=== PATIENT | female | born 1960 | race Caucasian/White ===

== ENCOUNTER → 2016-06-20 | Outpatient (CLI) | payer BC ==
[~2016-06-20] MED LIST: ADVIN25/60 INH; ALL100 PO; APR50 PO; CIPR-255 PO; DILT-119 PO; ERGO1CAP41 PO; ETHA1TAB3 PO; LEVO25TA PO
[2016-06-20 09:46] LABS: HEMATOCRIT 38.4 % (37-47); MEAN CELL VOLUME 91.9 fL (80-100); MEAN CORPUSCULAR HEMOGLOBIN 30.9 pg (25-34); MEAN CORPUSCULAR HGB CONC 33.6 g/dl (32-36); MEAN PLATELET VOLUME 10.8 fL (7.4-10.4); PLATELET COUNT 215 K/uL (130-400); RED BLOOD COUNT 4.18 M/uL (4.2-5.4); URINE APPEARANCE CLEAR (CLEAR); URINE BILIRUBIN NEG (NEG); URINE COLOR YELLOW; URINE NITRITE NEG (NEG); URINE SPECIFIC GRAVITY 1.003 (1.000-1.030); UROBILINOGEN NEG (NEG); WHITE BLOOD COUNT 6.25 K/uL (4.8-10.8)
[2016-06-20 09:51] LABS: MANUAL MICROSCOPIC REQUIRED? NO; REVIEW REQ? NO
[2016-06-20 09:59] LABS: BLOOD UREA NITROGEN 45 mg/dl (7-18); BUN/CREATININE RATIO 18.6 (10-20); CARBON DIOXIDE 25 mmol/L (21-32); CHLORIDE 106 mmol/L (98-107); GLUCOSE 109 mg/dl (70-99); PHOSPHORUS 3.2 mg/dl (2.5-4.9); POTASSIUM 3.8 mmol/L (3.5-5.1); SODIUM 141 mmol/L (136-145)
[2016-06-20 10:23] LABS: URINE PROTIEN/CREAT RATIO 2.9 (0-0.2); URINE TOTAL PROTEIN 78.9 mg/dl (0-11.9)
== END | disposition home or self-care (01) ==
LOC: C.LAB1850 07:11
PROVIDERS: ATTEND Internal Medicine Nephrology
DX: I10 Essential (primary) hypertension (principal); R80.9 Proteinuria, unspecified; E55.9 Vitamin D deficiency, unspecified; E21.3 Hyperparathyroidism, unspecified; N18.4 Chronic kidney disease, stage 4 (severe)

== ENCOUNTER → 2016-12-29 | Outpatient (CLI) | payer BC ==
[2016-12-29 09:47] LABS: HEMATOCRIT 40.2 % (37-47); MEAN CELL VOLUME 91.6 fL (80-100); MEAN CORPUSCULAR HEMOGLOBIN 32.1 pg (25-34); MEAN CORPUSCULAR HGB CONC 35.1 g/dl (32-36); MEAN PLATELET VOLUME 10.7 fL (7.4-10.4); PLATELET COUNT 254 K/uL (130-400); RED BLOOD COUNT 4.39 M/uL (4.2-5.4); WHITE BLOOD COUNT 8.15 K/uL (4.8-10.8)
[2016-12-29 09:59] LABS: URINE APPEARANCE CLEAR (CLEAR); URINE BILIRUBIN NEG (NEG); URINE COLOR YELLOW; URINE NITRITE NEG (NEG); URINE PH 5.5 (4.5-7.5); URINE SPECIFIC GRAVITY 1.014 (1.000-1.030); UROBILINOGEN NEG (NEG)
[2016-12-29 10:05] LABS: MANUAL MICROSCOPIC REQUIRED? NO; REVIEW REQ? NO
[2016-12-29 10:10] LABS: BLOOD UREA NITROGEN 40 mg/dl (7-18); BUN/CREATININE RATIO 15.5 (10-20); CALCIUM 9.7 mg/dl (8.5-10.1); CARBON DIOXIDE 26 mmol/L (21-32); CHLORIDE 105 mmol/L (98-107); GLUCOSE 109 mg/dl (70-99); POTASSIUM 3.8 mmol/L (3.5-5.1); SODIUM 139 mmol/L (136-145)
[2016-12-29 10:11] LABS: PHOSPHORUS 3.2 mg/dl (2.5-4.9)
[2016-12-29 10:15] LABS: URINE PROTIEN/CREAT RATIO 2.5 (0-0.2); URINE TOTAL PROTEIN 148.8 mg/dl (0-11.9)
== END | disposition home or self-care (01) ==
LOC: C.LAB1850 07:14
PROVIDERS: ATTEND Internal Medicine Nephrology
DX: I12.9 Hypertensive chronic kidney disease with stage 1 through stage 4 chronic kidney disease, or unspecified chronic kidney disease (principal); R80.9 Proteinuria, unspecified; E55.9 Vitamin D deficiency, unspecified; E21.3 Hyperparathyroidism, unspecified; N18.4 Chronic kidney disease, stage 4 (severe)

== ENCOUNTER → 2017-03-30 | Outpatient (CLI) | payer BC ==
[~2017-03-30] MED LIST changes: -ERGO1CAP41 PO; +ERGO500011 PO
[2017-03-30 09:33] LABS: MEAN CELL VOLUME 91.9 fL (80-100); MEAN CORPUSCULAR HEMOGLOBIN 31.2 pg (25-34); MEAN CORPUSCULAR HGB CONC 33.9 g/dl (32-36); MEAN PLATELET VOLUME 10.6 fL (7.4-10.4); PLATELET COUNT 235 K/uL (130-400); RED BLOOD COUNT 4.46 M/uL (4.2-5.4); WHITE BLOOD COUNT 7.99 K/uL (4.8-10.8)
[2017-03-30 10:00] LABS: BLOOD UREA NITROGEN 49 mg/dl (7-18); CARBON DIOXIDE 22 mmol/L (21-32); CHLORIDE 107 mmol/L (98-107); CREATININE 2.46 mg/dl (0.60-1.20); GLUCOSE 107 mg/dl (70-99); POTASSIUM 3.8 mmol/L (3.5-5.1); SODIUM 139 mmol/L (136-145)
[2017-03-30 10:01] LABS: PHOSPHORUS 3.8 mg/dl (2.5-4.9)
[2017-03-30 10:07] LABS: URINE APPEARANCE CLOUDY (CLEAR); URINE BILIRUBIN NEG (NEG); URINE COLOR YELLOW; URINE EPITHELIAL CELL AUTO >30 /lpf (0-5); URINE NITRITE NEG (NEG); URINE SPECIFIC GRAVITY 1.015 (1.000-1.030); UROBILINOGEN NEG (NEG)
[2017-03-30 10:09] LABS: MANUAL MICROSCOPIC REQUIRED? NO; REVIEW REQ? NO
[2017-03-30 10:15] LABS: CREATININE, URINE 69.5 mg/dl; URINE PROTIEN/CREAT RATIO 2.4 (0-0.2); URINE TOTAL PROTEIN 163.5 mg/dl (0-11.9)
== END | disposition home or self-care (01) ==
LOC: C.LAB1850 07:14
PROVIDERS: ATTEND Internal Medicine Nephrology
DX: I12.9 Hypertensive chronic kidney disease with stage 1 through stage 4 chronic kidney disease, or unspecified chronic kidney disease (principal); R80.9 Proteinuria, unspecified; N18.4 Chronic kidney disease, stage 4 (severe); E55.9 Vitamin D deficiency, unspecified

== ENCOUNTER → 2017-07-28 | Outpatient (CLI) | payer BC ==
[2017-07-28 09:44] LABS: HEMOGLOBIN 13.3 g/dL (12.0-16.0); MEAN CELL VOLUME 91.5 fL (80-100); MEAN CORPUSCULAR HEMOGLOBIN 31.2 pg (25-34); MEAN CORPUSCULAR HGB CONC 34.1 g/dl (32-36); MEAN PLATELET VOLUME 10.8 fL (7.4-10.4); PLATELET COUNT 235 K/uL (130-400); RED CELL DISTRIBUTION WIDTH CV 13.4 % (11.5-14.5); RED CELL DISTRIBUTION WIDTH SD 44.3 fL (36.4-46.3); WHITE BLOOD COUNT 7.12 K/uL (4.8-10.8)
[2017-07-28 10:05] LABS: ALBUMIN 3.6 gm/dl (3.4-5.0); BLOOD UREA NITROGEN 47 mg/dl (7-18); CALCIUM 9.1 mg/dl (8.5-10.1); CARBON DIOXIDE 21 mmol/L (21-32); CREATININE 2.65 mg/dl (0.60-1.20); GLUCOSE 95 mg/dl (70-99); PHOSPHORUS 3.9 mg/dl (2.5-4.9); POTASSIUM 3.9 mmol/L (3.5-5.1); SODIUM 137 mmol/L (136-145)
== END | disposition home or self-care (01) ==
LOC: C.LAB1850 07:16
PROVIDERS: ATTEND Internal Medicine Nephrology
DX: I12.9 Hypertensive chronic kidney disease with stage 1 through stage 4 chronic kidney disease, or unspecified chronic kidney disease (principal); R80.9 Proteinuria, unspecified; E55.9 Vitamin D deficiency, unspecified; N18.4 Chronic kidney disease, stage 4 (severe)

== ENCOUNTER → 2017-12-02 | Outpatient (CLI) | payer BC ==
[2017-12-02 09:58] LABS: HEMATOCRIT 35.7 % (37-47); HEMOGLOBIN 11.9 g/dL (12.0-16.0); MEAN CORPUSCULAR HEMOGLOBIN 30.7 pg (25-34); MEAN CORPUSCULAR HGB CONC 33.3 g/dl (32-36); MEAN PLATELET VOLUME 10.6 fL (7.4-10.4); PLATELET COUNT 237 K/uL (130-400); RED CELL DISTRIBUTION WIDTH CV 13.3 % (11.5-14.5); RED CELL DISTRIBUTION WIDTH SD 44.3 fL (36.4-46.3); WHITE BLOOD COUNT 6.53 K/uL (4.8-10.8)
[2017-12-02 10:33] LABS: ALBUMIN 3.6 gm/dl (3.4-5.0); BLOOD UREA NITROGEN 47 mg/dl (7-18); CALCIUM 9.1 mg/dl (8.5-10.1); CARBON DIOXIDE 22 mmol/L (21-32); CREATININE 2.49 mg/dl (0.60-1.20); GLUCOSE 92 mg/dl (70-99); PHOSPHORUS 3.5 mg/dl (2.5-4.9); POTASSIUM 3.7 mmol/L (3.5-5.1); SODIUM 138 mmol/L (136-145)
== END | disposition home or self-care (01) ==
LOC: C.LAB1850 07:06
PROVIDERS: ATTEND Internal Medicine Nephrology
DX: I12.9 Hypertensive chronic kidney disease with stage 1 through stage 4 chronic kidney disease, or unspecified chronic kidney disease (principal); N18.4 Chronic kidney disease, stage 4 (severe); R80.9 Proteinuria, unspecified; E21.3 Hyperparathyroidism, unspecified; E55.9 Vitamin D deficiency, unspecified

== ENCOUNTER 2019-03-24 16:59 | Inpatient (IN) ==
--- NOTE | 2019-03-24 17:52 | XRay Report ---
SINGLE VIEW CHEST CLINICAL HISTORY: Dyspnea. FINDINGS: An AP, portable, upright chest radiograph is compared to study dated 07/20/2018. The heart is enlarged. There is pulmonary vascular congestion. Trace pleural effusions are noted with bibasilar a telectasis. No pneumothorax is seen. The skeletal structures are osteopenic. The bony thorax is gross ly intact. IMPRESSION: 1. Cardiomegaly with evidence of mild congestive failure. 2. Trace pleural effusions. Electronically signed by: Oscar Way M.D. 03/24/2019 5:50 PM
[2019-03-24 19:01] LABS: Partial Thromboplastin Ratio 0.7; Partial Thromboplastin Time < 20.0 Seconds (21.0-31.0); Prothrombin Time 10.5 Seconds (9.0-12.0)
[2019-03-24 19:02] LABS: Alanine Aminotransferase 53 U/L (12-78); Albumin Level 3.3 gm/dl (3.4-5.0); Aspartate Aminotransferase 14 U/L (15-37); BUN Creatinine Ratio 31.2 (10-20); Blood Urea Nitrogen 107 mg/dl (7-18); Calcium 8.9 mg/dl (8.5-10.1); Carbon Dioxide 20 mmol/L (21-32); Chloride 108 mmol/L (98-107); Creatinine Clr Calc Pharmacy 20.1 ml/min; Est GFR (African American) 16.4; Est GFR (Non-African American) 14.2; Glucose 159 mg/dl (70-99); Potassium 4.4 mmol/L (3.5-5.1); Sodium 138 mmol/L (136-145)
[2019-03-24 19:06] LABS: Albumin Globulin Ratio 1.1 (0.9-2); Alkaline Phosphatase 70 U/L (45-117); Bilirubin,Total 0.4 mg/dl (0.2-1); NT Pro B Type Natriuretic Pept 4232 pg/ml (0-900); Total Protein 6.3 gm/dl (6.4-8.2); Troponin I < 0.015 ng/ml (0-0.045)
[2019-03-24] MEDS ORDERED: HydrALAZINE TAB 50 MG TAB PO STA (19:19)
[2019-03-24] MEDS ORDERED: FUROSEMIDE 40 MG/4 ML VIAL IV STA (19:20)
[2019-03-24 19:21] LABS: Influenza A virus by PCR Neg for Influ A (Neg); Influenza B virus by PCR Neg for Influ B (Neg)
[2019-03-24 19:29] LABS: Hematocrit (blood only) 32.1 % (37-47); Hemoglobin 10.8 g/dL (12.0-16.0); Immature Granulocytes # (auto) 0.03 K/uL (0.00-0.02); Immature Granulocytes % (auto) 0.3 %; Lymphocytes # (auto) 0.15 K/uL (1.2-3.4); Lymphocytes % (auto) 1.3 %; Mean Corpuscular Hemoglobin 30.9 pg (25-34); Mean Corpuscular Hgb Conc 33.6 g/dL (32-36); Mean Corpuscular Volume 91.7 fL (80-100); Mean Platelet Volume 10.2 fL (7.4-10.4); Monocytes # (auto) 0.16 K/uL (0.11-0.59); Monocytes % (auto) 1.4 %; Neutrophils # (auto) 10.85 K/uL (1.4-6.5); Platelet Count 96 K/uL (130-400); Platelet Estimate Decreased (Normal); RDW Coefficient of Variation 15.9 % (11.5-14.5); RDW Standard Deviation 52.5 fL (36.4-46.3); White Blood Count 11.19 K/uL (4.8-10.8)
--- NOTE | 2019-03-24 19:39 | History & Physical Report ---
Date of Service March 24, 2019 Assessment & Plan (1) CHF (congestive heart failure): This is a 58-year-old female with a significant past medical history of subacute hypersensitivity pneumonitis, CKD stage V with AV fistula in place secondary to atrophic left kidney, HTN, HLD, hypothyroidism, anemia of chronic disease, JAVED on CPAP, gout, history of angioedema with BRITTANI inhibitor, pseudotumor cerebri, secondary hyperparathyroidism who presents to [facility] ED secondary to shortness of breath and lower extremity swelling x1.5 days. She was seen by PCP in outpatient setting today and was referred to ED for further evaluation secondary to chest x-ray revealing pulmonary vascular congestion and abnormal lab work. In ED chest x-ray revealed cardiomegaly with evidence of mild CHF, trace pleural effusion. proBNP elevated 4232 (last on 01/07/2019 1382), H&H 10.8 and 32.1, WBC 11.19, platelet 96, BUN 107, creatinine 3.43, glucose 159. Troponin WNL, influenza negative. EKG revealed 85 bpm with normal sinus rhythm. Acute congestive heart failure likely secondary to high dose steroid Admit to PCU given Lasix 40mg x 1 in ED - monitor response Hydralazine 50mg x 1 now consult nephrology - defer to them for further diuretic dosing based on response and follow up labs in a.m. obtain echocardiogram due to CHF and new onset murmur ( last had stress echo 10/2018 WNL EF 60-64%, no diastolic dysfunction) heart healthy, low sodium diet, FR 1500ml daily weights, strict I and O continue prednisone for now - will need to consult with [facility] in a.m. (2) Thrombocytopenia: Patient with complaints of increased bruising since being started on prednisone Platelet count 96 today, most previously 12/2018 234 Defer to nephro given CKD (3) Hyperglycemia: Blood glucose on admission 159, nonfasting Obtain fasting blood glucose in a.m. along with A1c Likely in setting of prednisone use (4) Chronic kidney disease, stage V: BUN/creatinine 107 and 3.43 Baseline creatinine 3.3-3.6 Has left AV fistula in place, but not currently on dialysis [facility] -follows Dr. Corona repeat bmp in a.m. monitor given diuresis (5) Interstitial lung disease: recent dx subacute HP Currently on 60mg prednisone by [facility] Boss - Dr. Mcrae on 03/02/19 Pred taper ( 60mg daily x 1 month, 50mg daily x 1 month, 40mg daily x 1 month then 30mg daily) will need to discuss with [facility] [place] [place] Mcrae regarding current prednisone use/acute CHF (6) Hypertension: BP 167/80 in ED On Hydralazine, Diltiazem as outpt pt due for hydralazine, give 50mg x 1 now monitor (7) DVT prophylaxis: SCD/TEDS no chemical prophylaxis for now due to new onset thrombocytopenia Disposition: admit to PCU Follow up: PCP Dr. Salamanca upon discharge Patient was seen and examined in collaboration with Dr. Aguero, please see addendum History of Present Illness Chief Complaint: Shortness of breath and increased lower extremity swelling x1.5 days. Primary Care Provider: Kenton Salamanca MD This is a 58-year-old female with a significant past medical history of subacute hypersensitivity pneumonitis, CKD stage V with AV fistula in place secondary to atrophic left kidney, HTN, HLD, hypothyroidism, anemia of chronic disease, JAVED on CPAP, gout, history of angioedema with BRITTANI inhibitor, pseudotumor cerebri, secondary hyperparathyroidism who presents to [facility] ED secondary to shortness of breath and lower extremity swelling x1.5 days. Of significance [facility] 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 She followed up with pulmonology on 03/02/2019 secondary to continued shortness of breath and cough. Because of this she was placed on high-dose steroid taper at 60 mg daily x1 month to taper down by 10 mg each month until follow-up. Approximately 2 weeks ago she noted a 5 pound weight gain. Over the past 5 days she has also had an additional 5 pound weight gain for a total of 10 pounds. Over the past 1.5 to 2 days she has noted a significant increase in shortness of breath with even minimal exertion including standing up, dry cough and lower extremity swelling. She denies any recent illness except for Thrush in which she has been taking clotrimazole troches for 8 days. She denies fever, chills, sweats, lightheadedness, dizziness, syncope, headache, URI symptoms, chest pain, shortness breath at rest, hemoptysis, nausea, vomiting, abdominal pain, dysuria, increased urgency frequency with urination, hematuria, melena, hematochezia. Her bowel habits have been more loose lately secondary to taking magnesium supplementation due to left hand cramping. She was seen by PCP in outpatient setting today and was referred to ED for further evaluation secondary to chest x-ray revealing pulmonary vascular congestion and abnormal lab work. In ED chest x-ray revealed cardiomegaly with evidence of mild CHF, trace pleural effusion. proBNP elevated 4232 (last on 01/07/2019 1382), H&H 10.8 and 32.1, WBC 11.19, platelet 96, BUN 107, creatinine 3.43, glucose 159. Troponin WNL, influenza negative. EKG revealed 85 bpm with normal sinus rhythm. Case Discussed with ED provider. Supplemental records reviewed in EPIC. Allergies Allergy/AdvReac Type Severity Reaction Status Date / Time spironolactone Allergy Intermediate LIP Verified 03/24/19 18:21 SWELLING, COUGH nitrofurantoin Allergy Unknown Hives Verified 03/24/19 18:21 Sulfa (Sulfonamide Allergy Unknown hives- Verified 03/24/19 18:21 Antibiotics) anaphylaxis adhesive tape Allergy Redness of Verified 03/24/19 20:38 Skin sertraline Allergy Unknown Verified 03/24/19 20:38 BRITTANI Inhibitors AdvReac Unknown SWELLING, Verified 03/24/19 18:21 COUGHING benazepril AdvReac Cough Verified 03/24/19 21:01 Home Medications Home Medications Medication Instructions Recorded Confirmed Type allopurinol 100 mg PO QAM 07/09/18 03/24/19 History atorvastatin 20 mg PO QAM 07/09/18 03/24/19 History diltiazem HCl 360 mg PO QAM 07/09/18 03/24/19 History ethacrynic acid [Edecrin] 50 mg PO BID 07/09/18 03/24/19 History hydralazine 50 mg PO TIDM 07/09/18 03/24/19 History levothyroxine 75 mcg tablet 37.5 mcg PO QAM #30 tab 12/09/18 03/24/19 Rx fluticasone propionate-salmeterol 2 puff INHALATION BID gm 12/10/18 03/24/19 History 230 mcg-21 mcg/actuation HFA inhaler albuterol sulfate 90 mcg/actuation 2 puffs INH Q4H PRN 02/23/19 03/24/19 History aerosol inhaler clotrimazole 10 mg PO 5XD 03/24/19 03/24/19 History magnesium carbonate 0 mg PO DAILY PRN 03/24/19 03/24/19 History prednisone 60 mg PO DAILY 03/24/19 03/24/19 History Past Med/Surg History Medical History (Updated 03/24/19 @ 19:55 by Tete Tinoco PA-C) Asthma Chronic kidney disease, stage V (Chronic) Congenital renal atrophy History of colon polyps Hyperlipidemia Hypertension (Chronic) Hypothyroidism Interstitial lung disease 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 [facility] [place] Proteinuria (Chronic) Sleep apnea Vitamin D deficiency (Chronic) Surgical History (Updated 03/24/19 @ 19:42 by Tete Tinoco PA-C) Arteriovenous fistula LEFT ARM AVF: 07/27/18: MAC SEDATION AT [facility] History of cardiac cath 16 YEARS AGO= NO STENTS History of cholecystectomy History of lung biopsy 02/14/2019 THORACOCSOCPY W/ INFILTRATE BIOPSY performed by Trevon Torres MD at [facility] Hx of dilation and curettage Family History (Updated 03/24/19 @ 19:42 by Tete Tinoco PA-C) Grandmother (Paternal) Family history of diabetes mellitus Uncle Family history of diabetes mellitus Father Cancer LUNG Mother Cancer renal cell ca Social History (Updated 03/24/19 @ 19:43 by Tete Tinoco PA-C) Preferred Language: Chadian Communication Ability: Effective Subsurface Augmentee Elint Operator Required: Yes and No Beliefs That Will Affect Care: None marital status: Current Living Situation: Spouse and Family current occupational status: employed Other Information That Helps Us Care for You: No Feels Safe at Home: Yes Safety Concerns: Feels Safe At This Time Smoking Status: Never smoker Second Hand Exposure: Yes ; Hx Alcohol Use: No Hx Substance Use: No Review of Systems Review of Systems: All systems reviewed & are unremarkable except as noted in HPI & below Physical Exam Physical Exam: Constitutional: WD/WN, vitals as above, NAD, sitting up in bed, pleasant, conversing easily Head: Normocephalic, Atraumatic Eyes: PERRL, conjunctivae normal, anicteric sclerae ENMT: external ear and nose normal, oropharynx normal - no thrush present Neck: trachea midline, no thyromegaly normal visual inspection Respiratory: normal respiratory effort, lungs clear to auscultation, no wheeze, rales, rhonchi. Normal insp/exp effort, no accessory muscle use Cardiovascular: RRR, 2/6 holosystolic murmur noted throughout precordium best RUSB, b/l pitting edema +1 Vessels: no JVD or carotid bruit Chest: normal inspection of chest Abdomen: normal bowel sounds, soft, nontender, no hepatosplenomegaly Musculoskeletal: no cyanosis or clubbing, extremities motor strength 5/5 Skin: no rashes, warm and dry normal turgor Neurologic: PERRL, EOMI, accommodation nl, no face palsy, no dysarthria CN's II-XI intact bilaterally and moves all extremities Psychiatric: A+Ox3, euthymic affect Lymphatic: no cervical or axillary lymphadenopathy : deferred Results & Data Vital Signs (Past 12 Hours) Vital Signs Temp Pulse Resp BP Pulse Ox 03/24/19 18:56 96 03/24/19 17:24 36.6 C 93 H 24 167/80 H 96 Laboratory Results Short CBC 03/24/19 Range/Units 18:23 WBC 11.19 H (4.8-10.8) K/uL Hgb 10.8 L (12.0-16.0) g/dL Hct 32.1 L (37-47) % Plt Count 96 L (130-400) K/uL BMP 03/24/19 18:23 Sodium 138 Potassium 4.4 Chloride 108 H Carbon Dioxide 20 L BUN 107 H Creatinine 3.43 H Glucose 159 H Calcium 8.9 Cardiac Enzymes 03/24/19 Range/Units 18:23 Troponin I < 0.015 (0-0.045) ng/ml Liver Function 03/24/19 Range/Units 18:23 Total Bilirubin 0.4 (0.2-1) mg/dl AST 14 L (15-37) U/L ALT 53 (12-78) U/L Alkaline Phosphatase 70 (45-117) U/L Albumin 3.3 L (3.4-5.0) gm/dl Diagnostic Findings CXR: IMPRESSION: 1. Cardiomegaly with evidence of mild congestive failure. 2. Trace pleural effusions. Medications Administered Discontinued Medications Furosemide (Lasix) 40 mg IV NOW STA Stop: 03/24/19 19:21 Last Admin: 03/24/19 19:31 Dose: 40 mg Documented by: [id number] ECG Rate (beats per minute): 85 Rhythm: normal sinus Code Status & VTE Plan Code Status Full Code VTE Prophylaxis Plan VTE Prophylaxis will be ordered: Yes Reason for no VTE drug order: Contraindicated (new onset thrombocytopenia) Supervising Physician Co-Signing Physician Notes I have seen and examined the patient and have discussed the case with the provider above. I agree with the assessment and plan as stated with the following exceptions. 58 yo F with CKD IV who is planned for a transplant from a live donor, deferred to treat her recent diagnosis of hypersensitivity pneumonitis with a course of high dose steroids. She started 60mg mid-Nov and states she was feeling well up until 2 days ago when she developed acute shortness of breath, a dry cough and swelling. She denies infectious symptoms but does have evidence of a possible UTI. She has clear lungs to auscultation and is not dyspneic at rest. She has no JVD or pitting edema. Abdomen is soft and nontender without distension. She does have a new concerning murmur in the setting of symptoms that is a harsh 3/6 ARAMIS, S1 and S2 are heard. A pericardial friction rub is also appreciated. she is not hypoxic and doesn't exhibit conversational dyspnea or orthopnea. Reports weight gain as above. Possible etiologies for symptoms include but are not limited to acute heart failure 2/2 steroid use vs acute valvulopathy, ecchymosis 2/2 uremic platelet dysfunction vs thrombocytopenia. Echo first thing in am. Nephro consulted. She responded wel l to the diuretics with a 3lb weight loss. Cont daily weights, low Na diet and fluid restriction. Rocephin pending urine culture. DO Laci (1) CHF (congestive heart failure) Heart failure chronicity: unspecified Heart failure type: unspecified Qualified Code(s): I50.9 - Heart failure, unspecified
[2019-03-24 19:56] LABS: Magnesium 2.3 mg/dl (1.8-2.4)
--- NOTE | 2019-03-24 19:56 | Emergency Department Note ---
Entered by Griselda Caba acting as a scribe for History of Present Illness General Chief complaint: Referred by Doctor Stated complaint: FILLING WITH FLUID - SENT BY DR DONNA FARMER Source: patient History of Present Illness Onset (ago): day(s) (today) Location: abdomen and lower extremity Pain Consistency: + other (episode) Quality: + other (referral by a doctor) Exacerbated By: + movement (exertion) Associated symptoms: + cough, + shortness of breath and + other (leg swelling, weight gain, rhinorrhea, sore throat, bruising) The patient is a 58 year old female who presents to the Emergency Room with complaints of an episode of a referral by a doctor occurring today. The patient states that she has ESRD, but is not on dialysis yet. She states that she does have a fistula already placed. She reports that 3 weeks ago she was diagnosed with an issue with her lungs. She states that they started her on a Prednisone taper, but is currently been on only 60 mg since starting. She reports that over the last 2 weeks she has had increased leg swelling and put on 10 lbs. She reports that 4 days ago she started having a cough and rhinorrhea. She states that she started having shortness of breath over the last 2 days with exertion as well. She reports that she went to her PCP today who did x-rays and blood work, but called her after she left to come to the ED to be admitted. The patient notes that she was also diagnosed with thrush 8 days ago by her dentist. The patient complains of increased bruising and a sore throat. Home Medications Home Medications Medication Instructions Recorded Confirmed Type allopurinol 100 mg PO QAM 07/09/18 03/24/19 History atorvastatin 20 mg PO QAM 07/09/18 03/24/19 History diltiazem HCl 360 mg PO QAM 07/09/18 03/24/19 History ethacrynic acid [Edecrin] 50 mg PO BID 07/09/18 03/24/19 History hydralazine 50 mg PO TIDM 07/09/18 03/24/19 History levothyroxine 75 mcg tablet 37.5 mcg PO QAM #30 tab 12/09/18 03/24/19 Rx fluticasone propionate-salmeterol 2 puff INHALATION BID gm 12/10/18 03/24/19 History 230 mcg-21 mcg/actuation HFA inhaler albuterol sulfate 90 mcg/actuation 2 puffs INH Q4H PRN gm 02/23/19 03/24/19 History aerosol inhaler clotrimazole 10 mg PO 5XD 03/24/19 03/24/19 History magnesium carbonate 0 mg PO DAILY PRN 03/24/19 03/24/19 History prednisone 60 mg PO DAILY 03/24/19 03/24/19 History Allergies Allergy/AdvReac Type Severity Reaction Status Date / Time spironolactone Allergy Intermediate LIP Verified 03/24/19 18:21 SWELLING, COUGH nitrofurantoin Allergy Unknown Hives Verified 03/24/19 18:21 Sulfa (Sulfonamide Allergy Unknown hives- Verified 03/24/19 18:21 Antibiotics) anaphylaxis benazepril Allergy Verified 03/24/19 18:21 sertraline Allergy Verified 03/24/19 18:21 BRITTANI Inhibitors AdvReac Unknown SWELLING, Verified 03/24/19 18:21 COUGHING Past Med/Surg History Medical History (Updated 03/24/19 @ 19:55 by Tete Tinoco PA-C) Asthma Chronic kidney disease, stage V (Chronic) Congenital renal atrophy History of colon polyps Hyperlipidemia Hypertension (Chronic) Hypothyroidism Interstitial lung disease 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 [facility] Proteinuria (Chronic) Sleep apnea Vitamin D deficiency (Chronic) Surgical History (Updated 03/24/19 @ 19:42 by Tete Tinoco PA-C) Arteriovenous fistula LEFT ARM AVF: 07/27/18: MAC SEDATION AT [facility] History of cardiac cath 16 YEARS AGO= NO STENTS History of cholecystectomy History of lung biopsy 02/14/2019 THORACOCSOCPY W/ INFILTRATE BIOPSY performed by Trevon Torres MD at [place] [facility] [place] Hx of dilation and curettage Family History (Updated 03/24/19 @ 19:42 by Tete Tinoco PA-C) Grandmother (Paternal) Family history of diabetes mellitus Uncle Family history of diabetes mellitus Father Cancer LUNG Mother Cancer renal cell ca Social History (Updated 03/24/19 @ 19:43 by Tete Tinoco PA-C) Preferred Language: Swedish Communication Ability: Effective 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 and A total of 10 systems reviewed and were otherwise negative Physical Exam Vital Signs Vital Signs - 24 hr 03/24/19 17:24 03/24/19 18:56 03/24/19 19:32 Temperature 36.6 C Temperature Source Oral Pulse Rate 93 H Pulse Rate [Apical] 91 H Respiratory Rate 24 18 Respiratory Effort / Characteristics Non-Labored Respiratory Depth Normal Blood Pressure 167/80 H Blood Pressure [Right Arm] 150/79 H Blood Pressure Mean 109 Blood Pressure Mean [Right Arm] 102 Pulse Oximetry 96 96 93 Oxygen Delivery Method Room Air Room Air Room Air Sepsis Recent Fever Within 48 Hours No Sepsis New/Unexplained Change in Mental Status No Sepsis Action Taken by Nursing No Action Required GENERAL: sitting up in bed, disheveled, nontoxic EYE EXAM: normal conjunctiva OROPHARYNX: no exudate, no erythema, lips, buccal mucosa, and tongue normal and mucous membranes are moist NECK: supple, no nuchal rigidity, no adenopathy, non-tender LUNGS: Clear to auscultation. Normal chest wall mechanics HEART: no murmurs, S1 normal and S2 normal ABDOMEN: abdomen soft, non-tender, normo-active bowel sounds, no masses, no rebound or guarding. BACK: Back is symmetrical on inspection and there is no deformity, no midline tenderness, no CVA tenderness. SKIN: no rashes and no bruising UPPER EXTREMITIES: upper extremities are grossly normal. Fistula in left AC. LOWER EXTREMITIES: Bilateral pitting edema. NEURO EXAM: Normal sensorium, cranial nerves II-XII grossly intact, normal speech, no gross weakness of arms, no gross weakness of legs. Course Course ED COURSE: Vital signs were reviewed and showed hypertension. The patients medical record was reviewed The above diagnostic studies were performed and reviewed. ED treatments and interventions as stated above. 1731: The patient was evaluated in room C9. A complete history and physical examination was performed. 1810: Upon reevaluation, the patient is yelling and screaming in the room. She states that she doesn't want blood work or an IV. I expressed to her that if she wants to be direct admitted her doctor could put those orders in, but they did not and sent her to the ED. I told her that to be admitted she needed to complete the blood work and have the IV. I discussed my findings with the patient and she understands and agrees with the treatment plan. Based on the patients age, coexisting illnesses, exam and lab findings the decision to treat as an inpatient was made. The patient remained stable while under my care. The patient will be evaluated for further management. 1815: I discussed the patient's case with Tete Tinoco PA-C -[facility] Hospitalist. She will evaluate the patient under Dr. Aguero's service for further management. Administered Medications Discontinued Medications Furosemide (Lasix) 40 mg IV NOW STA Stop: 03/24/19 19:21 Last Admin: 03/24/19 19:31 Dose: 40 mg Documented by: [id number] Hydralazine HCl (Apresoline) 50 mg PO NOW STA Stop: 03/24/19 19:20 Last Admin: 03/24/19 19:47 Dose: 50 mg Documented by: [id number] Medical Decision Making Differential Diagnosis Differential diagnoses includes but is not limited to pneumonia, bronchitis, COPD/Asthma exacerbation, pneumothorax, pulmonary embolism, congestive heart failure, acute coronary syndrome. Medical Records Attestation: I reviewed the patient's medical records. Home Medications Current Medication List: was personally reviewed by me Laboratory Data Attestation: I reviewed the patient's lab results. Result diagrams: 03/24/19 18:23 03/24/19 18:23 Lab Results 03/24/19 03/24/19 03/24/19 Range/Units 18:23 18:23 18:23 WBC 11.19 H (4.8-10.8) K/uL RBC 3.50 L (4.2-5.4) M/uL Hgb 10.8 L (12.0-16.0) g/dL Hct 32.1 L (37-47) % MCV 91.7 (80-100) fL MCH 30.9 (25-34) pg MCHC 33.6 (32-36) g/dL RDW Std Deviation 52.5 H (36.4-46.3) fL RDW Coeff of Grover 15.9 H (11.5-14.5) % Plt Count 96 L (130-400) K/uL MPV 10.2 (7.4-10.4) fL Immature Gran % (Auto) 0.3 % Neut % (Auto) 97.0 % Lymph % (Auto) 1.3 % [place] % (Auto) 1.4 % Eos % (Auto) 0.0 % Baso % (Auto) 0.0 % Immature Gran # (Auto) 0.03 H (0.00-0.02) K/uL Neut # (Auto) 10.85 H (1.4-6.5) K/uL Lymph # (Auto) 0.15 L (1.2-3.4) K/uL [place] # (Auto) 0.16 (0.11-0.59) K/uL Eos # (Auto) 0.00 (0-0.5) K/uL Baso # (Auto) 0.00 (0-0.2) K/uL Platelet Estimate Decreased L (Normal) PT 10.5 (9.0-12.0) Seconds INR 1.0 (0.9-1.1) APTT < 20.0 L (21.0-31.0) Seconds PTT Ratio 0.7 Sodium 138 (136-145) mmol/L Potassium 4.4 (3.5-5.1) mmol/L Chloride 108 H (98-107) mmol/L Carbon Dioxide 20 L (21-32) mmol/L Anion Gap 10.0 (3-11) BUN 107 H (7-18) mg/dl Creatinine 3.43 H (0.6-1.2) mg/dl Est Cr Clr Drug Dosing 20.1 ml/min Est GFR ( Amer) 16.4 Est GFR (Non-Af Amer) 14.2 BUN/Creatinine Ratio 31.2 H (10-20) Glucose 159 H (70-99) mg/dl Calcium 8.9 (8.5-10.1) mg/dl Total Bilirubin 0.4 (0.2-1) mg/dl AST 14 L (15-37) U/L ALT 53 (12-78) U/L Alkaline Phosphatase 70 (45-117) U/L Troponin I < 0.015 (0-0.045) ng/ml NT-Pro-B Natriuret Pep 4232 H (0-900) pg/ml Total Protein 6.3 L (6.4-8.2) gm/dl Albumin 3.3 L (3.4-5.0) gm/dl Globulin 3.0 (2.5-4.0) gm/dl Albumin/Globulin Ratio 1.1 (0.9-2) Influenza Type A (PCR) (Neg) Influenza Type B (PCR) (Neg) 03/24/19 Range/Units 18:24 WBC (4.8-10.8) K/uL RBC (4.2-5.4) M/uL Hgb (12.0-16.0) g/dL Hct (37-47) % MCV (80-100) fL MCH (25-34) pg MCHC (32-36) g/dL RDW Std Deviation (36.4-46.3) fL RDW Coeff of Grover (11.5-14.5) % Plt Count (130-400) K/uL MPV (7.4-10.4) fL Immature Gran % (Auto) % Neut % (Auto) % Lymph % (Auto) % [place] % (Auto) % Eos % (Auto) % Baso % (Auto) % Immature Gran # (Auto) (0.00-0.02) K/uL Neut # (Auto) (1.4-6.5) K/uL Lymph # (Auto) (1.2-3.4) K/uL [place] # (Auto) (0.11-0.59) K/uL Eos # (Auto) (0-0.5) K/uL Baso # (Auto) (0-0.2) K/uL Platelet Estimate (Normal) PT (9.0-12.0) Seconds INR (0.9-1.1) APTT (21.0-31.0) Seconds PTT Ratio Sodium (136-145) mmol/L Potassium (3.5-5.1) mmol/L Chloride (98-107) mmol/L Carbon Dioxide (21-32) mmol/L Anion Gap (3-11) BUN (7-18) mg/dl Creatinine (0.6-1.2) mg/dl Est Cr Clr Drug Dosing ml/min Est GFR ( Amer) Est GFR (Non-Af Amer) BUN/Creatinine Ratio (10-20) Glucose (70-99) mg/dl Calcium (8.5-10.1) mg/dl Total Bilirubin (0.2-1) mg/dl AST (15-37) U/L ALT (12-78) U/L Alkaline Phosphatase (45-117) U/L Troponin I (0-0.045) ng/ml NT-Pro-B Natriuret Pep (0-900) pg/ml Total Protein (6.4-8.2) gm/dl Albumin (3.4-5.0) gm/dl Globulin (2.5-4.0) gm/dl Albumin/Globulin Ratio (0.9-2) Influenza Type A (PCR) Neg for Influ A (Neg) Influenza Type B (PCR) Neg for Influ B (Neg) Imaging Data Radiologist's Impression: Radiology results as stated below per my review and the radiologist's interpretation: SINGLE VIEW CHEST CLINICAL HISTORY: Dyspnea. FINDINGS: An AP, portable, upright chest radiograph is compared to study dated 07/20/2018. The heart is enlarged. There is pulmonary vascular congestion. Trace pleural effusions are noted with bibasilar atelectasis. No pneumothorax is seen. The skeletal structures are osteopenic. The bony thorax is grossly intact. IMPRESSION: 1. Cardiomegaly with evidence of mild congestive failure. 2. Trace pleural effusions. Electronically signed by: Oscar Way M.D. 03/24/2019 5:50 PM ECG Data Attestation: I personally reviewed and interpreted this ECG as follows: Indication: + SOB/dyspnea Rate (beats per minute): 85 Rhythm: + sinus rhythm ECG Intervals/blocks: + Normal QT-c ECG Dows: + Normal ECG Findings: no PVCs Blood Pressure Blood Pressure Findings: Elevated blood pressure Blood Pressure Disposition: Referred to patients primary care provider [facility] Narrative Patient is a 58-year-old female who presents the ER referred in by her PCP for admission for shortness of breath question pneumonia versus CHF. Patient was initially seen and examined and I recommended blood work and IV for further e valuation as some labs such as the BNP was not back in bttner system and I did not see a troponin. On my reevaluation she had told nursing that she did not want an IV or any blood work. I informed her that we need an IV if we are going to admit her to the hospital and we need her own blood work here. She proceeded to yell and scream and note that she was sent here to be direct admitted. I let her finish her yelling and then politely explained to her that if her physician wanted her to be directly admitted they would have placed those orders in with a sent her to the floor where she would have had a bed. She continued to yell and I showed her the note from the outpatient physician which said that she sent the patient to the ER for further evaluation. She was eventually agreeable to blood work and IV. My interpretation of the chest x-ray is CHF. Labs showed mild leukocytosis of 11,000. Mild anemia 10. There was a thrombocytopenia. INR unremarkable. BMP with a creatinine 3.43 consistent with previous. Troponin was unremarkable. Influenza was unremarkable. EKG was unremarkable. She did have a new murmur. Held on diuresis due to chronic kidney disease although I favor this will be beneficial. Patient was admitted to the hospitalist Impression & Plan DORANTES (dyspnea on exertion), CHF (congestive heart failure), Pleural effusion, Newly recognized murmur Discharge Plan Visit Data Chief Complaint: Referred by Doctor Stated Complaint: FILLING WITH FLUID - SENT BY DR DONNA FARMER ED Provider: Ari Carr Discharge Problem: DORANTES (dyspnea on exertion), CHF (congestive heart failure), Pleural effusion, Newly recognized murmur Patient Disposition: Being Evaluated by Hospitalist Forms Stand Alone Forms: My [facility] Prescriptions Prescriptions: No Action levothyroxine 75 mcg tablet 37.5 mcg PO QAM Qty: 30 RF: 1 albuterol sulfate 90 mcg/actuation HFA aerosol inhaler 2 puffs INH Q4H PRN (Reason: Shortness Of Breath) RF: 0 atorvastatin 20 mg Tablet 20 mg PO QAM RF: 0 ethacrynic acid [Edecrin] 25 mg Tablet 50 mg PO BID RF: 0 diltiazem HCl 360 mg Capsule,Extended Release 24hr 360 mg PO QAM RF: 0 allopurinol 100 mg Tablet 100 mg PO QAM RF: 0 hydralazine 50 mg Tablet 50 mg PO TIDM RF: 0 Advair HFA 230-21 mcg/actuation HFA aerosol inhaler 2 puff INHALATION BID RF: 0 clotrimazole 10 mg jason 10 mg PO 5XD RF: 0 prednisone 20 mg tablet 60 mg PO DAILY RF: 0 magnesium carbonate 54 mg/5 mL Liquid 0 mg PO DAILY PRN (Reason: Insomnia) RF: 0 Referrals Referrals: Kenton Salamanca MD [Primary Care Provider] - Discharge Problem: CHF (congestive heart failure) Qualifiers: Heart failure type: unspecified Heart failure chronicity: unspecified Qualified Code(s): I50.9 - Heart failure, unspecified The scribe's documentation has been prepared under my direction and personally reviewed by me in its entirety. I confirm that the note above accurately reflects all work, treatment, procedures, and medical decision making performed by me.
[2019-03-24 20:27] LABS: Appearance Urine Clear (Clear); Bacteria Urine Automated 4+ (Negative); Bilirubin Urine Negative (Negative); Blood Urine Negative (Negative); Cast Urine Automated 0 /lpf (0-5); Color Urine Yellow; Glucose Urine UA Negative (Negative); Ketones Urine Negative (Negative); Leukocyte Esterase Urine Trace (Negative); Nitrite Urine Negative (Negative); Protein Urine 4+ (Negative); RBC Urine Automated 0-4 /hpf (0-4); Specific Gravity Urine 1.016 (1.000-1.030); Urobilinogen Urine Negative (Negative)
[2019-03-24] MEDS ORDERED: ONDANSETRON INJ 2 MG/ML 2 ML VIAL IV PRN (20:54)
[2019-03-24] MEDS ORDERED: POLYETHYLENE (MIRALAX) 17 GM PACK PO PRN (20:54)
[2019-03-24] MEDS ORDERED: ACETAMINOPHEN 325 MG TAB PO PRN (20:54)
[2019-03-24] MEDS ORDERED: ALBUTEROL HFA 8 GM INHALER INH PRN (20:54)
[2019-03-24] MEDS: ETHACRYNIC ACID 25 MG TAB PO SCH (22:16)
[2019-03-24] MEDS: CLOTRIMAZOLE 10 MG TROCHE BUCCAL SCH (22:16)
[2019-03-24] MEDS: cefTRIAXone SODIUM 2,000 MG in DEXTROSE 5% 50 ML IV SCH (23:13)
[2019-03-25] MEDS: LEVOTHYROXINE SODIUM 25 MCG TABLET PO SCH (05:09)
[2019-03-25] MEDS: ATORVASTATIN 20 MG TAB PO SCH (08:09)
[2019-03-25] MEDS: CLOTRIMAZOLE 10 MG TROCHE BUCCAL SCH (08:09)
[2019-03-25] MEDS: predniSONE 20 MG TAB PO SCH (08:09)
[2019-03-25] MEDS: ETHACRYNIC ACID 25 MG TAB PO SCH ×2 (08:09→20:51)
[2019-03-25] MEDS: allopurinoL 100 MG TAB PO SCH (08:09)
[2019-03-25] MEDS: HydrALAZINE TAB 50 MG TAB PO SCH ×3 (08:10→16:13)
[2019-03-25] MEDS: dilTIAZem HCL 180 MG CAPCR PO SCH (08:10)
[2019-03-25 08:25] LABS: Eosinophils # (auto) 0.03 K/uL (0-0.5); Eosinophils % (auto) 0.3 %; Hematocrit (blood only) 32.1 % (37-47); Hemoglobin 10.4 g/dL (12.0-16.0); Immature Granulocytes # (auto) 0.03 K/uL (0.00-0.02); Immature Granulocytes % (auto) 0.3 %; Lymphocytes # (auto) 0.69 K/uL (1.2-3.4); Mean Corpuscular Hemoglobin 30.3 pg (25-34); Mean Corpuscular Hgb Conc 32.4 g/dL (32-36); Mean Corpuscular Volume 93.6 fL (80-100); Mean Platelet Volume 12.2 fL (7.4-10.4); Monocytes % (auto) 6.1 %; Neutrophils # (auto) 9.98 K/uL (1.4-6.5); Neutrophils % (auto) 87.3 %; Platelet Count 56 K/uL (130-400); RDW Coefficient of Variation 15.7 % (11.5-14.5); RDW Standard Deviation 53.3 fL (36.4-46.3); Red Blood Count 3.43 M/uL (4.2-5.4); White Blood Count 11.43 K/uL (4.8-10.8)
[2019-03-25 08:45] LABS: Calcium 9.1 mg/dl (8.5-10.1); Creatinine Clr Calc Pharmacy 21.1 ml/min; Est GFR (African American) 17.9; Est GFR (Non-African American) 15.5; Potassium 4.2 mmol/L (3.5-5.1)
--- NOTE | 2019-03-25 09:28 | Hospitalist Progress Note ---
Date of Service March 25, 2019 Assessment & Plan (1) CHF (congestive heart failure): Admitting service notes: This is a 58-year-old female with a significant past medical history of subacute hypersensitivity pneumonitis, CKD stage V with AV fistula in place secondary to atrophic left kidney, HTN, HLD, hypothyroidism, anemia of chronic disease, JAVDE on CPAP, gout, history of angioedema with BRITTANI inhibitor, pseudotumor cerebri, secondary hyperparathyroidism who presents to [facility] ED secondary to shortness of breath and lower extremity swelling x1.5 days. She was seen by PCP in outpatient setting today and was referred to ED for further evaluation secondary to chest x-ray revealing pulmonary vascular congestion and abnormal lab work. In ED chest x-ray revealed cardiomegaly with evidence of mild CHF, trace pleural effusion. proBNP elevated 4232 (last on 01/07/2019 1382), H&H 10.8 and 32.1, WBC 11.19, platelet 96, BUN 107, creatinine 3.43, glucose 159. Troponin WNL, influenza negative. EKG revealed 85 bpm with normal sinus rhythm. Volume overload likely secondary to high-dose steroids Rule out CHF --Patient responded to Lasix to 40 mg IV Negative fluid balance, weight down, still has some dyspnea, and leg edema -- will order another dose of Lasix 40 mg IV Monitor creatinine --Check echocardiogram (2) Thrombocytopenia: Platelet count on presentation was 96, today in the 50s No bleeding Peripheral smear ordered Medication list reviewed, no medication to cause thrombocytopenia No recent infection Monitor (3) Hyperglycemia: Likely from steroids A1c 5.6 (4) Chronic kidney disease, stage V: BUN/creatinine 107 and 3.43 Baseline creatinine 3.3-3.6 Has left AV fistula in place, but not currently on dialysis --Creatinine at baseline Monitor while on Lasix Appreciate nephrology recommendations (5) Interstitial lung disease: recent dx subacute HP Currently on 60mg prednisone by Lois Mcrae on 03/02/19 Pred taper ( 60mg daily x 1 month, 50mg daily x 1 month, 40mg daily x 1 month then 30mg daily) --May need to be on low-dose diuretic to prevent volume overload while on high-dose prednisone (6) Hypertension: Blood pressure improving Monitor (7) DVT prophylaxis: SCD/TEDS no chemical prophylaxis for now due to new onset thrombocytopenia Disposition: admit to PCU Follow up: PCP Dr. Salamanca upon discharge Subjective ff up for volume overload Sitting up in bed, comfortable, not in distress States she feels about the same as yesterday-remains about the same, but leg swelling is improved Denies chest pain, dizziness, palpitations No other symptoms Review of Systems Review of Systems: All systems reviewed & are unremarkable except as noted in HPI & below Physical Exam Physical Exam: General- oriented x 3, not in distress, speaks in sentences with no effort or accessory muscle use Head- atraumatic Eyes- PERRL, EOMI, anicteric ENT- oropharynx clear Neck- supple, no JVD, no adenopathy, no thyromegaly; carotids +2/2, no bruits appreciated Lungs- clear to auscultation bilaterally, no rales/wheezes Heart- normal rate, regular rhythm; no murmur, no gallop, no rub appreciated Abdomen- normal bowel sounds, nondistended, soft, nontender, no masses or hepatosplenomegaly Extremities-mild lower leg edema, no calf tenderness; peripheral pulses intact Neuro- alert, oriented x 3; CN 2-12 grossly intact; motor 5/5 bilaterally;sensation 100% on all extremities; no other gross focal neurologic deficits Skin- warm & dry Results & Data Vital Signs (Past 12 Hours) Vital Signs Temp Pulse Resp BP Pulse Ox 03/25/19 08:29 37.5 C 102 H 20 142/76 H 94 03/25/19 04:05 37.3 C 93 H 20 158/84 H 94 03/24/19 23:19 37.1 C 94 H 20 157/81 H 94 Laboratory Results Laboratory Results - last 24 hr 03/24/19 03/24/19 03/24/19 18:23 18:23 18:23 WBC 11.19 H RBC 3.50 L Hgb 10.8 L Hct 32.1 L MCV 91.7 MCH 30.9 MCHC 33.6 RDW Std Deviation 52.5 H RDW Coeff of Grover 15.9 H Plt Count 96 L MPV 10.2 Immature Gran % (Auto) 0.3 Neut % (Auto) 97.0 Lymph % (Auto) 1.3 [place] % (Auto) 1.4 Eos % (Auto) 0.0 Baso % (Auto) 0.0 Immature Gran # (Auto) 0.03 H Neut # (Auto) 10.85 H Lymph # (Auto) 0.15 L [place] # (Auto) 0.16 Eos # (Auto) 0.00 Baso # (Auto) 0.00 Hypersegmented Neuts Platelet Estimate Decreased L Peripher Smr Path Cons PT 10.5 INR 1.0 APTT < 20.0 L PTT Ratio 0.7 Sodium 138 Potassium 4.4 Chloride 108 H Carbon Dioxide 20 L Anion Gap 10.0 BUN 107 H Creatinine 3.43 H Est Cr Clr Drug Dosing 20.1 Est GFR ( Amer) 16.4 Est GFR (Non-Af Amer) 14.2 BUN/Creatinine Ratio 31.2 H Glucose 159 H Estimat Average Glucose Hemoglobin A1c Calcium 8.9 Magnesium 2.3 Total Bilirubin 0.4 AST 14 L ALT 53 Alkaline Phosphatase 70 Troponin I < 0.015 NT-Pro-B Natriuret Pep 4232 H Total Protein 6.3 L Albumin 3.3 L Globulin 3.0 Albumin/Globulin Ratio 1.1 Urine Color Urine Appearance Urine pH Ur Specific [place] Urine Protein Urine Glucose (UA) Urine Ketones Urine Blood Urine Nitrite Urine Bilirubin Urine Urobilinogen Ur Leukocyte Esterase Urine WBC (Auto) Urine RBC (Auto) U Hyaline Cast (Auto) U Epithel Cells (Auto) Urine Bacteria (Auto) Influenza Type A (PCR) Influenza Type B (PCR) 03/24/19 03/24/19 03/25/19 18:24 18:24 08:03 WBC 11.43 H RBC 3.43 L Hgb 10.4 L Hct 32.1 L MCV 93.6 MCH 30.3 MCHC 32.4 RDW Std Deviation 53.3 H RDW Coeff of [place]ver 15.7 H Plt Count 56 L MPV 12.2 H Immature Gran % (Auto) 0.3 Neut % (Auto) 87.3 Lymph % (Auto) 6.0 [place] % (Auto) 6.1 Eos % (Auto) 0.3 Baso % (Auto) 0.0 Immature Gran # (Auto) 0.03 H Neut # (Auto) 9.98 H Lymph # (Auto) 0.69 L [place] # (Auto) 0.70 H Eos # (Auto) 0.03 Baso # (Auto) 0.00 Hypersegmented Neuts 1+ Platelet Estimate Peripher Smr Path Cons PT INR APTT PTT Ratio Sodium Potassium Chloride Carbon Dioxide Anion Gap BUN Creatinine Est Cr Clr Drug Dosing Est GFR ( Amer) Est GFR (Non-Af Amer) BUN/Creatinine Ratio Glucose Estimat Average Glucose Hemoglobin A1c Calcium Magnesium Total Bilirubin AST ALT Alkaline Phosphatase Troponin I NT-Pro-B Natriuret Pep Total Protein Albumin Globulin Albumin/Globulin Ratio Urine Color Yellow Urine Appearance Clear Urine pH 5.0 Ur Specific [place] 1.016 Urine Protein 4+ H Urine Glucose (UA) Negative Urine Ketones Negative Urine Blood Negative Urine Nitrite Negative Urine Bilirubin Negative Urine Urobilinogen Negative Ur Leukocyte Esterase Trace H Urine WBC (Auto) 1-5 Urine RBC (Auto) 0-4 U Hyaline Cast (Auto) 0 U Epithel Cells (Auto) 10-20 H Urine Bacteria (Auto) 4+ H Influenza Type A (PCR) Neg for Influ A Influenza Type B (PCR) Neg for Influ B 03/25/19 03/25/19 08:03 08:03 WBC RBC Hgb Hct MCV MCH MCHC RDW Std Deviation RDW Coeff of [place] Plt Count MPV Immature Gran % (Auto) Neut % (Auto) Lymph % (Auto) [place] % (Auto) Eos % (Auto) Baso % (Auto) Immature Gran # (Auto) Neut # (Auto) Lymph # (Auto) [place] # (Auto) Eos # (Auto) Baso # (Auto) Hypersegmented Neuts Platelet Estimate Peripher Smr Path Cons PT INR APTT PTT Ratio Sodium 141 Potassium 4.2 Chloride 112 H Carbon Dioxide 19 L Anion Gap 9.0 BUN 105 H Creatinine 3.19 H Est Cr Clr Drug Dosing 21.1 Est GFR ( Amer) 17.9 Est GFR (Non-Af Amer) 15.5 BUN/Creatinine Ratio 33.0 H Glucose 78 Estimat Average Glucose 114 Hemoglobin A1c 5.6 Calcium 9.1 Magnesium Total Bilirubin AST ALT Alkaline Phosphatase Troponin I NT-Pro-B Natriuret Pep Total Protein Albumin Globulin Albumin/Globulin Ratio Urine Color Urine Appearance Urine pH Ur Specific [place] Urine Protein Urine Glucose (UA) Urine Ketones Urine Blood Urine Nitrite Urine Bilirubin Urine Urobilinogen Ur Leukocyte Esterase Urine WBC (Auto) Urine RBC (Auto) U Hyaline Cast (Auto) U Epithel Cells (Auto) Urine Bacteria (Auto) Influenza Type A (PCR) Influenza Type B (PCR) (1) CHF (congestive heart failure) Heart failure chronicity: unspecified Heart failure type: unspecified Qualified Code(s): I50.9 - Heart failure, unspecified
[2019-03-25 09:34] LABS: Estimated Average Glucose 114 mg/dl; Hemoglobin A1C 5.6 % (4.5-5.6)
--- NOTE | 2019-03-25 10:07 | XRay Report ---
XR chest 1V portable HISTORY: 58 years-old Female chf, ff up follow-up study in a patient with congestive heart failure COMPARISON: Chest radiograph 03/24/2019 TECHNIQUE: Portable AP view the chest FINDINGS: Cardiac silhouette is enlarged, unchanged. Pulmonary vascular congestion with unchanged interstitial opacities. Trace pleural effusions. No pneumothorax. Minimal bibasilar opacities suggest atelectasis. Degenerative changes of the shoulders and spine. IMPRESSION: 1. Cardiomegaly with unchanged pulmonary edema. 2. Trace pleural effusions persist. The above report was generated using voice recognition software. It may contain grammatical, syntax o r spelling errors. Electronically signed by: Dharmesh Longo M.D. 03/25/2019 10:06 AM
[2019-03-25] MEDS: NYSTATIN SUSP 500,000 U/5 ML UDC PO SCH ×3 (12:18→20:52)
--- NOTE | 2019-03-25 13:43 | Nephrology Consultation ---
Date of Consultation March 25, 2019 Assessment & Plan (1) CHF (congestive heart failure): Has had adequate response to diuretics. Received 40 mg of IV furosemide yesterday. Is tolerating diuresis. Symptomatically is improving. I suspect this is largely related to her steroid therapy. It is unlikely she would have a component of high-output heart failure associated with her AV fistula though this may be possible. Overall she is minimally asymptomatic otherwise however. Certainly her kidney dysfunction may be contributing to her fluid overload. But she has responded well to diuretics and there is no emergent indication for dialysis at this time. (2) Thrombocytopenia: This is new and not fully explain but will be monitored closely. (3) Chronic kidney disease, stage V: Notably azotemic in response to high-dose steroid therapy. The patient does not have uremic symptoms. Her electrolytes are otherwise appropriate. Her volume status improved with diuretics. There is no emergent indication to start dialysis at this time. Her AV fistula is mature for use. I would continue with close perspective monitoring. I would suggest that we continue to monitor blood work daily while she is an inpatient. I would suggest follow-up with Dr. Corona within 1 week of discharge which she is stable to leave the hospital. Her medications are appropriately dosed for kidney dysfunction. Complications of her kidney disease include a mild anemia which does not require any additional therapy at this time. (4) Interstitial lung disease: Management per pulmonology. (5) Hypertension: Blood pressure is improving with diuresis. Pressure is acceptable at this time assessment this morning. No additional changes in medications. History of Present Illness Reason for Consultation: CKD Requesting Physician: Jonny Fang MD Attending Physician: Jonny Fang MD History of Present Illness Destiny Pillai is a 58-year-old female with chronic kidney disease class 4-5. Ange follows in the Nephrology Clinic with Dr. Corona. She was recently evaluated in the clinic in December. Baseline creatinine has been approximately 3.3 mg/dL. CKD attributed to changes associated with chronic vesicular urethral reflux. Patient has history of recurrent urinary tract infections. She does have proteinuria consistent with glomerulosclerosis. She has experienced urinary tract infections and was diagnosed with early evidence of chronic kidney disease when she was a teenager. Patient has been prepared for the potential need to start dialysis in the near future. She has discussed this multiple times with Dr. Corona. A left brachiocephalic AV fistula was pl aced by Dr. Arreola. This has undergone transposition and is mature for use. The patient was also referred to [facility] for transplant evaluation. She has listed status 7. During her evaluation she was found to have evidence of interstitial lung disease. Additional evaluation included lung biopsy consistent with interstitial pneumonitis. For this reason she was started on high-dose prednisone therapy. She had been maintained on 60 mg of prednisone when she developed symptoms of progressive shortness of breath and weight gain. The patient noted a 10 lb weight gain. Shortness of breath with minimal but more obvious with exertion. Ange states that overall she otherwise felt well. Unfortunately laboratory studies were notable for increasing a azotemia. Patient was admitted to [facility] yesterday with evidence of volume overload. She was found to be moderately hypertensive. Her blood glucose was slightly elevated. It is felt that many of these findings were related to her steroid therapy. She was started on diuretics had adequate urine output. She is maintained in a significantly negative fluid balance since admission. Overall at the time my assessment is morning she felt well was PIN to be discharged home. Allergies Allergy/AdvReac Type Severity Reaction Status Date / Time spironolactone Allergy Intermediate LIP Verified 03/24/19 18:21 SWELLING, COUGH nitrofurantoin Allergy Unknown Hives Verified 03/24/19 18:21 Sulfa (Sulfonamide Allergy Unknown hives- Verified 03/24/19 18:21 Antibiotics) anaphylaxis adhesive tape Allergy Redness of Verified 03/24/19 20:38 Skin sertraline Allergy Unknown Verified 03/24/19 20:38 BRITTANI Inhibitors AdvReac Unknown SWELLING, Verified 03/24/19 18:21 COUGHING benazepril AdvReac Cough Verified 03/24/19 21:01 Home Medications Home Medications Medication Instructions Recorded Confirmed Type allopurinol 100 mg PO QAM 07/09/18 03/24/19 History atorvastatin 20 mg PO QAM 07/09/18 03/24/19 History diltiazem HCl 360 mg PO QAM 07/09/18 03/24/19 History ethacrynic acid [Edecrin] 50 mg PO BID 07/09/18 03/24/19 History hydralazine 50 mg PO TIDM 07/09/18 03/24/19 History levothyroxine 75 mcg tablet 37.5 mcg PO QAM #30 tab 12/09/18 03/24/19 Rx fluticasone propionate-salmeterol 2 puff INHALATION BID gm 12/10/18 03/24/19 History 230 mcg-21 mcg/actuation HFA inhaler albuterol sulfate 90 mcg/actuation 2 puffs INH Q4H PRN gm 02/23/19 03/24/19 History aerosol inhaler clotrimazole 10 mg PO 5XD 03/24/19 03/24/19 History magnesium carbonate 0 mg PO DAILY PRN 03/24/19 03/24/19 History prednisone 60 mg PO DAILY 03/24/19 03/24/19 History Patient History Medical History Asthma Chronic kidney disease, stage V (Chronic) Congenital renal atrophy History of colon polyps Hyperlipidemia Hypertension (Chronic) Hypothyroidism Interstitial lung disease 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 [facility] [place] Proteinuria (Chronic) Sleep apnea Vitamin D deficiency (Chronic) Surgical History Arteriovenous fistula LEFT ARM AVF: 07/27/18: MAC [facility]ATION AT [facility] History of cardiac cath 16 YEARS AGO= NO STENTS History of cholecystectomy History of lung biopsy 02/14/2019 THORACOCSOCPY W/ INFILTRATE BIOPSY performed by Trevon Torres [place] [facility] Hx of dilation and curettage Family History Grandmother (Paternal) Family history of diabetes mellitus Uncle Family history of diabetes mellitus Father Cancer LUNG Mother Cancer renal cell ca Social History Preferred Language: [place] Communication Ability: Effective Meat Puller Required: Yes and No Beliefs That Will Affect Care: None marital status: Current Living Situation: Spouse and Family current occupational status: employed Other Information That Helps Us Care for You: No Feels Safe at Home: Yes Safety Concerns: Feels Safe At This Time Smoking Status: Never smoker Second Hand Exposure: Yes ; Hx Alcohol Use: No Hx Substance Use: No Review of Systems Review of Systems: All systems reviewed & are unremarkable except as noted in HPI & below Physical Exam Constitutional: well developed; no acute distress Eyes: no scleral abnormality and no corneal abnormality ENMT: Mouth: no oral mucosal abnormality and oral mucous membranes not dry Neck: normal visual inspection and trachea midline Respiratory: normal respiratory effort Auscultation: lungs clear to auscultation bilaterally Cardiovascular: Rate/Rhythm: regular rate Heart Sounds: normal S1, normal S2 and + murmur Extremities: + AV fistula; no edema Musculoskeletal: Extremities: no cyanosis and no clubbing Skin: normal turgor; no lesions Neurologic: Motor/Sensory: no tremor and no asterixis Psychiatric: Orientation: alert and oriented x 3 Results & Data Vital Signs (Past 12 Hours) Vital Signs Temp Pulse Resp BP Pulse Ox 03/25/19 11:07 37.5 C 96 H 18 150/78 H 92 03/25/19 08:29 37.5 C 102 H 20 142/76 H 94 03/25/19 04:05 37.3 C 93 H 20 158/84 H 94 PG Care Time/CCT Total # of Minutes Spent Total Time Spent with Patient: Total time spent is greater than 50% in coordin ation of care (as documented) at patient's floor/unit and/or counseling patient: (1) CHF (congestive heart failure) Heart failure chronicity: unspecified Heart failure type: unspecified Qualified Code(s): I50.9 - Heart failure, unspecified
[2019-03-25] MEDS ORDERED: FUROSEMIDE 40 MG in SYRINGE 0 ML IV ONE (17:00)
[2019-03-25] MEDS: cefTRIAXone SODIUM 2,000 MG in DEXTROSE 5% 50 ML IV SCH (23:05)
[2019-03-26] MEDS: LEVOTHYROXINE SODIUM 25 MCG TABLET PO SCH (05:51)
[2019-03-26] MEDS: predniSONE 20 MG TAB PO SCH (07:56)
[2019-03-26] MEDS: allopurinoL 100 MG TAB PO SCH (07:56)
[2019-03-26] MEDS: HydrALAZINE TAB 50 MG TAB PO SCH ×3 (07:56→17:03)
[2019-03-26] MEDS: NYSTATIN SUSP 500,000 U/5 ML UDC PO SCH ×4 (07:56→21:49)
[2019-03-26] MEDS: ATORVASTATIN 20 MG TAB PO SCH (07:56)
[2019-03-26] MEDS: ETHACRYNIC ACID 25 MG TAB PO SCH ×2 (07:56→21:50)
[2019-03-26] MEDS: dilTIAZem HCL 180 MG CAPCR PO SCH (07:57)
[2019-03-26 08:23] LABS: Hematocrit (blood only) 33.4 % (37-47); Hemoglobin 11.2 g/dL (12.0-16.0); Mean Corpuscular Hemoglobin 30.9 pg (25-34); Mean Corpuscular Hgb Conc 33.5 g/dL (32-36); Mean Corpuscular Volume 92.3 fL (80-100); Platelet Count 99 K/uL (130-400); RDW Coefficient of Variation 15.8 % (11.5-14.5); RDW Standard Deviation 52.7 fL (36.4-46.3); Red Blood Count 3.62 M/uL (4.2-5.4); White Blood Count 13.53 K/uL (4.8-10.8)
[2019-03-26 08:42] LABS: Eosinophils # (auto) 0.01 K/uL (0-0.5); Eosinophils % (auto) 0.1 %; Immature Granulocytes # (auto) 0.04 K/uL (0.00-0.02); Immature Granulocytes % (auto) 0.3 %; Lymphocytes # (auto) 0.79 K/uL (1.2-3.4); Lymphocytes % (auto) 5.8 %; Monocytes # (auto) 0.55 K/uL (0.11-0.59); Monocytes % (auto) 4.1 %; Neutrophils # (auto) 12.14 K/uL (1.4-6.5); Neutrophils % (auto) 89.7 %
[2019-03-26 08:56] LABS: BUN Creatinine Ratio 29.6 (10-20); Creatinine Clr Calc Pharmacy 19.2 ml/min; Est GFR (African American) 16.3; Potassium 3.6 mmol/L (3.5-5.1)
[2019-03-26] MEDS: ADVAIR INH SCH ×5 (10:07→21:52)
[2019-03-26] MEDS ORDERED: FLUTICASONE/SALMETEROL 250/50 (ADVAIR) 14 PUFF/1 INHALER INH SCH (11:30)
[2019-03-26] MEDS ORDERED: ALBUTEROL HFA 8 GM INHALER INH PRN (11:50)
--- NOTE | 2019-03-26 11:56 | Hospitalist Progress Note ---
Date of Service March 26, 2019 Assessment & Plan (1) Volume overload: (1) CHF (congestive heart failure): Admitting service notes: This is a 58-year-old female with a significant past medical history of subacute hypersensitivity pneumonitis, CKD stage V with AV fistula in place secondary to atrophic left kidney, HTN, HLD, hypothyroidism, anemia of chronic disease, JAVED on CPAP, gout, history of angioedema with BRITTANI inhibitor, pseudotumor cerebri, secondary hyperparathyroidism who presents to [facility] ED secondary to shortness of breath and lower extremity swelling x1.5 days. She was seen by PCP in outpatient setting today and was referred to ED for further evaluation secondary to chest x-ray revealing pulmonary vascular congestion and abnormal lab work. In ED chest x-ray revealed cardiomegaly with evidence of mild CHF, trace pleural effusion. proBNP elevated 4232 (last on 01/07/2019 1382), H&H 10.8 and 32.1, WBC 11.19, platelet 96, BUN 107, creatinine 3.43, glucose 159. Troponin WNL, influenza negative. EKG revealed 85 bpm with normal sinus rhythm. Volume overload likely secondary to high-dose steroids Rule out CHF --Patient responded to Lasix to 40 mg IV Negative fluid balance, weight down, dyspnea and leg edema transition to Lasix 40mg po daily --creatinine stable --Check echocardiogram: EF normal, no valvular abnormalities (2) Thrombocytopenia: Platelet count on presentation was 96, then 50s, now 90s No bleeding Peripheral smear ordered: no myelodysplasa Medication list reviewed, no medication to cause thrombocytopenia No recent infection -- close outpatient ff up (3) Hyperglycemia: Likely from steroids A1c 5.6 (4) Chronic kidney disease, stage V: BUN/creatinine 107 and 3.43 Baseline creatinine 3.3-3.6 Has left AV fistula in place, but not currently on dialysis --Creatinine at baseline Monitor while on Lasix Appreciate nephrology recommendations (5) Interstitial lung disease: recent dx subacute HP Currently on 60mg prednisone by Lois Mcrae on 03/02/19 Pred taper ( 60mg daily x 1 month, 50mg daily x 1 month, 40mg daily x 1 month then 30mg daily) --May need to be on low-dose diuretic to prevent volume overload while on high- dose prednisone (6) Hypertension: Blood pressure improving Monitor (7) DVT prophylaxis: SCD/TEDS no chemical prophylaxis for now due to new onset thrombocytopenia ambulating in the hallways Disposition: admit to PCU Follow up: PCP Dr. Salamanca upon discharge Subjective ff up for volume overload Seen sitting up in bed, comfortable, not in distress States she continues to feel improved today Breathing is improving, swelling also improving No chest pain, palpitations, dizziness Voiding with no problems Review of Systems Review of Systems: All systems reviewed & are unremarkable except as noted in HPI & below Physical Exam Physical Exam: General- oriented x 3, not in distress, speaks in sentences with no effort or accessory muscle use Eyes- anicteric Neck- no JVD Lungs- clear breath sounds bilaterally, no crackles, no wheezing Heart- normal rate, regular rhythm; no murmurs Abdomen- normal bowel sounds, nondistended, soft, nontender [id number] pretibial edema, no calf tenderness Neuro- alert, oriented x 3; no gross focal neurologic deficits Skin- warm & dry Results & Data Vital Signs (Past 12 Hours) Vital Signs Temp Pulse Resp BP Pulse Ox 03/26/19 11:53 37.1 C 90 20 157/80 H 93 03/26/19 07:32 37 C 84 19 157/78 H 91 03/26/19 03:30 36.9 C 85 18 152/79 H 94 Laboratory Results Laboratory Results - last 24 hr 03/26/19 03/26/19 08:05 08:05 WBC 13.53 H RBC 3.62 L Hgb 11.2 L Hct 33.4 L MCV 92.3 MCH 30.9 MCHC 33.5 RDW Std Deviation 52.7 H RDW Coeff of Grover 15.8 H Plt Count 99 L D MPV 11.0 H Immature Gran % (Auto) 0.3 Neut % (Auto) 89.7 Lymph % (Auto) 5.8 [place] % (Auto) 4.1 Eos % (Auto) 0.1 Baso % (Auto) 0.0 Immature Gran # (Auto) 0.04 H Neut # (Auto) 12.14 H Lymph # (Auto) 0.79 L [place] # (Auto) 0.55 Eos # (Auto) 0.01 Baso # (Auto) 0.00 Sodium 143 Potassium 3.6 Chloride 110 H Carbon Dioxide 22 Anion Gap 11.0 BUN 103 H Creatinine 3.46 H Est Cr Clr Drug Dosing 19.2 Est GFR ( Amer) 16.3 Est GFR (Non-Af Amer) 14.0 BUN/Creatinine Ratio 29.6 H Glucose 128 H Calcium 9.0
[2019-03-26] MEDS: FUROSEMIDE 40 MG TAB PO SCH (12:31)
--- NOTE | 2019-03-26 12:34 | Nephrology Progress Note ---
Date of Service March 26, 2019 Assessment & Plan (1) CHF (congestive heart failure): Has had adequate response to diuretics. Received 40 mg of IV furosemide yesterday. Is tolerating diuresis. Symptomatically is improving. I suspect this is largely related to her steroid therapy. It is unlikely she would have a component of high-output heart failure associated with her AV fistula though this may be possible. Overall she is minimally asymptomatic otherwise however. Certainly her kidney dysfunction may be contributing to her fluid overload. But she has responded well to diuretics and there is no emergent indication for dialysis at this time. (2) Thrombocytopenia: This is new and not fully explain but will be monitored closely. (3) Chronic kidney disease, stage V: 58-year-old female with stage 5 chronic kidney disease, admitted with CHF exacerbation. Volume status improved with diuretics and responding to just Lasix 40. Bottom slight worsening of renal function however no uremic symptoms, volume status improved. Notably azotemic in response to high-dose steroid therapy. The patient does not have uremic symptoms. Her electrolytes are otherwise appropriate. Her volume status improved with diuretics. There is no emergent indication to start dialysis at this time. Her AV fistula is mature for use. I would continue with close perspective monitoring. Complications of her kidney disease include a mild anemia which does not require any additional therapy at this time. --start on Lasix 40 milligrams p.o. daily --okay to be discharged with close outpatient lab monitoring, she has follow-up with Dr. Corona within 1-2 weeks. Her medications are appropriately dosed for kidney dysfunction. Will follow (4) Interstitial lung disease: Management per pulmonology. (5) Hypertension: Blood pressure is improving with diuresis. Pressure is acceptable at this time assessment this morning. No additional changes in medications. Subjective Destiny Was seen exam this morning. She denies any significant shortness of breath or chest pain and fact she feels like her breathing much improved. Has been having decent urine output had 3 liters of urine output after just 40 of Lasix IV. Renal function staying relatively stable although there is slight worsening of BUN and creatinine but the electrolyte otherwise acceptable. Blood pressure mildly elevated. Review of Systems Review of Systems: All systems reviewed & are unremarkable except as noted in HPI & below Physical Exam Constitutional: well developed and well nourished; no acute distress Respiratory: normal respiratory effort, lungs clear to auscultation Cardiovascular: RRR, no murmur, no edema Neurologic: moves all extremities and awake; not confused Psychiatric: A+Ox3, euthymic affect Results & Data Vital Signs (Past 12 Hours) Vital Signs Temp Pulse Resp BP Pulse Ox 03/26/19 11:53 37.1 C 90 20 157/80 H 93 03/26/19 07:32 37 C 84 19 157/78 H 91 03/26/19 03:30 36.9 C 85 18 152/79 H 94 PG Care Time/CCT Total # of Minutes Spent Total Time Spent with Patient: Total time spent is greater than 50% in coordination of care (as documented) at patient's floor/unit and/or counseling patient: (1) CHF (congestive heart failure) Heart failure chronicity: unspecified Heart failure type: unspecified Qualified Code(s): I50.9 - Heart failure, unspecified
[2019-03-26] MEDS: cefTRIAXone SODIUM 2,000 MG in DEXTROSE 5% 50 ML IV SCH (21:58)
[2019-03-27] MEDS: LEVOTHYROXINE SODIUM 25 MCG TABLET PO SCH (06:13)
[2019-03-27 06:52] LABS: Hematocrit (blood only) 31.9 % (37-47); Hemoglobin 10.5 g/dL (12.0-16.0); Mean Corpuscular Hemoglobin 30.9 pg (25-34); Mean Corpuscular Hgb Conc 32.9 g/dL (32-36); Mean Corpuscular Volume 93.8 fL (80-100); Mean Platelet Volume 9.7 fL (7.4-10.4); Platelet Count 86 K/uL (130-400); RDW Coefficient of Variation 15.8 % (11.5-14.5); RDW Standard Deviation 54.1 fL (36.4-46.3); White Blood Count 10.99 K/uL (4.8-10.8)
[2019-03-27 07:25] LABS: BUN Creatinine Ratio 28.9 (10-20); Calcium 8.7 mg/dl (8.5-10.1); Creatinine Clr Calc Pharmacy 18.3 ml/min; Eosinophils # (auto) 0.02 K/uL (0-0.5); Eosinophils % (auto) 0.2 %; Est GFR (African American) 15.5; Est GFR (Non-African American) 13.4; Immature Granulocytes # (auto) 0.03 K/uL (0.00-0.02); Immature Granulocytes % (auto) 0.3 %; Lymphocytes # (auto) 0.94 K/uL (1.2-3.4); Lymphocytes % (auto) 8.6 %; Monocytes # (auto) 0.64 K/uL (0.11-0.59); Monocytes % (auto) 5.8 %; Neutrophils # (auto) 9.36 K/uL (1.4-6.5); Neutrophils % (auto) 85.1 %; Potassium 4.3 mmol/L (3.5-5.1)
[2019-03-27] MEDS: predniSONE 20 MG TAB PO SCH (08:05)
[2019-03-27] MEDS: dilTIAZem HCL 180 MG CAPCR PO SCH ×2 (08:06→09:01)
[2019-03-27] MEDS: ETHACRYNIC ACID 25 MG TAB PO SCH ×2 (08:06→09:01)
[2019-03-27] MEDS: FUROSEMIDE 40 MG TAB PO SCH (08:06)
[2019-03-27] MEDS: ATORVASTATIN 20 MG TAB PO SCH (08:06)
[2019-03-27] MEDS: HydrALAZINE TAB 50 MG TAB PO SCH ×2 (08:06→13:04)
[2019-03-27] MEDS: NYSTATIN SUSP 500,000 U/5 ML UDC PO SCH ×2 (08:06→13:04)
[2019-03-27] MEDS: allopurinoL 100 MG TAB PO SCH (08:06)
[2019-03-27] MEDS: ADVAIR INH SCH ×2 (08:07)
[2019-03-27 08:38] LABS: Folate (Folic Acid) 10.67 ng/ml (>5.38)
[2019-03-27] MEDS ORDERED: FLUCONAZOLE 100 MG TAB PO ONE (10:10)
--- NOTE | 2019-03-27 11:03 | Nephrology Progress Note ---
Date of Service March 27, 2019 Assessment & Plan (1) CHF (congestive heart failure): Has had adequate response to diuretics. Received 40 mg of IV furosemide yesterday. Is tolerating diuresis. Symptomatically is improving. I suspect this is largely related to her steroid therapy. It is unlikely she would have a component of high-output heart failure associated with her AV fistula though this may be possible. Overall she is minimally asymptomatic otherwise however. Certainly her kidney dysfunction may be contributing to her fluid overload. But she has responded well to diuretics and there is no emergent indication for dialysis at this time. (2) Thrombocytopenia: This is new and not fully explain but will be monitored closely. (3) Chronic kidney disease, stage V: 58-year-old female with stage 5 chronic kidney disease, admitted with CHF exacerbation. Volume status improved with diuretics and responding to just Lasix 40. Bottom slight worsening of renal function however no uremic symptoms, volume status improved. Notably azotemic in response to high-dose steroid therapy. The patient does not have uremic symptoms. Her electrolytes are otherwise appropriate. Her volume status improved with diuretics. There is no emergent indication to start dialysis at this time. Her AV fistula is mature for use. I would continue with close perspective monitoring. Complications of her kidney disease include a mild anemia which does not require any additional therapy at this time. --hold diuretics for now as she has been having decent urine output, no sign of volume overload and there is slight upward trend in BUN and creatinine --okay to be discharged with close outpatient lab monitoring, she has follow-up with Dr. Corona within 1-2 weeks. Her medications are appropriately dosed for kidney dysfunction. Since she has a mature fistula, if renal function worsen or electrolyte abnormality she can be started on dialysis as an outpatient. Will follow (4) Interstitial lung disease: Management per pulmonology. (5) Hypertension: Blood pressure is improving with diuresis. Pressure is acceptable at this time assessment this morning. No additional changes in medications. Subjective Destiny Was seen examined this morning. She she had an episode of blood-tinged sputum this morning with coughing but otherwise denies any significant shortness of breath or chest pain and fact she feels like her breathing much improved. Has been having decent urine output. Renal function staying relatively stable although there is slight worsening of BUN and creatinine but the electrolyte otherwise acceptable. Blood pressure Fair. Review of Systems Review of Systems: All systems reviewed & are unremarkable except as noted in HPI & below Physical Exam Constitutional: well developed and well nourished; no acute distress Respiratory: normal respiratory effort, lungs clear to auscultation Cardiovascular: RRR, no murmur, no edema Neurologic: moves all extremities and awake; not confused Psychiatric: A+Ox3, euthymic affect Results & Data Vital Signs (Past 12 Hours) Vital Signs Temp Pulse Pulse Resp BP Pulse Ox 03/27/19 08:00 88 03/27/19 06:33 36.9 C 87 18 147/76 H 95 03/27/19 03:33 37.1 C 91 H 18 136/72 95 03/26/19 23:21 36.9 C 87 18 146/73 H 94 PG Care Time/CCT Total # of Minutes Spent Total Time Spent with Patient: Total time spent is greater than 50% in coordination of care (as documented) at patient's floor/unit and/or counseling patient: (1) CHF (congestive heart failure) Heart failure chronicity: unspecified Heart failure type: unspecified Qualified Code(s): I50.9 - Heart failure, unspecified
--- NOTE | 2019-03-27 12:55 | Hospitalist Progress Note ---
Date of Service March 27, 2019 Assessment & Plan (1) Volume overload: (1) CHF (congestive heart failure): Admitting service notes: This is a 58-year-old female with a significant past medical history of subacute hypersensitivity pneumonitis, CKD stage V with AV fistula in place secondary to atrophic left kidney, HTN, HLD, hypothyroidism, anemia of chronic disease, JAVED on CPAP, gout, history of angioedema with BRITTANI inhibitor, pseudotumor cerebri, secondary hyperparathyroidism who presents to [facility] ED secondary to shortness of breath and lower extremity swelling x1.5 days. She was seen by PCP in outpatient setting today and was referred to ED for further evaluation secondary to chest x-ray revealing pulmonary vascular congestion and abnormal lab work. In ED chest x-ray revealed cardiomegaly with evidence of mild CHF, trace pleural effusion. proBNP elevated 4232 (last on 01/07/2019 1382), H&H 10.8 and 32.1, WBC 11.19, platelet 96, BUN 107, creatinine 3.43, glucose 159. Troponin WNL, influenza negative. EKG revealed 85 bpm with normal sinus rhythm. Volume overload likely secondary to high-dose steroids Rule out CHF --Patient responded to Lasix to 40 mg IV x 2 doses Negative fluid balance, weight down from 85 to 77kg, dyspnea and leg edema resoloved --creatinine stable at mid 3s echocardiogram: EF normal, no valvular abnormalities -- discussed with Visual Developer Dr. Morgan recommend to Discontinue Lasix and Ethacrynic acid for now, re-evaluate and re peat BMP on ff up with PCP this week please forward BMP results to Visual Developer Dr. Sandip Corona (2) Thrombocytopenia: Platelet count on presentation was 96, then 50s, now 90s Peripheral smear ordered: no myelodysplasa, no schistocytes Medication list reviewed, no medication to cause thrombocytopenia No recent infection -- Platelets remaining 80-90k no overt bleeding except for 2 episodes of small amount of blood tinged sputum discussed with Dr. Phillip- vocal teacher, recommend repeat CBC this week, then monitor closely, if persistent please refer to Retail Security Professional (3) Hyperglycemia: Likely from steroids A1c 5.6 (4) Chronic kidney disease, stage V: BUN/creatinine 107 and 3.43 Baseline creatinine 3.3-3.6 Has left AV fistula in place, but not currently on dialysis --Creatinine at baseline recommend to Discontinue Lasix and Ethacrynic acid for now, re-evaluate and repeat BMP on ff up with PCP this week please forward BMP results to Visual Developer Dr. Sandip Corona (5) Interstitial lung disease: Hypersensitivity Pneumonitis Currently on 60mg prednisone by Lois Boss - Dr. Mcrae on 03/02/19 Pred taper ( 60mg daily x 1 month, 50mg daily x 1 month, 40mg daily x 1 month then 30mg daily) -- follow up closely with [facility] (6) Hypertension: Blood pressure improving Monitor Disposition d/c home today ff up with PCP this week, clinic to call patient for appointment ff up with Visual Developer Dr. Corona next week as scheduled Subjective FF UP FOR VOLUME OVERLOAD, THROMBOCYTOPENIA seen resting in bed, comfortable, sitting up states she feels much better overall breathing is much better, ambulating in the halls with no problems denies chest pain, dizziness, palpitations had 1 episode of blood tinged sputum today, small amount, also had an episode 2 nights ago denies cough though, no fever/chills denies other bleeding no other symptoms states she is ready and would like to be discharged today Review of Systems Review of Systems: All systems reviewed & are unremarkable except as noted in HPI & below Physical Exam Physical Exam: General- oriented x 3, not in distress, speaks in sentences with no effort or accessory muscle use Eyes- anicteric Neck- no JVD Lungs- clear breath sounds bilaterally, no crackles, no wheezing Heart- normal rate, regular rhythm; no murmurs Abdomen- normal bowel sounds, nondistended, soft, nontender Extremities- no pretibial edema, no calf tenderness Neuro- alert, oriented x 3; no gross focal neurologic deficits Skin- warm & dry Results & Data Vital Signs (Past 12 Hours) Vital Signs Temp Pulse Pulse Resp BP Pulse Ox 03/27/19 11:52 37.0 C 85 18 144/72 H 94 03/27/19 08:00 88 03/27/19 06:33 36.9 C 87 18 147/76 H 95 03/27/19 03:33 37.1 C 91 H 18 136/72 95
--- NOTE | 2019-03-28 10:47 | XCELERA ---
[id number] \\[id number]
--- NOTE | 2019-03-29 10:37 | Discharge Summary ---
Date of Service March 29, 2019 Admission HPI Per Admitting Provider This is a 58-year-old female with a significant past medical history of subacute hypersensitivity pneumonitis, CKD stage V with AV fistula in place secondary to atrophic left kidney, HTN, HLD, hypothyroidism, anemia of chronic disease, JAVED on CPAP, gout, history of angioedema with BRITTANI inhibitor, pseudotumor cerebri, secondary hyperparathyroidism who presents to [facility] ED secondary to shortness of breath and lower extremity swelling x1.5 days. Of significance patient follows with [facility] pulmonology. 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 She followed up with pulmonology on 03/02/2019 secondary to continued shortness of breath and cough. Because of this she was placed on high-dose steroid taper at 60 mg daily x1 month to taper down by 10 mg each month until follow-up. Approximately 2 weeks ago she noted a 5 pound weight gain. Over the past 5 days she has also had an additional 5 pound weight gain for a total of 10 pounds. Over the past 1.5 to 2 days she has noted a significant increase in shortness of breath with even minimal exertion including standing up, dry cough and lower extremity swelling. She denies any recent illness except for Thrush in which she has been taking clotrimazole troches for 8 days. She denies fever, chills, sweats, lightheadedness, dizziness, syncope, headache, URI symptoms, chest pain, shortness breath at rest, hemoptysis, nausea, vomiting, abdominal pain, dysuria, increased urgency frequency with urination, hematuria, melena, hematochezia. Her bowel habits have been more loose lately secondary to taking magnesium supplementation due to left hand cramping. She was seen by PCP in outpatient setting today and was referred to ED for further evaluation secondary to chest x-ray revealing pulmonary vascular congestion and abnormal lab work. In ED chest x-ray revealed cardiomegaly with evidence of mild CHF, trace pleural effusion. proBNP elevated 4232 (last on 01/07/2019 1382), H&H 10.8 and 32.1, WBC 11.19, platelet 96, BUN 107, creatinine 3.43, glucose 159. Troponin WNL, influenza negative. EKG revealed 85 bpm with normal sinus rhythm. Case Discussed with ED provider. Supplemental records reviewed in EPIC. Admission Exam Per Admitting Provider Constitutional: WD/WN, vitals as above, NAD, sitting up in bed, pleasant, conversing easily Head: Normocephalic, Atraumatic Eyes: PERRL, conjunctivae normal, anicteric sclerae ENMT: external ear and nose normal, oropharynx normal - no thrush present Neck: trachea midline, no thyromegaly normal visual inspection Respiratory: normal respiratory effort, lungs clear to auscultation, no wheeze, rales, rhonchi. Normal insp/exp effort, no accessory muscle use Cardiovascular: RRR, 2/6 holosystolic murmur noted throughout precordium best RUSB, b/l pitting edema +1 Vessels: no JVD or carotid bruit Chest: normal inspection of chest Abdomen: normal bowel sounds, soft, nontender, no hepatosplenomegaly Musculoskeletal: no cyanosis or clubbing, extremities motor strength 5/5 Skin: no rashes, warm and dry normal turgor Neurologic: PERRL, EOMI, accommodation nl, no face palsy, no dysarthria CN's II-XI intact bilaterally and moves all extremities Psychiatric: A+Ox3, euthymic affect Lymphatic: no cervical or axillary lymphadenopathy : deferred Principal Diagnosis VOLUME OVERLOAD, LIKELY SECONDARY TO HIGH DOSE PREDNISONE USE WITH CKD; THROMBOCYTOPENIA Discharge Exam General- oriented x 3, not in distress, speaks in sentences with no effort or accessory muscle use Eyes- anicteric Neck- no JVD Lungs- clear breath sounds bilaterally, no crackles, no wheezing Heart- normal rate, regular rhythm; no murmurs Abdomen- normal bowel sounds, nondistended, soft, nontender Extremities- no pretibial edema, no calf tenderness Neuro- alert, oriented x 3; no gross focal neurologic deficits Skin- warm & dry Discharge Data Allergies Allergy/AdvReac Type Severity Reaction Status Date / Time spironolactone Allergy Intermediate LIP Verified 03/24/19 18:21 SWELLING, COUGH nitrofurantoin Allergy Unknown Hives Verified 03/24/19 18:21 Sulfa (Sulfonamide Allergy Unknown hives- Verified 03/24/19 18:21 Antibiotics) anaphylaxis adhesive tape Allergy Redness of Verified 03/24/19 20:38 Skin sertraline Allergy Unknown Verified 03/24/19 20:38 BRITTANI Inhibitors AdvReac Unknown SWELLING, Verified 03/24/19 18:21 COUGHING benazepril AdvReac Cough Verified 03/24/19 21:01 Consultations 03/24/19 18:16 ED Decision to Admit Stat 03/24/19 19:19 Consult Nephrology Routine Procedures Performed SINGLE VIEW CHEST CLINICAL HISTORY: Dyspnea. FINDINGS: An AP, portable, upright chest radiograph is compared to study dated 07/20/2018. The heart is enlarged. There is pulmonary vascular congestion. Trace pleural effusions are noted with bibasilar atelectasis. No pneumothorax is seen. The skeletal structures are osteopenic. The bony thorax is grossly intact. IMPRESSION: 1. Cardiomegaly with evidence of mild congestive failure. 2. Trace pleural effusions. Electronically signed by: Oscar Way M.D. 03/24/2019 5:50 PM XR chest 1V portable HISTORY: 58 years-old Female chf, ff up follow-up study in a patient with congestive heart failure COMPARISON: Chest radiograph 03/24/2019 TECHNIQUE: Portable AP view the chest FINDINGS: Cardiac silhouette is enlarged, unchanged. Pulmonary vascular congestion with unchanged interstitial opacities. Trace pleural effusions. No pneumothorax. Minimal bibasilar opacities suggest atelectasis. Degenerative changes of the shoulders and spine. IMPRESSION: 1. Cardiomegaly with unchanged pulmonary edema. 2. Trace pleural effusions persist. The above report was generated using voice recognition software. It may contain grammatical, syntax or spelling errors Electronically signed by: Dharmesh Longo M.D. 03/25/2019 10:06 AM Ordered Studies PERIPHERAL SMEAR FOR REVIEW This peripheral smear for review reveals mild anisopoikilocytosis, decreased numbers of platelets, scattered enlarged platelets, hypersegmented PMN leukocytes, unremarkable PMN leukocytes, unremarkable lymphocytes, and unremarkable monocytes. The patient has a relative and absolute lymphopenia. Blasts and schistocytes are not seen. Aside from scattered hypersegmented neutrophils, the neutrophils are unremarkable. Toxic granulations, Dohle bodies, and cytoplasmic vacuoles are not seen. Pelger-Huet anomaly and hypogranulation are absent. Thus, I do not favor myelodysplasia in this case. Review of the patient's CBC reveals a leukocytosis with a white blood cell count at 11.43 x109 per liter, anemia with a hemoglobin concentration at 10.4 g/dL, and thrombocytopenia with a platelet count at 56 x109 per liter. The patient's absolute lymphocyte count is 0.69 x109 per liter and thus the patient has an absolute and relative lymphopenia. Review of the electronic medical record indicates Ms. Destiny Pillai is a 58-year-old woman currently on prednisone for subacute hypersensitivity pneumonitis, chronic kidney disease, hypothyroidism, anemia of chronic disease, obstructive sleep apnea, pseudotumor cerebri, and hyperparathyroidism, who was admitted on March 24, 2019 with shor tness of breath and lower extremity edema x 1.5 days. The patient's platelet count in December 2018 was 234 x109 per liter and the platelet count on March 24, 2019, was 96 x109 per liter. Thus, the patient's platelet count has significantly decreased since December 2018. The etiology of this patient's thrombocytopenia is left to clinical correlation. Clearly, it would be interesting to know if this patient has splenomegaly, a history of immune thrombocytopenic purpura, or any evidence of liver disease. Clinical correlation is required in this regard. PERIPHERAL SMEAR FOR REVIEW: 1. MILD ANISOPOIKILOCYTOSIS, SCATTERED HYPERSEGMENTED PMN LEUKOCYTES, DECREASED NUMBERS OF MORPHOLOGICALLY UNREMARKABLE LYMPHOCYTES, UNREMARKABLE MONOCYTES, AND DECREASED NUMBERS OF UNREMARKABLE PLATELETS ARE ALL SEEN. 2. BLASTS AND SCHISTOCYTES ARE NOT SEEN. 3. PLEASE NOTE THE PATIENT'S MCV IS 93.6 fL AND THUS THE PATIENT DOES NOT HAVE A MACROCYTIC ANEMIA DESPITE THE PRESENCE OF HYPERSEGMENTED PMN LEUKOCYTES. 4. SERUM STUDIES FOR VITAMIN B12 AND FOLATE MAY BE HELPFUL IN THIS CASE. 5. PLEASE SEE ABOVE DISCUSSION. HK/pw Hospital Course (1) Volume overload: (1) Volume overload likely secondary to high-dose steroids, in the setting of CKD Admitting service notes: This is a 58-year-old female with a significant past medical history of subacute hypersensitivity pneumonitis, CKD stage V with AV fistula in place secondary to atrophic left kidney, HTN, HLD, hypothyroidism, anemia of chronic disease, JAVED on CPAP, gout, history of angioedema with BRITTANI inhibitor, pseudotumor cerebri, secondary hyperparathyroidism who presents to [facility] ED secondary to shortness of breath and lower extremity swelling x1.5 days. She was seen by PCP in outpatient setting today and was referred to ED for further evaluation secondary to chest x-ray revealing pulmonary vascular congestion and abnormal lab work. In ED chest x-ray revealed cardiomegaly with evidence of mild CHF, trace pleural effusion. proBNP elevated 4232 (last on 01/07/2019 1382), H&H 10.8 and 32.1, WBC 11.19, platelet 96, BUN 107, creatinine 3.43, glucose 159. Troponin WNL, influenza negative. EKG revealed 85 bpm with normal sinus rhythm. --Patient responded to Lasix to 40 mg IV x 2 doses Negative fluid balance, weight down from 85 to 77kg, dyspnea and leg edema resoloved --creatinine stable at mid 3s echocardiogram: EF normal, no valvular abnormalities -- discussed with [employer] Helper Dr. Morgan recommend to Discontinue Lasix and Ethacrynic acid for now, re-evaluate and repeat BMP on ff up with PCP this week please forward BMP results to [employer] Dr. Sandip Oh (2) Thrombocytopenia: Platelet count on presentation was 96, then 50s, now 90s Peripheral smear ordered: (full report in the ordered studies above) 1. MILD ANISOPOIKILOCYTOSIS, SCATTERED HYPERSEGMENTED PMN LEUKOCYTES, DECREASED NUMBERS OF MORPHOLOGICALLY UNREMARKABLE LYMPHOCYTES, UNREMARKABLE MONOCYTES, AND DECREASED NUMBERS OF UNREMARKABLE PLATELETS ARE ALL SEEN. 2. BLASTS AND SCHISTOCYTES ARE NOT SEEN. 3. PLEASE NOTE THE PATIENT'S MCV IS 93.6 fL AND THUS THE PATIENT DOES NOT HAVE A MACROCYTIC ANEMIA DESPITE THE PRESENCE OF HYPERSEGMENTED PMN LEUKOCYTES. 4. SERUM STUDIES FOR VITAMIN B12 AND FOLATE MAY BE HELPFUL IN THIS CASE. --Medication list reviewed, no medication to cause thrombocytopenia, Vit b12 and Folate normal --No recent infection -- Platelets remaining 80-90k no overt bleeding except for 2 episodes of small amount of blood tinged s putum discussed with Dr. Phillip- forest fire management officer, recommend repeat CBC this week, then monitor closely, if persistent please refer to Book Packer (3) Hyperglycemia: Likely from steroids A1c 5.6 (4) Chronic kidney disease, stage V: BUN/creatinine 107 and 3.43 Baseline creatinine 3.3-3.6 Has left AV fistula in place, but not currently on dialysis --Creatinine at baseline recommend to Discontinue Lasix and Ethacrynic acid for now, re-evaluate and repeat BMP on ff up with PCP this week please forward BMP results to [employer] Hel[employer] Dr. Sandip Oh (5) Interstitial lung disease: Hypersensitivity Pneumonitis [facility] Pred taper ( 60mg daily x 1 month, 50mg daily x 1 month, 40mg daily x 1 month then 30mg daily) -- CXR: please see procedure section above -- back to baseline respiratory status after diuresis -- having intermittent blood tinged sputum, please monitor -- follow up closely with [facility] Pulmonary Service (6) Hypertension: Blood pressure improving Monitor Disposition d/c home ff up with PCP this week, clinic to call patient for appointment ff up with [employer] Dr. Oh next week as scheduled Total Time Total Time Spent Total Time Spent (In Minutes): 45 minutes Discharge Plan Discharge Items Patient Disposition: Home - Self-Care Reason For Visit: CHF Discharge Diagnosis: VOLUME OVERLOAD, LOW PLATELET COUNT Activity: As commented below Activity Comment: RESUME ACTIVITY GRADUALLY TOELRATED Lifting: Wait until after follow-up appointment Exercise/Sports: Wait until after follow-up appointment Driving/Machine Use: NO DRIVING UNTIL RE-EVALUATED BY PRIMARY CARE PHYSICIAN Non-emergency contact: Primary Care Provider and [employer] Worker Helper Call non-emergency contact if: you have any medication questions, your symptoms worsen, your pain is not controlled, your pain is worsening, your pain is unusual for you, your pain is concerning for you and you have a fever Follow-up/Referrals: Sandip Oh MD [Physician] - Kenton Kwok MD [Primary Care Provider] - Diet: Heart Healthy Fluids: 2000ml (8 cups) Addtl Attending Provider Instructions: PLEASE REVIEW YOUR NEW MEDICATION LIST AND FOLLOW INSTRUCTIONS CAREFULLY. CALL YOUR PRIMARY CARE PHYSICIAN OR RETURN TO THE ER IMMEDIATELY IF WITH RECURRENCE OR WORSENING OF SYMPTOMS, INCLUDING FEVER/CHILLS, INCREASING COUGH/SHORTNESS OF BREATH, BLEEDING. FOLLOW UP WITH PRIMARY CARE PHYSICIAN DR. KWOK THIS COMING WEEK. THE CLINIC WILL BE CALLING YOU FOR THE APPOINTMENT. FOLLOW UP WITH MOTOR [employer] CLERK DR. OH NEXT WEEK SCHEDULED. FOLLOW UP WITH BOW REHAIRER SCHEDULED. Pending Studies at Discharge: Yes Studies:: REPEAT BLOODWORK (COMPLETE BLOOD COUNT AND BASIC METABOLIC PROFILE) ON FOLLOW UP WITH PRIMARY CARE PHYSICIAN THIS WEEK Stand-Alone Forms: My [facility], Smoking Cessation Medications and DC Order Prescriptions: New nystatin 100,000 unit/mL Suspension 5 ml PO QID 7 Days Qty: 140 RF: 0 fluconazole 200 mg tablet 200 mg PO DAILY Qty: 7 RF: 0 Continued levothyroxine 75 mcg tablet 37.5 mcg PO QAM Qty: 30 RF: 1 albuterol sulfate 90 mcg/actuation HFA aerosol inhaler 2 puffs INH Q4H PRN (Reason: Shortness Of Breath) RF: 0 atorvastatin 20 mg Tablet 20 mg PO QAM RF: 0 diltiazem HCl 360 mg Capsule,Extended Release 24hr 360 mg PO QAM RF: 0 allopurinol 100 mg Tablet 100 mg PO QAM RF: 0 hydralazine 50 mg Tablet 50 mg PO TIDM RF: 0 Advair HFA 230-21 mcg/actuation HFA aerosol inhaler 2 puff INHALATION BID RF: 0 prednisone 20 mg tablet 60 mg PO DAILY RF: 0 magnesium carbonate 54 mg/5 mL Liquid 0 mg PO DAILY PRN (Reason: Insomnia) RF: 0 Discontinued ethacrynic acid [Edecrin] 25 mg Tablet 50 mg PO BID RF: 0 clotrimazole 10 mg jason 10 mg PO 5XD RF: 0 Discharge Orders: Discharge Order (Routine); Ordered 03/27/19 Ordered By: Jonny Fang Admission Data Admit Date/Time: 03/24/19 19:19 Attending Provider: Jonny Fang Admit Provider: Honey Aguero Primary Care Provider: Kenton Kwok Other Providers: Honey Aguero ; Mirela Young Other Interventions: Discharge Summary Assessment (RN) Last Done: 03/27/19 12:44 DC Date/Time DO NOT enter until pt leaves facility: 03/27/19 13:56
--- NOTE | 2019-04-01 09:29 | Coding Query ---
CONGESTIVE HEART FAILURE To Promote full compliance with coding requirements relating to patient care, physician participation is requested in all cases of newspaper editor uncertainty. Please assist us with the following questions. A diagnosis of Congestive Heart Failure is documented in the patient's medical record. To accurately code this diagnosis and to compare patient severity, we ask that you specify the type of heart failure by placing an X within the parenthesis (x). SYSTOLIC HEART FAILURE ( ) Acute ( ) Chronic ( ) Acute on Chronic ( ) Rheumatic ( ) Unknown DIASTOLIC HEART FAILURE ( ) Acute ( ) Chronic ( ) Acute on Chronic ( ) Rheumatic ( ) Unknown COMBINED SYSTOLIC AND DIASTOLIC HEART FAILURE ( ) Acute ( ) Chronic ( ) Acute on Chronic ( ) Rheumatic ( ) Unknown Was the CHF Present On Admission? Please check the appropriate box: ( ) Present on Admission XNot Present On Admission ( ) Clinically undetermined Thank you Didi LOGAN
--- NOTE | 2019-04-01 09:41 | Coding Query ---
CODING QUERY To promote full compliance with coding requirements relating to patient care, provider participation is requested in all cases of didactic program in dietetics director uncertainty. Please assist us with the question(s) below: Coding Question(s): There is documentation of, "Volume overload likely secondary to high-dose steroids Rule out CHF" as on Progress Note 03/26/19 and the Discharge Summary documents, "Volume overload likely secondary to high-dose steroids, in the setting of CKD". Please specify below, in your clinical opinion, regarding the Volume Overload. ( ) Volume Overload is fluid overload ( ) most likely this is CHF caused by the steroids, in setting of CKD ( X ) most likely this is fluid overload, not CHF related, caused by the steroids in the setting of CKD ( ) most likely this is fluid overload from CKD caused by the steroids ( ) most likely this is fluid overload from Other: Please Specify ( ) Volume Overload is Other: Please Specify ( ) most likely this is CHF caused by the steroids, in setting of CKD ( ) most likely this is fluid overload, not CHF related, caused by the steroids in the setting of CKD ( ) most likely this is fluid overload from CKD caused by the steroids ( ) most likely this is fluid overload from Other: Please Specify Physician's Response(s): Thank you Didi Ralph Principal Diagnosis: "that condition established after study, to be chiefly responsible for occasioning the admission of the patient to the hospital for care." Co-Existing Principal Diagnosis: "when two or more diagnoses equally meet the criteria for principal diagnosis as determined by the circumstances of admission, diagnostic work up, and/or therapy provided, and the Alphabetic Index, Tabular List, or another coding guideline does not provide sequencing direction, any one of the diagnoses may be sequenced first." "When the physician has documented what appears to be a current diagnosis in the body of the record, but has not included the diagnosis in the final diagnostic statement, the physician should be asked whether the diagnosis should be added." (Source [facility]oding [facility] 2 QTR90. p3-4) MTDD
--- NOTE | 2019-04-01 09:45 | Coding Query ---
To promote full compliance with coding requirements relating to patient care, provider participation is requested in all cases of professional fee coder uncertainty. Please assist us with the question(s) below: Coding Question(s): The diagnosis(es) below was documented in the H&P, then subsequently fell off all further documentation. Please indicate if it is still a possible diagnosis or ruled out. Physician's Response(s): POSSIBLE UTI (documented only on H&P) ( X ) Diagnosed and POA ( ) Diagnosed and not POA ( ) Ruled out ( ) Other (please specify) MTDD
== END 2019-03-27 13:56 | disposition home or self-care (01) | DRG 641 ==
LOC: ED 16:59 → 2S 19:19 → SUATTDRO 19:19 → 2S 20:09

== ENCOUNTER 2019-04-07 07:41 | Inpatient (IN) ==
[2019-04-07] MEDS ORDERED: ALBUT/IPRATROP 3MG/0.5MG NEB 3 ML VIAL INH STA (08:03)
[2019-04-07] MEDS ORDERED: NITROGLYCERIN 2% OINTMENT 30GM TUBE EXT STA (08:03)
--- NOTE | 2019-04-07 08:29 | XRay Report ---
XR chest 1V portable HISTORY: Shortness of breath. COMPARISON: Chest 03/25/2019. FINDINGS: Suture material within the right lung is again noted. The heart is mildly enlarged. Bilater al perihilar airspace opacities and interstitial thickening has progressed. Suspect trace bilateral p leural effusions. No pneumothorax. IMPRESSION: Interval progression of the bilateral perihilar airspace opacities and interstitial thickening likely representing moderate pulmonary edema. ACT 112: Negative or not required by law. Electronically signed by: Nabeel Cotto M.D. 04/07/2019 8:28 AM
[2019-04-07] MEDS ORDERED: FUROSEMIDE 40 MG/4 ML VIAL IV STA (08:30)
[2019-04-07 08:34] LABS: Eosinophils # (auto) 0.01 K/uL (0-0.5); Eosinophils % (auto) 0.1 %; Hematocrit (blood only) 36.7 % (37-47); Hemoglobin 12.1 g/dL (12.0-16.0); Immature Granulocytes # (auto) 0.07 K/uL (0.00-0.02); Immature Granulocytes % (auto) 0.5 %; Lymphocytes # (auto) 0.64 K/uL (1.2-3.4); Lymphocytes % (auto) 4.3 %; Mean Corpuscular Hemoglobin 31.2 pg (25-34); Mean Corpuscular Volume 94.6 fL (80-100); Mean Platelet Volume 10.3 fL (7.4-10.4); Monocytes # (auto) 0.55 K/uL (0.11-0.59); Monocytes % (auto) 3.7 %; Neutrophils # (auto) 13.66 K/uL (1.4-6.5); Neutrophils % (auto) 91.4 %; Platelet Count 146 K/uL (130-400); RDW Coefficient of Variation 16.4 % (11.5-14.5); RDW Standard Deviation 56.6 fL (36.4-46.3); Red Blood Count 3.88 M/uL (4.2-5.4); White Blood Count 14.93 K/uL (4.8-10.8)
[2019-04-07 09:00] LABS: Alanine Aminotransferase 35 U/L (12-78); Albumin Level 3.3 gm/dl (3.4-5.0); Aspartate Aminotransferase 22 U/L (15-37); BUN Creatinine Ratio 23.5 (10-20); Blood Urea Nitrogen 87 mg/dl (7-18); Calcium 9.3 mg/dl (8.5-10.1); Carbon Dioxide 19 mmol/L (21-32); Chloride 116 mmol/L (98-107); Creatinine Clr Calc Pharmacy 17.3 ml/min; Est GFR (African American) 14.9; Est GFR (Non-African American) 12.8; Glucose 148 mg/dl (70-99); Magnesium 2.4 mg/dl (1.8-2.4); Potassium 4.7 mmol/L (3.5-5.1); Sodium 145 mmol/L (136-145)
[2019-04-07 09:05] LABS: Albumin Globulin Ratio 1.1 (0.9-2); Alkaline Phosphatase 77 U/L (45-117); Bilirubin,Total 0.6 mg/dl (0.2-1); Globulin 3.1 gm/dl (2.5-4.0); NT Pro B Type Natriuretic Pept 6277 pg/ml (0-900); Total Protein 6.4 gm/dl (6.4-8.2); Troponin I < 0.015 ng/ml (0-0.045)
--- NOTE | 2019-04-07 09:44 | Nephrology Consultation ---
Date of Consultation April 07, 2019 Assessment & Plan (1) Interstitial lung disease: Remains on high dose prednisone. Pulmonary consult to help with evaluation and management. (2) Pleural effusion: CXR personally reviewed. Pulmonary edema noted. Effusions likely transudative related to volume overload but not significantly large to warrant thoracentesis at this time. I defer to pulmonology regarding management. (3) Chronic kidney disease, stage V: I reviewed potential indications to starting dialysis with the patient and her today. They would favor a trial of medical management which is r easonable. She was not on diuretics at home. Hep B profile was sent in anticipation of potential need for HD in the near future. AVF is mature for use. (4) Hypertension: Accelerated BP improving with nitropaste. Will closely monitor. Destiny is maintained on hydralazine and diltiazem at home. (5) Volume overload: Furosemide 60 mg IV provided in the ER. Noted allergy to sulfa documented. Destiny tolerated furosemide during her prior admission. She reports good urine output. I/O's and daily weight will be monitored. TTE did not demonstrate evidence of high output heart failure associated with AVF earlier this month. Per Dr. Corona's outpatient order a duplex of the AVF has been requested though I do not expect this will change management analyst. I suspect respiratory symptoms are associated with volume overload associated with renal insufficiency and high dose steroids. Given her complicated underlying lung disease, pulmonary consultation would be beneficial to the family and overall plan of care. History of Present Illness Reason for Consultation: CKD Requesting Physician: Oscar Russo MD Attending Physician: Oscar Russo MD History of Present Illness Destiny Pillai is a 59-year-old female with CKD V. Ange follows in the Nephrology Clinic with Dr. Corona. She was recently evaluated on April 01. The patient was admitted to [facility] from March 24- with dyspnea. Evaluation notable for pulmonary edema and pulmonary vascular congestion. Symptoms improved with diuresis induced with IV furosemide. At the time of hospital discharge, diuretics were held due to rising creatinine. The patient was found to be euvolemic during her follow up evaluation in the nephrology clinic last week. Destiny has actually been losing weight since hospital discharge. 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 There is a notable history of recurrent urinary tract infections. She does have proteinuria consistent with glomerulosclerosis. She was diagnosed with early evidence of chronic kidney disease as a teenager. Destiny is prepared for the potential need to start dialysis in the near future. She has discussed this multiple times with Dr. Corona. A left brachiocephalic AV fistula was placed by Dr. Arreola. This has undergone transposition and is mature for use. The patient was also referred to [facility] for transplant evaluation. She is listed status 7. During her evaluation she was found to have evidence of interstitial lung disease. Additional evaluation included lung biopsy consistent with interstitial pneumonitis. For this reason she was started on high-dose prednisone therapy. She was on 60 mg of prednisone when she developed symptoms of progressive shortness of breath and weight gain which prompted her to present to the hospital for admission earlier this month. Prednisone has now been weaned to 50 mg daily. Destiny was scheduled to follow up with Dr. Mcrae in the pulmonology clinic at [facility] this coming Thursday to discuss the status of her steroid taper. Destiny has also had anorexia and dysphagia, she was treated for thrush with minimal improvement. She states that she is producing a significant amount of phlegm. Her voice is raspy and she is coughing up thick sputum with some blood. Sputum production has been persistent since her recent admission. Unfortunately laboratory studies have been notable for notable azotemia. Similar to her recent admission, on presentation today she was found to be moderately hypertensive. She has received 60 mg IV furosemide, albuterol, and nitropaste was applied. She has had minimal symptomatic improvement. Additional history is notable for a new murmur attributed to be a flow murmur from her AVF. TTE was obtained earlier this month. LVEF 55% with some evidence of diastolic dysfunction. There was no significant evidence of valvular heart disease. Dr. Corona had requested a duplex of the AVF but this has not yet been scheduled. The patient's requested that this be completed today. The patient's also requested a pulmonology consultation. Destiny is hoping to avoid dialysis as long as possible. Review of systems is also notable for insomnia. She denies chest pain or palpitations. She denies fevers or chills. Allergies Allergy/AdvReac Type Severity Reaction Status Date / Time spironolactone Allergy Intermediate LIP Verified 04/04/19 15:28 SWELLING, COUGH nitrofurantoin Allergy Unknown Hives Verified 04/04/19 15:28 Sulfa (Sulfonamide Allergy Unknown hives- Verified 04/04/19 15:28 Antibiotics) anaphylaxis adhesive tape Allergy Redness of Verified 04/04/19 15:28 Skin sertraline Allergy Unknown Verified 04/04/19 15:28 BRITTANI Inhibitors AdvReac Unknown SWELLING, Verified 04/04/19 15:28 COUGHING benazepril AdvReac Cough Verified 04/04/19 15:28 Home Medications Home Medications Medication Instructions Recorded Confirmed Type allopurinol 100 mg PO QAM 07/09/18 04/04/19 History atorvastatin 20 mg PO QAM 07/09/18 04/04/19 History diltiazem HCl 360 mg PO QAM 07/09/18 04/04/19 History hydralazine 50 mg PO TIDM 07/09/18 04/04/19 History levothyroxine 75 mcg tablet 37.5 mcg PO QAM #30 tab 12/09/18 04/04/19 Rx magnesium carbonate 0 mg PO DAILY PRN 03/24/19 04/04/19 History prednisone 20 mg tablet 50 mg PO DAILY tab 04/04/19 04/04/19 History Patient History Medical History Asthma Chronic kidney disease, stage V (Chronic) Congenital renal atrophy History of colon polyps Hyperlipidemia Hypertension (Chronic) Hypothyroidism Interstitial lung disease 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 [facility] [place] Proteinuria (Chronic) Sleep apnea Vitamin D deficiency (Chronic) Surgical History Arteriovenous fistula LEFT ARM AVF: 07/27/18: MAC SEDATION AT [facility] History of cardiac cath 16 YEARS AGO= NO STENTS History of cholecystectomy History of lung biopsy 02/14/2019 THORACOCSOCPY W/ INFILTRATE BIOPSY performed by Trevon Torres MD at OR [facility] Hx of dilation and curettage Family History Grandmother (Paternal) Family history of diabetes mellitus Uncle Family history of diabetes mellitus Father Cancer LUNG Mother Cancer renal cell ca Social History (Reviewed 04/07/19 @ 10:00 by VIJI Root Preferred Language: Japanese Communication Ability: Effective Wild Life Manager Required: Yes and No Beliefs That Will Affect Care: None marital status: Current Living Situation: Spouse and Family current occupational status: employed Feels Safe at Home: Yes Smoking Status: Never smoker Second Hand Exposure: Yes ; Hx Alcohol Use: No Hx Substance Use: No Review of Systems Review of Systems: All systems reviewed & are unremarkable except as noted in HPI & below Physical Exam Constitutional: well developed and + in distress Eyes: + anicteric sclerae; no conjunctival abnormality ENMT: Mouth: no oral mucosal abnormality and oral mucous membranes not dry Neck: normal visual inspection and trachea midline Respiratory: + tachypneic Auscultation: + diminished lung sounds and + rales (basilar); no rhonchi and no wheezes Cardiovascular: Heart Sounds: normal S1, normal S2 and + murmur Vessels: + JVD Extremities: + AV fistula; no edema Gastrointestinal (Abdomen): Percussion/Palpation: abdomen soft; abdomen nontender Musculoskeletal: Extremities: no cyanosis and no clubbing Skin: normal turgor; no lesions Neurologic: Motor/Sensory: no tremor and no asterixis Results & Data Vital Signs (Past 12 Hours) Vital Signs Temp Pulse Pulse Resp BP Pulse Ox 04/07/19 08:30 92 H 24 172/92 H 97 04/07/19 08:19 89 20 97 04/07/19 08:05 95 04/07/19 08:00 92 H 24 170/92 H 97 04/07/19 07:46 36.5 C 98 H 34 H 162/82 H 89 L Laboratory Results Laboratory Results - last 24 hr 04/07/19 04/07/19 04/07/19 08:12 08:22 08:22 WBC 14.93 H RBC 3.88 L Hgb 12.1 Hct 36.7 L MCV 94.6 MCH 31.2 MCHC 33.0 RDW Std Deviation 56.6 H RDW Coeff of Grover 16.4 H Plt Count 146 MPV 10.3 Immature Gran % (Auto) 0.5 Neut % (Auto) 91.4 Lymph % (Auto) 4.3 Carter % (Auto) 3.7 Eos % (Auto) 0.1 Baso % (Auto) 0.0 Immature Gran # (Auto) 0.07 H Neut # (Auto) 13.66 H Lymph # (Auto) 0.64 L Carter # (Auto) 0.55 Eos # (Auto) 0.01 Baso # (Auto) 0.00 PT Cancelled INR Cancelled APTT Cancelled PTT Ratio Cancelled Sodium Potassium Chloride Carbon Dioxide Anion Gap BUN Creatinine Est Cr Clr Drug Dosing Est GFR ( Amer) Est GFR (Non-Af Amer) BUN/Creatinine Ratio Glucose Calcium Magnesium Total Bilirubin AST ALT Alkaline Phosphatase Troponin I NT-Pro-B Natriuret Pep Total Protein Albumin Globulin Albumin/Globulin Ratio Hep Bs Antigen Hep Bs Antibody Hep Bs Antibody, Quant Hep B Core IgM Ab Influenza Type A Ag Neg for Influ A Influenza Type B Ag Neg for Influ B 04/07/19 04/07/19 04/07/19 08:22 09:13 09:13 WBC RBC Hgb Hct MCV MCH MCHC RDW Std Deviation RDW Coeff of Grover Plt Count MPV Immature Gran % (Auto) Neut % (Auto) Lymph % (Auto) Carter % (Auto) Eos % (Auto) Baso % (Auto) Immature Gran # (Auto) Neut # (Auto) Lymph # (Auto) Carter # (Auto) Eos # (Auto) Baso # (Auto) PT 10.0 INR 1.0 APTT 21.4 PTT Ratio 0.8 Sodium 145 Potassium 4.7 Chloride 116 H Carbon Dioxide 19 L Anion Gap 10.0 BUN 87 H Creatinine 3.70 H Est Cr Clr Drug Dosing 17.3 Est GFR ( Amer) 14.9 Est GFR (Non-Af Amer) 12.8 BUN/Creatinine Ratio 23.5 H Glucose 148 H Calcium 9.3 Magnesium 2.4 Total Bilirubin 0.6 AST 22 ALT 35 Alkaline Phosphatase 77 Troponin I < 0.015 NT-Pro-B Natriuret Pep 6277 H Total Protein 6.4 Albumin 3.3 L Globulin 3.1 Albumin/Globulin Ratio 1.1 Hep Bs Antigen Pending Hep Bs Antibody Non-Immune Hep Bs Antibody, Quant < 3.10 L Hep B Core IgM Ab Influenza Type A Ag Influenza Type B Ag 04/07/19 09:13 WBC RBC Hgb Hct MCV MCH MCHC RDW Std Deviation RDW Coeff of Grover Plt Count MPV Immature Gran % (Auto) Neut % (Auto) Lymph % (Auto) Carter % (Auto) Eos % (Auto) Baso % (Auto) Immature Gran # (Auto) Neut # (Auto) Lymph # (Auto) Carter # (Auto) Eos # (Auto) Baso # (Auto) PT INR APTT PTT Ratio Sodium Potassium Chloride Carbon Dioxide Anion Gap BUN Creatinine Est Cr Clr Drug Dosing Est GFR ( Amer) Est GFR (Non-Af Amer) BUN/Creatinine Ratio Glucose Calcium Magnesium Total Bilirubin AST ALT Alkaline Phosphatase Troponin I NT-Pro-B Natriuret Pep Total Protein Albumin Globulin Albumin/Globulin Ratio Hep Bs Antigen Hep Bs Antibody Hep Bs Antibody, Quant Hep B Core IgM Ab Pending Influenza Type A Ag Influenza Type B Ag PG Care Time/CCT Total # of Minutes Spent Total Time Spent with Patient: Total time spent is greater than 50% in coordination of care (as documented) at patient's floor/unit and/or counseling patient:
[2019-04-07 09:49] LABS: Partial Thromboplastin Ratio 0.8; Partial Thromboplastin Time 21.4 Seconds (21.0-31.0)
[2019-04-07 10:01] LABS: Hepatitis B Surface Ab Quant < 3.10 mIU/mL (>or=10mIU/mL Immune); Hepatitis B Surface Antibody Non-Immune
[2019-04-07 10:12] LABS: Hepatitis B Surface Antigen Neg (Neg)
[2019-04-07] MEDS ORDERED: ACETAMINOPHEN 325 MG TAB PO PRN (11:21)
[2019-04-07] MEDS ORDERED: ONDANSETRON INJ 2 MG/ML 2 ML VIAL IV PRN (11:21)
--- NOTE | 2019-04-07 11:27 | History & Physical Report ---
Date of Service April 07, 2019 Assessment & Plan (1) Acute respiratory failure with hypoxia: (2) Interstitial lung disease: (3) Volume overload: This is a 59 yr old F who has significant PMH subacute hypersensitivity pneumonitis on high dose steroid therapy, CKD stage V with AV fistula in place secondary to atrophic left kidney, HTN, HLD, hypothyroidism, anemia of chronic disease, JAVED on CPAP, gout, history of angioedema with BRITTANI inhibitor, pseudotumor cerebri, secondary hyperparathyroidism who presents to [facility] ED secondary to worsened shortness of breath and hemoptysis x 5 days. In ED patient was found to be hypoxic requiring O2 via NC at 2 L. She was also hypertensive and tachycardic with heart rate in 90s. Lab work revealed leukocytosis 14.93, H&H 12.1 and 36.5, platelet 146, chloride 116, CO2 19, BUN 87, creatinine 3.70, glucose 148, proBNP 6277 Influenza negative, troponin WNL. CXR revealed Interval progression of the bilateral perihilar airspace opacities and interstitial thickening likely representing moderate pulmonary edema. She received Nitro paste along with IV lasix 60mg x 1 in ED with mild improvement of sx. Sx concerning for volume overload in setting of high dose steroid use and CKD-5 Sx likely multifactorial Admit to PCU Pulm consulted Dr. Alatorre - appreciate w/u IV Diuresis 60mg BID continue prednisone 50mg daily daily weight, strict I &O, daily labs PJP prophylaxis with Atovaquone Sepsis w/u pending including esr/crp, pro wayne, LDH CT chest w/o contrast repeat CXR in am. Discussed case with [facility] who has been following patient (4) Chronic kidney disease, stage V: nephrology consulted - Dr. Dorsey Appreciate their input mature LUE AV fistula Duplex of LUE pending monitor bmp diuresis per nephro (5) Hemoptysis: pulm consulted appreciate Dr. Alatorre input (6) Dysphagia: pt with c/o difficulty swallowing solids, burning recent Thrush with evidence of mild thrush in posterior pharynx place on nystatin QID consult GI ? if candidal esophagitis PPI 40mg po daily (7) Hyperglycemia: BSG on admission 148 Likely in setting of high-dose steroid use Recent A1c 03/2019 was 5.6 Monitor accuchecks AC/HS with low dose novolog sliding scale (8) Hypertension: blood pressure elevated in ED Likely in setting of volume overload Continue hydralazine, diltiazem Nitropaste placed in ED Monitor (9) DVT prophylaxis: SCD/TEDS for now 2/2 to hemoptysis Monitor daily for need for chemoprophylaxis Disposition: admit to PCU Follow up: PCP Dr. Salamanca upon discharge; Pt also has f/u with [facility] at [facility] 04/11/19 Pt was seen and examined in collaboration with Dr. Fang, please see addendum History of Present Illness Chief Complaint: Worsening SOB x 5 days. Primary Care Provider: Kenton Salamanca MD This is a 59 yr old F who has significant PMH subacute hypersensitivity p neumonitis on high dose steroid therapy, CKD stage V with AV fistula in place secondary to atrophic left kidney, HTN, HLD, hypothyroidism, anemia of chronic disease, JAVED on CPAP, gout, history of angioedema with BRITTANI inhibitor, pseudotumor cerebri, secondary hyperparathyroidism who presents to [facility] ED secondary to worsened shortness of breath and hemoptysis x 5 days. Of significance patient recently confined on 03/24/2019-03/27/19 2/2 volume overload in setting of high dose steroid use. She was treated with IV diuresis with significant improvement of sx. She was seen and evaluated by nephrology during hospitalization. Post D/C she followed up with PCP 03/31 and nephro 04/01 and encouraged to use lasix on as needed basis for weight gain. Since discharge she has actually lose weight from 172.8 on 04/01 to 163.2 felt 2/2 poor appetite. She does have intermittent swelling of lower extremities mostly dependent at HS and resolved in a.m. Since d/c she has had continued cough with hemoptysis, SOB at rest and with exertion. She gets extremely SOB with even minimal activity making activity very difficult. Further has been dealing with laryngitis x 1 week, hoarseness, dysphagia with solids which causes chest tightness, nausea, decreased appetite, chills, easy fatigability, easy bruisability, palpitations, lightheadedness and dizziness. She denies any documented fevers, sweats, syncope, fall, chest pain, emesis, abdominal pain, dysuria, increased urgency or frequency with urination, hematuria, melena, hematochezia. Last bowel movement was 2 days ago and she has been extremely constipated. In ED patient was found to be hypoxic requiring O2 via NC at 2 L. She was also hypertensive and tachycardic with heart rate in 90s. Lab work revealed leukocytosis 14.93, H&H 12.1 and 36.5, platelet 146, chloride 116, CO2 19, BUN 87, creatinine 3.70, glucose 148, proBNP 6277 Influenza negative, troponin WNL. CXR revealed Interval progression of the bilateral perihilar airspace opacities and interstitial thickening likely representing moderate pulmonary edema. She received Nitro paste along with IV lasix 60mg x 1 in ED with mild improvement of sx. Allergies Allergy/AdvReac Type Severity Reaction Status Date / Time spironolactone Allergy Intermediate LIP Verified 04/04/19 15:28 SWELLING, COUGH nitrofurantoin Allergy Unknown Hives Verified 04/04/19 15:28 Sulfa (Sulfonamide Allergy Unknown hives- Verified 04/04/19 15:28 Antibiotics) anaphylaxis adhesive tape Allergy Redness of Verified 04/04/19 15:28 Skin sertraline Allergy Unknown Verified 04/04/19 15:28 BRITTANI Inhibitors AdvReac Unknown SWELLING, Verified 04/04/19 15:28 COUGHING benazepril AdvReac Cough Verified 04/04/19 15:28 Home Medications Home Medications Medication Instructions Recorded Confirmed Type allopurinol 100 mg PO QAM 07/09/18 04/07/19 History atorvastatin 20 mg PO QAM 07/09/18 04/07/19 History diltiazem HCl 360 mg PO QAM 07/09/18 04/07/19 History hydralazine 50 mg PO TIDM 07/09/18 04/07/19 History levothyroxine 75 mcg tablet 37.5 mcg PO QAM #30 tab 12/09/18 04/07/19 Rx prednisone 20 mg tablet 50 mg PO DAILY tab 04/04/19 04/07/19 History Past Med/Surg History Medical History Asthma Chronic kidney disease, stage V (Chronic) Congenital renal atrophy History of colon polyps Hyperlipidemia Hypertension (Chronic) Hypothyroidism Interstitial lung disease 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 [facility] [place] Proteinuria (Chronic) Sleep apnea Vitamin D deficiency (Chronic) Surgical History Arteriovenous fistula LEFT ARM AVF: 07/27/18: MAC SEDATION AT [facility] History of cardiac cath 16 YEARS AGO= NO STENTS History of cholecystectomy History of lung biopsy 02/14/2019 THORACOCSOCPY W/ INFILTRATE BIOPSY performed by Trevon Torres MD at OR [facility] Hx of dilation and curettage Family History Grandmother (Paternal) Family history of diabetes mellitus Uncle Family history of diabetes mellitus Father Cancer LUNG Mother Cancer renal cell ca Social History Preferred Language: British Communication Ability: Effective Pulmonologist Intensivist Required: No Beliefs That Will Affect Care: None marital status: Current Living Situation: Spouse and Family current occupational status: employed Feels Safe at Home: Yes Smoking Status: Never smoker Second Hand Exposure: No ; Hx Alcohol Use: No Hx Substance Use: No Review of Systems Review of Systems: All systems reviewed & are unremarkable except as noted in HPI & below Physical Exam Physical Exam: Constitutional: Ill appearing female, sitting up in bed, vitals as above, increased resp effort, answers questions approp Head: Normocephalic, Atraumatic Eyes: PERRL, conjunctivae normal, anicteric sclerae ENMT: external ear and nose normal, oropharynx dry mucous membranes, 1 white patch above uvula, erythematous posterior pharynx Neck: trachea midline, no thyromegaly normal visual inspection Respiratory: increased respiratory effort, on O2 via NC, lungs clear to auscultation decreased bibasilar, no wheeze, rales, rhonchi. No accessory muscle use Cardiovascular: tachycardic rate regular rhythm, 2/6 ARAMIS noted best cardiac apex, trace pretibial edema, Vessels: + JVD or carotid bruit LUE AV Fistula patent Chest: normal inspection of chest Abdomen: normal bowel sounds, soft, nontender, no hepatosplenomegaly Musculoskeletal: no cyanosis or clubbing, extremities motor strength 5/5 Skin: no rashes, warm and dry normal turgor Neurologic: PERRL, EOMI, accommodation nl, no face palsy, no dysarthria CN's II-XI intact bilaterally and moves all extremities Psychiatric: A+Ox3, euthymic affect Lymphatic: no cervical or axillary lymphadenopathy : deferred Results & Data Vital Signs (Past 12 Hours) Vital Signs Temp Pulse Pulse Resp BP Pulse Ox 04/07/19 11:01 90 25 H 92 04/07/19 11:00 87 25 H 137/72 93 04/07/19 10:30 94 H 22 149/77 H 92 04/07/19 10:01 96 H 26 H 91 04/07/19 10:00 96 H 37 H 159/86 H 91 04/07/19 09:30 94 H 29 H 159/86 H 93 04/07/19 08:30 92 H 24 172/92 H 97 04/07/19 08:19 89 20 97 04/07/19 08:05 95 04/07/19 08:00 92 H 24 170/92 H 97 04/07/19 07:46 36.5 C 98 H 34 H 162/82 H 89 L Laboratory Results Short CBC 04/07/19 Range/Units 08:22 WBC 14.93 H (4.8-10.8) K/uL Hgb 12.1 (12.0-16.0) g/dL Hct 36.7 L (37-47) % Plt Count 146 (130-400) K/uL BMP 04/07/19 08:22 Sodium 145 Potassium 4.7 Chloride 116 H Carbon Dioxide 19 L BUN 87 H Creatinine 3.70 H Glucose 148 H Calcium 9.3 Cardiac Enzymes 04/07/19 Range/Units 08:22 Troponin I < 0.015 (0-0.045) ng/ml Liver Function 04/07/19 Range/Units 08:22 Total Bilirubin 0.6 (0.2-1) mg/dl AST 22 (15-37) U/L ALT 35 (12-78) U/L Alkaline Phosphatase 77 (45-117) U/L Albumin 3.3 L (3.4-5.0) gm/dl Diagnostic Findings CXR:IMPRESSION: Interval progression of the bilateral perihilar airspace opacities and interstitial thickening likely representing moderate pulmonary edema. Medications Administered Discontinued Medications Albuterol (Duoneb) 3 ml INH NOW STA Stop: 04/07/19 08:04 Last Admin: 04/07/19 08:19 Dose: 3 ml Documented by: [id number] Furosemide (Lasix) 60 mg IV NOW STA Stop: 04/07/19 08:31 Last Admin: 04/07/19 08:35 Dose: 60 mg Documented by: [id number] Nitroglycerin (Nitro-Bid 2%) 2 inch EXT NOW STA Stop: 04/07/19 08:04 Last Admin: 04/07/19 08:14 Dose: 2 inch Documented by: [id number] ECG Rate (beats per minute): 92 Rhythm: normal sinus Code Status & VTE Plan Code Status Full Code VTE Prophylaxis Plan VTE Prophylaxis will be ordered: Yes Reason for no VTE drug order: Contraindicated (hemoptysis) Supervising Physician Co-Signing Physician Notes Attending Addendum: care coordinated with ROSALIND Garza please refer to her notes for full details, I agree with her notes patient seen and examined, records reviewed by myself as well on exam, patient seen resting in bed, comfortable, appears somewhat weak on 2 L NC states she feels about the same as in the ER no active dyspnea, does report cough, no hemoptysis while in the hospital denies chest pain no other symptoms VS noted and reviewed oriented x 3 , not in distress, speaks in sentences with no effort nor accessory muscle use normal rate, regular rhythm, no murmurs mild rales at the bases non distended, soft, nontender no bipedal edema, erythema, warmth no neuro deficits WBC 14 Hg 12[address] chest: 1. Extensive bilateral airspace opacities, similar to chest radiograph performed earlier today but significantly increased since exam of March 25, 2019. Pulmonary edema is favored. Bilateral pneumonia could appear similar. 2. Moderate cardiomegaly. ASSESSMENT AND PLAN> ACUTE HYPOXIC RESPIRATORY FAILURE possible Volume Overload in the setting of CKD possible Pneumonia , in the setting of Hypersensitivity Pneumonitis -- Lasix IV -- Atorvaquone -- Nephro, Pulmonary on board HEMOPTYSIS -- Pulm consulted, may need Bronch without improvement Jonny Fang MD other diagnoses and plan of care as per [] Jonny Fang MD
--- NOTE | 2019-04-07 12:09 | Gastrointestinal Consultation ---
Date of Consultation April 07, 2019 Assessment & Plan (1) Heartburn: Possible etiologies include reflux esophagitis possibly caused or aggravated by the high prednisone dosages; also considered is esophageal candidiasis with history of recent oral candidiasis. BID PPI. Would defer EGD at this time due to respiratory issues and pending cardiac work up. Findings of EGD would be unlikely to change the plan of care. Consider EGD if symptoms persist after w/u for pulmonary and cardiac issues are completed and respiratory status is optimized. Present on Admission?: Yes (2) Globus sensation: Consider ENT referral for laryngoscopy. Present on Admission?: Yes Supervising Physician Co-Signing Physician Notes I have personally seen and examined the patient with ELIANA Ramos . Her note reflects my exam and findings. I agree with her impression and plan. Given high risk respiratory status, would treat with BID PPI and follow symptoms. Vic Houston M.D. History of Present Illness Reason for Consultation: Dysphagia Requesting Physician: Dr. Fang Attending Physician: Jonny Fang MD History of Present Illness Ms. Destiny Pillai is a 59 yr old female with a hx congenitally atrophic left kidney, CKD4 being evaluated for kidney transplant. She was admitted earlier today for pneumonia and GI is consulted for dysphagia. Her dysphagia began 5 days ago. She feels like there is mucous in the neck, sounding like a globus sensation. Additionally, she has "bad burning reflux" in the lower chest and pain in this area if she eats solids. This lower chest discomfort began 5 days ago as well. This is all occurring in the setting of a subacute lung infection for which she is on Prednisone 50mg daily. She was also recently dx'ed with oral thrush, completed a typical tx and the mouth symptoms have resolved. Allergies Allergy/AdvReac Type Severity Reaction Status Date / Time spironolactone Allergy Intermediate LIP Verified 04/04/19 15:28 SWELLING, COUGH nitrofurantoin Allergy Unknown Hives Verified 04/04/19 15:28 Sulfa (Sulfonamide Allergy Unknown hives- Verified 04/04/19 15:28 Antibiotics) anaphylaxis adhesive tape Allergy Redness of Verified 04/04/19 15:28 Skin sertraline Allergy Unknown Verified 04/04/19 15:28 BRITTANI Inhibitors AdvReac Unknown SWELLING, Verified 04/04/19 15:28 COUGHING benazepril AdvReac Cough Verified 04/04/19 15:28 Home Medications Home Medications Medication Instructions Recorded Confirmed Type allopurinol 100 mg PO QAM 07/09/18 04/07/19 History atorvastatin 20 mg PO QAM 07/09/18 04/07/19 History diltiazem HCl 360 mg PO QAM 07/09/18 04/07/19 History hydralazine 50 mg PO TIDM 07/09/18 04/07/19 History levothyroxine 75 mcg tablet 37.5 mcg PO QAM #30 tab 12/09/18 04/07/19 Rx prednisone 20 mg tablet 50 mg PO DAILY tab 04/04/19 04/07/19 History Patient History Medical History Asthma Chronic kidney disease, stage V (Chronic) Congenital renal atrophy History of colon polyps Hyperlipidemia Hypertension (Chronic) Hypothyroidism Interstitial lung disease 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 [facility] [place] Proteinuria (Chronic) Sleep apnea Vitamin D deficiency (Chronic) Surgical History Arteriovenous fistula LEFT ARM AVF: 07/27/18: MAC SEDATION AT [facility] History of cardiac cath 16 YEARS AGO= NO STENTS History of cholecystectomy History of lung biopsy 02/14/2019 THORACOCSOCPY W/ INFILTRATE BIOPSY performed by Trevon Torres MD [place] [facility] [place] Hx of dilation and curettage Family History Grandmother (Paternal) Family history of diabetes mellitus Uncle Family history of diabetes mellitus Father Cancer LUNG Mother Cancer renal cell ca Social History Preferred Language: Swedish Communication Ability: Effective Instructor Of Education Required: No Beliefs That Will Affect Care: None marital status: Current Living Situation: Spouse and Family current occupational status: employed Feels Safe at Home: Yes Smoking Status: Never smoker Second Hand Exposure: No ; Hx Alcohol Use: No Hx Substance Use: No Review of Systems Constitutional: + weakness; no fever and no chills Eyes: no problem reported Ear, Nose, Mouth, Throat: + pain with swallowing globus sensation (feels like mucous in the neck) Respiratory: + cough (x 2 weeks) and + dyspnea on exertion (extreme); no wheezing Cardiovascular: + chest pain (heartburn); no syncope and no edema Gastrointestinal: + nausea (with dysphagia/heartburn); no abdominal pain and no bloating Integumentary: no rash, no lesions and no change in skin color Neurologic: no problem reported Psychiatric: no problem reported Physical Exam Constitutional: WD/WN, vitals as above well developed Eyes: PERRL, conjunctivae normal, anicteric sclerae ENMT: external ear and nose normal, oropharynx normal Neck: trachea midline, no thyromegaly Respiratory: on 2L/minute; feels SOB with any exertion Cardiovascular: RRR, no murmur, no edema Gastrointestinal (Abdomen): normal bowel sounds, soft, nontender, no hepatosplenomegaly Skin: no rashes, warm and dry left arm dialysis shunt Neurologic: PERRL, EOMI, accommodation nl, no face palsy, no dysarthria Psychiatric: A+Ox3, euthymic affect Results & Data Vital Signs (Past 12 Hours) Vital Signs Temp Pulse Pulse Resp BP BP Pulse Ox 04/07/19 11:21 36.8 C 98 H 23 159/82 H 92 04/07/19 11:01 90 25 H 92 04/07/19 11:00 87 25 H 137/72 93 04/07/19 10:30 94 H 22 149/77 H 92 04/07/19 10:01 96 H 26 H 91 04/07/19 10:00 96 H 37 H 159/86 H 91 04/07/19 09:30 94 H 29 H 159/86 H 93 04/07/19 08:30 92 H 24 172/92 H 97 04/07/19 08:19 89 20 97 04/07/19 08:05 95 04/07/19 08:00 92 H 24 170/92 H 97 04/07/19 07:46 36.5 C 98 H 34 H 162/82 H 89 L Laboratory Results Hemoglobin 14 white blood cells 14, hemoglobin 12, hematocrit 36, platelets 146, INR 1.0, sodium 145, potassium 4.7, BUN 87, creatinine 3.7 Diagnostic Findings Chest x-ray: Interval progression of the bilateral perihilar airspace opacities and interstitial thickening likely representing moderate pulmonary edema.
--- NOTE | 2019-04-07 12:23 | Pulmonary Consultation ---
Date of Consultation April 07, 2019 Assessment & Plan (1) Acute respiratory failure with hypoxia: -- Acute hypoxic respiratory failure Multifactorial Patient has underlying CKD stage IVV has not been on diuretic. Aggressive diuresis to keep negative balance. 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 daily not on PJP prophylaxis --> could be PJP would treat with clindamycin and primaquine or atovaquone given that the patient is allergic to sulfa and Bactrim cannot be used. Exacerbation of HP can present same way as well. Would continue with Protonix 50 mg p.o. daily for the time being. Give PPI for stress ulcer prophylaxis. Echo done 03/25/2019 showed ejection fraction of 50 - 55%. Influenza negative. Follow-up septic work-up. ESR, CRP, procalcitonin. Give 1 dose of Rocephin. O2 supplementation to keep oxygen saturation greater than 92- 94%. BiPAP nightly and PRN shortness of breath Will consider bronchoscopy if there is clinical deterioration and no improvement on the chest x-ray after diuresis. Follow-up CT chest without contrast, ABG, LDH Chest x-ray: Portable film, good inspiratory effort. Diffuse alveolar infiltrate appreciated bilaterally, enlarged cardiac silhouette. Bilateral costophrenic angles no clear. Follow nephrology recommendations. recommend ID consult. -- Hemoptysis Likely secondary to cough which has been going on since Thursday along with fluid overload Cough suppressants [id number] Monitor for any drop in hemoglobin (2) Interstitial lung disease: (3) Chronic kidney disease, stage V: (4) Hypertension: History of Present Illness Reason for Consultation: Hemoptysis Attending Physician: Jonny Fang MD History of Present Illness 59-year-old female with past medical history of subacute hypersensitivity pneumonitis diagnosed in January 2019 and started on prednisone since early February 2019 currently taking 50 mg daily, CKD stage IVV with left arm AV fistula not currently on diuretics at home, hypothyroidism JAVED on CPAP, gout presents to the hospital with complaints of shortness of breath which has been getting progressively worse since Thursday. Patient states that she is not able to lie flat. She has also been coughing since Thursday and recently started to bring up bloodstained sputum. There is streaks of blood appreciated on the sputum. Blood streaked sputum but not every time she coughs. Patient denies any fever. Does complain of chills which has been going on for a very long time. Denies any runny nose or tearing from the eyes. No recent travel history. No recent sick contacts. Patient complains of constipation. No diarrhea, no dysuria, no hematuria, no hematochezia. Denies any chest pain, no dizziness, no headache, no blurry vision. Patient has also been noticing hoarseness of voice which again has been going on for the last couple of days which she thinks is because of her constant coughing. Denies any night sweats. Social history: Non-smoker, no illicit drug use, social alcohol Has a cat at home which is not allergic to. 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 Family history: Lung cancer in the family. No personal history of cancer Has never been intubated in the past. Allergies Allergy/AdvReac Type Severity Reaction Status Date / Time spironolactone Allergy Intermediate LIP Verified 04/04/19 15:28 SWELLING, COUGH nitrofurantoin Allergy Unknown Hives Verified 04/04/19 15:28 Sulfa (Sulfonamide Allergy Unknown hives- Verified 04/04/19 15:28 Antibiotics) anaphylaxis adhesive tape Allergy Redness of Verified 04/04/19 15:28 Skin sertraline Allergy Unknown Verified 04/04/19 15:28 BRITTANI Inhibitors AdvReac Unknown SWELLING, Verified 04/04/19 15:28 COUGHING benazepril AdvReac Cough Verified 04/04/19 15:28 Home Medications Home Medications Medication Instructions Recorded Confirmed Type allopurinol 100 mg PO QAM 07/09/18 04/07/19 History atorvastatin 20 mg PO QAM 07/09/18 04/07/19 History diltiazem HCl 360 mg PO QAM 07/09/18 04/07/19 History hydralazine 50 mg PO TIDM 07/09/18 04/07/19 History levothyroxine 75 mcg tablet 37.5 mcg PO QAM #30 tab 12/09/18 04/07/19 Rx prednisone 20 mg tablet 50 mg PO DAILY tab 04/04/19 04/07/19 History Patient History Medical History Asthma Chronic kidney disease, stage V (Chronic) Congenital renal atrophy History of colon polyps Hyperlipidemia Hypertension (Chronic) Hypothyroidism Interstitial lung disease 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 [facility] [place] Proteinuria (Chronic) Sleep apnea Vitamin D deficiency (Chronic) Surgical History Arteriovenous fistula LEFT ARM AVF: 07/27/18: MAC SEDATION AT [facility] History of cardiac cath 16 YEARS AGO= NO STENTS History of cholecystectomy History of lung biopsy 02/14/2019 THORACOCSOCPY W/ INFILTRATE BIOPSY performed by Trevon Torres MD at OR [facility] [place] Hx of dilation and curettage Family History Grandmother (Paternal) Family history of diabetes mellitus Uncle Family history of diabetes mellitus Father Cancer LUNG Mother Cancer renal cell ca Social History Preferred Language: Uzbek Communication Ability: Effective Tubing Tester Required: No Beliefs That Will Affect Care: None marital status: Current Living Situation: Spouse and Family current occupational status: employed Feels Safe at Home: Yes Smoking Status: Never smoker Second Hand Exposure: No ; Hx Alcohol Use: No Hx Substance Use: No Review of Systems Review of Systems: All systems reviewed & are unremarkable except as noted in HPI & below Physical Exam Physical Exam: Constitutional: No acute distress HEENT: EOMI, PERRLA, thick neck, no JVD appreciated, hoarseness of voice appreciated Respiratory system: Decreased air entry bilaterally, positive bilateral lower lobe crackles, no wheeze, no rhonchi CVS: S1-S2 positive, positive 2 out of 6 systolic murmur appreciated best at the apex, no gallops Abdomen: Soft, nontender, nondistended, positive bowel sounds x4 Extremities: +2 pulses bilaterally radialis/ dorsalis pedis, no cyanosis, +1 edema bilateral lower extremity, left arm AV fistula positive thrill Neuro: Awake alert oriented x3 Psych: Normal mood and affect G/U: No Quiroz Skin: no rashes, warm and dry Lymphatic: no cervical or axillary lymphadenopathy Results & Data Vital Signs (Past 12 Hours) Vital Signs Temp Pulse Pulse Resp BP BP Pulse Ox 04/07/19 11:21 36.8 C 98 H 23 159/82 H 92 04/07/19 11:01 90 25 H 92 04/07/19 11:00 87 25 H 137/72 93 04/07/19 10:30 94 H 22 149/77 H 92 04/07/19 10:01 96 H 26 H 91 04/07/19 10:00 96 H 37 H 159/86 H 91 04/07/19 09:30 94 H 29 H 159/86 H 93 04/07/19 08:30 92 H 24 172/92 H 97 04/07/19 08:19 89 20 97 04/07/19 08:05 95 04/07/19 08:00 92 H 24 170/92 H 97 04/07/19 07:46 36.5 C 98 H 34 H 162/82 H 89 L 04/07/19 08:22 04/07/19 08:22 PG Care Time/CCT Total # of Minutes Spent Total Time Spent with Patient: Total time spent is greater than 50% in coordination of care (as documented) at patient's floor/unit and/or counseling patient:
[2019-04-07] MEDS ORDERED: CLINDAMYCIN HCL 150 MG CAP PO SCH (12:30)
[2019-04-07 12:35] LABS: Base Excess ABG -1.3 mEq/L (-9-1.8); HCO3 ABG 21 mmol/L (19-24); Oxygen Saturation ABG 96.2 % (90-95); PCO2 ABG 27 mmHg (35-46); PO2 ABG 79 mm/Hg (80-95)
[2019-04-07 12:36] LABS: Allen Test Pos (Pos)
[2019-04-07] MEDS ORDERED: DEXTROSE 50% 50 ML SYRINGE IV PRN (12:59)
[2019-04-07] MEDS ORDERED: GLUCOSE 10 TABS/TUBE PO PRN (12:59)
[2019-04-07] MEDS ORDERED: CARBOHYDRATES FOR HYPOGLYCEMIA PO PRN (12:59)
[2019-04-07] MEDS ORDERED: GLUCAGON FOR INJ 1 MG VIAL SQ PRN (12:59)
[2019-04-07] MEDS ORDERED: GLUCOSE 40% GEL 15 GM TUBE PO PRN (12:59)
[2019-04-07] MEDS ORDERED: cefTRIAXone SODIUM 1,000 MG in DEXTROSE 5% 50 ML IV ONE (13:15)
[2019-04-07] MEDS: PANTOprazole 40 MG TAB PO SCH (13:21)
[2019-04-07] MEDS: HydrALAZINE TAB 50 MG TAB PO SCH ×2 (13:21→17:17)
[2019-04-07] MEDS: GUAIFENESIN/DEXTROM SYRUP 200MG/20MG 10ML UDC PO SCH ×2 (13:21→21:11)
[2019-04-07] MEDS: ATOVAQUONE 750 MG/5 ML UDC PO SCH ×2 (13:21→21:11)
[2019-04-07] MEDS: NYSTATIN SUSP 500,000 U/5 ML UDC PO SCH ×3 (13:21→21:12)
--- NOTE | 2019-04-07 13:54 | Emergency Department Note ---
Entered by Grant Luke acting as a scribe for History of Present Illness General Chief complaint: Shortness of Breath/Dyspnea Stated complaint: SOB Time Seen by Provider: 04/07/19 07:52 Source: patient History of Present Illness Provider complaint: Shortness of breath Onset (ago): day(s) 5 Location: chest Severity: similar to prior episodes Pain Consistency: + constant and + other (Worsening) Maximum Pain Intensity: 0 Relieved By: + none Associated symptoms: + cough, + fever/chills (No fevers) and + loss of appetite The patient is a 59 year old female who presents to the Emergency Room with complaints of worsening shortness of breath over the past 5 days. Per the patient's , the patient was seen and admitted to the hospital for shortness of breath. The patient was found to have a CHF exacerbation with fluid on the lungs and she was hospitalized for a weekend. Since being discharged, the patient has had a constant productive cough with bloody mucous. Over the past 5 days the patient's breathing issues have caused her to lose her appetite. Per the , the patient has also been on a high dose of Prednisone for the past month due to being exposed to mold at her old workplace. He adds that they are currently working on decreasing her dose. The patient does have end stage renal failure with a fistula in place but she has not started dialysis. The patient does not use any oxygen at home. Home Medications Home Medications Medication Instructions Recorded Confirmed Type allopurinol 100 mg PO QAM 07/09/18 04/07/19 History atorvastatin 20 mg PO QAM 07/09/18 04/07/19 History diltiazem HCl 360 mg PO QAM 07/09/18 04/07/19 History hydralazine 50 mg PO TIDM 07/09/18 04/07/19 History levothyroxine 75 mcg tablet 37.5 mcg PO QAM #30 tab 12/09/18 04/07/19 Rx prednisone 20 mg tablet 50 mg PO DAILY tab 04/04/19 04/07/19 History Allergies Allergy/AdvReac Type Severity Reaction Status Date / Time spironolactone Allergy Intermediate LIP Verified 04/04/19 15:28 SWELLING, COUGH nitrofurantoin Allergy Unknown Hives Verified 04/04/19 15:28 Sulfa (Sulfonamide Allergy Unknown hives- Verified 04/04/19 15:28 Antibiotics) anaphylaxis adhesive tape Allergy Redness of Verified 04/04/19 15:28 Skin sertraline Allergy Unknown Verified 04/04/19 15:28 BRITTANI Inhibitors AdvReac Unknown SWELLING, Verified 04/04/19 15:28 COUGHING benazepril AdvReac Cough Verified 04/04/19 15:28 Past Med/Surg History Medical History Asthma Chronic kidney disease, stage V (Chronic) Congenital renal atrophy History of colon polyps Hyperlipidemia Hypertension (Chronic) Hypothyroidism Interstitial lung disease 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 [facility] [place] Proteinuria (Chronic) Sleep apnea Vitamin D deficiency (Chronic) Surgical History Arteriovenous fistula LEFT ARM AVF: 07/27/18: MAC [facility]ATION AT [facility] History of cardiac cath 16 YEARS AGO= NO STENTS History of cholecystectomy History of lung biopsy 02/14/2019 THORACOCSOCPY W/ INFILTRATE BIOPSY performed by Trevon Torres MD [place] [facility] [place] Hx of dilation and curettage Family History Grandmother (Paternal) Family history of diabetes mellitus Uncle Family history of diabetes mellitus Father Cancer LUNG Mother Cancer renal cell ca Social History Preferred Language: Kenyan Communication Ability: Effective Admitting Officer Required: No Beliefs That Will Affect Care: None marital status: Current Living Situation: Spouse and Family current occupational status: employed Feels Safe at Home: Yes Smoking Status: Never smoker Second Hand Exposure: No ; Hx Alcohol Use: No Hx Substance Use: No Review of Systems See HPI for pertinent positives & negatives. and A total of 10 systems reviewed and were otherwise negative Physical Exam Vital Signs Vital Signs - 24 hr 04/07/19 07:46 04/07/19 08:00 04/07/19 08:03 Temperature 36.5 C Temperature Source Oral Pulse Rate 98 H 92 H Pulse Rate [Finger] Pulse Rate from SpO2 Sensor 92 H Respiratory Rate 34 H 24 Respiratory Effort / Characteristics Spontaneous Labored Respiratory Pattern Tachypnea Blood Pressure 162/82 H 170/92 H Blood Pressure Mean 108 123 Pulse Oximetry 89 L 97 Oxygen Delivery Method Room Air Nasal Cannula Room Air Oxygen Flow Rate 89 Fraction of Inspired Oxygen 2 Sepsis Recent Fever Within 48 Hours No Sepsis New/Unexplained Change in Mental Status No Sepsis Action Taken by Nursing No Action Required 04/07/19 08:05 04/07/19 08:19 04/07/19 08:30 Temperature Temperature Source Pulse Rate 92 H Pulse Rate [Finger] 89 Pulse Rate from SpO2 Sensor 92 H Respiratory Rate 20 24 Respiratory Effort / Characteristics Non-Labored Spontaneous Respiratory Pattern Blood Pressure 172/92 H Blood Pressure Mean 102 Pulse Oximetry 95 97 97 Oxygen Delivery Method Nasal Cannula Nasal Cannula Nasal Cannula Oxygen Flow Rate 2 2 2 Fraction of Inspired Oxygen Sepsis Recent Fever Within 48 Hours Sepsis New/Unexplained Change in Mental Status Sepsis Action Taken by Nursing 04/07/19 09:30 04/07/19 10:00 04/07/19 10:01 Temperature Temperature Source Pulse Rate 94 H 96 H 96 H Pulse Rate [Finger] Pulse Rate from SpO2 Sensor 95 H 95 H 95 H Respiratory Rate 29 H 37 H 26 H Respiratory Effort / Characteristics Respiratory Pattern Blood Pressure 159/86 H 159/86 H Blood Pressure Mean 98 108 Pulse Oximetry 93 91 91 Oxygen Delivery Method Oxygen Flow Rate 2 2 Fraction of Inspired Oxygen Sepsis Recent Fever Within 48 Hours Sepsis New/Unexplained Change in Mental Status Sepsis Action Taken by Nursing 04/07/19 10:30 Temperature Temperature Source Pulse Rate 94 H Pulse Rate [Finger] Pulse Rate from SpO2 Sensor 93 H Respiratory Rate 22 Respiratory Effort / Characteristics Respiratory Pattern Blood Pressure 149/77 H Blood Pressure Mean 101 Pulse Oximetry 92 Oxygen Delivery Method Nasal Cannula Oxygen Flow Rate 2 Fraction of Inspired Oxygen Sepsis Recent Fever Within 48 Hours Sepsis New/Unexplained Change in Mental Status Sepsis Action Taken by Nursing GENERAL: Patient is in mild distress. HEENT: No acute trauma, normocephalic atraumatic, mucous membranes moist, no nasal congestion, no scleral icterus. NECK: No stridor, no adenopathy, no meningismus, trachea is midline. LUNGS: Crackles in the right lower lung. No wheezing. Dry cough noted. Increased respiratory rate. No significant respiratory distress. HEART: Without murmurs gallops or rubs, regular rate and rhythm. ABDOMEN: Soft, nontender, bowel sounds positive, no hernias, no peritonitis. EXTREMITIES: Mild bilateral pedal edema. No cyanosis, full range of motion of all the joints without pain or difficulty, no signs for acute trauma. NEUROLOGIC: Oriented x 3, no acute motor or sensory deficits, no focal weakness. SKIN: No rash, no jaundice, no diaphoresis. Course Course 0754: Past medical records reviewed. The patient was evaluated in room B11B, and a complete history and physical examination were performed. 0832: I reevaluated the patient and updated her on test results. 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 0855: I spoke to Dr. Ross Herrera about the patient's case. He agreed with the Nitro and diuretics. He also suggested talking with nephrology and agreed to be on consult. 0858: I spoke to Dr. Sonido Grullon about the patient's case. He agreed with the Nitro and diuretics as well and will look into the patient. He recommended having the patient admitted. 0919: I discussed the patient's case with Tete MASTERS who is working under Dr. Annalisa Sears. They agreed to accept the patient for further evaluation. 0925: I updated the patient on the treatment plan and she is agreeable. Consultations Consultation #1: I spoke to Dr. Ross Herrera about the patient's case. He agreed with the Nitro and diuretics. He also suggested talking with nephrology and agreed to be on consult. Time: 08:55 Consultation #2: I spoke to Dr. Sonido Grullon about the patient's case. He agreed with the Nitro and diuretics as well and will look into the patient. He recommended having the patient admitted. Time: 08:58 Consultation #3: I discussed the patient's case with Tete MASTERS who is working under Dr. Annalisa Sears. They agreed to accept the patient for further evaluation. Time: :19 Administered Medications Atovaquone (Mepron) 750 mg PO BID [facility] Stop: 05/07/19 12:59 Last Admin: 04/07/19 13:21 Dose: 750 mg Documented by: [id number] Guaifenesin/Dextromethorphan (Robitussin Cough-Chest Dm) 10 ml PO Q6H [facility] Stop: 05/07/19 13:59 Last Admin: 04/07/19 13:21 Dose: 10 ml Documented by: [id number] Hydralazine HCl (Apresoline) 50 mg PO TIDM [facility] Stop: 05/07/19 11:59 Last Admin: 04/07/19 13:21 Dose: 50 mg Documented by: [id number] Nystatin (Mycostatin) 5 ml PO QID [facility] Stop: 04/17/19 12:59 Last Admin: 04/07/19 13:21 Dose: 5 ml Documented by: [id number] Pantoprazole Sodium (Protonix) 40 mg PO QAM [facility] Stop: 05/07/19 12:14 Last Admin: 04/07/19 13:21 Dose: 40 mg Documented by: [id number] Discontinued Medications Albuterol (Duoneb) 3 ml INH NOW STA Stop: 04/07/19 08:04 Last Admin: 04/07/19 08:19 Dose: 3 ml Documented by: [id number] Clindamycin HCl (Cleocin) 600 mg PO Q8H [facility]ON Stop: 04/14/19 12:29 Last Admin: 04/07/19 13:06 Dose: Not Given Documented by: [id number] Furosemide (Lasix) 60 mg IV NOW STA Stop: 04/07/19 08:31 Last Admin: 04/07/19 08:35 Dose: 60 mg Documented by: [id number] Ceftriaxone Sodium 1,000 mg/ (Dextrose) 50 mls @ 100 mls/hr IV NOW ONE; Protocol Stop: 04/07/19 13:44 Last Infusion: 04/07/19 14:20 Dose: 0 mls/hr Documented by: [id number] Admin: 04/07/19 13:21 Dose: 100 mls/hr Documented by: [id number] Nitroglycerin (Nitro-Bid 2%) 2 inch EXT NOW STA Stop: 04/07/19 08:04 Last Admin: 04/07/19 08:14 Dose: 2 inch Documented by: [id number] Critical Care Time Critical Care Time: Yes Total Critical Care Time: 35 I have personally spent greater than 35 minutes of critical care time in the direct management of this patient. This includes bedside care, interpretation of diagnostic studies, and testing, discussion with consultants, patient, and family members, and other required patient management activities. This 35 minutes is in excess of all separately billable procedures. Medical Decision Making Differential Diagnosis Differential Diagnosis includes: CHF, bronchitis, pneumonia, anemia, worsening renal failure, flu-like symptoms, influenza, [place], PE, and cardiac ischemia, amongst others. Medical Records Attestation: I reviewed the patient's medical records. Home Medications Current Medication List: was personally reviewed by me Laboratory Data Attestation: I reviewed the patient's lab results. Result diagrams: 04/07/19 08:22 04/07/19 08:22 Lab Results 04/07/19 04/07/19 04/07/19 Range/Units 08:12 08:22 08:22 WBC 14.93 H (4.8-10.8) K/uL RBC 3.88 L (4.2-5.4) M/uL Hgb 12.1 (12.0-16.0) g/dL Hct 36.7 L (37-47) % MCV 94.6 (80-100) fL MCH 31.2 (25-34) pg MCHC 33.0 (32-36) g/dL RDW Std Deviation 56.6 H (36.4-46.3) fL RDW Coeff of Grover 16.4 H (11.5-14.5) % Plt Count 146 (130-400) K/uL MPV 10.3 (7.4-10.4) fL Immature Gran % (Auto) 0.5 % Neut % (Auto) 91.4 % Lymph % (Auto) 4.3 % [place] % (Auto) 3.7 % Eos % (Auto) 0.1 % Baso % (Auto) 0.0 % Immature Gran # (Auto) 0.07 H (0.00-0.02) K/uL Neut # (Auto) 13.66 H (1.4-6.5) K/uL Lymph # (Auto) 0.64 L (1.2-3.4) K/uL [place] # (Auto) 0.55 (0.11-0.59) K/uL Eos # (Auto) 0.01 (0-0.5) K/uL Baso # (Auto) 0.00 (0-0.2) K/uL PT Cancelled INR Cancelled APTT Cancelled PTT Ratio Cancelled Sodium (136-145) mmol/L Potassium (3.5-5.1) mmol/L Chloride (98-107) mmol/L Carbon Dioxide (21-32) mmol/L Anion Gap (3-11) BUN (7-18) mg/dl Creatinine (0.6-1.2) mg/dl Est Cr Clr Drug Dosing ml/min Est GFR ( Amer) Est GFR (Non-Af Amer) BUN/Creatinine Ratio (10-20) Glucose (70-99) mg/dl Calcium (8.5-10.1) mg/dl Magnesium (1.8-2.4) mg/dl Total Bilirubin (0.2-1) mg/dl AST (15-37) U/L ALT (12-78) U/L Alkaline Phosphatase (45-117) U/L Troponin I (0-0.045) ng/ml NT-Pro-B Natriuret Pep (0-900) pg/ml Total Protein (6.4-8.2) gm/dl Albumin (3.4-5.0) gm/dl Globulin (2.5-4.0) gm/dl Albumin/Globulin Ratio (0.9-2) Hep Bs Antigen (Neg) Hep Bs Antibody Hep Bs Antibody, Quant (>or=10mIU/mL Immune) mIU/mL Influenza Type A Ag Neg for Influ A (Neg) Influenza Type B Ag Neg for Influ B (Neg) 04/07/19 04/07/19 04/07/19 Range/Units 08:22 09:13 09:13 WBC (4.8-10.8) K/uL RBC (4.2-5.4) M/uL Hgb (12.0-16.0) g/dL Hct (37-47) % MCV (80-100) fL MCH (25-34) pg MCHC (32-36) g/dL RDW Std Deviation (36.4-46.3) fL RDW Coeff of Grover (11.5-14.5) % Plt Count (130-400) K/uL MPV (7.4-10.4) fL Immature Gran % (Auto) % Neut % (Auto) % Lymph % (Auto) % [place] % (Auto) % Eos % (Auto) % Baso % (Auto) % Immature Gran # (Auto) (0.00-0.02) K/uL Neut # (Auto) (1.4-6.5) K/uL Lymph # (Auto) (1.2-3.4) K/uL [place] # (Auto) (0.11-0.59) K/uL Eos # (Auto) (0-0.5) K/uL Baso # (Auto) (0-0.2) K/uL PT 10.0 INR 1.0 APTT 21.4 PTT Ratio 0.8 Sodium 145 (136-145) mmol/L Potassium 4.7 (3.5-5.1) mmol/L Chloride 116 H (98-107) mmol/L Carbon Dioxide 19 L (21-32) mmol/L Anion Gap 10.0 (3-11) BUN 87 H (7-18) mg/dl Creatinine 3.70 H (0.6-1.2) mg/dl Est Cr Clr Drug Dosing 17.3 ml/min Est GFR ( Amer) 14.9 Est GFR (Non-Af Amer) 12.8 BUN/Creatinine Ratio 23.5 H (10-20) Glucose 148 H (70-99) mg/dl Calcium 9.3 (8.5-10.1) mg/dl Magnesium 2.4 (1.8-2.4) mg/dl Total Bilirubin 0.6 (0.2-1) mg/dl AST 22 (15-37) U/L ALT 35 (12-78) U/L Alkaline Phosphatase 77 (45-117) U/L Troponin I < 0.015 (0-0.045) ng/ml NT-Pro-B Natriuret Pep 6277 H (0-900) pg/ml Total Protein 6.4 (6.4-8.2) gm/dl Albumin 3.3 L (3.4-5.0) gm/dl Globulin 3.1 (2.5-4.0) gm/dl Albumin/Globulin Ratio 1.1 (0.9-2) Hep Bs Antigen Neg (Neg) Hep Bs Antibody Non-Immune Hep Bs Antibody, Quant < 3.10 L (>or=10mIU/mL Immune) mIU/mL Influenza Type A Ag (Neg) Influenza Type B Ag (Neg) Imaging Data Radiologist's Impression: Radiology results as stated below per my review and the radiologist's interpretation: XR chest 1V portable HISTORY: Shortness of breath. COMPARISON: Chest 03/25/2019. FINDINGS: Suture material within the right lung is again noted. The heart is mildly enlarged. Bilateral perihilar airspace opacities and interstitial thickening has progressed. Suspect trace bilateral pleural effusions. No pneumothorax. IMPRESSION: Interval progression of the bilateral perihilar airspace opacities and interstitial thickening likely representing moderate pulmonary edema. ACT 112: Negative or not required by law. Electronically signed by: Nabeel Cotto M.D. 04/07/2019 8:28 AM ECG Data Attestation: I personally reviewed and interpreted this ECG as follows: Indication: + SOB/dyspnea Rate (beats per minute): 92 Rhythm: + normal sinus ECG Intervals/blocks: + Normal QT-c (400) ECG ST segments: no ST elevation ECG Findings: no PVCs Blood Pressure Blood Pressure Findings: Elevated blood pressure Blood Pressure Disposition: further management by hospitalist ANDRES Narrative There is a mild leukocytosis, this could of course be consistent with infection or just the stress of her situation. No coagulopathy. Renal panel testing shows a high creatinine, this is baseline for the patient. The potassium was normal. No worrisome liver enzyme elevation. BNP was quite elevated consistent with fluid overload. Chest film does show CHF. EKG shows a sinus rhythm, no acute ischemia. Cardiac enzyme testing x1 is not consistent with acute cardiac injury. The patient was aggressively managed. She was in heart failure and presented slightly hypoxic. She was given a DuoNeb, nitroglycerin paste and IV Lasix. I did speak with nephrology as well as cardiology. They recommended a hospital stay. They will consult and give advice on management. I spoke to the patient and case management. The on-call hospitalist has been consulted. The patient is more comfortable since being treated here in the ED. Impression & Plan Hypoxia, CHF (congestive heart failure), Shortness of breath, Chronic renal failure Discharge Plan Visit Data *Final* Discharge Date/Time: 04/07/19 11:00 Chief Complaint: Shortness of Breath/Dyspnea Stated Complaint: SOB ED Provider: Oscar Russo Discharge Problem: Hypoxia, CHF (congestive heart failure), Shortness of breath, Chronic renal failure Patient Disposition: Admitted As Inpatient Discharge Instructions Interventions: ED Discharge Assessment Last Done: 04/07/19 11:00 Discharge Problem: CHF (congestive heart failure) Qualifiers: Heart failure type: unspecified Heart failure chronicity: acute on chronic Qualified Code(s): I50.9 - Heart failure, unspecified Chronic renal failure Qualifiers: Chronic kidney disease stage: unspecified stage Qualified Code(s): N18.9 - Chronic kidney disease, unspecified The scribe's documentation has been prepared under my direction and personally reviewed by me in its entirety. I confirm that the note above accurately reflects all work, treatment, procedures, and medical decision making performed by me.
--- NOTE | 2019-04-07 13:58 | CT Scan Report ---
CT OF THE CHEST WITHOUT IV CONTRAST CLINICAL HISTORY: Shortness of breath. COMPARISON STUDY: Chest CT December 02, 2018. Chest radiograph performed earlier today. CT DOSE: 282.06 mGy.cm TECHNIQUE: Axial images of the chest were obtained without IV contrast. Images were reviewed in the axial, sagittal, and coronal planes. IV contrast was not administered for this examination. Automat ed exposure control was utilized for the study. A dose lowering technique was utilized adhering to t he principles of ALARA. FINDINGS: No enlarged axillary, mediastinal or hilar lymph nodes are present. The heart is moderatel y enlarged. There's no pericardial effusion. Central airways are patent. No pneumothorax or pleural e ffusion is noted. Extensive bilateral airspace opacities are noted. These are similar to chest radiog raph performed earlier today and significantly increased when compared to exam of March 25, 2019. R ight lung wedge resection is noted. There is no cavitation. Bony thorax is unremarkable. Visualized p ortions of the upper abdomen demonstrate marked left renal atrophy, as shown on prior imaging studies . IMPRESSION: 1. Extensive bilateral airspace opacities, similar to chest radiograph performed earlier today but si gnificantly increased since exam of March 25, 2019. Pulmonary edema is favored. Bilateral pneumonia could appear similar. 2. Moderate cardiomegaly. ACT 112: Negative or not required by law. Electronically signed by: Andrés Peace M.D. 04/07/2019 1:56 PM
--- NOTE | 2019-04-07 15:31 | Ultrasound Report ---
US hemodialysis access HISTORY: 59 years-old Female AVF; high output AVF AV fistula COMPARISON: None available TECHNIQUE: Multiple real-time sonographic images of the left upper extremity AV fistula were obtained assessing grayscale appearance, color and spectral flow FINDINGS: Patent AV fistula of the left upper extremity extending from the distal brachial artery to cephalic v ein. The arteriovenous anastomosis is patent with opening measured at approximately 6 mm. Peak systol ic velocities at the anastomosis measure up to 256 cm/s measured within the area of turbulent flow. T he fistula measures up to 1.4 cm transversely. IMPRESSION: Patent AV fistula of the left upper extremity as above. ACT 112: Negative or not required by law. The above report was generated using voice recognition software. It may contain grammatical, syntax o r spelling errors. Electronically signed by: Dharmesh Longo M.D. 04/07/2019 3:30 PM
[2019-04-07] MEDS: INSULIN ASPART 100 UNITS/ML 3 ML PEN SC SCH ×2 (17:17→21:12)
[2019-04-07] MEDS: FUROSEMIDE 60 MG in SYRINGE 0 ML IV SCH (17:18)
[2019-04-08] MEDS: GUAIFENESIN/DEXTROM SYRUP 200MG/20MG 10ML UDC PO SCH ×4 (02:05→20:17)
[2019-04-08] MEDS: LEVOTHYROXINE SODIUM 25 MCG TABLET PO SCH (06:20)
[2019-04-08 06:45] LABS: Eosinophils # (auto) 0.03 K/uL (0-0.5); Eosinophils % (auto) 0.2 %; Hematocrit (blood only) 32.6 % (37-47); Hemoglobin 10.8 g/dL (12.0-16.0); Immature Granulocytes # (auto) 0.04 K/uL (0.00-0.02); Immature Granulocytes % (auto) 0.3 %; Lymphocytes # (auto) 0.58 K/uL (1.2-3.4); Lymphocytes % (auto) 4.7 %; Mean Corpuscular Hgb Conc 33.1 g/dL (32-36); Mean Corpuscular Volume 93.7 fL (80-100); Mean Platelet Volume 10.3 fL (7.4-10.4); Monocytes % (auto) 3.2 %; Neutrophils # (auto) 11.39 K/uL (1.4-6.5); Neutrophils % (auto) 91.6 %; Platelet Count 129 K/uL (130-400); RDW Coefficient of Variation 16.3 % (11.5-14.5); RDW Standard Deviation 55.6 fL (36.4-46.3); Red Blood Count 3.48 M/uL (4.2-5.4); White Blood Count 12.44 K/uL (4.8-10.8)
[2019-04-08 07:18] LABS: Albumin Level 2.8 gm/dl (3.4-5.0); BUN Creatinine Ratio 23.1 (10-20); Calcium 9.2 mg/dl (8.5-10.1); Creatinine Clr Calc Pharmacy 15.7 ml/min; Est GFR (African American) 13.3; Est GFR (Non-African American) 11.5; Potassium 4.5 mmol/L (3.5-5.1)
[2019-04-08 07:21] LABS: Albumin Globulin Ratio 0.9 (0.9-2); Bilirubin,Total 0.6 mg/dl (0.2-1); Globulin 3.3 gm/dl (2.5-4.0); Total Protein 6.1 gm/dl (6.4-8.2)
[2019-04-08] MEDS ORDERED: POLYETHYLENE (MIRALAX) 17 GM PACK PO PRN (07:42)
--- NOTE | 2019-04-08 07:45 | XRay Report ---
SINGLE VIEW CHEST CLINICAL HISTORY: Dyspnea. FINDINGS: An AP, portable, upright chest radiograph is compared to chest x-ray and chest CT dated . Impression degraded the heart is enlarged. There is pulmonary vascular congestion. Suture ma terial projects over the right midlung. Diffuse bilateral patchy airspace consolidation is similar ap pearance to yesterday. No large pleural effusion is identified. No pneumothorax is seen. The skeletal structures are osteopenic. The bony thorax is grossly intact. IMPRESSION: 1. Cardiomegaly with pulmonary vascular congestion. 2. Diffuse bilateral airspace opacities are similar in appearance to yesterday. Top differential cons iderations remain pulmonary edema, multifocal pneumonia, and/or ARDS. Clinical correlation will be re quired. Electronically signed by: Oscar Way M.D. 04/08/2019 7:43 AM
[2019-04-08] MEDS: predniSONE 20 MG TAB PO SCH ×2 (08:25→20:15)
[2019-04-08] MEDS: FUROSEMIDE 60 MG in SYRINGE 0 ML IV SCH ×2 (08:25→16:17)
[2019-04-08] MEDS: AZITHROMYCIN 250 MG TAB PO SCH (08:25)
[2019-04-08] MEDS: PANTOprazole 40 MG TAB PO SCH ×2 (08:26→20:15)
[2019-04-08] MEDS: dilTIAZem ER 180 MG CAPCR PO SCH (08:26)
[2019-04-08] MEDS: NYSTATIN SUSP 500,000 U/5 ML UDC PO SCH ×4 (08:26→20:15)
[2019-04-08] MEDS: ATOVAQUONE 750 MG/5 ML UDC PO SCH (08:26)
[2019-04-08] MEDS: ATORVASTATIN 20 MG TAB PO SCH (08:27)
[2019-04-08] MEDS: HydrALAZINE TAB 50 MG TAB PO SCH ×3 (08:27→16:16)
[2019-04-08] MEDS: allopurinoL 100 MG TAB PO SCH (08:27)
[2019-04-08] MEDS: INSULIN ASPART 100 UNITS/ML 3 ML PEN SC SCH ×4 (08:27→20:24)
--- NOTE | 2019-04-08 08:28 | Pulmonology Progress Note ---
Date of Service April 08, 2019 Assessment & Plan (1) Acute respiratory failure with hypoxia: -- Acute hypoxic respiratory failure Multifactorial Patient has underlying CKD stage IVV has not been on diuretic. Aggressive diuresis to keep negative balance. 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 daily, not on PJP prophylaxis --> could be PJP, treating with atovaquone given that the patient is allergic to sulfa --> Bactrim cannot be used. Primaquine not available in the hospital for the time being. Exacerbation of HP still high on the differential. Increase prednisone 40 mg twice daily. Give PPI for stress ulcer prophylaxis. Echo done 03/25/2019 showed ejection fraction of 50 - 55%. Influenza negative. Follow-up septic work-up. ESR: 21, CRP: 3.72, procalcitonin: 0.17. Will add azithromycin for atypical coverage O2 supplementation to keep oxygen saturation greater than 92- 94%. BiPAP nightly and PRN shortness of breath Follow-up beta D glucan assay and induce sputum for PJP. Will consider bronchoscopy if there is clinical deterioration. AB04/07/2019: Showed a gradient of 100. LDH: 526 (could be elevated sec ondary to PJP, and or underlying CKD itself) Chest x-ray from today showed minimal improvement compared to chest x-ray from yesterday. CT chest without contrast 04/07/2019 reviewed personally: Shows diffuse groundglass opacities bilaterally, no pleural effusion. On comparing to CAT scan which was done 12/02/2018 at [place] resembles to some extent to the expiratory supine films. Follow nephrology recommendations. recommend ID consult. -- Hemoptysis Likely secondary to cough which has been going on since Thursday along with fluid overload Cough suppressants [id number] No more hemoptysis since coming to the hospital. (2) Hemoptysis: (3) Chronic kidney disease, stage V: (4) Interstitial lung disease: Subjective Patient seen and examined at bedside. No acute distress, no adverse events overnight. Patient states that she feels the same as yesterday. Coughing still present. No more hemoptysis as per the patient. Hoarseness of voice persistent. Denies any chest pain. Does complain of he artburn especially after eating. No hematuria, no hematochezia. No nausea or vomiting. Urinating well. Patient is -3.3 L since yesterday. At the time of examination patient was saturating 93% on 2 L nasal cannula with heart rate of 103 at rest. Review of Systems Review of Systems: All systems reviewed & are unremarkable except as noted in HPI & below Physical Exam Physical Exam: Constitutional: No acute distress HEENT: EOMI, PERRLA, thick neck, no JVD appreciated, hoarseness of voice present Respiratory system: Decreased air entry bilaterally, positive bilateral lower lobe crackles, no wheeze, no rhonchi CVS: S1-S2 positive, positive 2 out of 6 systolic murmur appreciated best at the apex, no gallops Abdomen: Soft, nontender, nondistended, positive bowel sounds x4 Extremities: +2 pulses bilaterally radialis/ dorsalis pedis, no cyanosis, +1 edema bilateral lower extremity, left arm AV fistula positive thrill Neuro: Awake alert oriented x3 Psych: Normal mood and affect G/U: No Quiroz Skin: no rashes, warm and dry Lymphatic: no cervical or axillary lymphadenopathy Results & Data Vital Signs (Past 12 Hours) Vital Signs Temp Pulse Pulse Resp BP Pulse Ox 04/08/19 07:31 36.7 C 96 H 18 155/82 H 95 04/08/19 04:23 36.7 C 88 18 147/84 H 94 04/07/19 23:14 36.7 C 87 20 150/76 H 93 04/07/19 23:01 101 H 04/08/19 06:30 04/08/19 06:30 04/07/19 12:18 ABG pH 7.50 H ABG pCO2 27 L ABG pO2 79 L ABG HCO3 21 ABG O2 Saturation 96.2 H ABG Base Excess -1.3 PG Care Time/CCT Total # of Minutes Spent Total Time Spent with Patient: Total time spent is greater than 50% in coordination of care (as documented) at patient's floor/unit and/or counseling patient:
[2019-04-08] MEDS ORDERED: predniSONE 50 MG TAB PO SCH (09:00)
[2019-04-08] MEDS: GUAIFENESIN/CODEINE 100MG/10MG 5ML UDC PO SCH ×2 (09:23→12:16)
--- NOTE | 2019-04-08 09:50 | Nephrology Progress Note ---
Date of Service April 08, 2019 Assessment & Plan (1) Interstitial lung disease: Appreciate pulmonology consultation. ILD, pulmonary edema, and multifocal infection in differential. (2) Chronic kidney disease, stage V: I reviewed potential indications to starting dialysis with the patient and her again today. They would favor a continued trial of medical management which is reasonable. Creatinine has increased slightly in the past 24 hours and Destiny understands there may be a trend toward HD in the near future. Electrolytes are acceptable. Volume status improving with adequate urine output. She was not on diuretics at home. AVF is mature for use. This was evaluated by the HD nurse this morning as well. (3) Hypertension: BP improved. (4) Volume overload: Continue furosemide to encourage negative fluid balance with a goal of approximately 1 L/d. Additional 60 mg IV furosemide provided this AM. Subjective No acute events overnight. Minimal improvement in dyspnea. No fevers or chills. Appetite fair. Hoarseness persists. No nausea. Good urine output in response to diuretics. Review of Systems Review of Systems: All systems reviewed & are unremarkable except as noted in HPI & below Physical Exam Constitutional: well developed and + well hydrated; no acute distress and no altered mental status Eyes: + anicteric sclerae; no conjunctival abnormality ENMT: Mouth: no oral mucosal abnormality and oral mucous membranes not dry Neck: normal visual inspection and trachea midline Respiratory: + tachypneic; no respiratory distress Auscultation: + rales (basilar) Cardiovascular: Heart Sounds: normal S1, normal S2 and + murmur Extremities: + AV fistula; no edema Gastrointestinal (Abdomen): Percussion/Palpation: abdomen soft; abdomen nontender Musculoskeletal: Extremities: no cyanosis and no clubbing Skin: normal turgor; no lesions Neurologic: Motor/Sensory: no tremor and no asterixis Psychiatric: Orientation: alert and oriented x 3 Results & Data Vital Signs (Past 12 Hours) Vital Signs Temp Pulse Pulse Resp BP Pulse Ox 04/08/19 08:00 103 H 04/08/19 07:31 36.7 C 96 H 18 155/82 H 95 04/08/19 04:23 36.7 C 88 18 147/84 H 94 04/07/19 23:14 36.7 C 87 20 150/76 H 93 04/07/19 23:01 101 H Laboratory Results Laboratory Results - last 24 hr 04/07/19 04/07/19 04/07/19 09:13 09:13 09:13 WBC RBC Hgb Hct MCV MCH MCHC RDW Std Deviation RDW Coeff of Grover Plt Count MPV Immature Gran % (Auto) Neut % (Auto) Lymph % (Auto) Talbot % (Auto) Eos % (Auto) Baso % (Auto) Immature Gran # (Auto) Neut # (Auto) Lymph # (Auto) Talbot # (Auto) Eos # (Auto) Baso # (Auto) ESR PT 10.0 INR 1.0 APTT 21.4 PTT Ratio 0.8 ABG pH ABG pCO2 ABG pO2 ABG HCO3 ABG O2 Saturation ABG Base Excess Davi Test Barometric Pressure Oxygen Given Sodium Potassium Chloride Carbon Dioxide Anion Gap BUN Creatinine Est Cr Clr Drug Dosing Est GFR ( Amer) Est GFR (Non-Af Amer) BUN/Creatinine Ratio Glucose POC Glucose Calcium Total Bilirubin AST ALT Alkaline Phosphatase Lactate Dehydrogenase C-Reactive Protein Total Protein Albumin Globulin Albumin/Globulin Ratio Procalcitonin Hep Bs Antigen Neg Hep Bs Antibody Non-Immune Hep Bs Antibody, Quant < 3.10 L Hep B Core IgM Ab NON-REACTIVE Beta-(1,3)-D-Glucan B-(1,3)-D-Glucan Intrp 04/07/19 04/07/19 04/07/19 12:18 12:18 12:50 WBC RBC Hgb Hct MCV MCH MCHC RDW Std Deviation RDW Coeff of Grover Plt Count MPV Immature Gran % (Auto) Neut % (Auto) Lymph % (Auto) Talbot % (Auto) Eos % (Auto) Baso % (Auto) Immature Gran # (Auto) Neut # (Auto) Lymph # (Auto) Talbot # (Auto) Eos # (Auto) Baso # (Auto) ESR 21 PT INR APTT PTT Ratio ABG pH 7.50 H ABG pCO2 27 L ABG pO2 79 L ABG HCO3 21 ABG O2 Saturation 96.2 H ABG Base Excess -1.3 Davi Test Pos Barometric Pressure 741.4 Oxygen Given 2L Sodium Potassium Chloride Carbon Dioxide Anion Gap BUN Creatinine Est Cr Clr Drug Dosing Est GFR ( Amer) Est GFR (Non-Af Amer) BUN/Creatinine Ratio Glucose POC Glucose Calcium Total Bilirubin AST ALT Alkaline Phosphatase Lactate Dehydrogenase 549 H C-Reactive Protein Total Protein Albumin Globulin Albumin/Globulin Ratio Procalcitonin Hep Bs Antigen Hep Bs Antibody Hep Bs Antibody, Quant Hep B Core IgM Ab Beta-(1,3)-D-Glucan B-(1,3)-D-Glucan [facility] 04/07/19 04/07/19 04/07/19 12:50 12:50 16:32 WBC RBC Hgb Hct MCV MCH MCHC RDW Std Deviation RDW Coeff of Grover Plt Count MPV Immature Gran % (Auto) Neut % (Auto) Lymph % (Auto) Talbot % (Auto) Eos % (Auto) Baso % (Auto) Immature Gran # (Auto) Neut # (Auto) Lymph # (Auto) Talbot # (Auto) Eos # (Auto) Baso # (Auto) ESR PT INR APTT PTT Ratio ABG pH ABG pCO2 ABG pO2 ABG HCO3 ABG O2 Saturation ABG Base Excess Davi Test Barometric Pressure Oxygen Given Sodium Potassium Chloride Carbon Dioxide Anion Gap BUN Creatinine Est Cr Clr Drug Dosing Est GFR ( Amer) Est GFR (Non-Af Amer) BUN/Creatinine Ratio Glucose POC Glucose 155 H Calcium Total Bilirubin AST ALT Alkaline Phosphatase Lactate Dehydrogenase C-Reactive Protein 3.72 H Total Protein Albumin Globulin Albumin/Globulin Ratio Procalcitonin 0.17 Hep Bs Antigen Hep Bs Antibody Hep Bs Antibody, Quant Hep B Core IgM Ab Beta-(1,3)-D-Glucan B-(1,3)-D-Glucan [facility] 04/07/19 04/08/19 04/08/19 20:45 06:30 06:30 WBC 12.44 H RBC 3.48 L Hgb 10.8 L Hct 32.6 L MCV 93.7 MCH 31.0 MCHC 33.1 RDW Std Deviation 55.6 H RDW Coeff of Grover 16.3 H Plt Count 129 L MPV 10.3 Immature Gran % (Auto) 0.3 Neut % (Auto) 91.6 Lymph % (Auto) 4.7 Talbot % (Auto) 3.2 Eos % (Auto) 0.2 Baso % (Auto) 0.0 Immature Gran # (Auto) 0.04 H Neut # (Auto) 11.39 H Lymph # (Auto) 0.58 L Talbot # (Auto) 0.40 Eos # (Auto) 0.03 Baso # (Auto) 0.00 ESR PT INR APTT PTT Ratio ABG pH ABG pCO2 ABG pO2 ABG HCO3 ABG O2 Saturation ABG Base Excess Davi Test Barometric Pressure Oxygen Given Sodium 142 Potassium 4.5 Chloride 113 H Carbon Dioxide 20 L Anion Gap 9.0 BUN 94 H Creatinine 4.06 H D Est Cr Clr Drug Dosing 15.7 Est GFR ( Amer) 13.3 Est GFR (Non-Af Amer) 11.5 BUN/Creatinine Ratio 23.1 H Glucose 83 POC Glucose 131 H Calcium 9.2 Total Bilirubin 0.6 AST 19 ALT 28 Alkaline Phosphatase 65 Lactate Dehydrogenase C-Reactive Protein Total Protein 6.1 L Albumin 2.8 L Globulin 3.3 Albumin/Globulin Ratio 0.9 Procalcitonin Hep Bs Antigen Hep Bs Antibody Hep Bs Antibody, Quant Hep B Core IgM Ab Beta-(1,3)-D-Glucan B-(1,3)-D-Glucan Intrp 04/08/19 04/08/19 07:27 08:44 WBC RBC Hgb Hct MCV MCH MCHC RDW Std Deviation RDW Coeff of Grover Plt Count MPV Immature Gran % (Auto) Neut % (Auto) Lymph % (Auto) Talbot % (Auto) Eos % (Auto) Baso % (Auto) Immature Gran # (Auto) Neut # (Auto) Lymph # (Auto) Talbot # (Auto) Eos # (Auto) Baso # (Auto) ESR PT INR APTT PTT Ratio ABG pH ABG pCO2 ABG pO2 ABG HCO3 ABG O2 Saturation ABG Base Excess Davi Test Barometric Pressure Oxygen Given Sodium Potassium Chloride Carbon Dioxide Anion Gap BUN Creatinine Est Cr Clr Drug Dosing Est GFR ( Amer) Est GFR (Non-Af Amer) BUN/Creatinine Ratio Glucose POC Glucose 85 Calcium Total Bilirubin AST ALT Alkaline Phosphatase Lactate Dehydrogenase C-Reactive Protein Total Protein Albumin Globulin Albumin/Globulin Ratio Procalcitonin Hep Bs Antigen Hep Bs Antibody Hep Bs Antibody, Quant Hep B Core IgM Ab Beta-(1,3)-D-Glucan Pending B-(1,3)-D-Glucan Intrp Pending PG Care Time/CCT Total # of Minutes Spent Total Time Spent with Patient: Total time spent is greater than 50% in coordination of care (as documented) at patient's floor/unit and/or counseling patient:
[2019-04-08] MEDS: CLINDAMYCIN HCL 150 MG CAP PO SCH ×2 (11:14→20:15)
[2019-04-08] MEDS: PRIMAQUINE PHOSPHATE 26.3 MG PO SCH (11:15)
--- NOTE | 2019-04-08 13:22 | Infectious Disease Consult ---
Date of Consultation April 08, 2019 Assessment & Plan (1) Interstitial lung disease: pt on atovaquone by pulm. If no PCP pna and she would like to have prohphylaxis moving forward would suggest Atovaquone 1500mg daily History of Present Illness Attending Physician: Jonny Fang MD pt admitted with hemoptysis, sob. no improvement since admission. eating lunch at time of my exam. afebrile. pulm following, concerned for PCP due to chronic steroid use for hypersensitivity pneumonitis. on azitho and atovaquone. ct chest with b/l infiltrates. sputum culture sent, pending, pulm cosidering bronch. she denies pain but does admit to sob on nasal O2. wbc 14 in Er, creat 3.7 allery to sulfa. ID consulted for suggestions for pcp prophylaxis alternative to bactrim. Allergies Allergy/AdvReac Type Severity Reaction Status Date / Time spironolactone Allergy Intermediate LIP Verified 04/04/19 15:28 SWELLING, COUGH nitrofurantoin Allergy Unknown Hives Verified 04/04/19 15:28 Sulfa (Sulfonamide Allergy Unknown hives- Verified 04/04/19 15:28 Antibiotics) anaphylaxis adhesive tape Allergy Redness of Verified 04/04/19 15:28 Skin sertraline Allergy Unknown Verified 04/04/19 15:28 BRITTANI Inhibitors AdvReac Unknown SWELLING, Verified 04/04/19 15:28 COUGHING benazepril AdvReac Cough Verified 04/04/19 15:28 Home Medications Home Medications Medication Instructions Recorded Confirmed Type allopurinol 100 mg PO QAM 07/09/18 04/07/19 History atorvastatin 20 mg PO QAM 07/09/18 04/07/19 History diltiazem HCl 360 mg PO QAM 07/09/18 04/07/19 History hydralazine 50 mg PO TIDM 07/09/18 04/07/19 History levothyroxine 75 mcg tablet 37.5 mcg PO QAM #30 tab 12/09/18 04/07/19 Rx prednisone 20 mg tablet 50 mg PO DAILY tab 04/04/19 04/07/19 History Patient History Medical History Asthma Chronic kidney disease, stage V (Chronic) Congenital renal atrophy History of colon polyps Hyperlipidemia Hypertension (Chronic) Hypothyroidism Interstitial lung disease 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 [facility] [place] Proteinuria (Chronic) Sleep apnea Vitamin D deficiency (Chronic) Surgical History Arteriovenous fistula LEFT ARM AVF: 07/27/18: MAC SEDATION AT [facility] History of cardiac cath 16 YEARS AGO= NO STENTS History of cholecystectomy History of lung biopsy 02/14/2019 THORACOCSOCPY W/ INFILTRATE BIOPSY performed by Trevon Torres MD at OR [facility] [place] Hx of dilation and curettage Family History Grandmother (Paternal) Family history of diabetes mellitus Uncle Family history of diabetes mellitus Father Cancer LUNG Mother Cancer renal cell ca Social History Preferred Language: Macedonian Communication Ability: Effective 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 Beliefs That Will Affect Care: None marital status: Current Living Situation: Spouse and Family current occupational status: employed Feels Safe at Home: Yes Smoking Status: Never smoker Second Hand Exposure: No ; Hx Alcohol Use: No Hx Substance Use: No Review of Systems Review of Systems: All systems reviewed & are unremarkable except as noted in HPI & below Physical Exam Constitutional: WD/WN, vitals as above Eyes: PERRL, conjunctivae normal, anicteric sclerae ENMT: external ear and nose normal, oropharynx normal Neck: normal visual inspection Respiratory: normal respiratory effort, lungs clear to auscultation Auscultation: + diminished lung sounds Cardiovascular: RRR, no murmur, no edema Gastrointestinal (Abdomen): normal bowel sounds, soft, nontender, no hepatosplenomegaly Musculoskeletal: no cyanosis or clubbing, extremities motor strength 5/5 Skin: no rashes, warm and dry Psychiatric: A+Ox3, euthymic affect Results & Data Vital Signs (Past 12 Hours) Vital Signs Temp Pulse Pulse Resp BP Pulse Ox 04/08/19 11:41 37.1 C 90 18 134/75 91 04/08/19 08:00 103 H 04/08/19 07:31 36.7 C 96 H 18 155/82 H 95 04/08/19 04:23 36.7 C 88 18 147/84 H 94 PG Care Time/CCT Total # of Minutes Spent Total Time Spent with Patient: Total time spent is greater than 50% in coordination of care (as documented) at patient's floor/unit and/or counseling patient:
--- NOTE | 2019-04-08 17:34 | Hospitalist Progress Note ---
Date of Service April 08, 2019 Assessment & Plan (1) Acute respiratory failure with hypoxia: (2) Hypersensitivity pneumonitis: (3) Volume overload: Possible re-exacerbation of hypersensitivity pneumonitis causing acute hypoxic respiratory failure remains on 2 L via NC continue Lasix 60mg IV, monitor diuresis Prednisone increased to 60mg BID, continue Nebs continue Primaquine, Clindamycin Azithromycin added Nephro, Pulmonary, ID recommendations appreciated (4) Chronic kidney disease, stage V: crea increased to 4 monitor closely (5) Hemoptysis: pulm consulted may need bronchoscopy appreciate Dr. Alatorre input (6) Dysphagia: possible esophageal candidiasis recent Thrush with evidence of mild thrush in posterior pharynx continue nystatin QID PPI 40mg po daily may need EGD once respiratory status is stable (7) Hyperglycemia: BSG on admission 148 Likely in setting of high-dose steroid use Recent A1c 03/2019 was 5.6 Monitor accuchecks AC/HS with low dose novolog sliding scale BSGs within 130s-160s (8) Hypertension: Continue hydralazine, diltiazem Monitor (9) DVT prophylaxis: SCD/TEDS for now 2/2 to hemoptysis Monitor daily for need for chemoprophylaxis Disposition: admit to PCU Follow up: PCP Dr. Salamanca upon discharge; Pt also has f/u with [facility] at [facility] 04/11/19 Results & Data Vital Signs (Past 12 Hours) Vital Signs Temp Pulse Pulse Resp BP Pulse Ox 04/08/19 16:13 36.6 C 85 20 144/72 H 93 04/08/19 11:41 37.1 C 90 18 134/75 91 04/08/19 08:00 103 H 04/08/19 07:31 36.7 C 96 H 18 155/82 H 95
[2019-04-09] MEDS: GUAIFENESIN/DEXTROM SYRUP 200MG/20MG 10ML UDC PO SCH ×4 (02:21→19:37)
[2019-04-09] MEDS: CLINDAMYCIN HCL 150 MG CAP PO SCH ×3 (02:21→19:35)
[2019-04-09] MEDS: LEVOTHYROXINE SODIUM 25 MCG TABLET PO SCH (06:39)
[2019-04-09] MEDS: NYSTATIN SUSP 500,000 U/5 ML UDC PO SCH ×4 (08:04→19:36)
[2019-04-09] MEDS: ATORVASTATIN 20 MG TAB PO SCH (08:05)
[2019-04-09] MEDS: AZITHROMYCIN 250 MG TAB PO SCH (08:05)
[2019-04-09] MEDS: HydrALAZINE TAB 50 MG TAB PO SCH ×3 (08:05→16:12)
[2019-04-09] MEDS: allopurinoL 100 MG TAB PO SCH (08:05)
[2019-04-09] MEDS: dilTIAZem ER 180 MG CAPCR PO SCH (08:05)
[2019-04-09] MEDS: PANTOprazole 40 MG TAB PO SCH ×2 (08:06→19:36)
[2019-04-09] MEDS: predniSONE 20 MG TAB PO SCH ×2 (08:06→19:35)
[2019-04-09] MEDS: INSULIN ASPART 100 UNITS/ML 3 ML PEN SC SCH ×4 (08:06→19:41)
[2019-04-09] MEDS: FUROSEMIDE 60 MG in SYRINGE 0 ML IV SCH ×2 (08:07→16:12)
[2019-04-09 09:09] LABS: Hematocrit (blood only) 30.3 % (37-47); Hemoglobin 10.2 g/dL (12.0-16.0); Immature Granulocytes # (auto) 0.03 K/uL (0.00-0.02); Immature Granulocytes % (auto) 0.3 %; Lymphocytes # (auto) 0.19 K/uL (1.2-3.4); Mean Corpuscular Hemoglobin 31.1 pg (25-34); Mean Corpuscular Hgb Conc 33.7 g/dL (32-36); Mean Corpuscular Volume 92.4 fL (80-100); Mean Platelet Volume 10.5 fL (7.4-10.4); Monocytes # (auto) 0.05 K/uL (0.11-0.59); Monocytes % (auto) 0.5 %; Neutrophils # (auto) 9.11 K/uL (1.4-6.5); Neutrophils % (auto) 97.2 %; Platelet Count 124 K/uL (130-400); RDW Coefficient of Variation 15.5 % (11.5-14.5); RDW Standard Deviation 52.6 fL (36.4-46.3); Red Blood Count 3.28 M/uL (4.2-5.4); White Blood Count 9.38 K/uL (4.8-10.8)
--- NOTE | 2019-04-09 09:21 | Pulmonology Progress Note ---
Date of Service April 09, 2019 Assessment & Plan (1) Acute respiratory failure with hypoxia: -- Acute hypoxic respiratory failure Multifactorial Patient has underlying CKD stage IVV has not been on diuretic. Aggressive diuresis to keep negative balance. Strict In's and Out's. Patient is -ve 4.5L so far. Patient with history of HP diagnosed in January 2019 on chronic prednisone 50 mg p.o. daily, not on PJP prophylaxis --> could be PJP, treating with Primaquine and Clindamycin --> Bactrim cannot be used. Exacerbation of HP still high on the differential. Increase prednisone 40 mg twice daily. Give PPI for stress ulcer prophylaxis. Echo done 03/25/2019 showed ejection fraction of 50 - 55%. Influenza negative. Follow-up septic work-up. ESR: 21, CRP: 3.72, procalc itonin: 0.17. Azithromycin for atypical coverage O2 supplementation to keep oxygen saturation greater than 92- 94%. BiPAP nightly and PRN shortness of breath Follow-up beta D glucan assay and induce sputum for PJP --> sputum not showing Will consider bronchoscopy on Thursday if there is clinical deterioration. AB04/07/2019: Showed a gradient of 100. LDH: 526 (could be elevated secondary to PJP, and or underlying CKD itself) CT chest without contrast 04/07/2019 reviewed personally: Shows diffuse ground- glass opacities bilaterally, no pleural effusion. On comparing to CAT scan which was done 12/02/2018 at [place] resembles to some extent to the expiratory supine films. Follow nephrology recommendations. -- Hemoptysis Likely secondary to cough which has been going on since Thursday along with fluid overload Cough suppressants [id number] No more hemoptysis since coming to the hospital. (2) Hemoptysis: (3) Chronic kidney disease, stage V: (4) Interstitial lung disease: Subjective Patient seen and examined at bedside. No acute distress, no adverse events overnight. Patient states she is feeling much better. Shortness of breath is improved. No more hemoptysis since the day of admission. Cough is decreased in intensity. Hoarseness of voice still persist. Patient states that yesterday after taking guaifenesin with codeine she was somnolent the whole day. Requested to change cough medication other than codeine. It was already changed to guaifenesin with DM. Urinating well. Good appetite. No nausea or vomiting. Denies any headache, no chest pain, no dizziness. No blurry vision. At the time of examination patient was saturating 97% on 2 L nasal cannula with heart rate of 90 at rest. Review of Systems Review of Systems: All systems reviewed & are unremarkable except as noted in HPI & below Physical Exam Physical Exam: Constitutional: No acute distress HEENT: EOMI, PERRLA, thick neck, no JVD appreciated, hoarseness of voice persists Respiratory system: Decreased air entry bilaterally, minimal bilateral lower lobe crackles, no wheeze, no rhonchi CVS: S1-S2 positive, positive 2 out of 6 systolic murmur appreciated best at the apex, no gallops Abdomen: Soft, nontender, nondistended, positive bowel sounds x4 Extremities: +2 pulses bilaterally radialis/ dorsalis pedis, no cyanosis, +1 edema bilateral lower extremity, left arm AV fistula positive thrill Neuro: Awake alert oriented x3 Psych: Normal mood and affect G/U: No Quiroz Skin: no rashes, warm and dry Lymphatic: no cervical or axillary lymphadenopathy Results & Data Vital Signs (Past 12 Hours) Vital Signs Temp Pulse Pulse Resp BP Pulse Ox 04/09/19 07:41 37.0 C 90 20 137/72 94 04/09/19 02:18 36.8 C 81 22 152/75 H 94 04/09/19 00:00 79 04/08/19 23:21 36.9 C 81 17 131/73 94 04/09/19 08:45 PG Care Time/CCT Total # of Minutes Spent Total Time Spent with Patient: Total time spent is greater than 50% in coordination of care (as documented) at patient's floor/unit and/or counseling patient:
[2019-04-09] MEDS: PRIMAQUINE PHOSPHATE 26.3 MG PO SCH (09:30)
[2019-04-09 09:47] LABS: Albumin Level 2.5 gm/dl (3.4-5.0); BUN Creatinine Ratio 22.7 (10-20); Calcium 8.1 mg/dl (8.5-10.1); Creatinine Clr Calc Pharmacy 13.6 ml/min; Est GFR (African American) 11.4; Est GFR (Non-African American) 9.8; Phosphorus 6.7 mg/dl (2.5-4.9); Potassium 4.4 mmol/L (3.5-5.1)
--- NOTE | 2019-04-09 10:26 | XRay Report ---
XR chest 1V portable CLINICAL HISTORY: 59 years-old Female presenting with follow-up vascular congestion and bilateral inf iltrates. TECHNIQUE: Portable upright AP view of the chest was obtained. COMPARISON: 08/07/2018. FINDINGS: Cardiopericardial silhouette moderately enlarged as on prior exam. Slight interval decrease in pulmon jessica vascular prominence and interstitial prominence. Suture margin is projected over the right mid an d lower lung. Interval decrease in patchy bilateral pulmonary opacities. No large effusion or pneumot horax. Osseous structures normal. Upper abdomen normal. IMPRESSION: 1. Cardiomegaly with decreasing volume overload and congestive change. 2. Decreasing bilateral patchy pulmonary infiltrates, which could represent decreasing pulmonary arian ma or resolving multifocal pneumonia. ACT 112: Negative or not required by law. Electronically signed by: Kenton Aparicio M.D. 04/09/2019 10:25 AM
[2019-04-09] MEDS ORDERED: SODIUM CHLORIDE 0.9% 1000ML 1,000 ML IV PRN (10:29)
--- NOTE | 2019-04-09 10:56 | Nephrology Progress Note ---
Date of Service April 09, 2019 Assessment & Plan (1) Interstitial lung disease: Remains on high dose prednisone. (2) Chronic kidney disease, stage V: I had a long conversation with the patient and her this morning. Creatinine continues to rise. Destiny remains notably azotemic. She will require a prolonged course of high dose steroids. She requires aggressive diuresis. Electrolytes are acceptable. She has a mild metabolic acidosis. She acknowledges the recent progression toward ESRD. The risks and benefits of starting hemodialysis were reviewed. Destiny has had progressive symptoms of declining activity tolerance and loss of appetite, in addition to breathing difficulties. I do not anticipate improvement in kidney function and treating renal dysfunction certainly may improve our ability to manage salt and fluid balance, if not provide symptomatic benefit for possible early uremic symptoms. She is agreeable to starting at this time. Orders for HD today were entered into the EMR and discussed with the dialysis nurse. AVF is mature for use. I will ask care coordination to assist in making arrangements for outpatient HD at [facility] for ESRD. (3) Hypertension: BP improved. (4) Volume overload: Continue furosemide to encourage negative fluid balance with a goal of approximately 1 L/d. Additional 60 mg IV furosemide provided this AM. (5) Acute respiratory failure with hypoxia: Improving with treatment. Remains on supplemental O2. Follow up CXR pending today. Tolerating diuresis reasonably well. Adequate urine output. Remains on Clindamycin and Atovaquone. Possible bronch Thursday. Will continue to maintain a negative fluid balance. Subjective No acute events overnight. Destiny reports notable improvement in breathing today. She has not had fevers or chills. She slept well last night following some codeine for cough. Appetite remains fair. Review of Systems Review of Systems: All systems reviewed & are unremarkable except as noted in HPI & below Physical Exam Constitutional: well developed; no acute distress Eyes: + anicteric sclerae; no conjunctival abnormality ENMT: Mouth: no oral mucosal abnormality and oral mucous membranes not dry Neck: normal visual inspection and trachea midline Respiratory: normal respiratory effort; no respiratory distress Auscul tation: no rhonchi and no wheezes Cardiovascular: Heart Sounds: normal S1, normal S2 and + murmur Extremities: + AV fistula; no edema Gastrointestinal (Abdomen): Percussion/Palpation: abdomen soft; abdomen nontender Musculoskeletal: Extremities: no cyanosis and no clubbing Skin: normal turgor; no lesions Neurologic: Motor/Sensory: no tremor and no asterixis Psychiatric: Orientation: alert and oriented x 3 Results & Data Vital Signs (Past 12 Hours) Vital Signs Temp Pulse Pulse Resp BP Pulse Ox 04/09/19 08:00 98 H 04/09/19 07:41 37.0 C 90 20 137/72 94 04/09/19 02:18 36.8 C 81 22 152/75 H 94 04/09/19 00:00 79 04/08/19 23:21 36.9 C 81 17 131/73 94 Laboratory Results Laboratory Results - last 24 hr 04/08/19 04/08/19 04/08/19 11:39 16:01 19:47 WBC RBC Hgb Hct MCV MCH MCHC RDW Std Deviation RDW Coeff of Grover Plt Count MPV Immature Gran % (Auto) Neut % (Auto) Lymph % (Auto) Cochran % (Auto) Eos % (Auto) Baso % (Auto) Immature Gran # (Auto) Neut # (Auto) Lymph # (Auto) Cochran # (Auto) Eos # (Auto) Baso # (Auto) Sodium Potassium Chloride Carbon Dioxide Anion Gap BUN Creatinine Est Cr Clr Drug Dosing Est GFR ( Amer) Est GFR (Non-Af Amer) BUN/Creatinine Ratio Glucose POC Glucose 136 H 164 H 192 H Calcium Phosphorus Albumin 04/09/19 04/09/19 04/09/19 07:20 08:45 08:45 WBC 9.38 RBC 3.28 L Hgb 10.2 L Hct 30.3 L MCV 92.4 MCH 31.1 MCHC 33.7 RDW Std Deviation 52.6 H RDW Coeff of Grover 15.5 H Plt Count 124 L MPV 10.5 H Immature Gran % (Auto) 0.3 Neut % (Auto) 97.2 Lymph % (Auto) 2.0 Cochran % (Auto) 0.5 Eos % (Auto) 0.0 Baso % (Auto) 0.0 Immature Gran # (Auto) 0.03 H Neut # (Auto) 9.11 H Lymph # (Auto) 0.19 L Cochran # (Auto) 0.05 L Eos # (Auto) 0.00 Baso # (Auto) 0.00 Sodium 135 L Potassium 4.4 Chloride 106 Carbon Dioxide 20 L Anion Gap 9.0 BUN 104 H Creatinine 4.62 H* D Est Cr Clr Drug Dosing 13.6 Est GFR ( Amer) 11.4 Est GFR (Non-Af Amer) 9.8 BUN/Creatinine Ratio 22.7 H Glucose 217 H POC Glucose 127 H Calcium 8.1 L Phosphorus 6.7 H Albumin 2.5 L PG Care Time/CCT Total # of Minutes Spent Total Time Spent with Patient: Total time spent is greater than 50% in coordination of care (as documented) at patient's floor/unit and/or counseling patient:
--- NOTE | 2019-04-09 18:23 | Hospitalist Progress Note ---
Date of Service April 09, 2019 Assessment & Plan (1) Acute respiratory failure with hypoxia: (2) Hypersensitivity pneumonitis: (3) Volume overload: Possible re-exacerbation of hypersensitivity pneumonitis causing acute hypoxic respiratory failure remains on 2 L via NC on Lasix IV respiratory status improved continue Prednisone 60mg BID, Nebs continue Primaquine, Clindamycin, Azithromycin HD started today Nephro, Pulmonary, ID recommendations appreciated (4) Chronic kidney disease, stage V: crea increased to 4.6 HD started today (5) Hemoptysis: Pulmonary consulted may need bronchoscopy appreciate Dr. Alatorre input (6) Dysphagia: possible esophageal candidiasis recent Thrush with evidence of mild thrush in posterior pharynx continue nystatin QID PPI 40mg po daily may need EGD once respiratory status is stable (7) Hyperglycemia: BSG on admission 148 Likely in setting of high-dose steroid use Recent A1c 03/2019 was 5.6 Monitor accuchecks AC/HS with low dose novolog sliding scale BSGs within 130s-160s (8) Hypertension: Continue hydralazine, diltiazem Monitor (9) DVT prophylaxis: SCD/TEDS for now 05/22 to hemoptysis Monitor daily for need for chemoprophylaxis Disposition: admit to PCU Follow up: PCP Dr. Salamanca upon discharge; Pt also has f/u with [facility] 04/11/19 Subjective ff up for hypoxia seen resting in bed, sitting up appears more comfortable on 2 L NC states breathing has improved compared to yesterday less cough, no hemoptysis no other symptoms Review of Systems Review of Systems: All systems reviewed & are unremarkable except as noted in HPI & below Physical Exam Physical Exam: General- oriented x 3, not in distress, speaks in sentences with no effort or accessory muscle use Eyes- anicteric Neck- no JVD Lungs- faint rales bilateral bases, no wheezing Heart- normal rate, regular rhythm; no murmurs Abdomen- normal bowel sounds, nondistended, soft, nontender Extremities- no pretibial edema, no calf tenderness Neuro- alert, oriented x 3; no gross focal neurologic deficits Skin- warm & dry Results & Data Vital Signs (Past 12 Hours) Vital Signs Temp Pulse Pulse Pulse Resp BP BP 04/09/19 16:01 36.8 C 84 18 131/74 04/09/19 14:51 80 18 129/72 04/09/19 14:12 36.6 C 73 73 124/64 124/64 04/09/19 14:00 71 116/59 L 04/09/19 13:40 72 118/59 L 04/09/19 13:20 74 118/62 04/09/19 13:00 74 114/58 L 04/09/19 12:40 72 110/54 L 04/09/19 12:20 76 118/64 04/09/19 12:11 36.9 C 78 78 114/65 04/09/19 11:57 36.8 C 84 18 132/75 04/09/19 08:00 98 H 04/09/19 07:41 37.0 C 90 20 137/72 Pulse Ox 04/09/19 16:01 99 04/09/19 14:51 93 04/09/19 14:12 04/09/19 14:00 04/09/19 13:40 04/09/19 13:20 04/09/19 13:00 04/09/19 12:40 04/09/19 12:20 04/09/19 12:11 04/09/19 11:57 93 04/09/19 08:00 04/09/19 07:41 94 Laboratory Results Laboratory Results - last 24 hr 04/08/19 04/09/19 04/09/19 19:47 07:20 08:45 WBC 9.38 RBC 3.28 L Hgb 10.2 L Hct 30.3 L MCV 92.4 MCH 31.1 MCHC 33.7 RDW Std Deviation 52.6 H RDW Coeff of Grover 15.5 H Plt Count 124 L MPV 10.5 H Immature Gran % (Auto) 0.3 Neut % (Auto) 97.2 Lymph % (Auto) 2.0 Bath % (Auto) 0.5 Eos % (Auto) 0.0 Baso % (Auto) 0.0 Immature Gran # (Auto) 0.03 H Neut # (Auto) 9.11 H Lymph # (Auto) 0.19 L Bath # (Auto) 0.05 L Eos # (Auto) 0.00 Baso # (Auto) 0.00 Sodium Potassium Chloride Carbon Dioxide Anion Gap BUN Creatinine Est Cr Clr Drug Dosing Est GFR ( Amer) Est GFR (Non-Af Amer) BUN/Creatinine Ratio Glucose POC Glucose 192 H 127 H Calcium Phosphorus Albumin 04/09/19 04/09/19 04/09/19 08:45 11:24 16:07 WBC RBC Hgb Hct MCV MCH MCHC RDW Std Deviation RDW Coeff of Grover Plt Count MPV Immature Gran % (Auto) Neut % (Auto) Lymph % (Auto) Bath % (Auto) Eos % (Auto) Baso % (Auto) Immature Gran # (Auto) Neut # (Auto) Lymph # (Auto) Bath # (Auto) Eos # (Auto) Baso # (Auto) Sodium 135 L Potassium 4.4 Chloride 106 Carbon Dioxide 20 L Anion Gap 9.0 BUN 104 H Creatinine 4.62 H* D Est Cr Clr Drug Dosing 13.6 Est GFR ( Amer) 11.4 Est GFR (Non-Af Amer) 9.8 BUN/Creatinine Ratio 22.7 H Glucose 217 H POC Glucose 193 H 209 H Calcium 8.1 L Phosphorus 6.7 H Albumin 2.5 L
[2019-04-10] MEDS: CLINDAMYCIN HCL 150 MG CAP PO SCH ×3 (03:25→19:52)
[2019-04-10] MEDS: GUAIFENESIN/DEXTROM SYRUP 200MG/20MG 10ML UDC PO SCH ×2 (03:26→07:56)
[2019-04-10] MEDS: LEVOTHYROXINE SODIUM 25 MCG TABLET PO SCH (05:54)
--- NOTE | 2019-04-10 07:15 | XRay Report ---
XR chest 1V portable CLINICAL HISTORY: f/u COMPARISON STUDY: Chest CT April 07, 2019. Chest radiograph April 09, 2019. FINDINGS: No pneumothorax or pleural effusion is noted. Postoperative findings within the right lung are noted. Interstitial thickening and bilateral opacities have slightly improved since prior exam. C ardiomediastinal silhouette is stable. IMPRESSION: Continued improvement in interstitial thickening and bilateral opacities which favor pul monary edema although pneumonia could appear similar. ACT 112: Negative or not required by law. Electronically signed by: Andrés Peace M.D. 04/10/2019 7:13 AM
[2019-04-10] MEDS: NYSTATIN SUSP 500,000 U/5 ML UDC PO SCH ×4 (07:55→20:55)
[2019-04-10] MEDS: AZITHROMYCIN 250 MG TAB PO SCH (07:55)
[2019-04-10] MEDS: ATORVASTATIN 20 MG TAB PO SCH (07:55)
[2019-04-10] MEDS: allopurinoL 100 MG TAB PO SCH (07:55)
[2019-04-10] MEDS: dilTIAZem ER 180 MG CAPCR PO SCH (07:55)
[2019-04-10] MEDS: PANTOprazole 40 MG TAB PO SCH ×2 (07:55→20:55)
[2019-04-10] MEDS: HydrALAZINE TAB 50 MG TAB PO SCH ×3 (07:56→16:49)
[2019-04-10] MEDS: INSULIN ASPART 100 UNITS/ML 3 ML PEN SC SCH ×4 (07:56→20:56)
[2019-04-10] MEDS: FUROSEMIDE 60 MG in SYRINGE 0 ML IV SCH (07:56)
[2019-04-10] MEDS: predniSONE 20 MG TAB PO SCH ×2 (07:56→20:55)
[2019-04-10 08:27] LABS: Hematocrit (blood only) 30.1 % (37-47); Hemoglobin 10.4 g/dL (12.0-16.0); Immature Granulocytes # (auto) 0.02 K/uL (0.00-0.02); Immature Granulocytes % (auto) 0.2 %; Lymphocytes # (auto) 0.23 K/uL (1.2-3.4); Lymphocytes % (auto) 2.3 %; Mean Corpuscular Hemoglobin 31.4 pg (25-34); Mean Corpuscular Hgb Conc 34.6 g/dL (32-36); Mean Corpuscular Volume 90.9 fL (80-100); Monocytes # (auto) 0.04 K/uL (0.11-0.59); Monocytes % (auto) 0.4 %; Neutrophils % (auto) 97.1 %; Platelet Count 126 K/uL (130-400); RDW Coefficient of Variation 14.9 % (11.5-14.5); RDW Standard Deviation 49.4 fL (36.4-46.3); Red Blood Count 3.31 M/uL (4.2-5.4); White Blood Count 10.19 K/uL (4.8-10.8)
[2019-04-10 08:42] LABS: BUN Creatinine Ratio 20.5 (10-20); Calcium 8.7 mg/dl (8.5-10.1); Creatinine Clr Calc Pharmacy 15.5 ml/min; Est GFR (African American) 13.3; Est GFR (Non-African American) 11.5; Magnesium 2.1 mg/dl (1.8-2.4); Potassium 4.5 mmol/L (3.5-5.1)
[2019-04-10 08:43] LABS: Phosphorus 6.5 mg/dl (2.5-4.9)
[2019-04-10] MEDS: PRIMAQUINE PHOSPHATE 26.3 MG PO SCH (08:54)
--- NOTE | 2019-04-10 09:27 | Pulmonology Progress Note ---
Date of Service April 10, 2019 Assessment & Plan (1) Acute respiratory failure with hypoxia: -- Acute hypoxic respiratory failure Multifactorial Patient has underlying CKD stage IVV has not been on diuretic. Aggressive diuresis to keep negative balance.Patient is -ve 5.7 L so far. Started on hemodialysis on 04/09/2019. Patient with history of HP diagnosed in January 2019 on chronic prednisone 50 mg p.o. daily, not on PJP prophylaxis --> could be PJP, treating with Primaquine and Clindamycin --> Bactrim cannot be used. Exacerbation of HP still high on the differential. Increase prednisone 40 mg twice daily. Give PPI for stress ulcer prophylaxis. Echo done 03/25/2019 showed ejection fraction of 50 - 55%. Influenza negative. Follow-up septic work-up. ESR: 21, CRP: 3.72, procalcitonin: 0.17. Azithromycin for atypical coverage O2 supplementation to keep oxygen saturation greater than 92- 94%. BiPAP nightly and PRN shortness of breath Follow-up beta D glucan assay and induce sputum for PJP --> sputum not showing PJP For bronchoscopy with BAL tomorrow. N.p.o. post midnight. AB04/07/2019: Showed a gradient of 100. LDH: 526 (could be elevated seco ndary to PJP, and or underlying CKD itself) CT chest without contrast 04/07/2019 reviewed personally: Shows diffuse ground- glass opacities bilaterally, no pleural effusion. On comparing to CAT scan which was done 12/02/2018 at [place] resembles to some extent to the expiratory supine films. Follow nephrology recommendations. -- Hemoptysis Likely secondary to cough which has been going on since Thursday along with fluid overload Cough suppressants [id number] minimal hemoptysis yesterday night following cough. (2) Hemoptysis: (3) Chronic kidney disease, stage V: (4) Interstitial lung disease: Subjective Patient seen and examined at bedside. No acute distress, no adverse events overnight. Shortness of breath is improved. Patient is able to talk in full sentences for prolonged time. Patient did complain of coughing yesterday with minimal hemoptysis. Advised patient to ask for cough medication as needed to prevent excessive coughing which is resulting to hemoptysis. Patient denies any nausea or vomiting. Appetite is good. Urinating well. Denies any dizziness, no chest pain, no headache, no blurry vision. no belly pain, no diarrhea. Patient got her first hemodialysis session yesterday. Patient saturating 97% on 2 L nasal cannula with heart rate of 92 at rest. Review of Systems Review of Systems: All systems reviewed & are unremarkable except as noted in HPI & below Physical Exam Physical Exam: Constitutional: No acute distress HEENT: EOMI, PERRLA, thick neck, no JVD appreciated, hoarseness of voice persists Respiratory system: Decreased air entry bilaterally, minimal bilateral lower lobe crackles, no wheeze, no rhonchi CVS: S1-S2 positive, positive 2 out of 6 systolic murmur appreciated best at the apex, no gallops Abdomen: Soft, nontender, nondistended, positive bowel sounds x4 Extremities: +2 pulses bilaterally radialis/ dorsalis pedis, no cyanosis, no edema bilateral lower extremity, left arm AV fistula positive thrill Neuro: Awake alert oriented x3 Psych: Normal mood and affect G/U: No Quiroz Skin: no rashes, warm and dry Lymphatic: no cervical or axillary lymphadenopathy Results & Data Vital Signs (Past 12 Hours) Vital Signs Temp Pulse Pulse Resp BP Pulse Ox 04/10/19 07:53 36.7 C 91 H 18 129/75 95 04/10/19 03:28 36.7 C 92 H 18 131/76 96 04/10/19 00:00 77 04/09/19 23:13 36.7 C 83 18 127/70 96 04/10/19 08:13 04/10/19 08:13 PG Care Time/CCT Total # of Minutes Spent Total Time Spent with Patient: Total time spent is greater than 50% in coordination of care (as documented) at patient's floor/unit and/or counseling patient:
--- NOTE | 2019-04-10 10:25 | Nephrology Progress Note ---
Date of Service April 10, 2019 Assessment & Plan (1) Chronic kidney disease, stage V: ESRD. Destiny's first HD treatment was performed yesterday. Net UF1 L. Adequate clearance. AVF functioning well. Some cramps in right hand yesterday evening; this is not new. Will plan for second treatment tomorrow. A request has been made to schedule outpatient HD at [facility] with Dr. Corona. Destiny plans to transition to HHD in the near future. Today, BP and volume status are acceptable. Electrolytes are controlled. Input and output will continue to be documented. A metabolic profile will be repeated in the AM. (2) Acute respiratory failure with hypoxia: Remains on prednisone for HP. This was transiently increased to 40 mg BID and will now be reduced to once daily dosing. Destiny's respiratory symptoms are improving. She had a component of volume overload coupled with her HP. She also remains on empiric treatment for infection, including possible PCP. CXR is improving. Bronchoscopy is scheduled for tomorrow. (3) Volume overload: Furosemide switched from 60 mg IV BID to 40 mg PO BID today. Goal will be to continue to encourage a net negative fluid balance of approximately 1 L daily. (4) Hypertension: BP improved. Diltiazem and hydralazine per home dosing. Subjective No acute events overnight. Tolerated HD well yesterday without complications. Breathing continues to improve. Remains weak. Voice is a little stronger this morning. Good urine output. No lightheadedness or dizziness. Some cramps in right hand yesterday evening. Review of Systems Review of Systems: All systems reviewed & are unremarkable except as noted in HPI & below Physical Exam Constitutional: well developed; no acute distress Eyes: + anicteric sclerae; no conjunctival abnormality ENMT: Mouth: no oral mucosal abnormality and oral mucous membranes not dry Neck: normal visual inspection and trachea midline Respiratory: normal respiratory effort; no respiratory distress Auscultation: no rhonchi and no wheezes Cardiovascular: Heart Sounds: normal S1, normal S2 and + murmur Extremities: + AV fistula; no edema Gastrointestinal (Abdomen): Percussion/Palpation: abdomen soft; abdomen nontender Musculoskeletal: Extremities: no cyanosis and no clubbing Skin: normal turgor; no lesions Neurologic: Motor/Sensory: no tremor and no asterixis Psychiatric: Orientation: alert and oriented x 3 Results & Data Vital Signs (Past 12 Hours) Vital Signs Temp Pulse Pulse Resp BP Pulse Ox 04/10/19 08:00 83 04/10/19 07:53 36.7 C 91 H 18 129/75 95 04/10/19 03:28 36.7 C 92 H 18 131/76 96 04/10/19 00:00 77 04/09/19 23:13 36.7 C 83 18 127/70 96 Laboratory Results Laboratory Results - last 24 hr 04/09/19 04/09/19 04/09/19 11:24 16:07 19:40 WBC RBC Hgb Hct MCV MCH MCHC RDW Std Deviation RDW Coeff of Grover Plt Count MPV Immature Gran % (Auto) Neut % (Auto) Lymph % (Auto) Stewart % (Auto) Eos % (Auto) Baso % (Auto) Immature Gran # (Auto) Neut # (Auto) Lymph # (Auto) Stewart # (Auto) Eos # (Auto) Baso # (Auto) Sodium Potassium Chloride Carbon Dioxide Anion Gap BUN Creatinine Est Cr Clr Drug Dosing Est GFR ( Amer) Est GFR (Non-Af Amer) BUN/Creatinine Ratio Glucose POC Glucose 193 H 209 H 243 H Calcium Phosphorus Magnesium 04/10/19 04/10/19 04/10/19 07:22 08:13 08:13 WBC 10.19 RBC 3.31 L Hgb 10.4 L Hct 30.1 L MCV 90.9 MCH 31.4 MCHC 34.6 RDW Std Deviation 49.4 H RDW Coeff of Grover 14.9 H Plt Count 126 L MPV 11.0 H Immature Gran % (Auto) 0.2 Neut % (Auto) 97.1 Lymph % (Auto) 2.3 Stewart % (Auto) 0.4 Eos % (Auto) 0.0 Baso % (Auto) 0.0 Immature Gran # (Auto) 0.02 Neut # (Auto) 9.90 H Lymph # (Auto) 0.23 L Stewart # (Auto) 0.04 L Eos # (Auto) 0.00 Baso # (Auto) 0.00 Sodium 137 Potassium 4.5 Chloride 104 Carbon Dioxide 22 Anion Gap 10.0 BUN 83 H Creatinine 4.06 H D Est Cr Clr Drug Dosing 15.5 Est GFR ( Amer) 13.3 Est GFR (Non-Af Amer) 11.5 BUN/Creatinine Ratio 20.5 H Glucose 210 H POC Glucose 130 H Calcium 8.7 Phosphorus 6.5 H Magnesium 2.1 PG Care Time/CCT Total # of Minutes Spent Total Time Spent with Patient: Total time spent is greater than 50% in coordination of care (as documented) at patient's floor/unit and/or counseling patient:
[2019-04-10] MEDS ORDERED: Nursing to Pharmacy Communication ONE (12:27)
--- NOTE | 2019-04-10 13:35 | Hospitalist Progress Note ---
Date of Service April 10, 2019 Assessment & Plan (1) Acute respiratory failure with hypoxia: (1) Acute respiratory failure with hypoxia: (2) Hypersensitivity pneumonitis: (3) Volume overload: Possible re-exacerbation of hypersensitivity pneumonitis causing acute hypoxic respiratory failure remains on 2 L via NC on Lasix IV Status post hemodialysis yesterday, plan for another dialysis tomorrow respiratory status gradually continue Prednisone 60mg BID, Nebs continue Primaquine, Clindamycin, Azithromycin Nephro, Pulmonary, ID recommendations appreciated (4) Chronic kidney disease, stage V: Status post HD yesterday Creatinine 4.06 HD tomorrow (5) Hemoptysis: Pulmonary consulted Plan for bronchoscopy tomorrow (6) Dysphagia: possible esophageal candidiasis recent Thrush with evidence of mild thrush in posterior pharynx continue nystatin QID PPI 40mg po daily may need EGD once respiratory status is stable (7) Hyperglycemia: BSG on admission 148 Likely in setting of high-dose steroid use Recent A1c 03/2019 was 5.6 Monitor accuchecks AC/HS with low dose novolog sliding scale BSGs within 130s-160s (8) Hypertension: Continue hydralazine, diltiazem Monitor (9) DVT prophylaxis: SCD/TEDS for now 2/2 to hemoptysis Monitor daily for need for chemoprophylaxis Disposition: admit to PCU Follow up: PCP Dr. Salamanca upon discharge Subjective Follow-up for hypoxia, volume overload, possible pneumonia, CKD Seen sitting up in bed, comfortable, on 2 L of nasal cannula Acute events overnight Status post hemodialysis session yesterday Resting, comfortable, not in distress States she feels slightly better today, breathing is about the same Coughing less, hemoptysis is also less Denies other symptoms Review of Systems Review of Systems: All systems reviewed & are unremarkable except as noted in HPI & below Physical Exam Physical Exam: General- oriented x 3, not in distress, speaks in sentences with no effort or accessory muscle use 2 L of O2 via nasal cannula Eyes- anicteric Neck- no JVD Lungs- clear breath sounds bilaterally, no crackles or wheezing Heart- normal rate, regular rhythm; no murmurs Abdomen- normal bowel sounds, nondistended, soft, nontender Extremities- no pretibial edema, no calf tenderness Neuro- alert, oriented x 3; no gross focal neurologic deficits Skin- warm & dry Results & Data Vital Signs (Past 12 Hours) Vital Signs Temp Pulse Pulse Resp BP Pulse Ox 04/10/19 11:07 36.8 C 87 18 121/72 96 04/10/19 08:00 83 04/10/19 07:53 36.7 C 91 H 18 129/75 95 04/10/19 03:28 36.7 C 92 H 18 131/76 96 Laboratory Results Laboratory Results - last 24 hr 04/09/19 04/09/19 04/10/19 16:07 19:40 07:22 WBC RBC Hgb Hct MCV MCH MCHC RDW Std Deviation RDW Coeff of Grover Plt Count MPV Immature Gran % (Auto) Neut % (Auto) Lymph % (Auto) Ashley % (Auto) Eos % (Auto) Baso % (Auto) Immature Gran # (Auto) Neut # (Auto) Lymph # (Auto) Ashley # (Auto) Eos # (Auto) Baso # (Auto) Sodium Potassium Chloride Carbon Dioxide Anion Gap BUN Creatinine Est Cr Clr Drug Dosing Est GFR ( Amer) Est GFR (Non-Af Amer) BUN/Creatinine Ratio Glucose POC Glucose 209 H 243 H 130 H Calcium Phosphorus Magnesium 04/10/19 04/10/19 04/10/19 08:13 08:13 11:09 WBC 10.19 RBC 3.31 L Hgb 10.4 L Hct 30.1 L MCV 90.9 MCH 31.4 MCHC 34.6 RDW Std Deviation 49.4 H RDW Coeff of Grover 14.9 H Plt Count 126 L MPV 11.0 H Immature Gran % (Auto) 0.2 Neut % (Auto) 97.1 Lymph % (Auto) 2.3 Ashley % (Auto) 0.4 Eos % (Auto) 0.0 Baso % (Auto) 0.0 Immature Gran # (Auto) 0.02 Neut # (Auto) 9.90 H Lymph # (Auto) 0.23 L Ashley # (Auto) 0.04 L Eos # (Auto) 0.00 Baso # (Auto) 0.00 Sodium 137 Potassium 4.5 Chloride 104 Carbon Dioxide 22 Anion Gap 10.0 BUN 83 H Creatinine 4.06 H D Est Cr Clr Drug Dosing 15.5 Est GFR ( Amer) 13.3 Est GFR (Non-Af Amer) 11.5 BUN/Creatinine Ratio 20.5 H Glucose 210 H POC Glucose 118 H Calcium 8.7 Phosphorus 6.5 H Magnesium 2.1
[2019-04-10] MEDS: FUROSEMIDE 40 MG TAB PO SCH (17:19)
[2019-04-10] MEDS: GUAIFENESIN/DEXTROM SYRUP 200MG/20MG 10ML UDC PO PRN (19:53)
[2019-04-11] MEDS ORDERED: D5W AND 1/2NSS 1,000 ML IV SCH (00:01)
[2019-04-11] MEDS: CLINDAMYCIN HCL 150 MG CAP PO SCH ×3 (03:26→19:45)
[2019-04-11] MEDS: LEVOTHYROXINE SODIUM 25 MCG TABLET PO SCH (06:20)
[2019-04-11 06:33] LABS: Hematocrit (blood only) 28.7 % (37-47); Hemoglobin 9.9 g/dL (12.0-16.0); Immature Granulocytes # (auto) 0.04 K/uL (0.00-0.02); Immature Granulocytes % (auto) 0.4 %; Lymphocytes # (auto) 0.41 K/uL (1.2-3.4); Lymphocytes % (auto) 3.6 %; Mean Corpuscular Hemoglobin 31.2 pg (25-34); Mean Corpuscular Hgb Conc 34.5 g/dL (32-36); Mean Corpuscular Volume 90.5 fL (80-100); Mean Platelet Volume 10.9 fL (7.4-10.4); Monocytes # (auto) 0.18 K/uL (0.11-0.59); Monocytes % (auto) 1.6 %; Neutrophils # (auto) 10.67 K/uL (1.4-6.5); Neutrophils % (auto) 94.4 %; Platelet Count 133 K/uL (130-400); RDW Coefficient of Variation 14.9 % (11.5-14.5); RDW Standard Deviation 49.2 fL (36.4-46.3); Red Blood Count 3.17 M/uL (4.2-5.4)
--- NOTE | 2019-04-11 06:53 | XRay Report ---
XR chest 1V portable HISTORY: 59 years-old Female f/u follow-up study in a patient with acute shortness of breath COMPARISON: Chest radiograph 04/10/2019 TECHNIQUE: Portable AP view of the chest FINDINGS: Cardiomediastinal and hilar silhouettes are unchanged. Bilateral mixed interstitial and alveolar opac ities redemonstrated which have not significantly changed in the interval. Continued blunting of the costophrenic angles. No pneumothorax, or large pleural effusion. Postoperative changes of the right l gt base. Bones appear grossly intact. IMPRESSION: Unchanged bilateral mixed interstitial and alveolar opacities suggestive of pulmonary arian ma versus multifocal pneumonia. ACT 112: Negative or not required by law. The above report was generated using voice recognition software. It may contain grammatical, syntax o r spelling errors. Electronically signed by: Dharmesh Longo M.D. 04/11/2019 6:52 AM
[2019-04-11] MEDS ORDERED: SODIUM CHLORIDE 0.9% 1000ML 1,000 ML IV PRN (07:00)
[2019-04-11 07:21] LABS: Albumin Level 2.5 gm/dl (3.4-5.0); BUN Creatinine Ratio 21.5 (10-20); Calcium 8.8 mg/dl (8.5-10.1); Creatinine Clr Calc Pharmacy 12.7 ml/min; Est GFR (African American) 10.4; Magnesium 2.3 mg/dl (1.8-2.4); Phosphorus 7.8 mg/dl (2.5-4.9); Potassium 4.5 mmol/L (3.5-5.1)
[2019-04-11] MEDS ORDERED: SODIUM CHLORIDE 0.65% NA SOLN 45 ML (OCEAN) PRN (07:56)
--- NOTE | 2019-04-11 08:07 | Pulmonology Progress Note ---
Date of Service April 11, 2019 Assessment & Plan (1) Acute respiratory failure with hypoxia: -- Acute hypoxic respiratory failure Multifactorial Patient has underlying CKD stage IVV has not been on diuretic. Aggressive diuresis to keep negative balance.Patient is -ve 5.7 L so far. Started on hemodialysis on 04/09/2019. Patient with history of HP diagnosed in January 2019 on chronic prednisone 50 mg p.o. daily, not on PJP prophylaxis --> could be PJP, treating with Primaquine and Clindamycin --> Bactrim cannot be used. Exacerbation of HP still high on the differential. Increase prednisone 40 mg twice daily. Give PPI for stress ulcer prophylaxis. Echo done 03/25/2019 showed ejection fraction of 50 - 55%. Influenza negative. Follow-up septic work-up. ESR: 21, CRP: 3.72, procalcitonin: 0.17. Azithromycin for atypical coverage O2 supplementation to keep oxygen saturation greater than 92- 94%. BiPAP nightly and PRN shortness of breath Follow-up beta D glucan assay. Induce sputum for PJP --> sputum not showing PJP For bronchoscopy today. AB04/07/2019: Showed a gradient of 100. LDH: 526 (could be elevated secondary to PJP, and or underlying CKD itself) CT chest without contrast 04/07/2019 reviewed personally: Shows diffuse ground- glass opacities bilaterally, no pleural effusion. On comparing to CAT scan which was done 12/02/2018 at [place] resembles to some extent to the expiratory supine films. Follow nephrology recommendations. -- Hemoptysis Likely secondary to cough which has been going on since Thursday along with fluid overload Cough suppressants [id number] No more hemoptysis since yesterday. (2) Hemoptysis: (3) Chronic kidney disease, stage V: (4) Interstitial lung disease: Subjective Patient seen and examined at bedside. No acute distress, no adverse events overnight. Patient had an episode of epistaxis from the nose right side. No more hemoptysis. Shortness of breath has improved to some extent. Cough is decreased in intensity. Denies any chest pain. No headache, no nausea, no vomiting, no palpitation. No epigastric pain. Patient saturating 92% on room air with heart rate of 90 at rest. Review of Systems Review of Systems: All systems reviewed & are unremarkable except as noted in HPI & below Physical Exam Physical Exam: Constitutional: No acute distress HEENT: EOMI, PERRLA, thick neck, no JVD appreciated, hoarseness of voice persists, right side of the nose has dried blood appreciated. No active bleeding. Respiratory system: Decreased air entry bilaterally, minimal bilateral lower lobe crackles, no wheeze, no rhonchi CVS: S1-S2 positive, positive 2 out of 6 systolic murmur appreciated best at the apex, no gallops Abdomen: Soft, nontender, nondistended, positive bowel sounds x4 Extremities: +2 pulses bilaterally radialis/ dorsalis pedis, no cyanosis, no edema bilateral lower extremity, left arm AV fistula positive thrill Neuro: Awake alert oriented x3 Psych: Normal mood and affect G/U: No Quiroz Skin: no rashes, warm and dry Lymphatic: no cervical or axillary lymphadenopathy Results & Data Vital Signs (Past 12 Hours) Vital Signs Temp Pulse Pulse Resp BP Pulse Ox 04/11/19 07:11 36.4 C L 87 20 138/76 95 04/11/19 04:10 36.6 C 82 18 130/73 95 04/10/19 23:52 36.6 C 81 19 125/70 94 04/10/19 23:06 78 04/11/19 05:58 04/11/19 05:58 PG Care Time/CCT Total # of Minutes Spent Total Time Spent with Patient: Total time spent is greater than 50% in coordination of care (as documented) at patient's floor/unit and/or counseling patient:
[2019-04-11] MEDS ORDERED: OXYMETAZOLINE 0.05% 30 ML BTL ONE (08:30)
[2019-04-11] MEDS ORDERED: EPOETIN ALFA 10,000 UNITS/ML VIAL IV ONE (08:45)
--- NOTE | 2019-04-11 09:15 | History & Physical Bridge Note ---
Date of Service April 11, 2019 History & Physical Bridge Note I have examined the patient, reviewed the History & Physical and in the interval since the performance of the History & Physical I have noted the following changes of clinical significance: no changes noted
--- NOTE | 2019-04-11 09:15 | Pre Anesthesia Assessment ---
Date of Service April 11, 2019 Pre Sedation Assessment Vital Signs Temp Pulse Pulse Resp BP Pulse Ox 04/11/19 09:10 91 H 14 145/80 H 96 04/11/19 07:11 36.4 C L 87 20 138/76 95 04/11/19 04:10 36.6 C 82 18 130/73 95 04/10/19 23:52 36.6 C 81 19 125/70 94 04/10/19 23:06 78 04/10/19 19:04 36.8 C 85 19 137/73 95 04/10/19 15:33 36.8 C 87 20 134/80 92 04/10/19 11:07 36.8 C 87 18 121/72 96 Cardiovascular RRR, no murmur, no edema Respiratory Additional Comments: Crackles appreciated b/l minimal Pre-Sedation Airway Assessment Smoking Status: Never smoker Mallampati Class: II ASA: ASA4 Procedure Planning Contraindications for Sedation: none Notes The planned sedation has been discussed with the patient. Informed Consent was obtained. I have identified the patient, determined the appropriateness of sedation and have assessed the patient immediately prior to the procedure. All medicine(s) and interventions are by my order.
[2019-04-11] MEDS: INSULIN ASPART 100 UNITS/ML 3 ML PEN SC SCH ×4 (09:18→21:02)
--- NOTE | 2019-04-11 09:23 | Nephrology Progress Note ---
Date of Service April 11, 2019 Assessment & Plan (1) Chronic kidney disease, stage V: ESRD. Destiny's first HD treatment was on 03/30/19. Net UF1 L. Adequate clearance. AVF functioning well. Some cramps in right hand yesterday evening; this is not new. Will plan for second treatment tomorrow. A request has been made to schedule outpatient HD at [facility] with Dr. Corona. Destiny plans to transition to HHD in the near future. Today, BP and volume status are acceptable. Electrolytes are controlled. However BUN creatinine significantly elevated off of dialysis Thursday. --will have to continue her on intermittent hemodialysis for end-stage renal disease --dialysis today after bronchoscopy for 3 hours, plan for next dialysis tomorrow for 4 hours. --if she is clinically otherwise stable, she can be discharged tomorrow and next dialysis will be at the outpatient unit. It would be okay for her to skip dialysis for few days if we have to in order to coordinate outpatient dialysis set up. --Epogen 66437 units x1 dose today --start on Renvela 1 tab with each meal as phosphate binder. Nephrocaps daily. Will follow (2) Acute respiratory failure with hypoxia: Remains on prednisone for HP. This was transiently increased to 40 mg BID and will now be reduced to once daily dosing. Destiny's respiratory symptoms are improving. She had a component of volume overload coupled with her HP. She also remains on empiric treatment for infection, including possible PCP. CXR is improving. Bronchoscopy is scheduled for tomorrow. (3) Volume overload: Furosemide switched from 60 mg IV BID to 40 mg PO BID today. Goal will be to continue to encourage a net negative fluid balance of approximately 1 L daily. (4) Hypertension: BP improved. Diltiazem and hydralazine per home dosing. Betina Cassidy was seen and examined in her room this morning with her at bedside. She still feeling tired and exhausted and voice remains hoarse. Denies significant shortness of breath while resting. No nausea or vomiting. Blood pressure stable and well controlled. Volume status acceptable. Review of Systems Review of Systems: All systems reviewed & are unremarkable except as noted in HPI & below Physical Exam Constitutional: well developed and well nourished; no acute distress Respiratory: no respiratory distress Auscultation: + diminished lung sounds and + rhonchi Cardiovascular: RRR, no murmur, no edema Neurologic: moves all extremities and awake; not confused Psychiatric: A+Ox3, euthymic affect Results & Data Vital Signs (Past 12 Hours) Vital Signs Temp Pulse Pulse Resp BP Pulse Ox 04/11/19 09:10 91 H 14 145/80 H 96 04/11/19 07:11 36.4 C L 87 20 138/76 95 04/11/19 04:10 36.6 C 82 18 130/73 95 04/10/19 23:52 36.6 C 81 19 125/70 94 04/10/19 23:06 78 PG Care Time/CCT Total # of Minutes Spent Total Time Spent with Patient: Total time spent is greater than 50% in coordination of care (as documented) at patient's floor/unit and/or counseling patient:
--- NOTE | 2019-04-11 09:32 | Post Anesthesia Assessment ---
Date of Service April 11, 2019 Post Sedation Assessment Vital Signs Temp Pulse Pulse Resp BP Pulse Ox 04/11/19 09:30 112 H 18 158/97 H 93 04/11/19 09:25 126 H 16 128/70 95 04/11/19 09:20 98 H 14 156/68 H 88 L 04/11/19 09:10 91 H 14 145/80 H 96 04/11/19 07:11 36.4 C L 87 20 138/76 95 04/11/19 04:10 36.6 C 82 18 130/73 95 04/10/19 23:52 36.6 C 81 19 125/70 94 04/10/19 23:06 78 04/10/19 19:04 36.8 C 85 19 137/73 95 04/10/19 15:33 36.8 C 87 20 134/80 92 04/10/19 11:07 36.8 C 87 18 121/72 96 Recovery Score Activity: Moves 4 extremities Respiration: Deep Breath/Cough Circulation: +/-20% PreAnes Value Consciousness: Arouseable (by name) Oxygen Saturation: O2 needed for >90% Post Anesthesia Score: 8 Discharge Sedation Level of Care: Fast Track Phase II Post Sedation Plan On clinical assessment, the patient appears to have tolerated the sedation without complications. Patient is recovering as anticipated. Patient will continue to be monitored by nursing and may be discharged when sedation discharge criteria are met per below protocol. Upon Completions of procedure up to 15 minutes continue every 5 minute vital signs and the P.A.R. score; then discharge to a Phase I or Fast Track to Phase II per the following guidelines: * Discharge Patient to appropriate Phase II area if PAR is 8 or greater or return to pre- procedure baseline. The post - procedure orders will be as directed. * If PAR score is less than 8 or not return to pre-procedure baseline then patient will follow Phase I monitoring till PAR is reached for Phase II. The Phase I may be done in procedure room or may call to secure a Phase I area. * If naloxone or flumazenil are used for reversal, hold in Phase I for c ontinued monitoring from when last reversal dose was given for a minimum of 60 minutes or longer pending the nurse and/or physician discretion of patient condition before discharge to Phase II. Please call the Sedation Physician to re-evaluate and complete post-note for discharge to Phase II area. Do NOT discharge from procedure sedation or Phase 1 until post- sedation evaluation note is complete by procedure /sedation MD Sedation Discharge Instructions to be given to the patient at discharge to home.
[2019-04-11] MEDS ORDERED: LIDOCAINE HCL VISCOUS SOLN 2% 15 ML UDC TOP ONE (09:34)
[2019-04-11] MEDS ORDERED: fentaNYL citrate 100 MCG/2 ML VIAL IV ONE (09:34)
[2019-04-11] MEDS ORDERED: LIDOCAINE HCL 2% (LOCAL) INJ 50 ML VIAL INFIL STA (09:34)
[2019-04-11] MEDS ORDERED: LIDOCAINE 4% INH SOLN 4 ML BTL NAE ONE (09:34)
[2019-04-11] MEDS ORDERED: MIDAZOLAM HCL 1 MG/ML 2ML VIAL IV STA (09:34)
--- NOTE | 2019-04-11 10:03 | Procedure Note ---
Procedure Note: Bronchoscopy Procedure PREOPERATIVE DIAGNOSIS: Diffuse alveolar infiltrate POSTOPERATIVE DIAGNOSIS: Diffuse alveolar infiltrate PROCEDURE PERFORMED: Flexible fiberoptic bronchoscopy with bronchoalveolar lavage COMPLICATIONS: None. INDICATION: Diffuse ocular infiltrate rule out PJP/infection PROCEDURE: After obtaining an informed consent, the patient was brought to the Bronchoscopy Suite. The patient had appropriate oxygen, blood pressure, heart rate, and respiratory rate monitoring applied and monitored continuously throughout the procedure. Supplemental oxygen via nasal cannula as per nursing records was applied to the nasopharynx with adequate saturations achieved. Topical anesthesia with nebulized 1% lidocaine was achieved. Subsequent to this, the patient was premedicated with 5 mg of midazolam and 100 Mcg of fentanyl. Upper Airway: The oropharynx and larynx were well visualized and showed normal m ucosa. There was normal vocal cord motion without masses or lesions. Additional topical anesthesia with 1% lidocaine was applied to the trachea and karen. The trachea appeared normal.The bronchoscope was then advanced through the karen, which was sharp. The scope was then advanced into the right main stem and each segment, subsegement in the right upper lobe, right middle lobe and right lower lobe were visualized. There was minimal amounts of clear secretions noted. There were no other findings including evidence of mass, anatomic distortions, or hemorrhage. The bronchoscope was subsequently withdrawn and advanced into the left mainstem. Again, each segment and subsegment was well visualized. No specific masses or other lesions were identified throughout the tracheobronchial tree on the left. There was minimal amounts of clear secretions noted. The bronchoscope was then wedged in the lateral segment of right middle lobe lateral segment and bronchoalveolar lavage samples were obtained. 120 ml of saline was instilled and 70 ml of fluid was aspirated back. There was minimal bleeding appreciated post BAL which stopped on its own. The bronchoscope was withdrawn and the area was suctioned clear. The bronchoscope was then withdrawn to the mainstem. The area was suctioned clear. The bronchoscope was then withdrawn. The patient tolerated the procedure well without evidence of desaturation or complications. Bronchoalveolar lavage samples were sent for cell count, Gram stain, De León- Giemsa and silver stain and bacterial culture, AFB culture and smear, fungal culture and smear and cytology. Recommendations: Follow-up culture, Gram stain and cytology.
[2019-04-11 11:23] LABS: Eosinophil Body Fluid Man 0 %; Fluid Mono/Macrophage 53 %; Lymphocyte Body Fluid Man 3 %; Neutrophil Body Fluid Man 42 %
[2019-04-11] MEDS: AZITHROMYCIN 250 MG TAB PO SCH (13:46)
[2019-04-11] MEDS: PANTOprazole 40 MG TAB PO SCH ×2 (13:46→21:03)
[2019-04-11] MEDS: SEVELAMER HCL 800 MG TABLET PO SCH ×2 (13:47→17:32)
[2019-04-11] MEDS: allopurinoL 100 MG TAB PO SCH (13:47)
[2019-04-11] MEDS: HydrALAZINE TAB 50 MG TAB PO SCH ×3 (13:47→17:32)
[2019-04-11] MEDS: ATORVASTATIN 20 MG TAB PO SCH (13:47)
[2019-04-11] MEDS: NEPHROCAPS PO SCH (13:47)
[2019-04-11] MEDS: dilTIAZem ER 180 MG CAPCR PO SCH (13:48)
[2019-04-11] MEDS: NYSTATIN SUSP 500,000 U/5 ML UDC PO SCH ×4 (13:49→21:02)
[2019-04-11] MEDS: predniSONE 20 MG TAB PO SCH (14:01)
[2019-04-11] MEDS: GUAIFENESIN/DEXTROM SYRUP 200MG/20MG 10ML UDC PO PRN (14:17)
--- NOTE | 2019-04-11 15:33 | Hospitalist Progress Note ---
Date of Service April 11, 2019 Assessment & Plan (1) Hypoxia: (1) Acute respiratory failure with hypoxia: (1) Acute respiratory failure with hypoxia: (2) Hypersensitivity pneumonitis: (3) Volume overload: Possible re-exacerbation of hypersensitivity pneumonitis causing acute h ypoxic respiratory failure remains on 4 L via NC on Lasix IV Status post second hemodialysis, tolerating well Status post bronchoscopy, unrevealing, follow-up bronchial washings culture Transition to prednisone 30 mg daily Continue nebs continue Primaquine, Clindamycin, Azithromycin Nephro, Pulmonary, ID recommendations appreciated (4) Chronic kidney disease, stage V: Status post HD second session today (5) Hemoptysis: Pulmonary consulted Plan for bronchoscopy tomorrow Status post bronchoscopy (6) Dysphagia: possible esophageal candidiasis recent Thrush with evidence of mild thrush in posterior pharynx continue nystatin QID PPI 40mg po daily may need EGD once respiratory status is stable (7) Hyperglycemia: BSG on admission 148 Likely in setting of high-dose steroid use Recent A1c 03/2019 was 5.6 Monitor accuchecks AC/HS with low dose novolog sliding scale BSGs within acceptable range (8) Hypertension: Continue hydralazine, diltiazem Monitor (9) DVT prophylaxis: SCD/TEDS for now 2/2 to hemoptysis Monitor daily for need for chemoprophylaxis Disposition: admit to PCU Follow up: PCP Dr. Salamanca upon discharge Subjective Follow-up for hypoxia, CKD Status post bronchoscopy today Status post hemodialysis second session today Patient seen sleeping but easily awakened States she feels tired, breathing is about the same as yesterday Intermittent cough, no hemoptysis Denies other symptoms Review of Systems Review of Systems: All systems reviewed & are unremarkable except as noted in HPI & below Physical Exam Physical Exam: General- oriented x 3, not in distress, speaks in sentences with no effort or accessory muscle use Eyes- anicteric Neck- no JVD Lungs- clear breath sounds bilaterally no crackles, no wheezing bilaterally Heart- normal rate, regular rhythm; no murmurs Abdomen- normal bowel sounds, nondistended, soft, nontender Extremities-trace pretibial edema, no calf tenderness Neuro- alert, oriented x 3; no gross focal neurologic deficits Skin- warm & dry Results & Data Vital Signs (Past 12 Hours) Vital Signs Temp Pulse Pulse Pulse Resp BP BP 04/11/19 15:07 36.6 C 96 H 20 127/78 04/11/19 13:43 36.7 C 92 H 19 142/82 H 04/11/19 13:29 37.2 C 80 145/75 H 04/11/19 13:05 94 H 140/76 04/11/19 12:40 95 H 148/91 H 04/11/19 12:20 90 149/81 H 04/11/19 12:00 95 H 151/82 H 04/11/19 11:40 82 140/71 04/11/19 11:20 82 134/68 04/11/19 11:00 82 132/73 04/11/19 10:40 82 143/78 H 04/11/19 10:25 82 140/82 04/11/19 10:00 37.0 C 80 04/11/19 09:45 99 H 16 132/80 04/11/19 09:40 102 H 16 138/76 04/11/19 09:30 112 H 18 158/97 H 04/11/19 09:25 126 H 16 128/70 04/11/19 09:20 98 H 14 156/68 H 04/11/19 09:10 91 H 14 145/80 H 04/11/19 08:00 87 04/11/19 07:11 36.4 C L 87 20 138/76 04/11/19 04:10 36.6 C 82 18 130/73 Pulse Ox 04/11/19 15:07 96 04/11/19 13:43 96 04/11/19 13:29 04/11/19 13:05 04/11/19 12:40 04/11/19 12:20 04/11/19 12:00 04/11/19 11:40 04/11/19 11:20 04/11/19 11:00 04/11/19 10:40 04/11/19 10:25 04/11/19 10:00 04/11/19 09:45 94 04/11/19 09:40 93 04/11/19 09:30 93 04/11/19 09:25 95 04/11/19 09:20 88 L 04/11/19 09:10 96 04/11/19 08:00 04/11/19 07:11 95 04/11/19 04:10 95 Laboratory Results Laboratory Results - last 24 hr 04/10/19 04/11/19 04/11/19 19:56 05:58 05:58 WBC 11.30 H RBC 3.17 L Hgb 9.9 L Hct 28.7 L MCV 90.5 MCH 31.2 MCHC 34.5 RDW Std Deviation 49.2 H RDW Coeff of Grover 14.9 H Plt Count 133 MPV 10.9 H Immature Gran % (Auto) 0.4 Neut % (Auto) 94.4 Lymph % (Auto) 3.6 [place] % (Auto) 1.6 Eos % (Auto) 0.0 Baso % (Auto) 0.0 Immature Gran # (Auto) 0.04 H Neut # (Auto) 10.67 H Lymph # (Auto) 0.41 L [place] # (Auto) 0.18 Eos # (Auto) 0.00 Baso # (Auto) 0.00 Sodium 135 L Potassium 4.5 Chloride 102 Carbon Dioxide 21 Anion Gap 12.0 H BUN 108 H Creatinine 4.97 H* D Est Cr Clr Drug Dosing 12.7 Est GFR ( Amer) 10.4 Est GFR (Non-Af Amer) 9.0 BUN/Creatinine Ratio 21.5 H Glucose 131 H POC Glucose 153 H Calcium 8.8 Phosphorus 7.8 H Magnesium 2.3 Albumin 2.5 L Fluid Neutrophils % Fluid Lymphocytes % Fluid Eosinophils % Fl Monocyt/Macrophag % 04/11/19 04/11/19 04/11/19 07:14 13:39 16:31 WBC RBC Hgb Hct MCV MCH MCHC RDW Std Deviation RDW Coeff of Grover Plt Count MPV Immature Gran % (Auto) Neut % (Auto) Lymph % (Auto) [place] % (Auto) Eos % (Auto) Baso % (Auto) Immature Gran # (Auto) Neut # (Auto) Lymph # (Auto) [place] # (Auto) Eos # (Auto) Baso # (Auto) Sodium Potassium Chloride Carbon Dioxide Anion Gap BUN Creatinine Est Cr Clr Drug Dosing Est GFR ( Amer) Est GFR (Non-Af Amer) BUN/Creatinine Ratio Glucose POC Glucose 129 H 101 H 194 H Calcium Phosphorus Magnesium Albumin Fluid Neutrophils % Fluid Lymphocytes % Fluid Eosinophils % Fl Monocyt/Macrophag % 04/11/19 Unknown WBC RBC Hgb Hct MCV MCH MCHC RDW Std Deviation RDW Coeff of Grover Plt Count MPV Immature Gran % (Auto) Neut % (Auto) Lymph % (Auto) [place] % (Auto) Eos % (Auto) Baso % (Auto) Immature Gran # (Auto) Neut # (Auto) Lymph # (Auto) [place] # (Auto) Eos # (Auto) Baso # (Auto) Sodium Potassium Chloride Carbon Dioxide Anion Gap BUN Creatinine Est Cr Clr Drug Dosing Est GFR ( Amer) Est GFR (Non-Af Amer) BUN/Creatinine Ratio Glucose POC Glucose Calcium Phosphorus Magnesium Albumin Fluid Neutrophils % 42 Fluid Lymphocytes % 3 Fluid Eosinophils % 0 Fl Monocyt/Macrophag % 53
[2019-04-11] MEDS: PRIMAQUINE PHOSPHATE 26.3 MG PO SCH (16:16)
[2019-04-11] MEDS: FUROSEMIDE 40 MG TAB PO SCH ×2 (16:24→17:32)
[2019-04-12] MEDS ORDERED: SEVELAMER HCL 800 MG TABLET PO SCH
[2019-04-12] MEDS ORDERED: PRIMAQUINE PHOSPHATE 26.3 MG PO SCH
[2019-04-12] MEDS: CLINDAMYCIN HCL 150 MG CAP PO SCH ×2 (03:29→07:37)
[2019-04-12 05:49] LABS: Hematocrit (blood only) 29.3 % (37-47); Hemoglobin 9.9 g/dL (12.0-16.0); Mean Corpuscular Hemoglobin 30.6 pg (25-34); Mean Corpuscular Hgb Conc 33.8 g/dL (32-36); Mean Corpuscular Volume 90.4 fL (80-100); RDW Coefficient of Variation 14.9 % (11.5-14.5); RDW Standard Deviation 48.8 fL (36.4-46.3); Red Blood Count 3.24 M/uL (4.2-5.4); White Blood Count 11.01 K/uL (4.8-10.8)
[2019-04-12] MEDS: LEVOTHYROXINE SODIUM 25 MCG TABLET PO SCH (06:08)
[2019-04-12 06:25] LABS: Immature Granulocytes # (auto) 0.03 K/uL (0.00-0.02); Immature Granulocytes % (auto) 0.3 %; Lymphocytes # (auto) 0.35 K/uL (1.2-3.4); Lymphocytes % (auto) 3.2 %; Mean Platelet Volume 11.1 fL (7.4-10.4); Monocytes # (auto) 0.14 K/uL (0.11-0.59); Monocytes % (auto) 1.3 %; Neutrophils # (auto) 10.49 K/uL (1.4-6.5); Neutrophils % (auto) 95.2 %; Platelet Count 80 K/uL (130-400); Platelet Estimate Decreased (Normal); RBC Morphology Unremarkable
[2019-04-12 06:28] LABS: BUN Creatinine Ratio 18.3 (10-20); Calcium 8.6 mg/dl (8.5-10.1); Creatinine Clr Calc Pharmacy 15.2 ml/min; Est GFR (Non-African American) 11.2
--- NOTE | 2019-04-12 07:07 | XRay Report ---
XR chest 1V portable HISTORY: 59 years-old Female f/u follow-up study in a patient with acute shortness of breath COMPARISON: Chest radiograph 04/11/2019 TECHNIQUE: Portable AP view of the chest FINDINGS: Cardiac silhouette is enlarged. Bilateral mixed interstitial and alveolar opacities are redemonstrate d with progressive airspace opacities of the right infrahilar lung and medial right lung base and rig ht midlung. Blunting of the costophrenic angles persists. No pneumothorax. Postoperative changes of t he right lung base. Bones appear grossly intact. IMPRESSION: 1. Bilateral mixed interstitial and alveolar opacities are redemonstrated with progressively worsened airspace opacities of the medial right lung base. 2. Cardiomegaly. 3. Postoperative changes of the right lung. ACT 112: Negative or not required by law. The above report was generated using voice recognition software. It may contain grammatical, syntax o r spelling errors. Electronically signed by: Dharmesh Longo M.D. 04/12/2019 7:06 AM
[2019-04-12] MEDS: allopurinoL 100 MG TAB PO SCH (07:36)
[2019-04-12] MEDS: SEVELAMER HCL 800 MG TABLET PO SCH ×2 (07:36→13:56)
[2019-04-12] MEDS: PANTOprazole 40 MG TAB PO SCH (07:36)
[2019-04-12] MEDS: ATORVASTATIN 20 MG TAB PO SCH (07:36)
[2019-04-12] MEDS: FUROSEMIDE 40 MG TAB PO SCH (07:36)
[2019-04-12] MEDS: AZITHROMYCIN 250 MG TAB PO SCH (07:37)
[2019-04-12] MEDS: dilTIAZem ER 180 MG CAPCR PO SCH (07:37)
[2019-04-12] MEDS: NEPHROCAPS PO SCH (07:37)
[2019-04-12] MEDS: NYSTATIN SUSP 500,000 U/5 ML UDC PO SCH ×2 (07:38→13:56)
[2019-04-12] MEDS: HydrALAZINE TAB 50 MG TAB PO SCH ×2 (07:38→13:55)
[2019-04-12] MEDS: PRIMAQUINE PHOSPHATE 26.3 MG PO SCH (07:39)
[2019-04-12] MEDS: INSULIN ASPART 100 UNITS/ML 3 ML PEN SC SCH ×2 (07:57→12:39)
[2019-04-12] MEDS ORDERED: predniSONE 50 MG TAB PO SCH (09:00)
--- NOTE | 2019-04-12 09:02 | Pulmonology Progress Note ---
Date of Service April 12, 2019 Assessment & Plan (1) Acute respiratory failure with hypoxia: -- Acute hypoxic respiratory failure Multifactorial Patient has underlying CKD stage IVV has not been on diuretic. Aggressive diuresis to keep negative balance.Patient is -ve 5.7 L so far. Started on hemodialysis on 04/09/2019. Patient with history of HP diagnosed in January 2019 on chronic prednisone 50 mg p.o. daily, not on PJP prophylaxis --> could be PJP, treating with Primaquine and Clindamycin --> Bactrim cannot be used. Exacerbation of HP still high on the differential. Increase prednisone 40 mg twice daily. Give PPI for stress ulcer prophylaxis. Echo done 03/25/2019 showed ejection fraction of 50 - 55%. AB04/07/2019: Showed a gradient of 100. LDH: 526 (could be elevated secondary to PJP, and or underlying CKD itself) Influenza negative. Follow-up septic work-up. ESR: 21, CRP: 3.72, procalcitonin: 0.17. Azithromycin for atypical coverage. Last dose of azithromycin tomorrow. O2 supplementation to keep oxygen saturation greater than 92- 94%. BiPAP nightly and PRN shortness of breath Follow-up beta D glucan assay. Induce sputum for PJP --> sputum not showing PJP Status post bronchoscopy 04/11/2019 which showed atrophy of the mucosa, no other significant finding. Fungal smear was negative for PJP. Follow-up fungal culture Make patient walk on room air and document desaturation below 88% if she does she will need 2 L continuous oxygen at home. From pulmonary perspective I would continue with primaquine and clindamycin for total of 10 days since initiation. In the meantime if the fungal culture is negative can transition it to atovaquone 1500mg daily for prophylaxis of PJP. Patient needs to follow up with Pulmonary at [facility] Dr Mcrae for her PJP. c/w Steroids 50mg po daily and titrate it down 10mg a week and maintain at 40mg till seen by pulmonary within next 2 weeks. Treatment plan was discussed in depth with patient and her at bedside. All questions were answered in depth. Follow nephrology recommendations. -- Hemoptysis Likely secondary to cough which has been going on since Thursday along with fluid overload Cough suppressants [id number] No more hemoptysis since yesterday. - Epistaxis Continue with humidified oxygen Afrin nasal spray (2) Hemoptysis: (3) Chronic kidney disease, stage V: (4) Interstitial lung disease: Subjective Patient seen and examined at bedside. No acute distress, no adverse events overnight. Patient had mild epistaxis still but it has gone down significantly. No more hemoptysis. Shortness of breath is improved. Hoarseness of voice is improved significantly. Denies any chest pain, no nausea or vomiting. Good appetite. No diarrhea, no hematuria, no epigastric pain. Patient was saturating 93% on 2 L nasal cannula with heart rate of 87 at rest at the time of examination. Review of Systems Review of Systems: All systems reviewed & are unremarkable except as noted in HPI & below Physical Exam Physical Exam: Constitutional: No acute distress HEENT: EOMI, PERRLA, thick neck, no JVD appreciated, hoarseness of voice persists, right side of the nose has dried blood appreciated. No active bleeding. Respiratory system: Decreased air entry bilaterally, minimal bilateral lower lobe crackles, no wheeze, no rhonchi CVS: S1-S2 positive, positive 2 out of 6 systolic murmur appreciated best at the apex, no gallops Abdomen: Soft, nontender, nondistended, positive bowel sounds x4 Extremities: +2 pulses bilaterally radialis/ dorsalis pedis, no cyanosis, no edema bilateral lower extremity, left arm AV fistula positive thrill Neuro: Awake alert oriented x3 Psych: Normal mood and affect G/U: No Quiroz ENMT: Mallampati Class: II Skin: no rashes, warm and dry Lymphatic: no cervical or axillary lymphadenopathy Results & Data Vital Signs (Past 12 Hours) Vital Signs Temp Pulse Pulse Pulse Resp BP Pulse Ox 04/12/19 07:07 36.9 C 82 18 133/69 93 04/12/19 03:24 36.7 C 84 18 115/66 92 04/11/19 23:40 77 04/11/19 23:03 36.9 C 74 18 108/65 94 Microbiology Microbiology 04/11/19 Unknown Bronch Wash,Right Middle Lobe Fungal Smear - Final 04/11/19 Unknown Bronch Wash,Right Middle Lobe Gram Stain - Final 04/12/19 05:39 04/12/19 05:39 PG Care Time/CCT Total # of Minutes Spent Total Time Spent with Patient: Total time spent is greater than 50% in coordination of care (as documented) at patient's floor/unit and/or counseling patient:
--- NOTE | 2019-04-12 09:33 | Hospitalist Progress Note ---
Date of Service April 12, 2019 Assessment & Plan (1) Hypoxia: Acute respiratory failure with hypoxia: likely secondary to Volume Overload in the setting of Hypersensitivity pneumonitis, with Possible re-exacerbation - evaluated by Nephrology [facility] HD performed - evaluated by Pulmonary [facility] Prednisone increased to 40mg BID felt to have possible PCP, Primaquine, Clindamycin, Azithromycin ordered beta D glucan assay. Induce sputum for PJP --> sputum not showing PJP Status post bronchoscopy 04/11/2019 which showed atrophy of the mucosa, no other significant finding. Fungal smear was negative for PJP. Follow-up fungal culture - weaned off oxygen ambulating with no problems - discharge plan: HD on Sunday 04/15 continue with primaquine and clindamycin for total of 10 days since initiation. In the meantime if the fungal culture is negative can transition it to atovaquone 1500mg daily for prophylaxis of PJP. Patient needs to follow up with Pulmonary at [place] Dr Mcrae for her PJP. c/w Steroids 50mg po daily and titrate it down 10mg a week and maintain at 40mg till seen by pulmonary within next 2 weeks. ff up with Nephro and [facility] in 1 week Chronic kidney disease, stage V: management per above Hemoptysis: Pulmonary consulted Status post bronchoscopy 04/11/2019 which showed atrophy of the mucosa, no other significant finding. Fungal smear was negative for PJP. Follow-up fungal culture resolved Dysphagia possible esophageal candidiasis recent Thrush with evidence of mild thrush in posterior pharynx continue nystatin QID x 5 days PPI 40mg po daily Hyperglycemia: BSG on admission 148 Likely in setting of high-dose steroid use Recent A1c 03/2019 was 5.6 Monitor as outpatient Hypertension: Continue hydralazine, diltiazem Monitor Follow up: PCP Dr. Ballard Wednesday 04/18 11am [facility] 1 week Nephro as scheduled Subjective ff up for hypoxia, CKD seen resting in bed, sitting up brighter, alert, in good spirits just completed 2 step exercise test, no oxygen supplement required, no problems with ambulation today denies shortness of breath, cough, palpitations, dizziness, nausea no other symptoms states she is ready and would like to be discharged today Review of Systems Review of Systems: All systems reviewed & are unremarkable except as noted in HPI & below Physical Exam Physical Exam: General- oriented x 3, not in distress, speaks in sentences with no effort or accessory muscle use Eyes- anicteric Neck- no JVD Lungs- clear breath sounds bilaterally, no crackles no wheezing Heart- normal rate, regular rhythm; no murmurs Abdomen- normal bowel sounds, nondistended, soft, nontender Extremities- very mild pretibial edema, no calf tenderness Neuro- alert, oriented x 3; no gross focal neurologic deficits Skin- warm & dry Results & Data Vital Signs (Past 12 Hours) Vital Signs Temp Pulse Pulse Pulse Pulse Pulse Pulse 04/12/19 09:15 103 H 102 H 85 04/12/19 07:07 36.9 C 82 04/12/19 03:24 36.7 C 84 04/11/19 23:40 77 04/11/19 23:03 36.9 C 74 Resp Resp Resp Resp BP Pulse Ox Pulse Ox 04/12/19 09:15 22 20 18 90 04/12/19 07:07 18 133/69 93 04/12/19 03:24 18 115/66 92 04/11/19 23:40 04/11/19 23:03 18 108/65 94 Pulse Ox Pulse Ox 04/12/19 09:15 91 90 04/12/19 07:07 04/12/19 03:24 04/11/19 23:40 04/11/19 23:03 Laboratory Results Laboratory Results - last 24 hr 04/11/19 04/11/19 04/11/19 13:39 16:31 20:02 WBC RBC Hgb Hct MCV MCH MCHC RDW Std Deviation RDW Coeff of Grover Plt Count MPV Immature Gran % (Auto) Neut % (Auto) Lymph % (Auto) Sumner % (Auto) Eos % (Auto) Baso % (Auto) Immature Gran # (Auto) Neut # (Auto) Lymph # (Auto) Sumner # (Auto) Eos # (Auto) Baso # (Auto) Platelet Estimate RBC Morphology Sodium Potassium Chloride Carbon Dioxide Anion Gap BUN Creatinine Est Cr Clr Drug Dosing Est GFR ( Amer) Est GFR (Non-Af Amer) BUN/Creatinine Ratio Glucose POC Glucose 101 H 194 H 128 H Calcium Fluid Neutrophils % Fluid Lymphocytes % Fluid Eosinophils % Fl Monocyt/Macrophag % 04/11/19 04/12/19 04/12/19 Unknown 05:39 05:39 WBC 11.01 H RBC 3.24 L Hgb 9.9 L Hct 29.3 L MCV 90.4 MCH 30.6 MCHC 33.8 RDW Std Deviation 48.8 H RDW Coeff of Grover 14.9 H Plt Count 80 L MPV 11.1 H Immature Gran % (Auto) 0.3 Neut % (Auto) 95.2 Lymph % (Auto) 3.2 Sumner % (Auto) 1.3 Eos % (Auto) 0.0 Baso % (Auto) 0.0 Immature Gran # (Auto) 0.03 H Neut # (Auto) 10.49 H Lymph # (Auto) 0.35 L Sumner # (Auto) 0.14 Eos # (Auto) 0.00 Baso # (Auto) 0.00 Platelet Estimate Decreased L RBC Morphology Unremarkable Sodium 138 Potassium 5.0 Chloride 104 Carbon Dioxide 25 Anion Gap 9.0 BUN 76 H Creatinine 4.13 H D Est Cr Clr Drug Dosing 15.2 Est GFR ( Amer) 13.0 Est GFR (Non-Af Amer) 11.2 BUN/Creatinine Ratio 18.3 Glucose 136 H POC Glucose Calcium 8.6 Fluid Neutrophils % 42 Fluid Lymphocytes % 3 Fluid Eosinophils % 0 Fl Monocyt/Macrophag % 53 04/12/19 07:05 WBC RBC Hgb Hct MCV MCH MCHC RDW Std Deviation RDW Coeff of Grover Plt Count MPV Immature Gran % (Auto) Neut % (Auto) Lymph % (Auto) Sumner % (Auto) Eos % (Auto) Baso % (Auto) Immature Gran # (Auto) Neut # (Auto) Lymph # (Auto) Sumner # (Auto) Eos # (Auto) Baso # (Auto) Platelet Estimate RBC Morphology Sodium Potassium Chloride Carbon Dioxide Anion Gap BUN Creatinine Est Cr Clr Drug Dosing Est GFR ( Amer) Est GFR (Non-Af Amer) BUN/Creatinine Ratio Glucose POC Glucose 116 H Calcium Fluid Neutrophils % Fluid Lymphocytes % Fluid Eosinophils % Fl Monocyt/Macrophag %
[2019-04-12] MEDS: GUAIFENESIN/DEXTROM SYRUP 200MG/20MG 10ML UDC PO PRN (10:19)
--- NOTE | 2019-04-12 11:00 | Hospitalist Progress Note ---
Date of Service delayed entry date of service as noted below April 12, 2019 Assessment & Plan (1) Hypoxia: Acute respiratory failure with hypoxia: likely secondary to Volume Overload, ESRD in the setting of Hypersensitivity pneumonitis, with Possible re-exacerbation - evaluated by Nephrology S[facility] Dr. Willian PABON HD initiated during admission, patient underwent 2 sessions with improvement of symptoms - evaluated by Pulmonary S[facility] Dr. Celi PABON Prednisone 50mg po daily being taken for previously diagnosed Hypersensitivity Pneumonitis increased to 40mg BID felt to have possible PJP: Primaquine, Clindamycin, Azithromycin ordered, ID consulted however, beta D glucan assay Induced sputum for PJP --> sputum not showing PJP - Status post bronchoscopy 04/11/2019 which showed atrophy of the mucosa, no other significant finding. Fungal smear was negative for PJP. Follow-up fungal culture - weaned off oxygen clinically improved overall ambulating with no problems - discharge plan: repeat HD on Sunday 04/15 per Pulmonary S[facility]: continue with primaquine and clindamycin for total of 10 days since initiation. In the meantime if the fungal culture is negative can transition it to atovaquone 1500mg daily for prophylaxis of PJP. Patient needs to follow up with Pulmonary at [place] Dr Mcrae for her PJP. c/w Steroids 50mg po daily and titrate it down 10mg a week and maintain at 40mg till seen by pulmonary within next 2 weeks. ff up with [facility]ro [facility] 1 week Chronic kidney disease, stage V: --management per above Hemoptysis: --Pulmonary consulted Status post bronchoscopy 04/11/2019 which showed atrophy of the mucosa, no other significant finding. Fungal smear was negative for PJP. Follow-up fungal culture resolved Dysphagia possible esophageal candidiasis --recent Thrush with evidence of mild thrush in posterior pharynx continue nystatin QID x 5 days PPI 40mg po daily Hyperglycemia: --BSG on admission 148 Likely in setting of high-dose steroid use Recent A1c 03/2019 was 5.6 Monitor as outpatient Hypertension: --continue hydralazine, diltiazem Monitor Follow up: PCP Dr. Ballard Wednesday 04/18 11am [facility] in [place] within 1 week Nephro c/o [facility] as scheduled Subjective ff up for volume overload, CKD seen resting in bed, comfortable not in distress ambulated for 2 step test- tolerated well, does not require o2 supplement, no dyspnea states she feels improved overall no other symptoms states she is ready and would like to be discharged today Review of Systems Review of Systems: All systems reviewed & are unremarkable except as noted in HPI & below Physical Exam Physical Exam: General- oriented x 3, not in distress, speaks in sentences with no effort or accessory muscle use Eyes- anicteric Neck- no JVD Lungs- clear breath sounds, no crackles BL Heart- normal rate, regular rhythm; no murmurs Abdomen- normal bowel sounds, nondistended, soft, nontender Extremities- no pretibial edema, no calf tenderness Neuro- alert, oriented x 3; no gross focal neurologic deficits Skin- warm & dry Results & Data Vital Signs (Past 12 Hours) Vital Signs Temp Pulse Pulse Pulse Pulse Pulse Pulse 04/12/19 09:15 103 H 102 H 85 04/12/19 08:00 76 04/12/19 07:07 36.9 C 82 04/12/19 03:24 36.7 C 84 04/11/19 23:40 77 04/11/19 23:03 36.9 C 74 Resp Resp Resp Resp BP Pulse Ox Pulse Ox 04/12/19 09:15 22 20 18 90 04/12/19 08:00 04/12/19 07:07 18 133/69 93 04/12/19 03:24 18 115/66 92 04/11/19 23:40 04/11/19 23:03 18 108/65 94 Pulse Ox Pulse Ox 04/12/19 09:15 91 90 04/12/19 08:00 04/12/19 07:07 04/12/19 03:24 04/11/19 23:40 04/11/19 23:03 Laboratory Results all noted and reviewed
[2019-04-12] MEDS ORDERED: SODIUM CHLORIDE 0.9% 1000ML 1,000 ML IV PRN (11:10)
--- NOTE | 2019-04-12 11:49 | Nephrology Progress Note ---
Date of Service April 12, 2019 Assessment & Plan (1) Chronic kidney disease, stage V: ESRD. Destiny's first HD treatment was on 03/30/19. Net UF1 L. Adequate clearance. AVF functioning well. Some cramps in right hand yesterday evening; this is not new. Will plan for second treatment tomorrow. A request has been made to schedule outpatient HD at [facility] with Dr. Corona. Destiny plans to transition to HHD in the near future. Today, BP and volume status are acceptable. Electrolytes are controlled. Had dialysis yesterday. --plan for dialysis today for 3 hours then she can be discharged. Her next outpatient dialysis will be on Thursday at [facility]. --if she is clinically otherwise stable, she can be discharged tomorrow and next dialysis will be at the outpatient unit. It would be okay for her to skip dialysis for few days if we have to in order to coordinate outpatient dialysis set up. --continue on Lasix, Renvela 1 tab with each meal as phosphate binder and Nephrocaps daily on discharge. Will follow (2) Acute respiratory failure with hypoxia: Remains on prednisone for HP. This was transiently increased to 40 mg BID and will now be reduced to once daily dosing. Destiny's respiratory symptoms are improving. She had a component of volume overload coupled with her HP. She also remains on empiric treatment for infection, including possible PCP. CXR is improving. Bronchoscopy is scheduled for tomorrow. (3) Volume overload: Furosemide switched from 60 mg IV BID to 40 mg PO BID today. Goal will be to continue to encourage a net negative fluid balance of approximately 1 L daily. (4) Hypertension: BP improved. Diltiazem and hydralazine per home dosing. Betina Cassidy was seen and examined in her room this morning with her at bedside. Overall she is feeling better, denies any shortness of breath. Voice remains hoarse. No nausea or vomiting. Blood pressure stable and well controlled. Volume status acceptable. Review of Systems Review of Systems: All systems reviewed & are unremarkable except as noted in HPI & below Physical Exam Constitutional: well developed and well nourished; no acute distress Respiratory: no respiratory distress Auscultation: + diminished lung sounds and + rhonchi Cardiovascular: RRR, no murmur, no edema Neurologic: moves all extremities and awake; not confused Psychiatric: A+Ox3, euthymic affect Results & Data Vital Signs (Past 12 Hours) Vital Signs Temp Pulse Pulse Pulse Pulse Pulse Pulse 04/12/19 11:06 36.6 C 88 04/12/19 09:15 103 H 102 H 85 04/12/19 08:00 76 04/12/19 07:07 36.9 C 82 04/12/19 03:24 36.7 C 84 Resp Resp Resp Resp BP Pulse Ox Pulse Ox 04/12/19 11:06 20 129/69 91 04/12/19 09:15 22 20 18 90 04/12/19 08:00 04/12/19 07:07 18 133/69 93 04/12/19 03:24 18 115/66 92 Pulse Ox Pulse Ox 04/12/19 11:06 04/12/19 09:15 91 90 04/12/19 08:00 04/12/19 07:07 04/12/19 03:24 PG Care Time/CCT Total # of Minutes Spent Total Time Spent with Patient: Total time spent is greater than 50% in coordination of care (as documented) at patient's floor/unit and/or counseling patient:
[2019-04-12 22:34] LABS: Fungitell (1-3)-B-D-Glucan 341 pg/mL
--- NOTE | 2019-04-14 12:41 | Discharge Summary ---
Date of Service April 14, 2019 Admission HPI Per Admitting Provider This is a 59 yr old F who has significant PMH subacute hypersensitivity pneumonitis on high dose steroid therapy, CKD stage V with AV fistula in place secondary to atrophic left kidney, HTN, HLD, hypothyroidism, anemia of chronic disease, JAVED on CPAP, gout, history of angioedema with BRITTANI inhibitor, pseudotumor cerebri, secondary hyperparathyroidism who presents to [facility] ED secondary to worsened shortness of breath and hemoptysis x 5 days. Of significance patient recently confined on 03/24/2019-03/27/19 2/2 volume overload in setting of high dose steroid use. She was treated with IV diuresis with significant improvement of sx. She was seen and evaluated by nephrology during hospitalization. Post D/C she followed up with PCP 03/31 and nephro 04/01 and encouraged to use lasix on as needed basis for weight gain. Since discharge she has actually lose weight from 172.8 on 04/01 to 163.2 felt 2/2 poor appetite. She does have intermittent swelling of lower extremities mostly dependent at HS and resolved in a.m. Since d/c she has had continued cough with hemoptysis, SOB at rest and with exertion. She gets extremely SOB with even minimal activity making activity very difficult. Further has been dealing with laryngitis x 1 week, hoarseness, dysphagia with solids which causes chest tightness, nausea, decreased appetite, chills, easy fatigability, easy bruisability, palpitations, lightheadedness and dizziness. She denies any documented fevers, sweats, syncope, fall, chest pain, emesis, abdominal pain, dysuria, increased urgency or frequency with urination, hematuria, melena, hematochezia. Last bowel movement was 2 days ago and she has been extremely constipated. In ED patient was found to be hypoxic requiring O2 via NC at 2 L. She was also hypertensive and tachycardic with heart rate in 90s. Lab work revealed leukocytosis 14.93, H&H 12.1 and 36.5, platelet 146, chloride 116, CO2 19, BUN 87, creatinine 3.70, glucose 148, proBNP 6277 Influenza negative, troponin WNL. CXR revealed Interval progression of the bilateral perihilar airspace opacities and interstitial thickening likely representing moderate pulmonary edema. She received Nitro paste along with IV lasix 60mg x 1 in ED with mild improvement of sx. Admission Exam Per Admitting Provider Constitutional: Ill appearing female, sitting up in bed, vitals as above, increased resp effort, answers questions approp Head: Normocephalic, Atraumatic Eyes: PERRL, conjunctivae normal, anicteric sclerae ENMT: external ear and nose normal, oropharynx dry mucous membranes, 1 white patch above uvula, erythematous posterior pharynx Neck: trachea midline, no thyromegaly normal visual inspection Respiratory: increased respiratory effort, on O2 via NC, lungs clear to auscultation decreased bibasilar, no wheeze, rales, rhonchi. No accessory muscle use Cardiovascular: tachycardic rate regular rhythm, 2/6 ARAMIS noted best cardiac apex, trace pretibial edema, Vessels: + JVD or carotid bruit LUE AV Fistula patent Chest: normal inspection of chest Abdomen: normal bowel sounds, soft, nontender, no hepatosplenomegaly Musculoskeletal: no cyanosis or clubbing, extremities motor strength 5/5 Skin: no rashes, warm and dry normal turgor Neurologic: PERRL, EOMI, accommodation nl, no face palsy, no dysarthria CN's II-XI intact bilaterally and moves all extremities Psychiatric: A+Ox3, euthymic affect Lymphatic: no cervical or axillary lymphadenopathy : deferred Principal Diagnosis ACUTE HYPOXIC RESPIRATORY FAILURE, SECONDARY TO VOLUME OVERLOAD, IN THE SETTING OF ESRD; UNDERLYING HYPERSENSITIVITY PNEUMONITIS Discharge Exam General- oriented x 3, not in distress, speaks in sentences with no effort or accessory muscle use Eyes- anicteric Neck- no JVD Lungs- clear breath sounds, no crackles BL Heart- normal rate, regular rhythm; no murmurs Abdomen- normal bowel sounds, nondistended, soft, nontender Extremities- no pretibial edema, no calf tenderness Neuro- alert, oriented x 3; no gross focal neurologic deficits Skin- warm & dry Discharge Data Allergies Allergy/AdvReac Type Severity Reaction Status Date / Time spironolactone Allergy Intermediate LIP Verified 04/04/19 15:28 SWELLING, COUGH nitrofurantoin Allergy Unknown Hives Verified 04/04/19 15:28 Sulfa (Sulfonamide Allergy Unknown hives- Verified 04/04/19 15:28 Antibiotics) anaphylaxis adhesive tape Allergy Redness of Verified 04/04/19 15:28 Skin sertraline Allergy Unknown Verified 04/04/19 15:28 BRITTANI Inhibitors AdvReac Unknown SWELLING, Verified 04/04/19 15:28 COUGHING benazepril AdvReac Cough Verified 04/04/19 15:28 Consultations 04/07/19 09:20 ED Decision to Admit Stat 04/07/19 10:36 Consult Pulmonology Routine 04/07/19 10:38 Consult Nephrology Routine 04/07/19 11:21 Consult Case Management - Discharge Planning Routine Consult Gastroenterology Routine 04/07/19 13:13 Consult Infectious Diseases Routine 04/09/19 11:09 Consult Case Management - Discharge Planning Routine Procedures Performed Operation Date: 04/11/19 09:00 Actual Procedures p Bronchoscopy Radiology(Bilateral) - Aries Alatorre MD Ordered Studies 04/07/19 09:39 US hemodialysis access Stat 04/07/19 12:05 CT chest wo con Urgent CT OF THE CHEST WITHOUT IV CONTRAST CLINICAL HISTORY: Shortness of breath. COMPARISON STUDY: Chest CT December 02, 2018. Chest radiograph performed earlier today. CT DOSE: 282.06 mGy.cm TECHNIQUE: Axial images of the chest were obtained without IV contrast. Images were reviewed in the axial, sagittal, and coronal planes. IV contrast was not administered for this examination. Automated exposure control was utilized for the study. A dose lowering technique was utilized adhering to the principles of ALARA. FINDINGS: No enlarged axillary, mediastinal or hilar lymph nodes are present. The heart is moderately enlarged. There's no pericardial effusion. Central airways are patent. No pneumothorax or pleural effusion is noted. Extensive bilateral airspace opacities are noted. These are similar to chest radiograph performed earlier today and significantly increased when compared to exam of March 25, 2019. Right lung wedge resection is noted. There is no cavitation. Bony thorax is unremarkable. Visualized portions of the upper abdomen demonstrate marked left renal atrophy, as shown on prior imaging studies. IMPRESSION: 1. Extensive bilateral airspace opacities, similar to chest radiograph performed earlier today but significantly increased since exam of March 25, 2019. Pulmonary edema is favored. Bilateral pneumonia could appear similar. 2. Moderate cardiomegaly. Hospital Course (1) Hypoxia: Acute respiratory failure with hypoxia secondary to Volume Overload, ESRD in the setting of Hypersensitivity pneumonitis, with Possible Exacerbation - evaluated by Nephrology [facility] Dr. Willian PABON HD initiated during admission, patient underwent 2 sessions with improvement of symptoms - evaluated by Pulmonary [facility] Dr. Celi PABON Prednisone 50mg po daily being taken for previously diagnosed Hypersensitivity Pneumonitis increased to 40mg BID felt to have possible PJP: Primaquine, Clindamycin, Azithromycin ordered, ID consulted however, beta D glucan assay Induced sputum for PJP --> sputum not showing PJP - Status post bronchoscopy 04/11/2019 which showed atrophy of the mucosa, no other significant finding. Fungal smear was negative for PJP. Follow-up fungal culture - weaned off oxygen clinically improved overall ambulating with no problems - discharge plan: repeat HD on Sunday 04/15 per Pulmonary [facility]: continue with primaquine and clindamycin for total of 10 days since initiation. In the meantime if the fungal culture is negative can transition it to atovaquone 1500mg daily for prophylaxis of PJP. Patient needs to follow up with Pulmonary at [place] Dr Mcrae for her PJP. c/w Steroids 50mg po daily and titrate it down 10mg a week and maintain at 40mg till seen by pulmonary within next 2 weeks. ff up with Nephro and [facility] in 1 week Chronic kidney disease, stage V: --management per above Hemoptysis: --Pulmonary consulted Status post bronchoscopy 04/11/2019 which showed atrophy of the mucosa, no other significant finding. Fungal smear was negative for PJP. Follow-up fungal culture resolved Dysphagia possible esophageal candidiasis --recent Thrush with evidence of mild thrush in posterior pharynx continue nystatin QID x 5 days PPI 40mg po BID Hyperglycemia: --BSG on admission 148 Likely in setting of high-dose steroid use Recent A1c 03/2019 was 5.6 Monitor as outpatient Hypertension: --continue hydralazine, diltiazem Monitor Follow up: PCP Dr. Hanna Wednesday 04/18 11am [facility] in [place] within 1 week Nephro c/o [facility] as scheduled Total Time Total Time Spent Total Time Spent (In Minutes): >30 mins Discharge Plan Discharge Items Patient Disposition: Home - Home Health Services Reason For Visit: VOLUME OVERLOAD 2/2 PREDNISONE, HEMOPTYSIS Discharge Diagnosis: ACUTE HYPOXIC RESPIRATORY FAILURE SECONDARY TO VOLUME OVERLOAD, CHRONIC KIDNEY DISEASE Activity: As commented below Activity Comment: NO HEAVY EXERTION, INCREASE ACTIVITY GRADUALLY TOLERATED Lifting: Wait until after follow-up appointment Exercise/Sports: Wait until after follow-up appointment Driving/Machine Use: NO DRIVING UNTIL ALLOWED BY PRIMARY CARE PHYSICIAN Non-emergency contact: Primary Care Provider Call non-emergency contact if: you have any medication questions, your symptoms worsen and you have a fever Diet: Dialysis Renal and Heart Healthy Addtl Attending Provider Instructions: PLEASE REVIEW YOUR NEW MEDICATION LIST AND FOLLOW INSTRUCTIONS CAREFULLY. CALL PRIMARY CARE PHYSICIAN OR RETURN TO THE ER IMMEDIATELY IF WITH RECURRENCE OR WORSENING OF SYMPTOMS. HEMODIALYSIS SCHEDULED FOR Thursday04/15/19. FOLLOW UP WITH PRIMARY CARE PHYSICIAN DR. JILLIAN HANNA (ASSOCIATE OF DR. KWOK) ON Thursday04/18/19 AT 11:00 AM. FOLLOW UP WITH [employer] HELPER SCHEDULED. FOLLOW UP WITH [facility] IN 1-2 WEEKS. Pending Studies at Discharge: Yes Studies:: REPEAT BLOOD WORK (COMPLETE BLOOD COUNT) ON FOLLOW UP WITH PRIMARY CARE PHYSICIAN NEXT WEEK. Stand-Alone Forms: My [employer], Smoking Cessation Medications and DC Order Prescriptions: New primaquine 26.3 mg Tablet 52.6 mg PO DAILY 5 Days Qty: 10 RF: 0 azithromycin [Zithromax] 250 mg Tablet 500 mg PO QAM Qty: 1 RF: 0 clindamycin HCl 150 mg Capsule 600 mg PO Q8H 5 Days Qty: 60 RF: 0 nystatin 100,000 unit/mL Suspension 5 ml PO QID 5 Days Qty: 100 RF: 0 sevelamer HCl [Renagel] 800 mg Tablet 800 mg PO TIDM 30 Days Qty: 30 RF: 2 sodium chloride [Saline Mist] 0.65 % Aerosol,Randall 1 spray NA Q4H PRN (Reason: dry nasal passages) 30 Days Qty: 60 RF: 0 Renal Caps 1 mg Capsule 1 cap PO QAM 30 Days Qty: 30 RF: 2 furosemide 40 mg Tablet 40 mg PO BID17 30 Days Qty: 60 RF: 2 sevelamer HCl [Renagel] 800 mg tablet 800 mg PO TIDM 30 Days Qty: 90 RF: 2 omeprazole 40 mg capsule,delayed release(DR/EC) 40 mg PO BID Qty: 60 RF: 0 Continued levothyroxine 75 mcg tablet 37.5 mcg PO QAM Qty: 30 RF: 1 atorvastatin 20 mg Tablet 20 mg PO QAM RF: 0 diltiazem HCl 360 mg Capsule,Extended Release 24hr 360 mg PO QAM RF: 0 allopurinol 100 mg Tablet 100 mg PO QAM RF: 0 hydralazine 50 mg Tablet 50 mg PO TIDM RF: 0 prednisone 20 mg tablet 50 mg PO DAILY RF: 0 Discharge Orders: Discharge Order (Routine); Ordered 04/12/19 Ordered By: Jonny Fang Admission Data Admit Date/Time: 04/07/19 10:36 Attending Provider: Jonny Fang Admit Provider: Jonny Fang Primary Care Provider: Kenton Kwok Other Providers: Alicia Larson ; Jonny Fang ; Aries Alatorre ; Vic Houston ; Andrei Dorsey ; Leela Ward Other Interventions: Discharge Summary Assessment (RN) Last Done: 04/12/19 15:58 DC Date/Time DO NOT enter until pt leaves facility: 04/12/19 15:58
== END 2019-04-12 15:58 | disposition home health service (06) | DRG 196 ==
LOC: ED 07:41 → 2E 10:36

== ENCOUNTER 2019-08-10 11:31 | Inpatient (IN) ==
--- NOTE | 2019-08-10 11:40 | Emergency Department Note ---
Impression & Plan Renal failure (ARF), acute on chronic, Weakness, Urinary tract infection ED Provider Note NAME: ROSSI TRISTAN AGE: 59 SEX: F : 1960 ARRIVES VIA: Ambulance INFORMANT: Patient, additional history was obtained from the prehospital [facility]. ED PROVIDER(S): Jam He DO CHIEF COMPLAINT: Altered mental status HPI: The patient is a 59-year-old female who presented to the emergency department by ambulance for an evaluation of altered mental status. The patient has a history of dialysis and renal failure. She has been compliant with her regimen and last had dialysis Thursday evening. She is scheduled again to have home dialysis tonight. She denies having any trauma. The patient has had no fever or cough. She denies having any shortness of breath. She does complain of a slight headache. She has been noticing bruising in different sites on her body including her upper and lower extremities. She denies having any abdominal pain nausea or vomiting. She denies having any chest pain. Her significant ot her noticed that her mental status was decreasing but she also tried to get out of a seated position and could not stand so her called 911. The patient has been compliant with her medications otherwise. She was recently diagnosed with an atraumatic compression fracture in her back. She was started on baclofen tramadol and a tricyclic antidepressant. She is only been taking her medications as prescribed. She has not seen her family doctor but called her primary care physician and was advised to come to the emergency department. ROS: See above HPI for pertinent positives & negatives. A total of 10 systems reviewed and were otherwise negative. PAST MEDICAL HISTORY: See Below PAST SURGICAL HISTORY: See Below FAMILY HISTORY: See Below SOCIAL HISTORY: See Below HOME MEDICATIONS: See Below ALLERGIES: See Below VITALS: See Below PHYSICAL EXAMINATION: GENERAL: The patient is awake but slow to answer questions. She does not appear to be anxious or uncomfortable. EYES: The conjunctivae are clear. The pupils are round and reactive. EARS, NOSE, MOUTH AND THROAT: The nose is without any evidence of any deformity. Mucous membranes are moist. Tongue is midline. NECK: The neck is nontender and supple. RESPIRATORY: Diminished breath sounds are noted at both bases. There is no tachypnea or conversational dyspnea. CARDIOVASCULAR: Regular rate and rhythm noted there no murmurs rubs or gallops normal S1 normal S2. GASTROINTESTINAL: The abdomen is soft. Abdomen is nontender. BACK: There was pain with range of motion testing of the back. Patient had pain with sitting forward. This is consistent with her recent diagnosis of compression fracture. MUSCULOSKELETAL/EXTREMITIES: There is no evidence of gross deformity full range of motion is noted in the hips and shoulders. SKIN: Pedal edema was noted bilaterally. Dialysis fistula was noted in the left upper extremity. There was bruising over the lower extremities but appears to be in different stages of healing. NEUROLOGIC: Patient is awake alert and oriented to person place and situation. She follows commands well. Strength was diminished but symmetric. The patient is able to hold each leg off the bed for greater than 5 seconds. MEDICAL DECISION MAKING: Provider summary Triage Nursing notes reviewed. Prior medical records reviewed Vital Signs: reviewed and remarkable for no significant abnormalities Differential diagnosis: Infection, hypoglycemia, electrolyte abnormalities, overdose, toxicologic, cardiac sources, intracerebral event, neurologic, trauma, as well as other pathologies. ER treatment provided: See below Diagnostics interpreted by me: ECG: EKG was obtained in the emergency department. My interpretation is normal sinus rhythm at 85 bpm. There was no ectopy. There is no acute ST segments noted. There is a nonspecific intraventricular conduction delay. There is no significant change compared to a tracing from June 04, 2019. Cardiac Monitoring: An order was placed for continuous cardiac monitoring. The monitor shows a rate of 87 with sinus rhythm. Laboratory studies: As stated above and show below. Imaging studies: CT head/brain wo con CLINICAL HISTORY: 59 years-old Female presenting with altered, increased weakness and confusion, on dialysis, recent falls. TECHNIQUE: Multidetector CT imaging of the head was performed without the use of intravenous contrast. IV contrast: None. One or more dose lowering techniques were used consistent with the principles of ALARA (as low as reasonably achievable), including automatic exposure control, mA or kV adjustment to individual patient size, and/or use of iterative reconstruction. COMPARISON: MR brain from 2006. CT DOSE (mGy.cm): The estimated cumulative dose is 614.27 mGy.cm. FINDINGS: Firesetter topogram: Unremarkable. Ventricles and sulci normal in size. No hemorrhage. Brain parenchyma normal in appearance with preserved alvarez-white differentiation. No acute territorial infarct. No mass effect or midline shift. No extra-axial fluid collection. Paranasal sinuses and mastoid air cells clear. Calvarium intact. IMPRESSION: 1. No acute intracranial abnormality. ACT 112: Negative or not required by law. Electronically signed by: Kenton Aparicio M.D. 08/10/2019 12:21 PM Dictated: 08/10/19 1218 Transcribed: 08/10/191217 XR chest 1V portable CLINICAL HISTORY: 59 years-old Female presenting with weakness. TECHNIQUE: Portable upright AP view of the chest was obtained. COMPARISON: 06/04/2019. FINDINGS: Cardiac silhouette is mildly enlarged. Suture margin projects over the periphery of the right midlung. No other focal opacity. No large effusion or pneumothorax. Osseous structures normal. Upper abdomen normal. IMPRESSION: 1. Cardiomegaly. No other convincing evidence of acute cardiopulmonary disease. ACT 112: Negative or not required by law. Electronically signed by: Kenton Aparicio M.D. 08/10/2019 11:57 AM Dictated: 08/10/19 1157 Transcribed: 08/10/191156 Consultation(s): 1345: I discussed this case with Dr. Aguero. She is agreed to evaluate the patient in the emergency department for further management and disposition. ED COURSE: The patient is a 59-year-old female who presented to the emergency department for an evaluation of generalized weakness. The patient was recently diagnosed with multiple compression fractures in her back. The patient has been started on new medications for pain as well as a tricyclic antidepressant. The patient was noted to have generalized weakness at home and was unable to ambulate. She states that she called her primary qual research manager and was referred to the emergency department. The patient was found to be somewhat listless but did not appear to be in distress. She did have significant pain upon movement with the previously diagnosed lumbar and thoracic compression fractures. I discussed the patient's laboratory and radiographic studies with her. She was treated with an IV antibiotic for presumed urinary tract infection noted on urinalysis. The patient was also found to have a very elevated creatinine compared to her baseline. It is likely that her chronic renal insufficiency is somewhat worsened and her condition might be helped with IV antibiotics as well as dialysis. The patient was uncomfortable being discharged home as her symptoms were not significantly improved. For this reason I discussed her case with the on-call [facility] hospitalist group. They have agreed to evaluate the patient in the emergency department for further management and disposition. 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 JAVED (obstructive sleep apnea) Proteinuria (Chronic) Pseudotumor cerebri Secondary hyperparathyroidism Sleep apnea Vitamin D deficiency (Chronic) Surgical History Arteriovenous fistula LEFT ARM AVF: 07/27/18: MAC SEDATION AT [facility] History of cardiac cath 16 YEARS AGO= NO STENTS History of cholecystectomy History of lung biopsy 02/14/2019 THORACOCSOCPY W/ INFILTRATE BIOPSY performed by Trevon Torres MD at [facility] Hx of dilation and curettage Family History Grandmother (Paternal) Family history of diabetes mellitus Uncle Family history of diabetes mellitus Father Cancer LUNG Mother Cancer renal cell ca Social History Preferred Language: Tristanian Communication Ability: Effective Box Attacher Required: No Beliefs That Will Affect Care: None marital status: Current Living Situation: Spouse current occupational status: employed Feels Safe at Home: Yes Safety Concerns: Feels Safe At This Time Smoking Status: Never smoker Second Hand Exposure: No ; Hx Alcohol Use: No Hx Substance Use: No Allergies Allergies Allergy/AdvReac Type Severity Reaction Status Date / Time spironolactone Allergy Intermediate LIP Verified 08/10/19 12:48 SWELLING, COUGH nitrofurantoin Allergy Unknown Hives Verified 08/10/19 12:48 Sulfa (Sulfonamide Allergy Unknown hives- Verified 08/10/19 12:48 Antibiotics) anaphylaxis adhesive tape Allergy Redness of Verified 08/10/19 12:48 Skin sertraline Allergy Unknown Verified 08/10/19 12:48 BRITTANI Inhibitors AdvReac Unknown SWELLING, Verified 08/10/19 12:48 COUGHING benazepril AdvReac Cough Verified 08/10/19 12:48 Home Meds Home Medications Medication Instructions Recorded Confirmed atorvastatin 20 mg PO QAM 07/09/18 08/10/19 B complex with C 20-folic acid 1 cap PO BID 06/04/19 08/10/19 [Renal Caps] atovaquone 750 mg PO PM 06/04/19 08/10/19 diltiazem HCl 120 mg PO QAM 06/04/19 08/10/19 acetaminophen [Tylenol Extra 1,000 mg PO Q6H PRN 07/19/19 08/10/19 Strength] calcitriol 0.25 mcg PO DAILY 07/19/19 08/10/19 omeprazole 20 mg PO BID 07/19/19 08/10/19 amitriptyline 5 - 10 mg PO HS 08/10/19 08/10/19 baclofen 10 mg PO DAILYBD 08/10/19 08/10/19 furosemide 40 mg PO BID 08/10/19 08/10/19 lidocaine 1 patch TOPICAL DAILY PRN 08/10/19 08/10/19 prednisone 15 mg PO QPM 08/10/19 08/10/19 Previous Rx's Medication Instructions Recorded sevelamer HCl [Renagel] 800 mg PO TIDM 30 Days #90 tab 04/12/19 allopurinol 100 mg tablet 100 mg PO QAM #30 tab 04/25/19 levothyroxine 75 mcg tablet 37.5 mcg PO QAM #30 tab 05/27/19 tramadol 50 mg PO Q12H PRN #15 tab 07/19/19 Results & Data (ED) Vital Signs Vital Signs - 24 hr 08/10/19 11:38 08/10/19 11:47 08/10/19 12:00 Temperature 36.5 C Temperature Source Oral Pulse Rate 93 H 86 Pulse Rate [Right Finger] Pulse Rate from SpO2 Sensor 87 Respiratory Rate 16 16 Respiratory Effort / Characteristics Non-Labored Spontaneous Respiratory Depth Normal Blood Pressure 163/95 H 147/90 H Blood Pressure [Right Arm] Blood Pressure Mean 117 107 Blood Pressure Mean [Right Arm] Blood Pressure Position Lying Pulse Oximetry 98 98 100 Oxygen Delivery Method Room Air Room Air Sepsis Recent Fever Within 48 Hours No Sepsis New/Unexplained Change in Mental Status No Sepsis Action Taken by Nursing No Action Required 08/10/19 12:17 08/10/19 12:30 08/10/19 13:00 Temperature Temperature Source Pulse Rate 84 88 87 Pulse Rate [Right Finger] Pulse Rate from SpO2 Sensor 85 88 87 Respiratory Rate 18 17 20 Respiratory Effort / Characteristics Respiratory Depth Blood Pressure 144/79 H 149/83 H 152/84 H Blood Pressure [Right Arm] Blood Pressure Mean 87 111 107 Blood Pressure Mean [Right Arm] Blood Pressure Position Pulse Oximetry 97 99 96 Oxygen Delivery Method Room Air Room Air Room Air Sepsis Recent Fever Within 48 Hours Sepsis New/Unexplained Change in Mental Status Sepsis Action Taken by Nursing 08/10/19 13:30 08/10/19 14:00 08/10/19 14:30 Temperature Temperature Source Pulse Rate 87 83 92 H Pulse Rate [Right Finger] Pulse Rate from SpO2 Sensor 88 84 92 H Respiratory Rate 15 15 18 Respiratory Effort / Characteristics Respiratory Depth Blood Pressure 132/75 145/78 H Blood Pressure [Right Arm] Blood Pressure Mean 85 92 Blood Pressure Mean [Right Arm] Blood Pressure Position Pulse Oximetry 95 98 98 Oxygen Delivery Method Room Air Room Air Sepsis Recent Fever Within 48 Hours Sepsis New/Unexplained Change in Mental Status Sepsis Action Taken by Nursing 08/10/19 15:00 08/10/19 15:22 08/10/19 15:30 Temperature Temperature Source Pulse Rate 90 87 89 Pulse Rate [Right Finger] 86 Pulse Rate from SpO2 Sensor 94 H Respiratory Rate 18 19 15 Respiratory Effort / Characteristics Respiratory Depth Blood Pressure 150/89 H 147/86 H Blood Pressure [Right Arm] 150/89 H Blood Pressure Mean 119 104 Blood Pressure Mean [Right Arm] 109 Blood Pressure Position Pulse Oximetry 97 97 Oxygen Delivery Method Sepsis Recent Fever Within 48 Hours Sepsis New/Unexplained Change in Mental Status Sepsis Action Taken by Nursing 08/10/19 16:00 Temperature Temperature Source Pulse Rate 94 H Pulse Rate [Right Finger] Pulse Rate from SpO2 Sensor 93 H Respiratory Rate 17 Respiratory Effort / Characteristics Respiratory Depth Blood Pressure 152/91 H Blood Pressure [Right Arm] Blood Pressure Mean 110 Blood Pressure Mean [Right Arm] Blood Pressure Position Pulse Oximetry 97 Oxygen Delivery Method Sepsis Recent Fever Within 48 Hours Sepsis New/Unexplained Change in Mental Status Sepsis Action Taken by Detention Medications Current Medication List: was personally reviewed by me Laboratory Data Attestation: I reviewed the patient's lab results. Result diagrams: 08/10/19 11:50 08/10/19 11:50 Lab Results 08/10/19 08/10/19 08/10/19 Range/Units 11:50 11:50 11:50 WBC 9.74 (4.8-10.8) K/uL RBC 3.33 L (4.2-5.4) M/uL Hgb 11.2 L (12.0-16.0) g/dL Hct 32.7 L (37-47) % MCV 98.2 (80-100) fL MCH 33.6 (25-34) pg MCHC 34.3 (32-36) g/dL RDW Std Deviation 59.8 H (36.4-46.3) fL RDW Coeff of Grover 17.1 H (11.5-14.5) % Plt Count 110 L (130-400) K/uL MPV 9.8 (7.4-10.4) fL Immature Gran % (Auto) 0.3 % Neut % (Auto) 89.8 % Lymph % (Auto) 5.4 % [place] % (Auto) 4.5 % Eos % (Auto) 0.0 % Baso % (Auto) 0.0 % Immature Gran # (Auto) 0.03 H (0.00-0.02) K/uL Neut # (Auto) 8.74 H (1.4-6.5) K/uL Lymph # (Auto) 0.53 L (1.2-3.4) K/uL [place] # (Auto) 0.44 (0.11-0.59) K/uL Eos # (Auto) 0.00 (0-0.5) K/uL Baso # (Auto) 0.00 (0-0.2) K/uL PT 9.8 (9.0-12.0) Seconds INR 0.9 (0.9-1.1) APTT 21.1 (21.0-31.0) Seconds PTT Ratio 0.8 VBG pH (7.36-7.41) VBG pCO2 (38-50) mmHg VBG pO2 mmHg VBG HCO3 mmol/L VBG O2 Saturation % VBG Base Excess mEq/L Barometric Pressure mm/Hg Sodium 130 L (136-145) mmol/L Potassium 4.1 (3.5-5.1) mmol/L Chloride 95 L (98-107) mmol/L Carbon Dioxide 28 (21-32) mmol/L Anion Gap 7.0 (3-11) BUN 84 H (7-18) mg/dl Creatinine 6.77 H* (0.6-1.2) mg/dl Est Cr Clr Drug Dosing 9.9 ml/min Est GFR ( Amer) 7.2 Est GFR (Non-Af Amer) 6.2 BUN/Creatinine Ratio 12.4 (10-20) Glucose 102 H (70-99) mg/dl Calcium 9.6 (8.5-10.1) mg/dl Magnesium 2.3 (1.8-2.4) mg/dl Total Bilirubin 0.6 (0.2-1) mg/dl AST 13 L (15-37) U/L ALT 29 (12-78) U/L Alkaline Phosphatase 84 (45-117) U/L Ammonia (11-32) umol/L Total Creatine Kinase 22 L (26-192) U/L Troponin I < 0.015 (0-0.045) ng/ml Total Protein 6.7 (6.4-8.2) gm/dl Albumin 3.7 (3.4-5.0) gm/dl Globulin 3.0 (2.5-4.0) gm/dl Albumin/Globulin Ratio 1.2 (0.9-2) TSH 0.167 L (0.300-4.500) uIu/ml Free T4 1.25 (0.8-1.6) ng/dl Urine Color Urine Appearance (Clear) Urine pH (4.5-7.5) Ur Specific Cotton (1.000-1.030) Urine Protein (Negative) Urine Glucose (UA) (Negative) Urine Ketones (Negative) Urine Blood (Negative) Urine Nitrite (Negative) Urine Bilirubin (Negative) Urine Urobilinogen (Negative) Ur Leukocyte Esterase (Negative) Urine WBC (Auto) (0-5) /hpf Urine RBC (Auto) (0-4) /hpf U Hyaline Cast (Auto) (0-5) /lpf U Epithel Cells (Auto) (0-5) /lpf Urine Bacteria (Auto) (Negative) Urine Opiates Screen (Neg) Ur Methadone, Qual (Neg) Urine Barbiturates (Neg) Ur Phencyclidine (PCP) (Neg) U Amphetamin/Meth Scrn (Neg) MDMA (Ecstasy) Screen (Neg) U Benzodiazepines Scrn (Neg) Ur Cocaine Metabolite (Neg) U Marijuana (THC) Screen (Neg) 08/10/19 08/10/19 08/10/19 Range/Units 11:50 11:50 11:55 WBC (4.8-10.8) K/uL RBC (4.2-5.4) M/uL Hgb (12.0-16.0) g/dL Hct (37-47) % MCV (80-100) fL MCH (25-34) pg MCHC (32-36) g/dL RDW Std Deviation (36.4-46.3) fL RDW Coeff of Grover (11.5-14.5) % Plt Count (130-400) K/uL MPV (7.4-10.4) fL Immature Gran % (Auto) % Neut % (Auto) % Lymph % (Auto) % [place] % (Auto) % Eos % (Auto) % Baso % (Auto) % Immature Gran # (Auto) (0.00-0.02) K/uL Neut # (Auto) (1.4-6.5) K/uL Lymph # (Auto) (1.2-3.4) K/uL [place] # (Auto) (0.11-0.59) K/uL Eos # (Auto) (0-0.5) K/uL Baso # (Auto) (0-0.2) K/uL PT (9.0-12.0) Seconds INR (0.9-1.1) APTT (21.0-31.0) Seconds PTT Ratio VBG pH 7.45 H (7.36-7.41) VBG pCO2 41 (38-50) mmHg VBG pO2 36 mmHg VBG HCO3 28 mmol/L VBG O2 Saturation 65.6 % VBG Base Excess 3.9 mEq/L Barometric Pressure 731.2 mm/Hg Sodium (136-145) mmol/L Potassium (3.5-5.1) mmol/L Chloride (98-107) mmol/L Carbon Dioxide (21-32) mmol/L Anion Gap (3-11) BUN (7-18) mg/dl Creatinine (0.6-1.2) mg/dl Est Cr Clr Drug Dosing ml/min Est GFR ( Amer) Est GFR (Non-Af Amer) BUN/Creatinine Ratio (10-20) Glucose (70-99) mg/dl Calcium (8.5-10.1) mg/dl Magnesium (1.8-2.4) mg/dl Total Bilirubin (0.2-1) mg/dl AST (15-37) U/L ALT (12-78) U/L Alkaline Phosphatase (45-117) U/L Ammonia 15.2 (11-32) umol/L Total Creatine Kinase (26-192) U/L Troponin I (0-0.045) ng/ml Total Protein (6.4-8.2) gm/dl Albumin (3.4-5.0) gm/dl Globulin (2.5-4.0) gm/dl Albumin/Globulin Ratio (0.9-2) TSH (0.300-4.500) uIu/ml Free T4 (0.8-1.6) ng/dl Urine Color Urine Appearance (Clear) Urine pH (4.5-7.5) Ur Specific Cotton (1.000-1.030) Urine Protein (Negative) Urine Glucose (UA) (Negative) Urine Ketones (Negative) Urine Blood (Negative) Urine Nitrite (Negative) Urine Bilirubin (Negative) Urine Urobilinogen (Negative) Ur Leukocyte Esterase (Negative) Urine WBC (Auto) (0-5) /hpf Urine RBC (Auto) (0-4) /hpf U Hyaline Cast (Auto) (0-5) /lpf U Epithel Cells (Auto) (0-5) /lpf Urine Bacteria (Auto) (Negative) Urine Opiates Screen Neg (Neg) Ur Methadone, Qual Neg (Neg) Urine Barbiturates Neg (Neg) Ur Phencyclidine (PCP) Neg (Neg) U Amphetamin/Meth Scrn Neg (Neg) MDMA (Ecstasy) Screen Neg (Neg) U Benzodiazepines Scrn Neg (Neg) Ur Cocaine Metabolite Neg (Neg) U Marijuana (THC) Screen Neg (Neg) 08/10/19 Range/Units 11:55 WBC (4.8-10.8) K/uL RBC (4.2-5.4) M/uL Hgb (12.0-16.0) g/dL Hct (37-47) % MCV (80-100) fL MCH (25-34) pg MCHC (32-36) g/dL RDW Std Deviation (36.4-46.3) fL RDW Coeff of Grover (11.5-14.5) % Plt Count (130-400) K/uL MPV (7.4-10.4) fL Immature Gran % (Auto) % Neut % (Auto) % Lymph % (Auto) % [place] % (Auto) % Eos % (Auto) % Baso % (Auto) % Immature Gran # (Auto) (0.00-0.02) K/uL Neut # (Auto) (1.4-6.5) K/uL Lymph # (Auto) (1.2-3.4) K/uL [place] # (Auto) (0.11-0.59) K/uL Eos # (Auto) (0-0.5) K/uL Baso # (Auto) (0-0.2) K/uL PT (9.0-12.0) Seconds INR (0.9-1.1) APTT (21.0-31.0) Seconds PTT Ratio VBG pH (7.36-7.41) VBG pCO2 (38-50) mmHg VBG pO2 mmHg VBG HCO3 mmol/L VBG O2 Saturation % VBG Base Excess mEq/L Barometric Pressure mm/Hg Sodium (136-145) mmol/L Potassium (3.5-5.1) mmol/L Chloride (98-107) mmol/L Carbon Dioxide (21-32) mmol/L Anion Gap (3-11) BUN (7-18) mg/dl Creatinine (0.6-1.2) mg/dl Est Cr Clr Drug Dosing ml/min Est GFR ( Amer) Est GFR (Non-Af Amer) BUN/Creatinine Ratio (10-20) Glucose (70-99) mg/dl Calcium (8.5-10.1) mg/dl Magnesium (1.8-2.4) mg/dl Total Bilirubin (0.2-1) mg/dl AST (15-37) U/L ALT (12-78) U/L Alkaline Phosphatase (45-117) U/L Ammonia (11-32) umol/L Total Creatine Kinase (26-192) U/L Troponin I (0-0.045) ng/ml Total Protein (6.4-8.2) gm/dl Albumin (3.4-5.0) gm/dl Globulin (2.5-4.0) gm/dl Albumin/Globulin Ratio (0.9-2) TSH (0.300-4.500) uIu/ml Free T4 (0.8-1.6) ng/dl Urine Color Yellow Urine Appearance Cloudy A (Clear) Urine pH 6.0 (4.5-7.5) Ur Specific Cotton 1.010 (1.000-1.030) Urine Protein 2+ H (Negative) Urine Glucose (UA) Negative (Negative) Urine Ketones Negative (Negative) Urine Blood Negative (Negative) Urine Nitrite Negative (Negative) Urine Bilirubin Negative (Negative) Urine Urobilinogen Negative (Negative) Ur Leukocyte Esterase 2+ H (Negative) Urine WBC (Auto) 10-30 H (0-5) /hpf Urine RBC (Auto) 0-4 (0-4) /hpf U Hyaline Cast (Auto) 0 (0-5) /lpf U Epithel Cells (Auto) 0-5 (0-5) /lpf Urine Bacteria (Auto) 4+ H (Negative) Urine Opiates Screen (Neg) Ur Methadone, Qual (Neg) Urine Barbiturates (Neg) Ur Phencyclidine (PCP) (Neg) U Amphetamin/Meth Scrn (Neg) MDMA (Ecstasy) Screen (Neg) U Benzodiazepines Scrn (Neg) Ur Cocaine Metabolite (Neg) U Marijuana (THC) Screen (Neg) Administered Medications Acetaminophen (Tylenol) 1,000 mg PO Q8H CARON Stop: 09/10/19 05:59 Last Admin: 08/11/19 06:23 Dose: 1,000 mg Documented by: [id number] Atovaquone (Mepron) 750 mg PO PM CARON Stop: 09/09/19 20:59 Last Admin: 08/10/19 21:01 Dose: 750 mg Documented by: [id number] Famotidine (Pepcid) 20 mg PO BID CARON Stop: 09/09/19 20:59 Last Admin: 08/10/19 21:02 Dose: 20 mg Documented by: [id number] Furosemide (Lasix) 40 mg PO BID17 CARON Stop: 09/09/19 17:59 Last Admin: 08/10/19 19:15 Dose: 40 mg Documented by: [id number] Heparin Sodium (Porcine) (Heparin Sodium (Porcine)) 5,000 units SQ Q8 CARON Stop: 09/09/19 21:59 Last Admin: 08/11/19 06:24 Dose: 5,000 units Documented by: [id number] Cosigned by: [id number] Admin: 08/10/19 21:01 Dose: 5,000 units Documented by: [id number] Cosigned by: [id number] Levothyroxine Sodium (Synthroid) 37.5 mcg PO DAILYBB [facility] Stop: 09/10/19 06:29 Last Admin: 08/11/19 06:24 Dose: 37.5 mcg Documented by: [id number] Lidocaine (Lidoderm 5%) 1 patch TD QAM CARON Stop: 09/09/19 17:38 Last Admin: 08/10/19 21:13 Dose: Not Given Documented by: [id number] Miscellaneous (Remove Lidoderm Patch) 1 ea N/A DAILY@2100 CARON Stop: 09/09/19 20:59 Last Admin: 08/10/19 21:14 Dose: Not Given Documented by: [id number] Ondansetron HCl (Zofran) 4 mg IV Q6H PRN PRN Reason: Nausea Stop: 09/09/19 17:38 Last Admin: 08/11/19 02:25 Dose: 4 mg Documented by: [id number] Pantoprazole Sodium (Protonix) 40 mg PO BID CARON Stop: 09/09/19 20:59 Last Admin: 08/10/19 21:00 Dose: 40 mg Documented by: [id number] Prednisone (Prednisone) 15 mg PO QPM CARON Stop: 09/09/19 20:59 Last Admin: 08/10/19 21:00 Dose: 15 mg Documented by: [id number] Sevelamer HCl (Renagel) 800 mg PO TIDM CARON Stop: 09/09/19 16:59 Last Admin: 08/10/19 18:44 Dose: Not Given Documented by: [id number] Tramadol HCl (Ultram) 25 - 50 mg PO Q4H PRN PRN Reason: Pain Stop: 09/09/19 17:38 Last Admin: 08/10/19 23:32 Dose: 50 mg Documented by: [id number] Vitamin B Complex/Folic Acid (Nephrocaps) 1 cap PO BID CARON Stop: 09/09/19 20:59 Last Admin: 08/10/19 21:01 Dose: 1 cap Documented by: [id number] Discontinued Medications Acetaminophen (Tylenol) 1,000 mg PO ONE ONE Stop: 08/10/19 19:01 Last Admin: 08/10/19 19:16 Dose: 1,000 mg Documented by: [id number] Ceftriaxone Sodium (Rocephin) 1,000 mg in 50 mls @ 100 mls/hr IV NOW STA Stop: 08/10/19 14:04 Last Infusion: 08/10/19 14:28 Dose: 0 mls/hr Documented by: [id number] Admin: 08/10/19 13:46 Dose: 100 mls/hr Documented by: [id number] Blood Pressure Blood Pressure Findings: Normal blood pressure Discharge Plan Visit Data *Final* Discharge Date/Time: 08/10/19 17:09 Chief Complaint: Weakness ED Provider: Jam He Discharge Problem: Renal failure (ARF), acute on chronic, Weakness, Urinary tract infection Patient Disposition: Admitted As Inpatient Condition: Good Discharge Instructions Interventions: ED Discharge Assessment Last Done: 08/10/19 17:09 Discharge Problem: Renal failure (ARF), acute on chronic Qualifiers: Acute renal failure type: unspecified Chronic kidney disease stage: on chronic dialysis Qualified Code(s): N17.9 - Acute kidney failure, unspecified Urinary tract infection Qualifiers: Urinary tract infection type: site unspecified Hematuria presence: without hematuria Qualified Code(s): N39.0 - Urinary tract infection, site not specified
[2019-08-10 11:59] LABS: Hematocrit (blood only) 32.7 % (37-47); Hemoglobin 11.2 g/dL (12.0-16.0); Immature Granulocytes # (auto) 0.03 K/uL (0.00-0.02); Immature Granulocytes % (auto) 0.3 %; Lymphocytes # (auto) 0.53 K/uL (1.2-3.4); Lymphocytes % (auto) 5.4 %; Mean Corpuscular Hemoglobin 33.6 pg (25-34); Mean Corpuscular Hgb Conc 34.3 g/dL (32-36); Mean Corpuscular Volume 98.2 fL (80-100); Mean Platelet Volume 9.8 fL (7.4-10.4); Monocytes # (auto) 0.44 K/uL (0.11-0.59); Monocytes % (auto) 4.5 %; Neutrophils # (auto) 8.74 K/uL (1.4-6.5); Neutrophils % (auto) 89.8 %; Platelet Count 110 K/uL (130-400); RDW Coefficient of Variation 17.1 % (11.5-14.5); RDW Standard Deviation 59.8 fL (36.4-46.3); Red Blood Count 3.33 M/uL (4.2-5.4); White Blood Count 9.74 K/uL (4.8-10.8)
--- NOTE | 2019-08-10 11:59 | XRay Report ---
XR chest 1V portable CLINICAL HISTORY: 59 years-old Female presenting with weakness. TECHNIQUE: Portable upright AP view of the chest was obtained. COMPARISON: 06/04/2019. FINDINGS: Cardiac silhouette is mildly enlarged. Suture margin projects over the periphery of the right midlung . No other focal opacity. No large effusion or pneumothorax. Osseous structures normal. Upper abdomen normal. IMPRESSION: 1. Cardiomegaly. No other convincing evidence of acute cardiopulmonary disease. ACT 112: Negative or not required by law. Electronically signed by: Kenton Aparicio M.D. 08/10/2019 11:57 AM
[2019-08-10 12:01] LABS: Base Excess VBG 3.9 mEq/L; Oxygen Saturation VBG 65.6 %; pH VBG 7.45 (7.36-7.41)
[2019-08-10 12:09] LABS: INR 0.9 (0.9-1.1); Partial Thromboplastin Ratio 0.8; Partial Thromboplastin Time 21.1 Seconds (21.0-31.0); Prothrombin Time 9.8 Seconds (9.0-12.0)
[2019-08-10 12:10] LABS: Appearance Urine Cloudy (Clear); Bacteria Urine Automated 4+ (Negative); Bilirubin Urine Negative (Negative); Blood Urine Negative (Negative); Cast Urine Automated 0 /lpf (0-5); Color Urine Yellow; Epithelial Cell Urine Auto 0-5 /lpf (0-5); Glucose Urine UA Negative (Negative); Ketones Urine Negative (Negative); Leukocyte Esterase Urine 2+ (Negative); Nitrite Urine Negative (Negative); Protein Urine 2+ (Negative); RBC Urine Automated 0-4 /hpf (0-4); Urobilinogen Urine Negative (Negative)
--- NOTE | 2019-08-10 12:15 | Electrocardiogram Report ---
Test Reason : Blood Pressure : / mmHG Vent. Rate : 085 BPM Atrial Rate : 085 BPM P-R Int : 192 ms QRS Dur : 088 ms QT Int : 376 ms P-R-T Axes : 068 009 023 degrees QTc Int : 447 ms Normal sinus rhythm Possible Left atrial enlargement Borderline ECG When compared with ECG of 04-JUN-2019 15:40, No significant change was found Confirmed by Gal Ivey ([id number]) on 08/10/2019 12:15:22 PM Referred By: Confirmed By:Mamadou Ivey
--- NOTE | 2019-08-10 12:22 | CT Scan Report ---
CT head/brain wo con CLINICAL HISTORY: 59 years-old Female presenting with altered, increased weakness and confusion, on d ialysis, recent falls. TECHNIQUE: Multidetector CT imaging of the head was performed without the use of intravenous contrast . IV contrast: None. One or more dose lowering techniques were used consistent with the principles of ALARA (as low as reasonably achievable), including automatic exposure control, mA or kV adjustment t o individual patient size, and/or use of iterative reconstruction. COMPARISON: MR brain from 2006. CT DOSE (mGy.cm): The estimated cumulative dose is 614.27 mGy.cm. FINDINGS: Sas Developer Analyst topogram: Unremarkable. Ventricles and sulci normal in size. No hemorrhage. Brain parenchyma normal in appearance with preser panchito alvarez-white differentiation. No acute territorial infarct. No mass effect or midline shift. No ext ra-axial fluid collection. Paranasal sinuses and mastoid air cells clear. Calvarium intact. IMPRESSION: 1. No acute intracranial abnormality. ACT 112: Negative or not required by law. Electronically signed by: Kenton Aparicio M.D. 08/10/2019 12:21 PM
[2019-08-10 12:32] LABS: Amphetamines+Metham, Urine Neg (Neg); Barbiturates, Urine Neg (Neg); Benzodiazepine, Urine Neg (Neg); Cocaine, Urine Neg (Neg); MDMA (Ecstacy), Urine Neg (Neg); Methadone, Urine Neg (Neg); Opiate, Urine Neg (Neg); Phencyclidine, Urine Neg (Neg)
[2019-08-10 12:50] LABS: Alanine Aminotransferase 29 U/L (12-78); Albumin Globulin Ratio 1.2 (0.9-2); Albumin Level 3.7 gm/dl (3.4-5.0); Alkaline Phosphatase 84 U/L (45-117); Aspartate Aminotransferase 13 U/L (15-37); BUN Creatinine Ratio 12.4 (10-20); Bilirubin,Total 0.6 mg/dl (0.2-1); Blood Urea Nitrogen 84 mg/dl (7-18); Calcium 9.6 mg/dl (8.5-10.1); Carbon Dioxide 28 mmol/L (21-32); Chloride 95 mmol/L (98-107); Creatine Kinase 22 U/L (26-192); Creatinine Clr Calc Pharmacy 9.9 ml/min; Est GFR (African American) 7.2; Est GFR (Non-African American) 6.2; Glucose 102 mg/dl (70-99); Magnesium 2.3 mg/dl (1.8-2.4); Potassium 4.1 mmol/L (3.5-5.1); Sodium 130 mmol/L (136-145); Thyroid Stimulating Hormone 0.167 uIu/ml (0.300-4.500); Total Protein 6.7 gm/dl (6.4-8.2); Troponin I < 0.015 ng/ml (0-0.045)
[2019-08-10 13:08] LABS: T4 Free Thyroxine 1.25 ng/dl (0.8-1.6)
[2019-08-10] MEDS ORDERED: cefTRIAXone SODIUM 1,000 MG/50 ML BAG IV STA (13:35)
--- NOTE | 2019-08-10 15:13 | History & Physical Report ---
Date of Service August 10, 2019 Assessment & Plan (1) Encephalopathy: Mix of metabolic and toxicity 2/2 adverse side effects vs polypharmacy with new medications prescribed. UTI being treated empirically with Rocephin, culture pending. No evidence of sepsis and she is essentially asymptomatic otherwise. Regarding pain control...for her back, Tramadol was helpful but made her drowsy and Tylenol was effective last night. Will schedule her on APAP 1000mg q8h and add Tramadol PRN. Would hold any amitriptyline or baclofen at this point. Her issue appears to be uncontrolled heartburn after switching PPIs from Prilosec (which worked) to Protonix and then a lower dose OTC Prilosec (which didn't). As we don't carry Prilosec on formulary will give her max Protonix 40 BID and Pepcid to see if this helps. Esophageal spasm always a possibility here, of course, but she is reporting clear heartburn symptoms here. So would avoid any further use of the amitriptyline and the baclofen and would provide her a new prescription for Prilosec at discharge +/- Pepcid or TUMS for breakthrough. (2) Back pain: Scheduled Tylenol, Lidoderm ordered. Tramadol for breakthrough pain. May consider PT assessment while inpatient. (3) Urinary tract infection: Rocephin pending culture results. (4) Heartburn: Likely as result of recently switching PPIs as above. (5) Interstitial lung disease: chronic, immunosuppressed with prednisone. On Atovaquone for prophy per home regimen. No active issues. (6) ESRD (end stage renal disease) on dialysis: Consulted [facility] to assist with inpatient HD. She is on home HD nightly around 6pm typically. Renal diet. Cont sevelamer, Nephro caps vitamin, calcitriol. BMP/Lytes in am. (7) Immunosuppressed status: cont chronic prednisone 15mg daily (8) Thrombocytopenia: Likely 2/2 medication use (atovaquone). May be contributing to new ecchymosis seen on exam, she is also on heparin with dialysis sessions. Suspect that she bumped her limbs while confused. Cont to monitor both platelets (currently at her baseline) and bruising. (9) Hypothyroidism: Cont home synthroid (10) Anemia due to chronic kidney disease, on chronic dialysis: chronic, stable. (11) DVT prophylaxis: Heparin Full Dispo-dc to home in 2 days. Appreciate PT/OT assessment. I discussed the assessment and plan above with her by phone based on the patient's wishes. All questions were answered to his satisfaction. Honey Aguero DO [facility] Hospitalist Admission and Anticipated Discharge Date Anticipated date of discharge: 08/12/19 History of Present Illness Chief Complaint: extreme fatigue, AMS Primary Care Provider: Kenton Salamanca MD 59 yo F presented to the ER after confusion noted at home this morning. She reports a nontraumatic vertebral body compression fracture approximately 3 weeks ago and has been using PM Tramadol to help with the pain. She reports success with this. However, she also developed some worsened substernal heartburn after switching off the Prilosec BID to pantoprozole, which occurred mid-May. Since that time she has tried OTC Prilosec, which helped her discomfort somewhat but she feels she wasn't taking a strong enough dose. As a result she reached out to [facility] and was placed on Amitriptyline and Baclofen, which she started the same day 4-5 days ago. She reports feeling very fatigued the next day and continued to decrease the amitriptyline dose, even taking a 1/4 pill at one point. She continued to have severe fatigue. Although she is asymptomatic, somewhere along the line she also developed a UTI, which she reports is very common for her. She is a home hemodialysis patient and dose still make urine. She denies dysuria or pelvic pain, no fevers, chills, or GI symptom aside from severe heartburn on occasion (jess in response to cold liquids) and no changes in her bowels. She last took Tramadol and Baclofen last night but has stayed away from the amitryptiline for a couple of days. She reports tolerating PO, denies chest pain or shortness of breath, denies headache, sore throat, congestion, or any other respiratory symptoms. She has remained quarantined with her and 17 yo son, and denies travel or any association with a known COVID-19 positive patient. ROS otherwise reveals a new finding of scattered round areas of ecchymosis that are around 5mm in diameter. No raised areas or erythema is present and this started last evening. Platelets and coags are WNL and no other reports of bleeding per patient. No pruritis or pain associated with these lesions which are on her arms and legs. Allergies Allergy/AdvReac Type Severity Reaction Status Date / Time spironolactone Allergy Intermediate LIP Verified 08/10/19 12:48 SWELLING, COUGH nitrofurantoin Allergy Unknown Hives Verified 08/10/19 12:48 Sulfa (Sulfonamide Allergy Unknown hives- Verified 08/10/19 12:48 Antibiotics) anaphylaxis adhesive tape Allergy Redness of Verified 08/10/19 12:48 Skin sertraline Allergy Unknown Verified 08/10/19 12:48 BRITTANI Inhibitors AdvReac Unknown SWELLING, Verified 08/10/19 12:48 COUGHING benazepril AdvReac Cough Verified 08/10/19 12:48 Home Medications Home Medications Medication Instructions Recorded Confirmed Type atorvastatin 20 mg PO QAM 07/09/18 08/10/19 History sevelamer HCl [Renagel] 800 mg PO TIDM 30 Days #90 tab 04/12/19 08/10/19 Rx allopurinol 100 mg tablet 100 mg PO QAM #30 tab 04/25/19 08/10/19 Rx levothyroxine 75 mcg tablet 37.5 mcg PO QAM #30 tab 05/27/19 08/10/19 Rx B complex with C 20-folic acid 1 cap PO BID 06/04/19 08/10/19 History [Renal Caps] atovaquone 750 mg PO PM 06/04/19 08/10/19 History diltiazem HCl 120 mg PO QAM 06/04/19 08/10/19 History acetaminophen [Tylenol Extra 1,000 mg PO Q6H PRN 07/19/19 08/10/19 History Strength] calcitriol 0.25 mcg PO DAILY 07/19/19 08/10/19 History omeprazole 20 mg PO BID 07/19/19 08/10/19 History tramadol 50 mg PO Q12H PRN #15 tab 07/19/19 08/10/19 Rx amitriptyline 5 - 10 mg PO HS 08/10/19 08/10/19 History baclofen 10 mg PO DAILYBD 08/10/19 08/10/19 History furosemide 40 mg PO BID 08/10/19 08/10/19 History lidocaine 1 patch TOPICAL DAILY PRN 08/10/19 08/10/19 History prednisone 15 mg PO QPM 08/10/19 08/10/19 History Past Med/Surg History Medical History Anemia due to chronic kidney disease, on chronic dialysis Asthma Chronic kidney disease, stage V (Chronic) Compression fracture of L2 vertebra Compression fracture of T12 vertebra Congenital renal atrophy ESRD (end stage renal disease) on dialysis Family history of sudden cardiac (SCD) History of colon polyps Hyperlipidemia Hypersensitivity pneumonitis Hypertension (Chronic) Hypothyroidism Immunosuppressed status Interstitial lung disease 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 [facility] JAVED (obstructive sleep apnea) Proteinuria (Chronic) Pseudotumor cerebri Secondary hyperparathyroidism Sleep apnea Vitamin D deficiency (Chronic) Surgical History Arteriovenous fistula LEFT ARM AVF: 07/27/18: MAC SEDATION AT [facility] History of cardiac cath 16 YEARS AGO= NO STENTS History of cholecystectomy History of lung biopsy 02/14/2019 THORACOCSOCPY W/ INFILTRATE BIOPSY [place] [facility] [place] of dilation and curettage Family History Grandmother (Paternal) Family history of diabetes mellitus Uncle Family history of diabetes mellitus Father Cancer LUNG Mother Cancer renal cell ca Social History Preferred Language: Latvian Communication Ability: Effective Manager Rn Case Required: No Beliefs That Will Affect Care: None marital status: Current Living Situation: Spouse and Family current occupational status: employed Feels Safe at Home: Yes Smoking Status: Never smoker Second Hand Exposure: No ; Hx Alcohol Use: No Hx Substance Use: No Review of Systems Review of Systems: All systems reviewed & are unremarkable except as noted in Subjective Physical Exam Physical Exam: CONSTITUTIONAL: obesity, vitals as above, generally well- appearing EYES: EOMI bilaterally, PERRL, normal conjunctivae, no scleral icterus ENT: external ear and nose normal, oropharynx clear, no maxillary or ethmoid sinus tenderness NECK: trachea midline, no lymphadenopathy RESPIRATORY: clear to auscultation bilaterally, no crackles, rales or wheezes, normal respiratory effort CARDIOVASCULAR: regular rate and rhythm, S1 and 2 heard without murmurs, gallops or rubs, no JVD, no peripheral edema GASTROINTESTINAL: normal bowel sounds, soft, nontender, nondistended MUSCULOSKELETAL: strength 5/5 throughout but some difficulty sitting up secondary to back pain, head is normocephalic and atraumatic. No spinal tenderness to palpation along entire spine, Lidoderm patch partially stuck to back was removed and area of the right lower back revealed pain to palpation. SKIN: warm and dry, small, round areas of scattered ecchymosis on arms and legs RA>LA. No erythema, raised areas or evidence of scratching. NEUROLOGIC: patellar DTR could not be elicited. PERRL, EOMI, no facial palsy, no dysarthria. CN 2-12 grossly intact, no sensory deficit, normal cognition, normal speech, no tremor, no gross focal deficits. PSYCHIATRIC: alert cooperative and oriented to person, place and time. Results & Data Results & Data ([facility]) Vital Signs (Past 12 Hours) Vital Signs Temp Pulse Resp BP Pulse Ox 08/10/19 14:00 83 15 145/78 H 98 08/10/19 13:30 87 15 132/75 95 08/10/19 13:00 87 20 152/84 H 96 08/10/19 12:30 88 17 149/83 H 99 08/10/19 12:17 84 18 144/79 H 97 08/10/19 12:00 86 16 147/90 H 100 08/10/19 11:47 98 08/10/19 11:38 36.5 C 93 H 16 163/95 H 98 Laboratory Results Short CBC 08/10/19 Range/Units 11:50 WBC 9.74 (4.8-10.8) K/uL Hgb 11.2 L (12.0-16.0) g/dL Hct 32.7 L (37-47) % Plt Count 110 L (130-400) K/uL BMP 08/10/19 11:50 Sodium 130 L Potassium 4.1 Chloride 95 L Carbon Dioxide 28 BUN 84 H Creatinine 6.77 H* Glucose 102 H Calcium 9.6 Cardiac Enzymes 08/10/19 Range/Units 11:50 Total Creatine Kinase 22 L (26-192) U/L Troponin I < 0.015 (0-0.045) ng/ml Liver Function 08/10/19 Range/Units 11:50 Total Bilirubin 0.6 (0.2-1) mg/dl AST 13 L (15-37) U/L ALT 29 (12-78) U/L Alkaline Phosphatase 84 (45-117) U/L Albumin 3.7 (3.4-5.0) gm/dl Urine 08/10/19 Range/Units 11:55 Urine Color Yellow Urine Appearance Cloudy A (Clear) Urine pH 6.0 (4.5-7.5) Ur Specific [place] 1.010 (1.000-1.030) Urine Protein 2+ H (Negative) Urine Glucose (UA) Negative (Negative) Diagnostic Findings CT head/brain wo con CLINICAL HISTORY: 59 years-old Female presenting with altered, increased weakness and confusion, on dialysis, recent falls. FINDINGS: High School Coach topogram: Unremarkable. Ventricles and sulci normal in size. No hemorrhage. Brain parenchyma normal in appearance with preserved alvarez-white differentiation. No acute territorial infarct. No mass effect or midline shift. No extra-axial fluid collection. Paranasal sinuses and mastoid air cells clear. Calvarium intact. IMPRESSION: 1. No acute intracranial abnormality. XR chest 1V portable CLINICAL HISTORY: 59 years-old Female presenting with weakness. FINDINGS: Cardiac silhouette is mildly enlarged. Suture margin projects over the periphery of the right midlung. No other focal opacity. No large effusion or pneumothorax. Osseous structures normal. Upper abdomen normal. IMPRESSION: 1. Cardiomegaly. No other convincing evidence of acute cardiopulmonary disease. Medications Administered Rocephin 1gm IV Code Status & VTE Plan Code Status Full VTE Prophylaxis Plan VTE Prophylaxis will be ordered: Yes (1) Urinary tract infection Hematuria presence: without hematuria Urinary tract infection type: site unspecified Qualified Code(s): N39.0 - Urinary tract infection, site not specified
--- NOTE | 2019-08-10 15:21 | Progress Note ---
Date of Service August 10, 2019 Subjective Received routine consult for ESRD on home HD, presented with AMS, now doing well. BP, volume, electrolyte, CXR normal. Will see tomorrow for full consult and plan for HD tomorrow am, informed HD nurse and order placed. Results & Data ([facility]) Vital Signs (Past 12 Hours) Vital Signs Temp Pulse Resp BP Pulse Ox 08/10/19 14:00 83 15 145/78 H 98 08/10/19 13:30 87 15 132/75 95 08/10/19 13:00 87 20 152/84 H 96 08/10/19 12:30 88 17 149/83 H 99 08/10/19 12:17 84 18 144/79 H 97 08/10/19 12:00 86 16 147/90 H 100 08/10/19 11:47 98 08/10/19 11:38 36.5 C 93 H 16 163/95 H 98
[2019-08-10] MEDS ORDERED: TRAMADOL HCL 50 MG TABLET PO PRN (17:39)
[2019-08-10] MEDS ORDERED: ONDANSETRON INJ 2 MG/ML 2 ML VIAL IV PRN (17:39)
[2019-08-10] MEDS ORDERED: Nursing to Pharmacy Communication ONE (18:42)
[2019-08-10] MEDS: SEVELAMER HCL 800 MG TABLET PO SCH (18:44)
[2019-08-10] MEDS ORDERED: ACETAMINOPHEN 500 MG TAB PO ONE (19:00)
[2019-08-10] MEDS: FUROSEMIDE 40 MG TAB PO SCH (19:15)
[2019-08-10] MEDS: PANTOprazole 40 MG TAB PO SCH (21:00)
[2019-08-10] MEDS: predniSONE 5 MG TAB PO SCH (21:00)
[2019-08-10] MEDS: HEPARIN SOD 5,000 UNIT/0.5 ML VIAL SQ SCH (21:01)
[2019-08-10] MEDS: NEPHROCAPS PO SCH (21:01)
[2019-08-10] MEDS: ATOVAQUONE 750 MG/5 ML UDC PO SCH (21:01)
[2019-08-10] MEDS: FAMOTIDINE 20 MG TAB PO SCH (21:02)
[2019-08-10] MEDS: LIDOCAINE 5% 1 PATCH TD SCH (21:13)
[2019-08-10] MEDS ORDERED: ACETAMINOPHEN 500 MG TAB PO SCH (22:00)
[2019-08-11] MEDS: ACETAMINOPHEN 500 MG TAB PO SCH ×3 (06:23→22:32)
[2019-08-11] MEDS: HEPARIN SOD 5,000 UNIT/0.5 ML VIAL SQ SCH ×3 (06:24→22:33)
[2019-08-11] MEDS: LEVOTHYROXINE SODIUM 25 MCG TABLET PO SCH (06:24)
[2019-08-11 07:05] LABS: Hematocrit (blood only) 33.7 % (37-47); Hemoglobin 11.1 g/dL (12.0-16.0); Mean Corpuscular Hemoglobin 32.9 pg (25-34); Mean Corpuscular Hgb Conc 32.9 g/dL (32-36); Mean Platelet Volume 9.4 fL (7.4-10.4); Platelet Count 123 K/uL (130-400); RDW Coefficient of Variation 17.4 % (11.5-14.5); RDW Standard Deviation 62.4 fL (36.4-46.3); Red Blood Count 3.37 M/uL (4.2-5.4); White Blood Count 9.12 K/uL (4.8-10.8)
[2019-08-11 07:46] LABS: BUN Creatinine Ratio 12.9 (10-20); Calcium 9.3 mg/dl (8.5-10.1); Creatinine Clr Calc Pharmacy 9.4 ml/min; Est GFR (African American) 6.7; Est GFR (Non-African American) 5.8; Magnesium 2.3 mg/dl (1.8-2.4); Phosphorus 7.1 mg/dl (2.5-4.9); Potassium 4.5 mmol/L (3.5-5.1)
[2019-08-11] MEDS: PANTOprazole 40 MG TAB PO SCH ×2 (08:04→20:49)
[2019-08-11] MEDS: SEVELAMER HCL 800 MG TABLET PO SCH ×3 (08:04→16:46)
[2019-08-11] MEDS: FAMOTIDINE 20 MG TAB PO SCH ×2 (08:04→20:49)
[2019-08-11] MEDS: NEPHROCAPS PO SCH ×2 (08:05→20:49)
[2019-08-11] MEDS: CALCITRIOL 0.25 MCG CAPSULE PO SCH (08:05)
[2019-08-11] MEDS: allopurinoL 100 MG TAB PO SCH (08:05)
[2019-08-11] MEDS: ATORVASTATIN 20 MG TAB PO SCH (08:05)
[2019-08-11] MEDS: FUROSEMIDE 40 MG TAB PO SCH ×3 (08:06→16:45)
[2019-08-11] MEDS: LIDOCAINE 5% 1 PATCH TD SCH (08:08)
--- NOTE | 2019-08-11 09:05 | Hospitalist Progress Note ---
Date of Service August 11, 2019 Assessment & Plan (1) Encephalopathy: Mix of metabolic and toxicity 2/2 adverse side effects vs polypharmacy with new medications prescribed. UTI being treated empirically with Rocephin, culture pending. No evidence of sepsis and she is essentially asymptomatic otherwise. Regarding pain control...for her back, Tramadol was helpful but made her drowsy and Tylenol was effective. Continue her on APAP 1000mg q8h and add Tramadol PRN. Hold any amitriptyline or baclofen at this point. Her issue appears to be uncontrolled heartburn after switching PPIs from Prilosec (which worked) to Protonix and then a lower dose OTC Prilosec (which didn't). As we don't carry Prilosec on formulary will give her max Protonix 40 BID and Pepcid to see if this helps. Esophageal spasm always a possibility here, of course, but she is reporting clear heartburn symptoms. So would avoid any further use of the amitriptyline and the baclofen and would provide her a new prescription for Prilosec at discharge +/- Pepcid or TUMS for breakthrough. (2) Back pain: Scheduled Tylenol, Lidoderm ordered. Tramadol for breakthrough pain. May consider PT assessment while inpatient. (3) Urinary tract infection: Rocephin pending culture results. (4) Heartburn: Likely as result of recently switching PPIs as above. (5) Interstitial lung disease: chronic, immunosuppressed with prednisone. On Atovaquone for prophy per home regimen. No active issues. (6) ESRD (end stage renal disease) on dialysis: Consulted Nephro to assist with inpatient HD. She is on home HD nightly around 6pm typically. Renal diet. Cont sevelamer, Nephro caps vitamin, calcitriol. BMP/Lytes in am. Nephrology (Dr. Young) consulted, patient underwent HD today (08/10), UF 2L, plan for another HD tomorrow Continue Renvela 3 times daily with meal (7) Immunosuppressed status: cont chronic prednisone 15mg daily (8) Thrombocytopenia: Likely 2/2 medication use (atovaquone). May be contributing to new ecchymosis seen on exam, she is also on heparin with dialysis sessions. Suspect that she bumped her limbs while confused. Cont to monitor both platelets (currently at her baseline) and bruising. (9) Hypothyroidism: Cont home synthroid (10) Anemia due to chronic kidney disease, on chronic dialysis: chronic, stable. (11) DVT prophylaxis: Heparin Full Dispo: plan to d/c home, appreciate PT/OT assessment Admission and Anticipated Discharge Date Admission Date: August 10, 2019 Anticipated date of discharge: 08/12/19 Subjective Patient is sitting up in bed, comfortable, in no acute distress. She is breathing comfortably on room air. She is alert and oriented, and answers questions appropriately. Currently denies any fevers, chills, chest pain, shortness of breath, abdominal pain, nausea or vomiting. Review of Systems Review of Systems: All systems reviewed & are unremarkable except as noted in HPI & below Constitutional: no fever and no chills Respiratory: no cough and no dyspnea Cardiovascular: no chest pain, no palpitations and no edema Gastrointestinal: + heartburn (occasional); no abdominal pain, no nausea and no vomiting Physical Exam Physical Exam: CONSTITUTIONAL: Patient sitting up in bed, in no acute distress, breathing comfortably on room air EYES: EOMI bilaterally, PERRL, normal conjunctivae, no scleral icterus ENT: external ear and nose normal, oropharynx clear NECK: trachea midline, no lymphadenopathy RESPIRATORY: clear to auscultation bilaterally, no crackles, rales or wheezes, normal respiratory effort CARDIOVASCULAR: regular rate and rhythm, S1 and 2 heard without murmurs, gallops or rubs, no JVD, no peripheral edema GASTROINTESTINAL: normal bowel sounds, soft, nontender, nondistended MUSCULOSKELETAL: strength 5/5 throughout but some difficulty sitting up secondary to back pain, head is normocephalic and atraumatic. SKIN: warm, dry, no rashes or lesions NEUROLOGIC: Alert and oriented x3, speech fluent, no facial asymmetry, PERRL, EOMI, CN 2-12 grossly intact, no sensory deficit, normal cognition, no tremor, no gross focal deficits, moves extremities spontaneously PSYCHIATRIC: alert cooperative and oriented to person, place and time, euthymic effect Results & Data Results & Data ([facility]) Vital Signs (Past 12 Hours) Vital Signs Temp Pulse Resp BP Pulse Ox 08/11/19 07:43 37.0 C 91 H 17 134/83 96 08/10/19 23:00 36.9 C 99 H 20 115/81 96 Laboratory Results 08/11/19 08/11/19 08/10/19 Range/Units 06:42 06:41 11:55 WBC 9.12 (4.8-10.8) K/uL RBC 3.37 L (4.2-5.4) M/uL Hgb 11.1 L (12.0-16.0) g/dL Hct 33.7 L (37-47) % MCV 100.0 (80-100) fL MCH 32.9 (25-34) pg MCHC 32.9 (32-36) g/dL RDW Std Deviation 62.4 H (36.4-46.3) fL RDW Coeff of Grover 17.4 H (11.5-14.5) % Plt Count 123 L (130-400) K/uL MPV 9.4 (7.4-10.4) fL Immature Gran % (Auto) % Neut % (Auto) % Lymph % (Auto) % Wheeler % (Auto) % Eos % (Auto) % Baso % (Auto) % Immature Gran # (Auto) (0.00-0.02) K/uL Neut # (Auto) (1.4-6.5) K/uL Lymph # (Auto) (1.2-3.4) K/uL Wheeler # (Auto) (0.11-0.59) K/uL Eos # (Auto) (0-0.5) K/uL Baso # (Auto) (0-0.2) K/uL PT (9.0-12.0) Seconds INR (0.9-1.1) APTT (21.0-31.0) Seconds PTT Ratio VBG pH (7.36-7.41) VBG pCO2 (38-50) mmHg VBG pO2 mmHg VBG HCO3 mmol/L VBG O2 Saturation % VBG Base Excess mEq/L Barometric Pressure mm/Hg Sodium 132 L (136-145) mmol/L Potassium 4.5 (3.5-5.1) mmol/L Chloride 96 L (98-107) mmol/L Carbon Dioxide 26 (21-32) mmol/L Anion Gap 10.0 (3-11) BUN 92 H (7-18) mg/dl Creatinine 7.12 H* D (0.6-1.2) mg/dl Est Cr Clr Drug Dosing 9.4 ml/min Est GFR ( Amer) 6.7 Est GFR (Non-Af Amer) 5.8 BUN/Creatinine Ratio 12.9 (10-20) Glucose 128 H (70-99) mg/dl Calcium 9.3 (8.5-10.1) mg/dl Phosphorus 7.1 H (2.5-4.9) mg/dl Magnesium 2.3 (1.8-2.4) mg/dl Total Bilirubin (0.2-1) mg/dl AST (15-37) U/L ALT (12-78) U/L Alkaline Phosphatase (45-117) U/L Ammonia (11-32) umol/L Total Creatine Kinase 24 L (26-192) U/L Troponin I (0-0.045) ng/ml Total Protein (6.4-8.2) gm/dl Albumin (3.4-5.0) gm/dl Globulin (2.5-4.0) gm/dl Albumin/Globulin Ratio (0.9-2) TSH (0.300-4.500) uIu/ml Free T4 (0.8-1.6) ng/dl Urine Color Yellow Urine Appearance Cloudy A (Clear) Urine pH 6.0 (4.5-7.5) Ur Specific [place] 1.010 (1.000-1.030) Urine Protein 2+ H (Negative) Urine Glucose (UA) Negative (Negative) Urine Ketones Negative (Negative) Urine Blood Negative (Negative) Urine Nitrite Negative (Negative) Urine Bilirubin Negative (Negative) Urine Urobilinogen Negative (Negative) Ur Leukocyte Esterase 2+ H (Negative) Urine WBC (Auto) 10-30 H (0-5) /hpf Urine RBC (Auto) 0-4 (0-4) /hpf U Hyaline Cast (Auto) 0 (0-5) /lpf U Epithel Cells (Auto) 0-5 (0-5) /lpf Urine Bacteria (Auto) 4+ H (Negative) Urine Opiates Screen (Neg) Ur Methadone, Qual (Neg) Urine Barbiturates (Neg) Ur Phencyclidine (PCP) (Neg) U Amphetamin/Meth Scrn (Neg) MDMA (Ecstasy) Screen (Neg) U Benzodiazepines Scrn (Neg) Ur Cocaine Metabolite (Neg) U Marijuana (THC) Screen (Neg) 08/10/19 08/10/19 08/10/19 Range/Units 11:55 11:50 11:50 WBC (4.8-10.8) K/uL RBC (4.2-5.4) M/uL Hgb (12.0-16.0) g/dL Hct (37-47) % MCV (80-100) fL MCH (25-34) pg MCHC (32-36) g/dL RDW Std Deviation (36.4-46.3) fL RDW Coeff of Grover (11.5-14.5) % Plt Count (130-400) K/uL MPV (7.4-10.4) fL Immature Gran % (Auto) % Neut % (Auto) % Lymph % (Auto) % Wheeler % (Auto) % Eos % (Auto) % Baso % (Auto) % Immature Gran # (Auto) (0.00-0.02) K/uL Neut # (Auto) (1.4-6.5) K/uL Lymph # (Auto) (1.2-3.4) K/uL Wheeler # (Auto) (0.11-0.59) K/uL Eos # (Auto) (0-0.5) K/uL Baso # (Auto) (0-0.2) K/uL PT (9.0-12.0) Seconds INR (0.9-1.1) APTT (21.0-31.0) Seconds PTT Ratio VBG pH 7.45 H (7.36-7.41) VBG pCO2 41 (38-50) mmHg VBG pO2 36 mmHg VBG HCO3 28 mmol/L VBG O2 Saturation 65.6 % VBG Base Excess 3.9 mEq/L Barometric Pressure 731.2 mm/Hg Sodium (136-145) mmol/L Potassium (3.5-5.1) mmol/L Chloride (98-107) mmol/L Carbon Dioxide (21-32) mmol/L Anion Gap (3-11) BUN (7-18) mg/dl Creatinine (0.6-1.2) mg/dl Est Cr Clr Drug Dosing ml/min Est GFR ( Amer) Est GFR (Non-Af Amer) BUN/Creatinine Ratio (10-20) Glucose (70-99) mg/dl Calcium (8.5-10.1) mg/dl Phosphorus (2.5-4.9) mg/dl Magnesium (1.8-2.4) mg/dl Total Bilirubin (0.2-1) mg/dl AST (15-37) U/L ALT (12-78) U/L Alkaline Phosphatase (45-117) U/L Ammonia 15.2 (11-32) umol/L Total Creatine Kinase (26-192) U/L Troponin I (0-0.045) ng/ml Total Protein (6.4-8.2) gm/dl Albumin (3.4-5.0) gm/dl Globulin (2.5-4.0) gm/dl Albumin/Globulin Ratio (0.9-2) TSH (0.300-4.500) uIu/ml Free T4 (0.8-1.6) ng/dl Urine Color Urine Appearance (Clear) Urine pH (4.5-7.5) Ur Specific [place] (1.000-1.030) Urine Protein (Negative) Urine Glucose (UA) (Negative) Urine Ketones (Negative) Urine Blood (Negative) Urine Nitrite (Negative) Urine Bilirubin (Negative) Urine Urobilinogen (Negative) Ur Leukocyte Esterase (Negative) Urine WBC (Auto) (0-5) /hpf Urine RBC (Auto) (0-4) /hpf U Hyaline Cast (Auto) (0-5) /lpf U Epithel Cells (Auto) (0-5) /lpf Urine Bacteria (Auto) (Negative) Urine Opiates Screen Neg (Neg) Ur Methadone, Qual Neg (Neg) Urine Barbiturates Neg (Neg) Ur Phencyclidine (PCP) Neg (Neg) U Amphetamin/Meth Scrn Neg (Neg) MDMA (Ecstasy) Screen Neg (Neg) U Benzodiazepines Scrn Neg (Neg) Ur Cocaine Metabolite Neg (Neg) U Marijuana (THC) Screen Neg (Neg) 08/10/19 08/10/19 08/10/19 Range/Units 11:50 11:50 11:50 WBC 9.74 (4.8-10.8) K/uL RBC 3.33 L (4.2-5.4) M/uL Hgb 11.2 L (12.0-16.0) g/dL Hct 32.7 L (37-47) % MCV 98.2 (80-100) fL MCH 33.6 (25-34) pg MCHC 34.3 (32-36) g/dL RDW Std Deviation 59.8 H (36.4-46.3) fL RDW Coeff of Grover 17.1 H (11.5-14.5) % Plt Count 110 L (130-400) K/uL MPV 9.8 (7.4-10.4) fL Immature Gran % (Auto) 0.3 % Neut % (Auto) 89.8 % Lymph % (Auto) 5.4 % Wheeler % (Auto) 4.5 % Eos % (Auto) 0.0 % Baso % (Auto) 0.0 % Immature Gran # (Auto) 0.03 H (0.00-0.02) K/uL Neut # (Auto) 8.74 H (1.4-6.5) K/uL Lymph # (Auto) 0.53 L (1.2-3.4) K/uL Wheeler # (Auto) 0.44 (0.11-0.59) K/uL Eos # (Auto) 0.00 (0-0.5) K/uL Baso # (Auto) 0.00 (0-0.2) K/uL PT 9.8 (9.0-12.0) Seconds INR 0.9 (0.9-1.1) APTT 21.1 (21.0-31.0) Seconds PTT Ratio 0.8 VBG pH (7.36-7.41) VBG pCO2 (38-50) mmHg VBG pO2 mmHg VBG HCO3 mmol/L VBG O2 Saturation % VBG Base Excess mEq/L Barometric Pressure mm/Hg Sodium 130 L (136-145) mmol/L Potassium 4.1 (3.5-5.1) mmol/L Chloride 95 L (98-107) mmol/L Carbon Dioxide 28 (21-32) mmol/L Anion Gap 7.0 (3-11) BUN 84 H (7-18) mg/dl Creatinine 6.77 H* (0.6-1.2) mg/dl Est Cr Clr Drug Dosing 9.9 ml/min Est GFR ( Amer) 7.2 Est GFR (Non-Af Amer) 6.2 BUN/Creatinine Ratio 12.4 (10-20) Glucose 102 H (70-99) mg/dl Calcium 9.6 (8.5-10.1) mg/dl Phosphorus (2.5-4.9) mg/dl Magnesium 2.3 (1.8-2.4) mg/dl Total Bilirubin 0.6 (0.2-1) mg/dl AST 13 L (15-37) U/L ALT 29 (12-78) U/L Alkaline Phosphatase 84 (45-117) U/L Ammonia (11-32) umol/L Total Creatine Kinase 22 L (26-192) U/L Troponin I < 0.015 (0-0.045) ng/ml Total Protein 6.7 (6.4-8.2) gm/dl Albumin 3.7 (3.4-5.0) gm/dl Globulin 3.0 (2.5-4.0) gm/dl Albumin/Globulin Ratio 1.2 (0.9-2) TSH 0.167 L (0.300-4.500) uIu/ml Free T4 1.25 (0.8-1.6) ng/dl Urine Color Urine Appearance (Clear) Urine pH (4.5-7.5) Ur Specific [place] (1.000-1.030) Urine Protein (Negative) Urine Glucose (UA) (Negative) Urine Ketones (Negative) Urine Blood (Negative) Urine Nitrite (Negative) Urine Bilirubin (Negative) Urine Urobilinogen (Negative) Ur Leukocyte Esterase (Negative) Urine WBC (Auto) (0-5) /hpf Urine RBC (Auto) (0-4) /hpf U Hyaline Cast (Auto) (0-5) /lpf U Epithel Cells (Auto) (0-5) /lpf Urine Bacteria (Auto) (Negative) Urine Opiates Screen (Neg) Ur Methadone, Qual (Neg) Urine Barbiturates (Neg) Ur Phencyclidine (PCP) (Neg) U Amphetamin/Meth Scrn (Neg) MDMA (Ecstasy) Screen (Neg) U Benzodiazepines Scrn (Neg) Ur Cocaine Metabolite (Neg) U Marijuana (THC) Screen (Neg) Medications Administered Current Inpatient Medications Acetaminophen (Tylenol) 1,000 mg PO Q8H [facility] Stop: 09/10/19 05:59 Last Admin: 08/11/19 06:23 Dose: 1,000 mg Documented by: Allopurinol (Zyloprim) 100 mg PO QAM [facility] Stop: 09/10/19 08:59 Last Admin: 08/11/19 08:05 Dose: 100 mg Documented by: Atorvastatin Calcium (Lipitor) 20 mg PO QAM [facility] Stop: 09/10/19 08:59 Last Admin: 08/11/19 08:05 Dose: 20 mg Documented by: Atovaquone (Mepron) 750 mg PO PM [facility] Stop: 09/09/19 20:59 Last Admin: 08/10/19 21:01 Dose: 750 mg Documented by: Calcitriol (Rocaltrol) 0.25 mcg PO DAILY [facility] Stop: 09/10/19 08:59 Last Admin: 08/11/19 08:05 Dose: 0.25 mcg Documented by: Diltiazem HCl (Cardizem Cd) 120 mg PO QAM [facility] Stop: 09/10/19 08:59 Famotidine (Pepcid) 20 mg PO BID [facility] Stop: 09/09/19 20:59 Last Admin: 08/11/19 08:04 Dose: 20 mg Documented by: Furosemide (Lasix) 40 mg PO BID17 [facility] Stop: 09/09/19 17:59 Last Admin: 08/11/19 08:06 Dose: Not Given Documented by: Heparin Sodium (Porcine) (Heparin Sodium (Porcine)) 5,000 units SQ Q8 [facility] Stop: 09/09/19 21:59 Last Admin: 08/11/19 06:24 Dose: 5,000 units Documented by: Ceftriaxone Sodium (Rocephin) 1,000 mg in 50 mls @ 100 mls/hr IV Q24H [facility] Stop: 08/16/19 12:59 Levothyroxine Sodium (Synthroid) 37.5 mcg PO DAILYBB [facility] Stop: 09/10/19 06:29 Last Admin: 08/11/19 06:24 Dose: 37.5 mcg Documented by: Lidocaine (Lidoderm 5%) 1 patch TD QAM [facility] Stop: 09/09/19 17:38 Last Admin: 08/11/19 08:08 Dose: 1 patch Documented by: Miscellaneous (Remove Lidoderm Patch) 1 ea N/A DAILY@2100 [facility] Stop: 09/09/19 20:59 Last Admin: 08/10/19 21:14 Dose: Not Given Documented by: Ondansetron HCl (Zofran) 4 mg IV Q6H PRN PRN Reason: Nausea Stop: 09/09/19 17:38 Last Admin: 08/11/19 02:25 Dose: 4 mg Documented by: Pantoprazole Sodium (Protonix) 40 mg PO BID [facility] Stop: 09/09/19 20:59 Last Admin: 08/11/19 08:04 Dose: 40 mg Documented by: Prednisone (Prednisone) 15 mg PO QPM [facility] Stop: 09/09/19 20:59 Last Admin: 08/10/19 21:00 Dose: 15 mg Documented by: Sevelamer HCl (Renagel) 800 mg PO TIDM [facility] Stop: 09/09/19 16:59 Last Admin: 08/11/19 08:04 Dose: 800 mg Documented by: Tramadol HCl (Ultram) 25 - 50 mg PO Q4H PRN PRN Reason: Pain Stop: 09/09/19 17:38 Last Admin: 08/10/19 23:32 Dose: 50 mg Documented by: Vitamin B Complex/Folic Acid (Nephrocaps) 1 cap PO BID [facility] Stop: 09/09/19 20:59 Last Admin: 08/11/19 08:05 Dose: 1 cap Documented by: (1) Urinary tract infection Hematuria presence: without hematuria Urinary tract infection type: site unspecified Qualified Code(s): N39.0 - Urinary tract infection, site not specified
--- NOTE | 2019-08-11 12:32 | Nephrology Consultation ---
Date of Consultation August 11, 2019 Assessment & Plan (1) ESRD (end stage renal disease) on dialysis: Madie Was admitted to the hospital with change in mental status most likely related to new medication including Amitriptyline and Baclofen. Clinically she is much improved and awake and alert. Amitriptyline Baclofen both on hold. CT head was negative. She was found to have UTI, started on empiric antibiotic. End-stage renal disease on home hemodialysis, last dialysis was Thursday, she is normally off Thursday and missed dialysis yesterday as she presented late. Electrolyte, blood pressure, volume status was acceptable on admission. --continue 3 hours dialysis today with 2 K bath, UF 2 liter --dialysis again tomorrow for 3 hours and after that if she is clinically stable, okay to be discharged and she will resume her home dialysis schedule --continue Renvela t.i.d. with meal --hemoglobin above 11, no need for SOPHIA --dose medications for GFR less than 10 --left arm nephrology precaution Will follow Thank you for allowing me to participate in your patient's care. It was a plea sure to see Madie (2) Anemia due to chronic kidney disease, on chronic dialysis: (3) Weakness: (4) Altered awareness, transient: (5) Secondary hyperparathyroidism of renal origin: History of Present Illness Reason for Consultation: End-stage renal disease on hemodialysis. Attending Physician: Umer Mariscal MD History of Present Illness Destiny Pillai is a 59-year-old female with end-stage renal disease on home hemodialysis, hypertension, interstitial lung disease admitted to the hospital with change in mental status. Nephrology consult was requested to manage hemodialysis while inpatient. Electronic medical records including labs and imaging reviewed in detail during patient's visit. Madie was brought to the hospital yesterday by her family after she was having progressive change in mental status starting few days prior to admission. She was recently started to Amitriptyline and Baclofen for back pain. Since she started on Amitriptyline she reports falling asleep easily and difficulty staying awake. She lowered her dose to 1/4 of the initial does over 3 for days however she continues to become more and more lethargic and sleepy. Yesterday morning av she reached to the point when she just was not able to wake and her brought her to the emergency room for further evaluation. By the time she was in emergency room she was much more awake and alert however remained lethargic. CT head was negative. Chest x-ray was unremarkable. Lab showed electrolyte and renal function at baseline for her ESRD status. Urinalysis showed UTI and started on empiric antibiotic. She reports having normal p.o. intake at home. She still makes urine. Amitriptyline has been on hold since Thursday and Baclofen was stopped on admission. She has end-stage renal disease, initially on in center hemodialysis however she has been on home hemodialysis since May. She dialysis 5 days a week for 2 hours 30 minutes. Last dialysis was Thursday. Electrolyte acceptable, volume status blood pressure acceptable. Currently she is getting dialysis, tolerating dialysis well. Feeling much better, had several hours of sleep last night, however still feeling lethargic. Allergies Allergy/AdvReac Type Severity Reaction Status Date / Time spironolactone Allergy Intermediate LIP Verified 08/10/19 12:48 SWELLING, COUGH nitrofurantoin Allergy Unknown Hives Verified 08/10/19 12:48 Sulfa (Sulfonamide Allergy Unknown hives- Verified 08/10/19 12:48 Antibiotics) anaphylaxis adhesive tape Allergy Redness of Verified 08/10/19 12:48 Skin sertraline Allergy Unknown Verified 08/10/19 12:48 BRITTANI Inhibitors AdvReac Unknown SWELLING, Verified 08/10/19 12:48 COUGHING benazepril AdvReac Cough Verified 08/10/19 12:48 Home Medications Home Medications Medication Instructions Recorded Confirmed Type atorvastatin 20 mg PO QAM 07/09/18 08/10/19 History sevelamer HCl [Renagel] 800 mg PO TIDM 30 Days #90 tab 04/12/19 08/10/19 Rx allopurinol 100 mg tablet 100 mg PO QAM #30 tab 04/25/19 08/10/19 Rx levothyroxine 75 mcg tablet 37.5 mcg PO QAM #30 tab 05/27/19 08/10/19 Rx B complex with C 20-folic acid 1 cap PO BID 06/04/19 08/10/19 History [Renal Caps] atovaquone 750 mg PO PM 06/04/19 08/10/19 History diltiazem HCl 120 mg PO QAM 06/04/19 08/10/19 History acetaminophen [Tylenol Extra 1,000 mg PO Q6H PRN 07/19/19 08/10/19 History Strength] calcitriol 0.25 mcg PO DAILY 07/19/19 08/10/19 History omeprazole 20 mg PO BID 07/19/19 08/10/19 History tramadol 50 mg PO Q12H PRN #15 tab 07/19/19 08/10/19 Rx amitriptyline 5 - 10 mg PO HS 08/10/19 08/10/19 History baclofen 10 mg PO DAILYBD 08/10/19 08/10/19 History furosemide 40 mg PO BID 08/10/19 08/10/19 History lidocaine 1 patch TOPICAL DAILY PRN 08/10/19 08/10/19 History prednisone 15 mg PO QPM 08/10/19 08/10/19 History Patient History Medical History Anemia due to chronic kidney disease, on chronic dialysis Asthma Chronic kidney disease, stage V (Chronic) Compression fracture of L2 vertebra Compression fracture of T12 vertebra Congenital renal atrophy ESRD (end stage renal disease) on dialysis Family history of sudden cardiac (SCD) History of colon polyps Hyperlipidemia Hypersensitivity pneumonitis Hypertension (Chronic) Hypothyroidism Immunosuppressed status Interstitial lung disease 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 [facility] JAVED (obstructive sleep apnea) Proteinuria (Chronic) Pseudotumor cerebri Secondary hyperparathyroidism Sleep apnea Vitamin D deficiency (Chronic) Surgical History Arteriovenous fistula LEFT ARM AVF: 07/27/18: MAC SEDATION AT [facility] History of cardiac cath 16 YEARS AGO= NO STENTS History of cholecystectomy History of lung biopsy 02/14/2019 THORACOCSOCPY W/ INFILTRATE BIOPSY performed by Trevon Torres MD at OR [facility] [place] Hx of dilation and curettage Family History Grandmother (Paternal) Family history of diabetes mellitus Uncle Family history of diabetes mellitus Father Cancer LUNG Mother Cancer renal cell ca Social History Preferred Language: Arabic Communication Ability: Effective Automotive Service Assistant Required: No Beliefs That Will Affect Care: None marital status: Current Living Situation: Spouse current occupational status: employed Feels Safe at Home: Yes Safety Concerns: Feels Safe At This Time Smoking Status: Never smoker Second Hand Exposure: No ; Hx Alcohol Use: No Hx Substance Use: No Review of Systems Review of Systems: All systems reviewed & are unremarkable except as noted in HPI & below Physical Exam Constitutional: WD/WN, vitals as above well developed and well nourished; no acute distress Eyes: PERRL, conjunctivae normal, anicteric sclerae ENMT: external ear and nose normal, oropharynx normal Ears: no hearing impairment Neck: trachea midline Respiratory: normal respiratory effort, lungs clear to auscultation no cough Auscultation: no crackles, no rales and no wheezes Cardiovascular: RRR, no murmur, no edema Gastrointestinal (Abdomen): normal bowel sounds, soft, nontender, no hepatosplenomegaly Percussion/Palpation: abdomen nontender, no guarding and abdomen not rigid Musculoskeletal: Extremities: extremities normal to inspection Gait: normal gait Skin: no rashes, warm and dry Neurologic: moves all extremities and awake Psychiatric: A+Ox3, euthymic affect Results & Data Vital Signs (Past 12 Hours) Vital Signs Temp Pulse Pulse Pulse Resp BP BP 08/11/19 12:00 92 H 116/72 08/11/19 11:40 101 H 118/81 08/11/19 11:20 102 H 126/84 08/11/19 11:00 97 H 121/88 08/11/19 10:40 94 H 113/71 08/11/19 10:20 95 H 124/77 08/11/19 10:00 100 H 119/68 08/11/19 09:40 100 H 129/81 08/11/19 09:20 98 H 132/68 08/11/19 09:04 37.2 C 97 H 97 H 133/73 08/11/19 07:43 37.0 C 91 H 17 134/83 Pulse Ox 08/11/19 12:00 08/11/19 11:40 08/11/19 11:20 08/11/19 11:00 08/11/19 10:40 08/11/19 10:20 08/11/19 10:00 08/11/19 09:40 08/11/19 09:20 08/11/19 09:04 08/11/19 07:43 96 PG Care Time/CCT Total # of Minutes Spent Total Time Spent with Patient: Total time spent is greater than 50% in coordination of care (as documented) at patient's floor/unit and/or counseling patient: Coding Level of Care Code 03846 Inpt Consult Level 5 Diagnoses ESRD (end stage renal disease) on dialysis N18.6; Z99.2 Anemia due to chronic kidney disease, on chronic dialysis N18.6; D63.1; Z99.2 Weakness R53.1 Altered awareness, transient R40.4 Secondary hyperparathyroidism of renal origin N25.81
[2019-08-11] MEDS: dilTIAZem HCL 120 MG CAPCR PO SCH (12:43)
[2019-08-11] MEDS: cefTRIAXone SODIUM 1,000 MG/50 ML BAG IV SCH (12:44)
[2019-08-11] MEDS ORDERED: Nursing to Pharmacy Communication ONE (16:56)
[2019-08-11] MEDS: ATOVAQUONE 750 MG/5 ML UDC PO SCH (20:49)
[2019-08-11] MEDS: predniSONE 5 MG TAB PO SCH (20:49)
[2019-08-11] MEDS ORDERED: LIDOCAINE 5% 1 PATCH TD SCH (23:00)
[2019-08-12 05:46] LABS: Hematocrit (blood only) 30.9 % (37-47); Hemoglobin 10.3 g/dL (12.0-16.0); Mean Corpuscular Hgb Conc 33.3 g/dL (32-36); Mean Platelet Volume 9.3 fL (7.4-10.4); Platelet Count 101 K/uL (130-400); RDW Coefficient of Variation 17.5 % (11.5-14.5); Red Blood Count 3.03 M/uL (4.2-5.4); White Blood Count 8.05 K/uL (4.8-10.8)
[2019-08-12] MEDS: ACETAMINOPHEN 500 MG TAB PO SCH ×3 (06:13→12:59)
[2019-08-12] MEDS: LEVOTHYROXINE SODIUM 25 MCG TABLET PO SCH (06:14)
[2019-08-12] MEDS: HEPARIN SOD 5,000 UNIT/0.5 ML VIAL SQ SCH ×2 (06:14→12:56)
[2019-08-12 06:30] LABS: BUN Creatinine Ratio 8.1 (10-20); Calcium 9.2 mg/dl (8.5-10.1); Creatinine Clr Calc Pharmacy 10.6 ml/min; Est GFR (African American) 7.8; Est GFR (Non-African American) 6.7; Phosphorus 6.1 mg/dl (2.5-4.9); Potassium 4.8 mmol/L (3.5-5.1)
--- NOTE | 2019-08-12 07:28 | Hospitalist Progress Note ---
Date of Service August 12, 2019 Assessment & Plan (1) Encephalopathy: Mix of metabolic and toxic 2/2 adverse side effects vs polypharmacy with new medications prescribed. Py also diagnosed w/UTI treated with Rocephin, urine culture growing E. coli. No evidence of sepsis and she is essentially asymptomatic otherwise. Regarding pain control - for her back, Tramadol was helpful but made her drowsy and Tylenol was effective. Continue her on APAP 1000mg q8h and add Tramadol PRN. Hold any amitriptyline or baclofen at this point. Her issue appears to be uncontrolled heartburn after switching PPIs from Prilosec (which worked) to Protonix and then a lower dose OTC Prilosec (which didn't). As we don't carry Prilosec on formulary will give her max Protonix 40 BID and Pepcid to see if this helps. Esophageal spasm always a possibility here, of course, but she is reporting clear heartburn symptoms. So would avoid any further use of the amitriptyline and the baclofen. (2) Back pain: Scheduled Tylenol, Lidoderm ordered. Tramadol for breakthrough pain. PT/OT -recommend home PT OT (3) Urinary tract infection: Urine culture positive for E. coli, sensitive to Rocephin and ciprofloxacin Patient has been treated empirically with ceftriaxone, will provide prescription for ciprofloxacin, renal dose. (4) Heartburn: Likely as result of recently switching PPIs as above. (5) Interstitial lung disease: chronic, immunosuppressed with prednisone. On Atovaquone for prophy per home regimen. No active issues. (6) ESRD (end stage renal disease) on dialysis: Consulted Nephro to assist with inpatient HD. She is on home HD. Renal diet. Cont sevelamer, Nephro caps vitamin, calcitriol. Nephrology (Dr. Young) consulted, patient underwent HD (08/10), UF 2L, and again today (08/11)w/ 2L UF (7) Immunosuppressed status: cont chronic prednisone 15mg daily (8) Thrombocytopenia: Likely 2/2 medication use (atovaquone). May be contributing to new ecchymosis seen on exam, she is also on heparin with dialysis sessions. Suspect that she bumped her limbs while confused. Cont to monitor both platelets (currently at her baseline) and bruising. (9) Hypothyroidism: Cont home synthroid (10) Anemia due to chronic kidney disease, on chronic dialysis: chronic, stable. (11) DVT prophylaxis: Heparin Full Dispo: plan to d/c home with home health/home PT OT Admission and Anticipated Discharge Date Admission Date: August 10, 2019 Anticipated date of discharge: 08/12/19 Subjective No acute events overnight. Patient is status post dialysis, feeling well. She is alert and oriented and inquires about going home. She denies any fevers, chills, chest pain, shortness of breath, dental pain, nausea or vomiting. PT and OT evaluation completed, recommend home health and home PT/OT. Patient is agreeable with this plan. Urine cltx - posit. for E. coli Review of Systems Review of Systems: All systems reviewed & are unremarkable except as noted in HPI & below Constitutional: no fever and no chills Respiratory: no cough and no dyspnea Cardiovascular: no chest pain, no palpitations and no edema Gastrointestinal: + heartburn (occasional); no abdominal pain, no nausea and no vomiting Physical Exam Physical Exam: CONSTITUTIONAL: Patient sitting up in bed, in no acute distress, breathing comfortably on room air EYES: EOMI bilaterally, PERRL, normal conjunctivae, no scleral icterus ENT: external ear and nose normal, oropharynx clear NECK: trachea midline, no lymphadenopathy RESPIRATORY: clear to auscultation bilaterally, no crackles, rales or wheezes, normal respiratory effort CARDIOVASCULAR: regular rate and rhythm, S1 and 2 heard without murmurs, gallops or rubs, no JVD, no peripheral edema GASTROINTESTINAL: normal bowel sounds, soft, nontender, nondistended MUSCULOSKELETAL: strength 5/5 throughout but some difficulty sitting up secondary to back pain, head is normocephalic and atraumatic. SKIN: warm, dry, no rashes or lesions NEUROLOGIC: Alert and oriented x3, speech fluent, no facial asymmetry, PERRL, EOMI, CN 2-12 grossly intact, no sensory deficit, no gross focal deficits, moves extremities spontaneously PSYCHIATRIC: alert, cooperative and oriented to person, place and time, euthymic effect Results & Data Results & Data ([facility]) Vital Signs (Past 12 Hours) Vital Signs Temp Pulse Resp BP Pulse Ox 08/12/19 07:12 36.8 C 87 18 101/63 95 08/11/19 23:00 37 C 92 H 18 107/69 94 Laboratory Results 08/12/19 08/12/19 08/11/19 Range/Units 05:34 05:34 06:41 WBC 8.05 (4.8-10.8) K/uL RBC 3.03 L (4.2-5.4) M/uL Hgb 10.3 L (12.0-16.0) g/dL Hct 30.9 L (37-47) % MCV 102.0 H (80-100) fL MCH 34.0 (25-34) pg MCHC 33.3 (32-36) g/dL RDW Std Deviation 65.0 H (36.4-46.3) fL RDW Coeff of Grover 17.5 H (11.5-14.5) % Plt Count 101 L (130-400) K/uL MPV 9.3 (7.4-10.4) fL Sodium 135 L 132 L (136-145) mmol/L Potassium 4.8 4.5 (3.5-5.1) mmol/L Chloride 100 96 L (98-107) mmol/L Carbon Dioxide 30 26 (21-32) mmol/L Anion Gap 5.0 10.0 (3-11) BUN 51 H 92 H (7-18) mg/dl Creatinine 6.31 H* D 7.12 H* D (0.6-1.2) mg/dl Est Cr Clr Drug Dosing 10.6 9.4 ml/min Est GFR ( Amer) 7.8 6.7 Est GFR (Non-Af Amer) 6.7 5.8 BUN/Creatinine Ratio 8.1 L 12.9 (10-20) Glucose 118 H 128 H (70-99) mg/dl Calcium 9.2 9.3 (8.5-10.1) mg/dl Phosphorus 6.1 H 7.1 H (2.5-4.9) mg/dl Magnesium 2.0 2.3 (1.8-2.4) mg/dl Total Creatine Kinase 24 L (26-192) U/L Diagnostic Findings Urine culture (08/10/2019) positive for E. coli -sensitive to ceftriaxone, ciprofloxacin. Medications Administered Current Inpatient Medications Acetaminophen (Tylenol) 1,000 mg PO Q8H CARON Stop: 09/10/19 05:59 Last Admin: 08/12/19 06:13 Dose: 1,000 mg Documented by: Allopurinol (Zyloprim) 100 mg PO QAM CARON Stop: 09/10/19 08:59 Last Admin: 08/11/19 08:05 Dose: 100 mg Documented by: Atorvastatin Calcium (Lipitor) 20 mg PO QAM CARON Stop: 09/10/19 08:59 Last Admin: 08/11/19 08:05 Dose: 20 mg Documented by: Atovaquone (Mepron) 750 mg PO PM CARON Stop: 09/09/19 20:59 Last Admin: 08/11/19 20:49 Dose: 750 mg Documented by: Calcitriol (Rocaltrol) 0.25 mcg PO DAILY CARON Stop: 09/10/19 08:59 Last Admin: 08/11/19 08:05 Dose: 0.25 mcg Documented by: Diltiazem HCl (Cardizem Cd) 120 mg PO QAM CARON Stop: 09/10/19 08:59 Last Admin: 08/11/19 12:43 Dose: 120 mg Documented by: Famotidine (Pepcid) 20 mg PO BID CARON Stop: 09/09/19 20:59 Last Admin: 08/11/19 20:49 Dose: 20 mg Documented by: Furosemide (Lasix) 40 mg PO BID17 CARON Stop: 09/09/19 17:59 Last Admin: 08/11/19 16:45 Dose: 40 mg Documented by: Heparin Sodium (Porcine) (Heparin Sodium (Porcine)) 5,000 units SQ Q8 CARON Stop: 09/09/19 21:59 Last Admin: 08/12/19 06:14 Dose: 5,000 units Documented by: Ceftriaxone Sodium (Rocephin) 1,000 mg in 50 mls @ 100 mls/hr IV Q24H CARON Stop: 08/16/19 12:59 Last Infusion: 08/11/19 13:21 Dose: Infused Documented by: Levothyroxine Sodium (Synthroid) 37.5 mcg PO DAILYBB CARON Stop: 09/10/19 06:29 Last Admin: 08/12/19 06:14 Dose: 37.5 mcg Documented by: Lidocaine (Lidoderm 5%) 1 patch TD HS CARON Stop: 09/10/19 22:59 Last Admin: 08/11/19 22:32 Dose: 1 patch Documented by: Miscellaneous (Remove Lidoderm Patch) 1 ea N/A DAILY [facility] Stop: 09/11/19 08:59 Ondansetron HCl (Zofran) 4 mg IV Q6H PRN PRN Reason: Nausea Stop: 09/09/19 17:38 Last Admin: 08/11/19 02:25 Dose: 4 mg Documented by: Pantoprazole Sodium (Protonix) 40 mg PO BID CARON Stop: 09/09/19 20:59 Last Admin: 08/11/19 20:49 Dose: 40 mg Documented by: Prednisone (Prednisone) 15 mg PO QPM CARON Stop: 09/09/19 20:59 Last Admin: 08/11/19 20:49 Dose: 15 mg Documented by: Sevelamer HCl (Renagel) 800 mg PO TIDM CARON Stop: 09/09/19 16:59 Last Admin: 08/11/19 16:46 Dose: 800 mg Documented by: Tramadol HCl (Ultram) 25 - 50 mg PO Q4H PRN PRN Reason: Pain Stop: 09/09/19 17:38 Last Admin: 08/10/19 23:32 Dose: 50 mg Documented by: Vitamin B Complex/Folic Acid (Nephrocaps) 1 cap PO BID CARON Stop: 09/09/19 20:59 Last Admin: 08/11/19 20:49 Dose: 1 cap Documented by: (1) Urinary tract infection Hematuria presence: without hematuria Urinary tract infection type: site unspecified Qualified Code(s): N39.0 - Urinary tract infection, site not specified
[2019-08-12] MEDS: SEVELAMER HCL 800 MG TABLET PO SCH ×3 (08:30→16:59)
--- NOTE | 2019-08-12 11:48 | Nephrology Progress Note ---
Date of Service August 12, 2019 Assessment & Plan (1) ESRD (end stage renal disease) on dialysis: Madie Was admitted to the hospital with change in mental status most likely related to new medication including Amitriptyline and Baclofen. Clinically she is much improved and awake and alert. Amitriptyline Baclofen both on hold. CT head was negative. She was found to have UTI, started on empiric antibiotic. End-stage renal disease on home hemodialysis, last dialysis was Thursday, she is normally off Thursday and missed dialysis yesterday as she presented late. Electrolyte, blood pressure, volume status was acceptable on admission. Had 3 hours dialysis yesterday, overall clinically improved and seems to be at her baseline, blood pressure, volume status acceptable. --continue 3 hours dialysis today with 3 K bath, UF 2 liter. She will resume home dialysis from Thursday night. Okay to be discharged from Nephrology standpoint as she looks like at her baseline clinically however, if she stays overnight will do dialysis tomorrow morning for 3 hours. --continue Renvela t.i.d. with meal --dose medications for GFR less than 10 --left arm nephrology precaution Will follow (2) Anemia due to chronic kidney disease, on chronic dialysis: (3) Weakness: (4) Altered awareness, transient: (5) Secondary hyperparathyroidism of renal origin: Admission and Anticipated Discharge Date Admission Date: August 10, 2019 Subjective Madie was seen and examined during dialysis this morning. She is feeling much better today, denies any sleepiness, unusual fatigue or tiredness. Feels at her baseline and looking forward to go home this afternoon. Has been tolerating dialysis, tolerating UF, blood pressure stable. Review of Systems Review of Systems: All systems reviewed & are unremarkable except as noted in HPI & below Physical Exam Constitutional: WD/WN, vitals as above well developed and well nourished; no acute distress Respiratory: normal respiratory effort, lungs clear to auscultation no cough Auscultation: no crackles, no rales and no wheezes Cardiovascular: RRR, no murmur, no edema Gastrointestinal (Abdomen): normal bowel sounds, soft, nontender, no hepatosplenomegaly Percussion/Palpation: abdomen nontender, no guarding and abdomen not rigid Skin: no rashes, warm and dry Neurologic: moves all extremities and awake Psychiatric: A+Ox3, euthymic affect Results & Data ([facility]) Vital Signs (Past 12 Hours) Vital Signs Temp Pulse Pulse Pulse Resp BP BP 08/12/19 11:40 77 122/83 08/12/19 11:20 88 118/77 08/12/19 11:00 90 119/75 08/12/19 10:40 88 117/69 08/12/19 10:20 88 119/73 08/12/19 10:00 88 121/74 08/12/19 09:40 97 H 124/66 08/12/19 09:20 90 118/72 08/12/19 09:07 36.9 C 90 08/12/19 07:12 36.8 C 87 18 101/63 Pulse Ox 08/12/19 11:40 08/12/19 11:20 08/12/19 11:00 08/12/19 10:40 08/12/19 10:20 08/12/19 10:00 08/12/19 09:40 08/12/19 09:20 08/12/19 09:07 08/12/19 07:12 95 PG Care Time/CCT Total # of Minutes Spent Total Time Spent with Patient: Total time spent is greater than 50% in coor dination of care (as documented) at patient's floor/unit and/or counseling patient: Coding Level of Care Code 03585 Subseq Hosp Care Lvl 3 Diagnoses ESRD (end stage renal disease) on dialysis N18.6; Z99.2 Anemia due to chronic kidney disease, on chronic dialysis N18.6; D63.1; Z99.2 Weakness R53.1 Altered awareness, transient R40.4 Secondary hyperparathyroidism of renal origin N25.81
[2019-08-12] MEDS: FUROSEMIDE 40 MG TAB PO SCH ×2 (12:54→16:59)
[2019-08-12] MEDS: FAMOTIDINE 20 MG TAB PO SCH (12:54)
[2019-08-12] MEDS: ATORVASTATIN 20 MG TAB PO SCH (12:54)
[2019-08-12] MEDS: NEPHROCAPS PO SCH (12:54)
[2019-08-12] MEDS: CALCITRIOL 0.25 MCG CAPSULE PO SCH (12:55)
[2019-08-12] MEDS: allopurinoL 100 MG TAB PO SCH (12:55)
[2019-08-12] MEDS: dilTIAZem HCL 120 MG CAPCR PO SCH (12:55)
[2019-08-12] MEDS: PANTOprazole 40 MG TAB PO SCH (12:55)
[2019-08-12] MEDS: cefTRIAXone SODIUM 1,000 MG/50 ML BAG IV SCH (12:56)
--- NOTE | 2019-08-12 16:49 | Discharge Summary ---
Date of Service August 12, 2019 Admission HPI Per Admitting Provider 59 yo F presented to the ER after confusion noted at home this morning. She reports a nontraumatic vertebral body compression fracture approximately 3 weeks ago and has been using PM Tramadol to help with the pain. She reports success with this. However, she also developed some worsened substernal heartburn after switching off the Prilosec BID to pantoprozole, which occurred mid-May. Since that time she has tried OTC Prilosec, which helped her discomfort somewhat but she feels she wasn't taking a strong enough dose. As a result she reached out to [facility] and was placed on Amitriptyline and Baclofen, which she started the same day 4-5 days ago. She reports feeling very fatigued the next day and continued to decrease the amitriptyline dose, even taking a 1/4 pill at one point. She continued to have severe fatigue. Although she is asymptomatic, somewhere along the line she also developed a UTI, which she reports is very common for her. She is a home hemodialysis patient and dose still make urine. She denies dysuria or pelvic pain, no fevers, chills, or GI symptom aside from severe heartburn on occasion (jess in response to cold liquids) and no changes in her bowels. She last took Tramadol and Baclofen last night but has stayed away from the amitryptiline for a couple of days. She reports tolerating PO, denies chest pain or shortness of breath, denies headache, sore throat, congestion, or any other respiratory symptoms. She has remained quarantined with her and 17 yo son, and denies travel or any association with a known COVID-19 positive patient. ROS otherwise reveals a new finding of scattered round areas of ecchymosis that are around 5mm in diameter. No raised areas or erythema is present and this started last evening. Platelets and coags are WNL and no other reports of bleeding per patient. No pruritis or pain associated with these lesions which are on her arms and legs. Admission Exam Per Admitting Provider CONSTITUTIONAL: obesity, vitals as above, generally well-appearing EYES: EOMI bilaterally, PERRL, normal conjunctivae, no scleral icterus ENT: external ear and nose normal, oropharynx clear, no maxillary or ethmoid sinus tenderness NECK: trachea midline, no lymphadenopathy RESPIRATORY: clear to auscultation bilaterally, no crackles, rales or wheezes, normal respiratory effort CARDIOVASCULAR: regular rate and rhythm, S1 and 2 heard without murmurs, gallops or rubs, no JVD, no peripheral edema GASTROINTESTINAL: normal bowel sounds, soft, nontender, nondistended MUSCULOSKELETAL: strength 5/5 throughout but some difficulty sitting up secondary to back pain, head is normocephalic and atraumatic. No spinal tenderness to palpation along entire spine, Lidoderm patch partially stuck to back was removed and area of the right lower back revealed pain to palpation. SKIN: warm and dry, small, round areas of scattered ecchymosis on arms and legs RA>LA. No erythema, raised areas or evidence of scratching. NEUROLOGIC: patellar DTR could not be elicited. PERRL, EOMI, no facial palsy, no dysarthria. CN 2-12 grossly intact, no sensory deficit, normal cognition, normal speech, no tremor, no gross focal deficits. PSYCHIATRIC: alert cooperative and oriented to person, place and time. Principal Diagnosis Encephalopathy secondary to medications UTI Discharge Exam CONSTITUTIONAL: Patient sitting up in bed, in no acute distress, breathing comfortably on room air EYES: EOMI bilaterally, PERRL, normal conjunctivae, no scleral icterus ENT: external ear and nose normal, oropharynx clear NECK: trachea midline, no lymphadenopathy RESPIRATORY: clear to auscultation bilaterally, no crackles, rales or wheezes, normal respiratory effort CARDIOVASCULAR: regular rate and rhythm, S1 and 2 heard without murmurs, gallops or rubs, no JVD, no peripheral edema GASTROINTESTINAL: normal bowel sounds, soft, nontender, nondistended MUSCULOSKELETAL: strength 5/5 throughout but some difficulty sitting up secondary to back pain, head is normocephalic and atraumatic. SKIN: warm, dry, no rashes or lesions NEUROLOGIC: Alert and oriented x3, speech fluent, no facial asymmetry, no sensory deficit, no gross focal deficits, moves extremities spontaneously PSYCHIATRIC: alert and oriented x3, euthymic effect Discharge Data Allergies Allergy/AdvReac Type Severity Reaction Status Date / Time spironolactone Allergy Intermediate LIP Verified 08/10/19 12:48 SWELLING, COUGH nitrofurantoin Allergy Unknown Hives Verified 08/10/19 12:48 Sulfa (Sulfonamide Allergy Unknown hives- Verified 08/10/19 12:48 Antibiotics) anaphylaxis adhesive tape Allergy Redness of Verified 08/10/19 12:48 Skin sertraline Allergy Unknown Verified 08/10/19 12:48 BRITTANI Inhibitors AdvReac Unknown SWELLING, Verified 08/10/19 12:48 COUGHING benazepril AdvReac Cough Verified 08/10/19 12:48 Consultations 08/10/19 13:53 ED Decision to Admit Stat 08/10/19 17:39 Consult Case Management - Discharge Planning Routine Consult Nephrology Routine Ordered Studies 08/10/19 11:37 CT head/brain wo con Stat IMPRESSION: 1. No acute intracranial abnormality. Hospital Course (1) Encephalopathy: Now resolved Mix of metabolic and toxic 2/2 adverse side effects vs polypharmacy with new medications prescribed. Py also diagnosed w/UTI treated with Rocephin, urine culture growing E. coli. No evidence of sepsis and she is essentially asymptomatic otherwise. Regarding pain control - for her back, Tramadol was helpful but made her drowsy and Tylenol was effective. Recommend to take Tylenol, up to 3000 mg a day, and add tramadol PRN. Hold any amitriptyline or baclofen. Her issue appears to be uncontrolled heartburn after switching PPIs from P rilosec (which worked) to Protonix and then a lower dose OTC Prilosec (which didn't). As we don't carry Prilosec on formulary provided her with max Protonix 40 BID and Pepcid to see if this helps. Patient's acid reflux seems to be much better controlled, plan to discharge patient on Pepcid in addition to her omeprazole. Esophageal spasm always a possibility here, of course, but she is reporting clear heartburn symptoms. So would avoid any further use of the amitriptyline and the baclofen. (2) Back pain: Scheduled Tylenol,also provided Lidoderm patch. Tramadol for breakthrough pain. PT/OT -recommend home PT OT -May need outpatient Ortho/spine consult regarding her compression fractures (3) Urinary tract infection: Urine culture positive for E. coli, sensitive to Rocephin and ciprofloxacin Patient has been treated empirically with ceftriaxone while inpt, will provide prescription for ciprofloxacin, renal dose. (4) Heartburn: Likely as result of recently switching PPIs as above. (5) Interstitial lung disease: chronic, immunosuppressed with prednisone. On Atovaquone for prophy per home regimen. No active issues. (6) ESRD (end stage renal disease) on dialysis: Consulted Nephro to assist with inpatient HD. She is on home HD. Renal diet. Cont sevelamer, Nephro caps vitamin, calcitriol. Nephrology (Dr. Young) consulted, patient underwent HD (08/10), UF 2L, and again today (08/11) w/ 2L UF (7) Immunosuppressed status: cont chronic prednisone 15mg daily (8) Thrombocytopenia: Likely 2/2 medication use (atovaquone). May be contributing to new ecchymosis seen on exam, she is also on heparin with dialysis sessions. Suspect that she bumped her limbs while confused. Cont to monitor both platelets (currently at her baseline) and bruising. (9) Hypothyroidism: Cont home synthroid (10) Anemia due to chronic kidney disease, on chronic dialysis: chronic, stable. (11) DVT prophylaxis: Heparin Full Dispo: plan to d/c home with home health/home PT OT Total Time Total Time Spent Total Time Spent (In Minutes): 40 Total Time Includes: Examination of the Patient, Discharge Planning, Medication Reconciliation and Communication With Other Providers Discharge Plan Discharge Items Patient Disposition: Home - Home Health Services Reason For Visit: ENCEPHALOPATHY Discharge Diagnosis: Encephalopathy secondary to medications UTI Condition on Discharge: Good Activity: As commented below Non-emergency contact: Primary Care Provider, [employer] In Call non-emergency contact if: you have any medication questions and your symptoms worsen Follow-up/Referrals: Kenton Salamanca MD [Primary Care Provider] - Diet: Dialysis Renal Addtl Attending Provider Instructions: For pain recommend taking Tylenol, max dose 3,000 mg a day. For more severe pain, you can continue to take your tramadol. You can also use lidocaine patch, which you can obtain [id number], usually under the name of Salonpas. Recommend to stop taking amitriptyline and baclofen. To help with your acid reflux, added to your home omeprazole, famotidine. You were treated for UTI while you were in the hospital, take ciprofloxacin once a day after dialysis for next 2 days. Recommend to follow-up with your primary care doctor within 1 to 2 weeks. You may also need to be evaluated by orthopedic/spine surgery regarding your compression fractures. Pending Studies at Discharge: No Stand-Alone Forms: My [facility], Smoking Cessation Medications and DC Order Prescriptions: New famotidine 20 mg Tablet 20 mg PO BID 30 Days Qty: 60 RF: 0 ciprofloxacin HCl 250 mg tablet 250 mg PO DAILY Qty: 2 RF: 0 Continued allopurinol 100 mg tablet 100 mg PO QAM Qty: 30 RF: 5 levothyroxine 75 mcg tablet 37.5 mcg PO QAM Qty: 30 RF: 1 atorvastatin 20 mg Tablet 20 mg PO QAM RF: 0 sevelamer HCl [Renagel] 800 mg tablet 800 mg PO TIDM 30 Days Qty: 90 RF: 2 acetaminophen [Tylenol Extra Strength] 500 mg Tablet 1,000 mg PO Q6H PRN (Reason: Pain) RF: 0 omeprazole 20 mg capsule,delayed release(DR/EC) 20 mg PO BID RF: 0 calcitriol 0.25 mcg capsule 0.25 mcg PO DAILY RF: 0 tramadol 50 mg tablet 50 mg PO Q12H PRN (Reason: pain) Qty: 15 RF: 0 diltiazem HCl 120 mg capsule,extended release 24hr 120 mg PO QAM RF: 0 Renal Caps 1 mg capsule 1 cap PO BID RF: 0 atovaquone 750 mg/5 mL suspension 750 mg PO PM RF: 0 prednisone 10 mg tablet 15 mg PO QPM RF: 0 lidocaine 4 % Adhesive Patch,Medicated 1 patch TOPICAL DAILY PRN (Reason: Pain) RF: 0 furosemide 40 mg tablet 40 mg PO BID RF: 0 Discontinued amitriptyline 10 mg tablet 5 - 10 mg PO HS RF: 0 baclofen 10 mg tablet 10 mg PO DAILYBD RF: 0 Discharge Orders: Discharge Order (Routine); Ordered 08/12/19 Ordered By: Umer Mariscal Admission Data Admit Date/Time: 08/10/19 16:15 Attending Provider: Umer Mariscal Admit Provider: Honey Augero Primary Care Provider: Kenton Salamanca Other Providers: Honey Aguero ; Mirela Young ; [facility]
== END 2019-08-12 18:49 | disposition home health service (06) | DRG 70 ==
LOC: ED 11:31 → SUATTDRO 16:15 → 2N 16:15

== ENCOUNTER 2024-07-20 13:13 | Inpatient (IN) ==
--- NOTE | 2024-07-20 13:59 | Electrocardiogram Report ---
Test Reason : Blood Pressure : */* mmHG Vent. Rate : 71 BPM Atrial Rate : 71 BPM P-R Int : 168 ms QRS Dur : 84 ms QT Int : 430 ms P-R-T Axes : 56 43 55 degrees QTcB Int : 467 ms Normal sinus rhythm Left atrial enlargement Poor R wave progression, consider anterior TX vs. lead placement vs. LVH Nonspecific T wave abnormality Anteroseptal leads Abnormal ECG When compared with ECG of 07-Jun-2024 18:03, Inverted T waves have replaced nonspecific T wave abnormality in Anteroseptal leads Confirmed by Nick Moy ([id number]) on 07/20/2024 1:59:07 PM Referred By: Confirmed By: Nick Moy
[2024-07-20 14:01] LABS: Basophils # (auto) 0.02 K/uL (0.00-0.20); Basophils % (auto) 0.3 %; Eosinophils # (auto) 0.26 K/uL (0.00-0.50); Eosinophils % (auto) 4.3 %; Hematocrit (blood only) 38.3 % (37.0-47.0); Hemoglobin 12.8 g/dl (12.0-16.0); Immature Granulocytes # (auto) 0.01 K/uL (0.01-0.20); Immature Granulocytes % (auto) 0.2 %; Lymphocytes # (auto) 2.57 K/uL (1.20-3.40); Lymphocytes % (auto) 42.1 %; Mean Corpuscular Hemoglobin 30.9 pg (25.0-34.0); Mean Corpuscular Hgb Conc 33.4 g/dL (32.0-36.0); Mean Corpuscular Volume 92.5 fL (80.0-100.0); Mean Platelet Volume 9.5 fL (9.4-12.4); Monocytes # (auto) 0.58 K/uL (0.11-0.59); Monocytes % (auto) 9.5 %; Neutrophils # (auto) 2.67 K/uL (1.40-6.50); Neutrophils % (auto) 43.6 %; Platelet Count 147 K/uL (130-400); RDW Coefficient of Variation 13.2 % (11.5-14.5); RDW Standard Deviation 44.9 fL (36.4-46.3); Red Blood Count 4.14 M/uL (4.20-5.40); White Blood Count 6.11 K/ul (4.8-10.8)
--- NOTE | 2024-07-20 14:05 | Emergency Department Note ---
Impression & Plan CHF (congestive heart failure) Admission ED Provider Note HPI: History obtained from patient. The patient is a 64-year-old female with complex past medical history including end-stage renal disease status post transplant, on chronic immunosuppressant therapy, hypertension, CHF, history of hypersensitivity pneumonitis, presents the emergency department today with chief complaint of dyspnea on exertion and chest pressure. Patient states that the symptoms have been worsening over the past several days. Patient states her main symptom is dyspnea on exertion. Patient states that she is taking her metoprolol as prescribed however this morning she also noticed that her blood pressure was elevated in the 170s. Given her history of renal transplant she became concerned and contacted both her sports medicine specialist and her pelt dropper office. She was advised to come to the emergency department for further assessment. On arrival here to the ED the patient is hypertensive but otherwise hemodynamically stable, she appears to be in no acute distress on my initial assessment, she is saturating well on room air. ROS: - Per HPI Differential Diagnosis: Acute CHF exacerbation, pulmonary edema, acute coronary syndrome, NSTEMI, pleural effusion, amongst other potential pathologies. *Outpatient medications and allergy history reviewed. 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 Lab work shows no leukocytosis, hemoglobin is normal, platelet count is normal, CMP does not show any evidence of any critical findings. Troponin is negative, BNP is moderately elevated at 239. Patient's chest x-ray is suggestive of pulmonary vascular congestion, I suspect that this is the source of her dyspnea on exertion. I did receive a call from patient's pelt dropper, Dr. Sheth, prior to her presentation to inform me that she would be coming in. They would like her admitted to obtain echocardiography and also nephrology consultation for her hypertension. Given her allergies and medical complexity will defer diuresis to the inpatient team. I discussed the patient's presentation with the on-call hospitalist for [facility], Dr. Donovan, and the patient was placed for admission in stable condition. Consultants/Discussions held with other healthcare providers: -Hospitalist, Dr. Donovan Disposition discussion held by myself with: -Patient Diagnosis: 1. CHF exacerbation, acute 2. History of kidney transplant, on immunosuppressive therapy 3. Hypertension, established Disposition: Admission Cameron Christensen DO Emergency Medicine Past Med/Surg History Problem List (Updated 07/20/24 @ 19:19 by Cameron Christensen DO) CHF (congestive heart failure) (Acute) Acute heart failure with preserved ejection fraction Exertional angina Cystitis Hyperlipidemia Kidney transplant recipient Osteoporosis Abdominal pain Bloating Encounter for pre-operative examination CHF (congestive heart failure) (Chronic) Hyperglycemia (Chronic) Dysphagia (Chronic) Heartburn (Chronic) Hypersensitivity pneumonitis (Chronic) ESRD (end stage renal disease) on dialysis (Chronic) on home dialysis--does it 5 days a week Compression fracture of T12 vertebra (Chronic) Compression fracture of L2 vertebra (Chronic) Anemia due to chronic kidney disease, on chronic dialysis (Chronic) Thrombocytopenia (Chronic) GERD (gastroesophageal reflux disease) (Chronic) Multinodular goiter (nontoxic) (Chronic) Osteoporosis (Chronic) Secondary hyperparathyroidism of renal origin (Chronic) JAVED (obstructive sleep apnea) (Chronic) no device Immunosuppressed status (Chronic) Interstitial lung disease (Chronic) 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 [facility] Vitamin D deficiency (Chronic) Hypertension (Chronic) Medical History Kidney transplant status AV fistula remains in place at this time but pt currently is not undergoing any dialysis Chronic steroid use for interstitial lung disease Encephalopathy Pseudotumor cerebri Hypersensitivity pneumonitis Weakness Hemoptysis Hypoxia Congenital renal atrophy Asthma Surgical History S/P thyroid biopsy History of kidney transplant (~08/2020) [place] [facility] [place] History of esophagogastroduodenoscopy (EGD) History of colonoscopy with polypectomy History of lung biopsy 02/14/2019 THORACOCSOCPY W/ INFILTRATE BIOPSY performed by Trevon Torres MD at [place] [facility] [place] Arteriovenous fistula LEFT ARM AVF: 07/27/18: MAC SEDATION AT [facility] History of cholecystectomy Hx of dilation and curettage History of cardiac cath 16 YEARS AGO= NO STENTS Family History Grandmother (Paternal) Family history of diabetes mellitus Uncle Family history of diabetes mellitus Father Cancer LUNG Mother Cancer renal cell ca Family history of reaction to anesthesia slow to wake up Social History Smoking Status: Never smoker Second Hand Exposure: No; Do You Dip or Chew Tobacco: No; Tobacco Cessation Education Requested by Patient: No Hx Alcohol Use: No Hx Substance Use: No Preferred Language: Greenlandic Communication Ability: Effective Visual Impairment: No Limitations Grant Coordinator Required: No Beliefs That Will Affect Care: None marital status: Current Living Situation: Spouse Current Living Situation Comment: current occupational status: employed Other Information That Helps Us Care for You: No Feels Safe at Home: Yes Safety Concerns: Feels Safe At This Time Diet: regular Physical Activity Frequency: Does not Exercise Seatbelt Use: always Do you think of yourself as: straight/heterosexual Gender Identity: Female Assistive Devices: None Allergies Allergies Allergy/AdvReac Type Severity Reaction Status Date / Time Sulfa (Sulfonamide Allergy Severe hives- Verified 07/20/24 15:09 Antibiotics) anaphylaxis nitrofurantoin Allergy Intermediate Hives Verified 07/20/24 15:09 spironolactone Allergy Intermediate LIP Verified 07/20/24 15:09 SWELLING, COUGH BRITTANI Inhibitors Allergy Mild SWELLING, Verified 07/20/24 15:09 COUGHING adhesive tape Allergy Mild Redness of Verified 07/20/24 15:09 Skin benazepril AdvReac Intermediate Cough Verified 07/20/24 15:09 prochlorperazine AdvReac Intermediate Agitated Verified 07/20/24 15:09 [From Compazine] sertraline AdvReac Intermediate prolonged Verified 07/20/24 15:09 QT interval Home Meds Home Medications Medication Instructions Recorded Confirmed atorvastatin 20 mg tablet 20 mg PO QAM 07/09/18 07/20/24 aspirin 81 mg tablet,delayed 81 mg PO QAM 03/13/21 07/20/24 release (Adis Low Dose Aspirin) multivitamin with iron 1 tab PO QAM 03/13/21 07/20/24 mycophenolate sodium 180 mg 180 mg PO BID 03/13/21 07/20/24 tablet,delayed release tacrolimus 0.75 mg tablet,extended 1.5 mg PO QAM 07/20/24 07/20/24 release 24 hr (Envarsus XR) Previous Rx's Medication Instructions Recorded metoprolol succinate 25 mg 25 mg PO BID #60 tabs 06/16/24 tablet,extended release 24 hr Results & Data (ED) Vital Signs Vital Signs - 24 hr 07/20/24 13:18 07/20/24 13:23 07/20/24 13:45 Temperature 37 C Temperature Source Temporal Artery Scan Pulse Rate 70 Respiratory Rate 16 Respiratory Effort / Characteristics Non-Labored Non-Labored Respiratory Depth Normal Normal Respiratory Pattern Regular Blood Pressure 163/78 H Blood Pressure Mean 106 Pulse Oximetry 94 97 Oxygen Delivery Method Room Air Room Air Room Air Sepsis Recent Fever Within 48 Hours No Sepsis New/Unexplained Change in Mental Status N/A Sepsis Action Taken by Nursing No Action Required 07/20/24 13:52 Temperature Temperature Source Pulse Rate 68 Respiratory Rate Respiratory Effort / Characteristics Respiratory Depth Respiratory Pattern Blood Pressure Blood Pressure Mean Pulse Oximetry Oxygen Delivery Method Sepsis Recent Fever Within 48 Hours Sepsis New/Unexplained Change in Mental Status Sepsis Action Taken by Nursing Laboratory Data 07/20/24 13:40 07/20/24 13:40 Lab Results 07/20/24 Range/Units 13:40 WBC 6.11 (4.8-10.8) K/ul RBC 4.14 L (4.20-5.40) M/uL Hgb 12.8 (12.0-16.0) g/dl Hct 38.3 (37.0-47.0) % MCV 92.5 (80.0-100.0) fL MCH 30.9 (25.0-34.0) pg MCHC 33.4 (32.0-36.0) g/dL RDW Std Deviation 44.9 (36.4-46.3) fL RDW Coeff of Grover 13.2 (11.5-14.5) % Plt Count 147 (130-400) K/uL MPV 9.5 (9.4-12.4) fL Immature Gran % (Auto) 0.2 % Neut % (Auto) 43.6 % Lymph % (Auto) 42.1 % [place] % (Auto) 9.5 % Eos % (Auto) 4.3 % Baso % (Auto) 0.3 % Neut # (Auto) 2.67 (1.40-6.50) K/uL Lymph # (Auto) 2.57 (1.20-3.40) K/uL [place] # (Auto) 0.58 (0.11-0.59) K/uL Eos # (Auto) 0.26 (0.00-0.50) K/uL Baso # (Auto) 0.02 (0.00-0.20) K/uL Immature Gran # (Auto) 0.01 (0.01-0.20) K/uL PT 10.6 (9.0-12.0) Seconds INR 1.0 (0.9-1.1) APTT 25 (21-31) Seconds PTT Ratio 0.9 Sodium 140 (136-145) mmol/L Potassium 4.0 (3.5-5.1) mmol/L Chloride 106 (98-107) mmol/L Carbon Dioxide 30 (21-32) mmol/L Anion Gap 4 (3-11) BUN 20 (6-23) mg/dl Creatinine 0.96 (0.6-1.2) mg/dl Est Cr Clr Drug Dosing 63.0 ml/min eGFR 66.90 BUN/Creatinine Ratio 20.8 H (10-20) Glucose 112 H (70-99(Fasting)) mg/dl Calcium 9.6 (8.6-10.3) mg/dl Total Bilirubin 0.6 (0.2-1.0) mg/dl AST 15 (13-39) U/L ALT 12 (7-52) U/L Alkaline Phosphatase 55 (34-104) U/L Troponin I High Sens < 2.3 (0-14) pg/ml B-Natriuretic Peptide 239 H (0-100) pg/ml Total Protein 7.1 (6.0-8.3) gm/dl Albumin 4.4 (3.4-5.0) gm/dl Globulin 2.7 (2.5-4.0) gm/dl Albumin/Globulin Ratio 1.6 (0.9-2) Administered Medications Ethacrynic Acid (Ethacrynic Acid 25 Mg Tab) 25 mg PO QAM [facility] Stop: 08/19/24 16:44 Last Admin: 07/20/24 17:30 Dose: 25 mg Documented By: DELIO Nitroglycerin (Nitroglycerin 2% Ointment 30gm Tube) 0.5 inch EXT Q6H [facility] Stop: 08/19/24 16:59 Last Admin: 07/20/24 17:30 Dose: 0.5 inch Documented By: DELIO Imaging Data Radiologist's Impression: Chest X-Ray 07/20/24 13:23 XR chest 1V portable CLINICAL HISTORY: Chest pain, nonspecific COMPARISON STUDY: 06/07/2024 FINDINGS: The radiographic findings are stable demonstrating cardiomegaly with left ventricular prominence and pronounced pulmonary vascular congestion. Curly B lines are present suggesting interstitial pulmonary edema presumably on a cardiogenic basis. There is no focal airspace opacity. There is minor blunting of the right costophrenic angle. There is persistent prominence of the right hilum which may be vascular superimposition but a right hilar mass or adenopathy is not excluded. IMPRESSION: Cardiomegaly and pulmonary vascular congestion. Probable CHF with mild interstitial pulmonary edema and a trace right pleural effusion. Prominent right hilum as described. ACT 112: Negative or not required by law. Electronically signed by: Leigh Ann Guzman M.D. 07/20/2024 2:17 PM Discharge Plan Visit Data Chief Complaint: Cardiac Assessment Stated Complaint: POSSIBLE CONGESTIVE HEART FAILURE ED Provider: Cameron Christensen Discharge Problem: CHF (congestive heart failure) Patient Disposition: Admitted As Inpatient Discharge Instructions Interventions: ED Discharge Assessment Last Done: 07/20/24 16:48
[2024-07-20 14:19] LABS: Albumin Level 4.4 gm/dl (3.4-5.0); Anion Gap 4 (3-11); Bilirubin,Total 0.6 mg/dl (0.2-1.0); Calcium 9.6 mg/dl (8.6-10.3); Carbon Dioxide 30 mmol/L (21-32); Chloride 106 mmol/L (98-107); Sodium 140 mmol/L (136-145)
--- NOTE | 2024-07-20 14:19 | XRay Report ---
XR chest 1V portable CLINICAL HISTORY: Chest pain, nonspecific COMPARISON STUDY: 06/07/2024 FINDINGS: The radiographic findings are stable demonstrating cardiomegaly with left ventricular promi nence and pronounced pulmonary vascular congestion. Curly B lines are present suggesting interstitial pulmonary edema presumably on a cardiogenic basis. There is no focal airspace opacity. There is lilo r blunting of the right costophrenic angle. There is persistent prominence of the right hilum which m ay be vascular superimposition but a right hilar mass or adenopathy is not excluded. IMPRESSION: Cardiomegaly and pulmonary vascular congestion. Probable CHF with mild interstitial pulm onary edema and a trace right pleural effusion. Prominent right hilum as described. ACT 112: Negative or not required by law. Electronically signed by: Leigh Ann Guzman M.D. 07/20/2024 2:17 PM
[2024-07-20 14:25] LABS: Alanine Aminotransferase 12 U/L (7-52); Albumin Globulin Ratio 1.6 (0.9-2); Alkaline Phosphatase 55 U/L (34-104); Aspartate Aminotransferase 15 U/L (13-39); BUN Creatinine Ratio 20.8 (10-20); Blood Urea Nitrogen 20 mg/dl (6-23); Globulin 2.7 gm/dl (2.5-4.0); Glucose 112 mg/dl (70-99(Fasting)); Total Protein 7.1 gm/dl (6.0-8.3); Troponin I High Sensitivity < 2.3 pg/ml (0-14)
[2024-07-20 14:28] LABS: Partial Thromboplastin Ratio 0.9; Partial Thromboplastin Time 25 Seconds (21-31); Prothrombin Time 10.6 Seconds (9.0-12.0)
--- NOTE | 2024-07-20 15:20 | Cardiology Consultation ---
Date of Consultation July 20, 2024 Assessment & Plan (1) Hypertension: (2) Kidney transplant recipient: (3) Acute heart failure with preserved ejection fraction: (4) Shortness of breath: Plan Patient admitted with symptoms of progressive SOB, edema, weight gain, chest tightness, mild hypoxia. Findings consistent with probable acute on chronic HF exacerbation in setting of uncontrolled hypertension over the last few weeks/months. Chest xray with probable pulm vascular congestion. Would benefit from IV diuretics. Treatment options complicated by renal transplant status and intolerance to loop diuretics due to sulfa allergy. In the past she has been only able to take Ethacrynic acid as the choice of diuretic. If acceptable with nephrology, would start diuretic. Renal function appears at baseline with creatinine of 0.9. Stable electrolytes Diuresis may also aid uncontrolled HTN. Continue metoprolol succinate 25 mg BID. Her exertional dyspnea may be multifactorial with HTN and volume overload. Update echo. HS troponin negative x1. Repeat serial troponin for completeness. EKG without acute ischemic changes when compared with past tracings. After diuresis and BP management, consider outpatient nuclear Lexiscan stress test. Further recommendations pending admission, further evaluation, and discussion with Dr. Mccarthy and other specialists. Would consult [place] nephrology (Dr. Corona) to aid with her treatment as well. Case discussed with Dr. Sheth I spent a total of 60 minutes on the date of service in preparation, delivery, and documentation of the care provided to this patient, excluding any time spent in the performance of separately billed services. Makayla Aranda PA-C Department of Cardiology, [facility] This chart was completed in part utilizing Speech Voice Recognition Software. Grammatical errors, random word insertions, pronoun errors, and incomplete sentences are an occasional consequence of this system due to software limitations, ambient noise, and hardware issues. Any formal questions or concerns about the content, text, or information contained within the body of this dictation should be directly addressed to the provider for clarification. Supervising Physician Co-Signing Physician Notes I have personally performed a history and physical examination on the patient. I have reviewed the advance practitioner's documentation, and I agree with, and take responsibility for the plan of care. 64-year-old female presents with hypertensive urgency and acute heart failure with preserved ejection fraction. History of renal transplantation in 2020. Echocardiogram demonstrating preserved LV systolic function with without significant valvular pathology. Will initiate diuresis with ethacrynic acid 25 mg daily, first dose now due to sulfa allergy. Continue metoprolol as ordered. Add topical nitrates for afterload reduction. Monitor fluid balance, daily weight, GFR, and electrolytes. Nephrology consultation pending. Ischemic evaluation when improved from hypertension/heart failure perspective. I spent a total of 30 minutes on the date of service in preparation, delivery, and documentation of the care provided to this patient, excluding any time spent in the performance of separately billed services. Shorty Mccarthy DO, [facility] History of Present Illness Reason for Consultation: SOB; HTN Requesting Physician: Lois Sears Attending Physician: Dr. Mccarthy History of Present Illness Patient presenting to ER today for evaluation of worsening SOB with exertion, orthopnea, and uncontrolled HTN. She was recently in the ER for headache and uncontrolled hypertension in May 2024. Told to f/u with still pump operator and started on metoprolol succinate 25 mg daily. This was ultimately increased to 25 mg BID due to persistently elevated BP. She reports her headaches and BP improved with therapies. However over the last few months patient developed worsening SOB with activities and minimal ambulation. She attributed this to lack of exercise and prior history of pneumonitis. This past weekend, patient was in the yard doing mild yard work and became fatigued, SOB, and mild chest tightness. She had to sit down and rest frequently. She notes mild chronic edema, worse at the end of the day, but admits this has been increasing over the last few weeks. She believes her weight is up about 5 lbs over her baseline. This morning she was awakened from sleep with SOB, and chest tightness. Oxygen saturations was in the low 90's and BP was elevated. She contacted the cardiology office and spoke with Dr. Sheth. Due to her symptoms of chest pressure, SOB, and HTN, she was referred to the ER. She has a complicated past history with renal transplant, followed closely by Dr. Corona. She is intolerant to most loop diuretics due to sulfa allergy. She has only been able to take Ethacrynic acid in the past. Since admission, EKG demonstrating NSR without acute ischemic changes. HS troponin unremarkable. BNP is elevated at 239. Chest xray with pulm vascular congestion, worse since prior evaluation in May. Other labs were unremarkable. Normal renal funciton. BP elevated. No headaches. At time of evaluation, patient resting in bed. No current chest tightness but ongoing SOB and cough reported. No specific orhtopnea, but patient admits to sleeping in a recliner for "comfort". No dizziness. No palpitations. No fever or chills history includes: 1. Diastolic dysfunction 2. Dyslipidemia 3. 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 Per transplant team notes donor kidney had 2 arteries that were reconstructed to a single anastomosis, discharged home on aspirin and clopidogrel- now only on aspirin 4. Nonischemic dobutamine stress test 10/2019. Patient reported diagnostic cath age 42 with mild non obstrucitve disease 5. History of COVID-19 05/2022; History of pneumonitis 6. Osteoporosis, on [place] 7. Hypertension 8. Sulfa allergy - only Allergies Allergy/AdvReac Type Severity Reaction Status Date / Time Sulfa (Sulfonamide Allergy Severe hives- Verified 07/20/24 15:09 Antibiotics) anaphylaxis nitrofurantoin Allergy Intermediate Hives Verified 07/20/24 15:09 spironolactone Allergy Intermediate LIP Verified 07/20/24 15:09 SWELLING, COUGH BRITTANI Inhibitors Allergy Mild SWELLING, Verified 07/20/24 15:09 COUGHING adhesive tape Allergy Mild Redness of Verified 07/20/24 15:09 Skin benazepril AdvReac Intermediate Cough Verified 07/20/24 15:09 prochlorperazine AdvReac Intermediate Agitated Verified 07/20/24 15:09 [From Compazine] sertraline AdvReac Intermediate prolonged Verified 07/20/24 15:09 QT interval Home Medications Medication Instructions Recorded Confirmed Type atorvastatin 20 mg tablet 20 mg PO QAM 07/09/18 07/20/24 History aspirin 81 mg tablet,delayed 81 mg PO QAM 03/13/21 07/20/24 History release (Adis Low Dose Aspirin) multivitamin with iron 1 tab PO QAM 03/13/21 07/20/24 History mycophenolate sodium 180 mg 180 mg PO BID 03/13/21 07/20/24 History tablet,delayed release metoprolol succinate 25 mg 25 mg PO BID #60 tabs 06/16/24 07/20/24 Rx tablet,extended release 24 hr tacrolimus 0.75 mg tablet,extended 1.5 mg PO QAM 07/20/24 07/20/24 History release 24 hr (Envarsus XR) Patient History Medical History Kidney transplant status AV fistula remains in place at this time but pt currently is not undergoing any dialysis Chronic steroid use for interstitial lung disease Encephalopathy Pseudotumor cerebri Hypersensitivity pneumonitis Weakness Hemoptysis Hypoxia Congenital renal atrophy Asthma Surgical History S/P thyroid biopsy History of kidney transplant (~08/2020) @ [facility] History of esophagogastroduodenoscopy (EGD) History of colonoscopy with polypectomy History of lung biopsy 02/14/2019 THORACOCSOCPY W/ INFILTRATE BIOPSY performed by Trevon Torres MD at [place] [facility] Arteriovenous fistula LEFT ARM AVF: 07/27/18: MAC SEDATION AT [facility] History of cholecystectomy Hx of dilation and curettage History of cardiac cath 16 YEARS AGO= NO STENTS Family History Grandmother (Paternal) Family history of diabetes mellitus Uncle Family history of diabetes mellitus Father Cancer LUNG Mother Cancer renal cell ca Family history of reaction to anesthesia slow to wake up Social History Smoking Status: Never smoker Second Hand Exposure: Yes (father smoked); Do You Dip or Chew Tobacco: No; Hx Alcohol Use: No Hx Substance Use: No Preferred Language: Slovak Communication Ability: Effective Visual Impairment: No Limitations Lock Up Worker Required: No Beliefs That Will Affect Care: None marital status: Current Living Situation: Spouse Current Living Situation Comment: Lives with current occupational status: employed Feels Safe at Home: Yes Diet: regular Physical Activity Frequency: Does not Exercise Seatbelt Use: always Do you think of yourself as: straight/heterosexual Gender Identity: Female Assistive Devices: Glasses Review of Systems Review of Systems: All systems reviewed & are unremarkable except as noted in HPI & below Physical Exam Constitutional: WD/WN, vitals as above average body habitus; no acute distress Neck: trachea midline, no thyromegaly Respiratory: + cough; no labored breathing Auscult ation: + diminished lung sounds and + rales (faint bibasilar rales) Cardiovascular: Rate/Rhythm: regular rate and regular rhythm Heart Sounds: + murmur (diffuse holosystolic murmur vs radiation of left upper arm fistula? ) Vessels: + JVD Extremities: + edema (1+ b/l ankle and pretibial edema/non pitting) Gastrointestinal (Abdomen): normal bowel sounds, soft, nontender, no hepatosplenomegaly Musculoskeletal: no cyanosis or clubbing, extremities motor strength 5/5 Neurologic: PERRL, EOMI, accommodation nl, no face palsy, no dysarthria Results & Data Vital Signs (Past 12 Hours) Vital Signs Temp Pulse Resp BP Pulse Ox O2 Del Method 07/20/24 13:52 68 07/20/24 13:45 97 Room Air 07/20/24 13:23 Room Air 07/20/24 13:18 37 C 70 16 163/78 H 94 Room Air Laboratory Results Cardiac Enzymes 07/20/24 Range/Units 13:40 AST 15 (13-39) U/L Troponin I High Sens < 2.3 (0-14) pg/ml B-Natriuretic Peptide 239 H (0-100) pg/ml Coagulation 07/20/24 Range/Units 13:40 PT 10.6 (9.0-12.0) Seconds APTT 25 (21-31) Seconds B-Natriuretic Peptide 239 H (0-100) pg/ml CBC 07/20/24 Range/Units 13:40 WBC 6.11 (4.8-10.8) K/ul RBC 4.14 L (4.20-5.40) M/uL Hgb 12.8 (12.0-16.0) g/dl Hct 38.3 (37.0-47.0) % Plt Count 147 (130-400) K/uL Neut # (Auto) 2.67 (1.40-6.50) K/uL Lymph # (Auto) 2.57 (1.20-3.40) K/uL [place] # (Auto) 0.58 (0.11-0.59) K/uL Eos # (Auto) 0.26 (0.00-0.50) K/uL Baso # (Auto) 0.02 (0.00-0.20) K/uL Comprehensive Metabolic Panel 07/20/24 Range/Units 13:40 Sodium 140 (136-145) mmol/L Potassium 4.0 (3.5-5.1) mmol/L Chloride 106 (98-107) mmol/L Carbon Dioxide 30 (21-32) mmol/L BUN 20 (6-23) mg/dl Creatinine 0.96 (0.6-1.2) mg/dl Glucose 112 H (70-99(Fasting)) mg/dl Calcium 9.6 (8.6-10.3) mg/dl AST 15 (13-39) U/L ALT 12 (7-52) U/L Alkaline Phosphatase 55 (34-104) U/L Total Protein 7.1 (6.0-8.3) gm/dl Albumin 4.4 (3.4-5.0) gm/dl Intake and Output 07/20/24 07/20/24 07/20/24 06:59 14:59 22:59 Other: Weight 82.2 kg Weight Measurement Method Chair Scale Patient Weight 07/21/24 06:59 Weight 82.2 kg Diagnostic Findings Telemetry reviewed: NSR, no arrhythmias EKG reviewed: NSR, LAE possible old anteroseptal infarct No significant change from prior inpatient/outpatient EKG's echo results pending Chest xray: IMPRESSION: Cardiomegaly and pulmonary vascular congestion. Probable CHF with mild interstitial pulmonary edema and a trace right pleural effusion. Prominent right hilum as described. Prior echo reviewed in August 2022: Interpretation Summary The qualitative LV ejection fraction is 60-64% (normal). The left ventricular wall motion is normal. Mild mitral regurgitation is present. Trivial, loculated anterior pericardial effusion. Cardiac tamponade is absent. Compared to last available study changes are noted as follows: Mild mitral regurgitation now present Medications Administered Medications atorvastatin 20 mg tablet 20 mg PO QAM 07/09/18 [History Confirmed 07/20/24] aspirin 81 mg tablet,delayed release (Adis Low Dose Aspirin) 81 mg PO QAM 03/13/21 [History Confirmed 07/20/24] multivitamin with iron 1 tab PO QAM 03/13/21 [History Confirmed 07/20/24] mycophenolate sodium 180 mg tablet,delayed release 180 mg PO BID 03/13/21 [History Confirmed 07/20/24] metoprolol succinate 25 mg tablet,extended release 24 hr 25 mg PO BID #60 tabs 06/16/24 [Rx Confirmed 07/20/24] tacrolimus 0.75 mg tablet,extended release 24 hr (Envarsus XR) 1.5 mg PO QAM 07/20/24 [History Confirmed 07/20/24]
--- NOTE | 2024-07-20 15:23 | History & Physical Report ---
Date of Service July 20, 2024 Assessment & Plan (1) CHF (congestive heart failure): (2) Acute heart failure with preserved ejection fraction: Plan Patient is a 64-year-old female with past medical history significant for history of kidney transplant on immunosuppressive therapy, chronic diastolic heart failure, hypertension, hyperlipidemia, JAVED, hypothyroidism who was sent in by her supervisor sterile processing in consultation with her private branch exchange operator for concern for fluid overload and CHF exacerbation. Dyspnea on Exertion CHF Exacerbation Patient presenting from home with progressive dyspnea on exertion States she was sent in by her supervisor sterile processing for further evaluation Chest x-ray concerning for fluid overload BNP elevated Trop negative, continue trend EKG without repeat echo ordered-follow Cardiology consulted, appreciate further recs -started on diuretic ethacrynic acid -continue metoprolol succinate 25mg BID -nitropaste q6h Nephrology also consulted, given pt's need for diuresis in the setting of a kidney transplant ([place] [facility] Monitor Is and Os, daily weights Continue to monitor Hypertensive Urgency Per pt her BP has been persistently elevated Continue home metoprolol Continue diuresis and nitrates as noted above Appreciate further recs from Nephrology and Cardiology Continue to monitor Hx of Renal transplant States she had transplant done at [facility] in [place] in August 2020 Bringing in her Envarsus (tacrolimus) from home- notes it is made in a speciality pharmacy in [place] (brand only), continue home med Continue mycophenolate [facility] [place]ph[place] consulted, appreciate recs Continue other home meds as ordered Diet: HH/Low sodium DVT prophylaxis: heparin sq Dispo: admit to med/surg with tele History of Present Illness Chief Complaint: DORANTES Primary Care Provider: Kenton Salamanca MD Patient is a 64-year-old female with past medical history significant for history of kidney transplant on immunosuppressive therapy, chronic diastolic heart failure, hypertension, hyperlipidemia, JAVED, hypothyroidism who was sent in by her supervisor sterile processing in consultation with her private branch exchange operator for concern for fluid overload and CHF exacerbation. states that she for started having migraines and presented to her PCPs office for further evaluation. It was noted at that time that her blood pressure was significantly elevated. States she was started on a medication to help with that but it has been difficult getting her blood pressure under control. States that more recently she has been having progressive shortness of breath and dyspnea on exertion as well as some chest pressure. States that the pressure is not like her typical heartburn. States that she called her supervisor sterile processing office for follow-up and happened to mention her symptoms and got a call back from her supervisor sterile processing Dr. Sheth. He advised going to the emergency room for further evaluation and management and also contacted her private branch exchange operator. She notes that she had her renal transplant done in 2020 at [facility] and last saw them in August 2023. Notes she has been having nausea, diarrhea and palpitations with that chest pressure. Allergies Allergy/AdvReac Type Severity Reaction Status Date / Time Sulfa (Sulfonamide Allergy Severe hives- Verified 07/20/24 15:09 Antibiotics) anaphylaxis nitrofurantoin Allergy Intermediate Hives Verified 07/20/24 15:09 spironolactone Allergy Intermediate LIP Verified 07/20/24 15:09 SWELLING, COUGH BRITTANI Inhibitors Allergy Mild SWELLING, Verified 07/20/24 15:09 COUGHING adhesive tape Allergy Mild Redness of Verified 07/20/24 15:09 Skin benazepril AdvReac Intermediate Cough Verified 07/20/24 15:09 prochlorperazine AdvReac Intermediate Agitated Verified 07/20/24 15:09 [From Compazine] sertraline AdvReac Intermediate prolonged Verified 07/20/24 15:09 QT interval Home Medications Medication Instructions Recorded Confirmed Type atorvastatin 20 mg tablet 20 mg PO QAM 07/09/18 07/20/24 History aspirin 81 mg tablet,delayed 81 mg PO QAM 03/13/21 07/20/24 History release (Adis Low Dose Aspirin) multivitamin with iron 1 tab PO QAM 03/13/21 07/20/24 History mycophenolate sodium 180 mg 180 mg PO BID 03/13/21 07/20/24 History tablet,delayed release metoprolol succinate 25 mg 25 mg PO BID #60 tabs 06/16/24 07/20/24 Rx tablet,extended release 24 hr tacrolimus 0.75 mg tablet,extended 1.5 mg PO QAM 07/20/24 07/20/24 History release 24 hr (Envarsus XR) Past Med/Surg History Problem List (Updated 07/20/24 @ 19:19 by Cameron Christensen DO) CHF (congestive heart failure) (Acute) Acute heart failure with preserved ejection fraction Exertional angina Cystitis Hyperlipidemia Kidney transplant recipient Osteoporosis Abdominal pain Bloating Encounter for pre-operative examination CHF (congestive heart failure) (Chronic) Hyperglycemia (Chronic) Dysphagia (Chronic) Heartburn (Chronic) Hypersensitivity pneumonitis (Chronic) ESRD (end stage renal disease) on dialysis (Chronic) on home dialysis--does it 5 days a week Compression fracture of T12 vertebra (Chronic) Compression fracture of L2 vertebra (Chronic) Anemia due to chronic kidney disease, on chronic dialysis (Chronic) Thrombocytopenia (Chronic) GERD (gastroesophageal reflux disease) (Chronic) Multinodular goiter (nontoxic) (Chronic) Osteoporosis (Chronic) Secondary hyperparathyroidism of renal origin (Chronic) JAVED (obstructive sleep apnea) (Chronic) no device Immunosuppressed status (Chronic) Interstitial lung disease (Chronic) 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 [facility] Vitamin D deficiency (Chronic) Hypertension (Chronic) Medical History Kidney transplant status AV fistula remains in place at this time but pt currently is not undergoing any dialysis Chronic steroid use for interstitial lung disease Encephalopathy Pseudotumor cerebri Hypersensitivity pneumonitis Weakness Hemoptysis Hypoxia Congenital renal atrophy Asthma Surgical History S/P thyroid biopsy History of kidney transplant (~08/2020) @ [facility] History of esophagogastroduodenoscopy (EGD) History of colonoscopy with polypectomy History of lung biopsy 02/14/2019 THORACOCSOCPY W/ INFILTRATE BIOPSY performed by Trevon Torres MD at [place] [facility] Arteriovenous fistula LEFT ARM AVF: 07/27/18: MAC SEDATION AT [facility] History of cholecystectomy Hx of dilation and curettage History of cardiac cath 16 YEARS AGO= NO STENTS Family History Grandmother (Paternal) Family history of diabetes mellitus Uncle Family history of diabetes mellitus Father Cancer LUNG Mother Cancer renal cell ca Family history of reaction to anesthesia slow to wake up Social History Smoking Status: Never smoker Second Hand Exposure: No; Do You Dip or Chew Tobacco: No; Tobacco Cessation Education Requested by Patient: No Hx Alcohol Use: No Hx Substance Use: No Preferred Language: Frisian Communication Ability: Effective Visual Impairment: No Limitations Log Chain Worker Required: No Beliefs That Will Affect Care: None marital status: Current Living Situation: Spouse Current Living Situation Comment: current occupational status: employed Other Information That Helps Us Care for You: No Feels Safe at Home: Yes Safety Concerns: Feels Safe At This Time Diet: regular Physical Activity Frequency: Does not Exercise Seatbelt Use: always Do you think of yourself as: straight/heterosexual Gender Identity: Female Assistive Devices: None Review of Systems Review of Systems: All systems reviewed & are unremarkable except as noted in Subjective Physical Exam Physical Exam: General: Alert, oriented. No acute distress Skin: scar on anterior chest wall Psych: Appropriate mood and affect Neuro: No gross deficits HEENT: NC/AT CV: RRR, +murmur Resp: Breath sounds decreased bilaterally, no increased effort of breathing Abdomen: Soft, nontender Extremities: edema in lower extremities bilaterally. Results & Data Results & Data Vital Signs (Past 12 Hours) Vital Signs Temp Pulse Resp BP Pulse Ox O2 Del Method 07/20/24 15:18 98 Room Air 07/20/24 13:52 68 07/20/24 13:45 97 Room Air 07/20/24 13:23 Room Air 07/20/24 13:18 37 C 70 16 163/78 H 94 Room Air
[2024-07-20] MEDS: NITROGLYCERIN 2% OINTMENT 30GM TUBE EXT SCH (17:30)
[2024-07-20] MEDS: ETHACRYNIC ACID 25 MG TAB PO SCH (17:30)
[2024-07-20] MEDS ORDERED: ONDANSETRON INJ 2 MG/ML 2 ML VIAL IV PRN (20:55)
[2024-07-20] MEDS ORDERED: ALUMINUM/MAGNESIUM/SIMETH (MAALOX MAX) 30 ML UDC PO PRN (20:55)
[2024-07-20] MEDS ORDERED: POLYETHYLENE (MIRALAX) 17 GM PACK PO PRN (20:55)
[2024-07-20] MEDS: METOPROLOL SUCC 25MG EXT REL TAB PO SCH (22:34)
[2024-07-20] MEDS: MYCOPHENOLATE SODIUM 180 MG TAB PO SCH (22:35)
[2024-07-20] MEDS: HEPARIN SOD 5,000 UNIT/0.5 ML VIAL SQ SCH (22:35)
[2024-07-20] MEDS: ACETAMINOPHEN 500 MG TAB PO PRN (22:38)
--- OUTSIDE RECORDS SUMMARY | 2024-07-20 23:50 | External Medical Summary | Summary of Care ---
Author Name Unknown Organization [facility] Address [address] [place] [address] Phone [phone] Care Team Providers Care Manager Graphic Name Role Phone Kenton Salamanca MD Primary Care Provider + Encounter Details Date Type Department Care Team (Late st Contact Info) Description 07/11/2024 Orders Only Outcomes Research Department [address] [place] [address] Phoebe Lubin CHRA MyCode Research Other*[id number] Allergies Active Allergy Reactions Criticality Noted Date Comments Hai Inhibitors Cough 11/13/2014 Other reaction(s): Angioedema AVOID ARB WELL Adhesive Tape Low 08/08/2020 Skin irritation Benazepril Edema face/lips/tongue High 04/17/2010 Angioedema-swelling of upper lip Macrodantin 01/30/2010 Sertraline 04/27/2015 Prolonged QT interval Spironolactone 05/25/2002 scalp and dental sensitivity Sulfa Antibiotics Hives 03/08/1997 swelling documented as of this encounter (statuses as of 07/11/2024) Medications Multivitamin Adult Oral Tablet Take by mouth. Active Tacrolimus ER 0.75 MG Oral Tablet Extended Release 24 Hour (Envarsus XR)Indications:Ki dney replaced by transplant,Need for prophylactic immunotherapy Take 2 Tablets by mouth daily first thing in the morning. 60 Tablet 5 4 Active Prolia 60 MG/ML Subcutaneous Solution Prefilled Syringe (Denosumab)Indica tions:Age-related osteoporosis without current pathological fracture Inject 60 mg under the skin every 6 months. 1 mL 1 4 Active EPINEPHrine (Anaphylaxis) 1 MG/ML Injection SolutionIndicatio ns:Age-related osteoporosis without current pathological fracture Inject 0.3 mL into a large muscle as needed for Anaphylaxis (severe allergic reaction). 2 mL 11 4 Active Aspirin 81 MG Oral Tablet Delayed Release (Aspirin Low Dose)Indications: Kidney replaced by transplant,Need for prophylactic immunotherapy Take 1 Tablet by mouth in the morning. 90 Tablet 1 4 Active Atorvastatin Calcium 20 MG Oral Tablet (Lipitor)Indicati ons:Kidney disease, chronic, stage IV (GFR 15-29 ml/min) (HCC),Dyslipidemi a, goal LDL below 100 Take 1 Tablet by mouth in the morning. 90 Tablet 1 4 Active Metoprolol Succinate ER 25 MG Oral Tablet Extended Release 24 Hour (Toprol XL) Take 1 Tablet by mouth in the morning. 30 Tablet 1 5 Active Mycophenolate Sodium 180 MG Oral Tablet Delayed Release (Myfortic)Indicat ions:Kidney replaced by transplant,Need for prophylactic immunotherapy,Cyt omegalovirus (CMV) viremia (HCC),Drug-induce d neutropenia (HCC) Take 180 mg by mouth in the morning and 180 mg before bedtime. 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 Diagnosed by EGD. Osteoporosis 09/13/2020 Chronic diastolic heart failure 09/13/2020 Need for prophylactic immunotherapy 09/07/2020 Kidney transplant status, living related donor 0 09/07/2020 Atrophy of left kidney 03/05/2020 Dyslipidemia 03/05/2020 Hyperuricemia 03/05/2020 Compression fracture of T12 vertebra 07/22/2019 Compression fracture of L2 lumbar vertebra 07/21 Immunosuppressed status 05/03/2019 JAVED (obstructive sleep apnea) 06/18/2017 Well adult exam 11/14/2016 Overview (06/07/2024): 01/11 Thyroid biopsy +Atypia, but ThyroSeq low prob CA. 2021--mult compression fractures T-L3 1221 EGD mild chronic gastritis. 02/05 lung biopsy-hypersensitivity pneumonitis with incidental neuroendocrine tumorlets which are not pathologically or clinically significant. 09/2018 colon WNL. [place] 5y 2016 colon 10mm polyp wayne 3y. Family history of sudden cardiac (SCD) HTN, goal below 130/80 05/10/2015 Hypothyroidism 06/17/2004 Pseudotumor cerebri Kidney replaced by transplant documented as of this encounter (statuses as of 07/11/2024) Resolved Problems Problem Noted Date Diagnosed Date Resolved Date Stage 3a chronic kidney disease 09/22/2023 06/07/2024 Kidney disease, chronic, sta ge IV (GFR 15-29 ml/min) 10/09/2022 10/09/2022 Compression fracture of T10 vertebra 10/21/2021 10/09/2022 Cytomegalovirus (CMV) viremia 06/05/2021 10/09/2022 Hyperlipidemia, unspecified 05/03/2019 03/05/2020 Interstitial lung disorders 05/03/2019 03/05/2020 Anemia due to chronic kidney disease, on chronic dialysis 05/03/2019 04/10/2022 ESRD on dialysis 04/18/2019 04/10/2022 Overview (02/16/2020): Dr Corona. 02/14/20 added to kidney [place] [facility] [place] Hypersensitivity pneumonitis 04/18/2019 05/14/2020 Bronchiolitis 02/15/2019 04/18/2019 Secondary hyperparathyroidism of renal origin 02/05/20 18 04/10/2022 CKD (chronic kidney disease) stage 5, GFR less than 15 ml/min 11/14/2016 05/03/2019 Overview (08/20/2018): 08/06 GFR 14. Has [facility] [place] transplant eval sched 12/[address] Corona. Atrophic left kidney. Follows Q3mo Exertional shortness of breath 06/15/2015 04/18/2019 Calculus of gallbladder with out mention of cholecystitis or obstruction 09/04/2011 11/14/2016 ANGIOEDEMA 08/22/2010 04/18/2019 KIDNEY DZ,CHRONIC (GFR 30-59) STAGE III 11/08/2009 11/14/2016 Overview (11/08/2009): Per CKD Protocol, #1 ADVANCE DIRECTIVE INFORMATION 03/24/2006 04/18/2019 Overview (11/28/2005): Pt will supply copy of her living will for scanning Anemia of other chronic disease 11/28/2005 04/18/2019 Proteinuria 06/29/2002 04/18/2019 HTN, other Secondary 06/29/2002 017 Anemia 06/29/2002 11/14/2016 Other specified congenital anomaly of kidney 03/05/2020 Overview (04/18/2019): Atrophic left kidney MILD RENAL INSUFFICIENCY NONTOX UNINODULAR GOITER documented as of this encounter (statuses as of 07/11/2024) Immunizations Name Administration Dates Next Due COVID-19 mRNA, LNP-s, No Pre serve, 2-Dose Series (Impact Radius) 07/13/2020,06/22/2020 Hepatitis B, 20+ yrs 12/30/2019,12/30/19 20,08/26/2019,08/25,07/29/2019,07/29/2019,06/27/2019 ,06/27/2019 PPD 10/11/2008 Pneumococcal Conjugate Vacc, 13 Valent (Prevnar) 02/04/2018 Pneumococcal Polysaccharide PPV23 (Pneumovax) 11/14/2016 Seasonal Influenza Vac., MDV , IM, 0.5 mL (Fluzone) 02/07/2010 Seasonal Influenza, PF, 6 M & above, IM , (FluLaval or Fluzone) 02/10/2023,01/10/2022,02/04/2021,01/31,02/04/2018 Seasonal Influenza, Quadriva lent, No Preserve, IM 03/02/2019 TDAP (age 10 and older)(Boostrix) 11/14/2016 documented as of this encounter Social History Tobacco Use Types Packs/Day Years Used Date Smoking Tobacco: Never Passive Smoke Exposure: Yes Smokeless Tobacco: Never Comments: smokes Alcohol Use Standard Drinks/Week Comments Yes 0 (1 standard drink = 0.6 oz pure alcohol) rare; 3 glasses of wine in last 1.5 years; previously several box caprice per week, stopped 2018 PHQ-2 Answer Date Recorded PHQ Adult Total Score 0 10/09/2022 Hunger Vital Sign Answer Date Recorded Within the past 12 months, y ou worried that your food would run out before you got the money to buy more. Never true 10/10/19 23 Within the past 12 months, t he food you bought just didn't last and you didn't have money to get more. Never true 10/09/2022 Childcare Answer Date Recorded Do you feel overwhelmed with taking care of a child, family member or friend? No 10/09/2022 Does your family need help f inding childcare? (Household - for ages 0-17 years) Not on file 10/09/2022 Clothing Answer Date Recorded Have you been unable to get clothing when it was really needed? No 10/09/2022 Is your family able to get c lothes or diapers when needed? (Household - for ages 0-17 years) Not on file 10/09/2022 Personal Safety Answer Date Recorded Do you feel unsafe or have concerns for your saf ety? No 10/09/2022 Do you have concerns for you r family's safety? (Household - for ages 0-17 years) Not on file 10/09/2022 Utilities Answer Date Recorded Do you have trouble paying y our heating, water, or electric bill? No 10/09/2022 Is your family able to pay t he heat, water, or electric bill? (Household - for ages 0-17 years) Not on file 10/09/2022 Does your family have access to good internet? (Household - for ages 0-17 years) Not on file 10/09/2022 Employment Status Answer Date Recorded Are you unemployed or without regular income? No 10/09/2022 Does the household have a re gular source of income? (Household - for ages 0-17 years) Not on file 10/09/2022 Social Connections Answer Date Recorded How often do you feel lonely or isolated from th ose around you? Never 10/09/2022 Financial Resource Strain Answer Date R ecorded Do you have any trouble payi ng for your medications, or do you think you might in the future? No 10/09/2022 Does your family have troubl e paying for medicine? (Household - for ages 0-17 years) Not on file 10/09/2022 Transportation Needs Answer Date Record ed READ ONLY Do you have troubl e getting a ride to medical visits or work? Never True 10/09/2022 Does your family have a hard time getting a ride to doctors visits? (Household - for ages 0-17 years) Not on file 10/09/2022 Has lack of transportation k ept you from medical appointments, meetings, work, or from getting things needed for daily living? Check all that apply. (Adult - for ages 18 years and over) Not on file 10/09/2022 Do you (or your family) have trouble finding or paying for a ride (transportation)? (Household - for ages 0-17 years) Not on file 10/09/2022 Housing Stability Answer Date Recorded Do you currently live in a s helter or have no steady place to sleep at night? No 10/09/2022 READ ONLY Do you think you a re at risk of becoming homeless? No 10/09/2022 Does your family worry about paying for your home or becoming homeless? (Household - for ages 0-17 years) Not on file 0 10/09/2022 Are you homeless or worried that you might be in the future? (Adult - for ages 18 years and over) Not on file Are you (or your family) luciana eless or worried that you might be in the future? (Household - for ages 0-17 years) Not on file Food Insecurity Answer Date Recorded Do you need food for this week? No 10/09/2022 Are you able to get enough f ood for your family? (Household - for ages 0-17 years) Not on file 10/09/2022 Does your family need food t his week? (Household - for ages 0-17 years) Not on file 10/09/2022 Do you always have enough fo od for your family? 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 Answer Date of Assessment Author No 09/06/2020 8:46 PM EDT Teena Williamson RN * Are you blind or do you have serious difficulty seeing, even when wearing glasses? Answer Date of Assessment Author No 09/06/2020 8:46 PM EDT Teena Williamson RN * Do you have serious difficulty walking or climbing stairs? (5 years old or older) Answer Date of Assessment Author No 09/06/2020 8:46 PM YANETHT Teena Williamson RN * Do you have difficulty dressing or bathing? (5 years old or older) Answer Date of Assessment Author No 09/06/2020 8:46 PM EDT Teena Williamson RN * Because of a physical, mental, or emotional condition, do you have difficulty doing errands alone such as visiting a doctor’s office or shopping? (15 years old or older) Answer Date of Assessment Author No 09/06/2020 8:46 PM YANETHT Teena Williamson RN documented as of this encounter Mental Status * Because of a physical, mental, or emotional condition, do you have serious difficulty concentrating, remembering, or making decisions? (5 years old or older) Answer Entry Date Author No 09/06/2020 8:46 PM EDT Teena Williamson RN documented in this encounter Plan of Treatment Upcoming Encounters Date Type Department Care Team (Late st Contact Info) Description 02/14/2025 9:30 AM EDT Office Visit Rheumatology, [facility] [address] [place] [address] Shorty Pate MD [address] [place] [address] Scheduled Orders Name Type Priority Associated Diagnoses Orde r Schedule MYCODE SUBSEQUENT ADULT Lab Routine MyCode Research Other*[id number] Every 6 Months for 2 Occurrences starting 07/11/2024 until 07/31/2025 Scheduled Procedures Name Priority Associated Diagnoses Date/Ti me COLONOSCOPY FLEXIBLE PROXIMAL DIAGNOSTIC Recall History of colon polyps Health Maintenance Due Date Last Done Comments HPV/Co-Test 1992 Cologuard 2007 Fecal Occult Blood Test 2007 Sigmoidoscopy 2007 COVID-19 Vaccine (3 - Pfizer risk series) 08/10/2020 07/13/2020, 06/22/2020 Pneumococcal Vaccine: 50+ Years (3 of 3 - PPSV23, PCV20 or PCV21) 11/14/2021 02/04/2018, 11/14/2016 Colonoscopy 09/25/2023 09/24/2018, 12/19, 12/31/2015 Colorectal Cancer Screening 09/25/2023 Depression Screening 10/10/2023 10/09/2022 Influenza Vaccine (FLU shot) (#1) 2023 02/10/2023, 01/10/2022, 02/04/2021, Additional history exists Cervical Cancer Screening 12/05/2024 Pap Smear 12/05/2024 12/05/2021, 05/0 11/2018, 11/27/2015, Additional history exists Mammogram 02/10/2025 02/11/2024, 1111/2022, 02/09/2023, Additional history exists GFR 06/13/2025 06/13/2024, 05/21, 02/09/2024, Additional history exists Albumin/Creatinine Ratio 08/17/2026 024, 05/18/2023, 03/16/2023, Additional history exists DTap/Tdap Vaccines (2 - Td or Tdap) 11/14/2026 11/14/2016, 09/06/2004 Diabetes Screening 06/13/2027 06/13/2024, 0 06/07/2024, 08/18/2023, Additional history exists Lipid Panel 06/13/2029 06/13/2024, 09/18, 09/30/2021, Additional history exists RETIRED - COLONOSCOPY-EVERY 5 YRS AGES 18-100 Discontinued 09/24/2018, 12/31/2015, 12/31/2015 Hepatitis B Vaccine Completed 12/30/2019, 12/30/2019, 08/26/2019, Additional history exists HPV (Gardasil) Vaccine Aged Out No lo nger eligible based on patient's age to complete this topic MENINGOCOCCAL (MENACTRA/MENVEO) Aged Out No longer eligible based on patient's age to complete this topic Meningitis B Vaccine (Bexsero/Trumemba) Aged Out No longer eligible based on patient's age to complete this topic Zoster Vaccines Discontinued documented as of this encounter Medical Devices Not on filedocumented as of this encounter Visit Diagnoses Diagnosis MyCode Research Other*[id number] documented in this encounter Advance Directives * Full Code (Latest Code Status on File) Date Activated Date Inactivated Comments 09/06/2020 3:21 PM 09/10/2020 8:01 PM Question Answer Comments Discussion of Advance Directives occurred with: Not Discussed * Full Code Date Activated Date Inactivated Comments 02/14/2019 8:41 AM 02/15/2019 5:14 PM This order reflects the patients wishes and were consensually agreed upon. Care Teams Manager Graphic Relationship Specialty Start Date End Date Kenton Salamanca MD [address] [id number] PCP - General Family Medicine 07/11/16 documented as of this encounter
--- OUTSIDE RECORDS SUMMARY | 2024-07-20 23:50 | External Medical Summary | Summary of Care ---
Author Name Unknown Organization [facility] Address [address] [place] [address] Phone [phone] Care Team Providers Care Fabrication Machine Operator Name Role Phone Kenton Salamanca MD Primary Care Provider + Reason for Referral * Evaluate & Treat - Unlimited Visits (Within 10 days (routine)) - Authorized Specialty Diagnoses / Procedures Referred By Contact Referred To Contact Cardiovascular Medicine / Cardiology Diagnoses Other forms of angina pectoris (HCC) Sandip Corona MD [address] [place] [address] Phone: tel: fax: Referral ID Status Reason Start Date Expiration Date Visits Requested Visits Authorized [id number] Authorized Specialty Services Required 07/01/[phone] Question Answer Referral Priority Within 10 days (routine) Where should this appointment be scheduled? [facility] For which of the following conditions are you referring? Other Condition Not Listed Other Condition: angina pectoris Encounter Details Date Type Department Care Team (Late st Contact Info) Description 07/01/2024 Orders Only Access Center, [address] Ext *DO NOT REMOVE THIS DEPARTMENT* [place] [id number] Requisition, External Cardiology [address] [place] [address] Other forms of angina pectoris (HCC)* Allergies Active Allergy Reactions Criticality Noted Date Comments Hai Inhibitors Cough 11/13/2014 Other reaction(s): Angioedema AVOID ARB WELL Adhesive Tape Low 08/08/2020 Skin irritation Benazepril Edema face/lips/tongue High 04/17/2010 Angioedema-swelling of upper lip Macrodantin 01/30/2010 Sertraline 04/27/2015 Prolonged QT interval Spironolactone 05/25/2002 scalp and dental sensitivity Sulfa Antibiotics Hives 03/08/1997 swelling documented as of this encounter (statuses as of 07/01/2024) Medications Multivitamin Adult Oral Tablet Take by [...] 180 mg before bedtime. 180 Tablet 3 Active documented as of this encounter (statuses as of 07/01/2024) Active Problems Problem Noted Date Diagnosed Date [...] as of this encounter (statuses as of 07/01/2024) Resolved Problems Problem Noted Date Diagnosed Date [...] Corona. 02/14/20 added to kidney transplant list [facility] [place] Hypersensitivity pneumonitis 04/18/2019 05/14/2020 Bronchiolitis 02/15/2019 04/18/2019 Secondary hyperparathyroidism of renal origin 02/05/20 18 04/10/2022 CKD (chronic kidney disease) stage 5, GFR less than 15 ml/min 11/14/2016 05/03/2019 Overview (08/20/2018): 08/06 GFR 14. Has [facility] [place] transplant eval sched 12/05 [...] as of this encounter (statuses as of 07/01/2024) Immunizations Name Administration Dates Next Due COVID-19 mRNA, LNP-s, No Pre serve, 2-Dose Series (Pfizer) 07/13/2020,06/22/2020 Hepatitis B, 20+ yrs 12/30/2019,12/30/19 20,08/26/2019,08/25,07/29/2019,07/29/2019,06/27/2019 [...] 8:46 PM EDT Teena Williamson RN documented as of this [...] 02/14/2025 9:30 AM EDT Office Visit Rheumatology, [facility] [address] [place] [address] Shorty Pate MD [address] [place] [address] Scheduled Procedures Name Priority Associated Diagnoses Date/Ti me COLONOSCOPY FLEXIBLE PROXIMAL DIAGNOSTIC Recall History of colon polyps Scheduled Referrals Name Type Priority Associated Diagnoses Orde r Schedule CARDIOLOGY REFERRAL OP Referral Within 10 days (routine) Other forms of angina pectoris (HCC) Ordered: 07/01/2024 Health Maintenance Due Date Last Done Comments [...] as of this encounter Visit Diagnoses Diagnosis Other forms of angina pectoris (HCC)- Primary documented in this encounter Advance Directives * Full Code (Latest Code Status on File) Date Activated Date Inactivated Comments 09/06/2020 3:21 PM 09/10/2020 8:01 PM Question Answer Comments Discussion of Advance Directives occurred with: Not Discussed * Full Code Date Activated Date Inactivated Comments 02/14/2019 8:41 AM 02/15/2019 5:14 PM This order reflects the patients wishes and were consensually agreed upon. Care Teams Fabrication Machine Operator Relationship Specialty Start Date End Date Kenton Salamanca MD [address] [place] [id number] PCP - General Family Medicine 07/11/16 documented as of this encounter
--- NOTE | 2024-07-21 04:59 | Communication Note ---
Date of Service: July 21, 2024 Patient complaining of headache symptoms. SBP 140s. Hold Nitropaste for now.
[2024-07-21] MEDS: oxyCODONE HCL IR 5 MG TAB (IMMEDIATE RELEASE) PO STA (05:56)
[2024-07-21] MEDS: TACROLIMUS 0.75 MG PO STA (07:17)
[2024-07-21 08:00] LABS: Basophils # (auto) 0.03 K/uL (0.00-0.20); Basophils % (auto) 0.5 %; Eosinophils # (auto) 0.24 K/uL (0.00-0.50); Eosinophils % (auto) 3.7 %; Hematocrit (blood only) 37.2 % (37.0-47.0); Hemoglobin 12.7 g/dl (12.0-16.0); Immature Granulocytes # (auto) 0.02 K/uL (0.01-0.20); Immature Granulocytes % (auto) 0.3 %; Lymphocytes # (auto) 2.29 K/uL (1.20-3.40); Lymphocytes % (auto) 35.6 %; Mean Corpuscular Hemoglobin 31.1 pg (25.0-34.0); Mean Corpuscular Hgb Conc 34.1 g/dL (32.0-36.0); Mean Corpuscular Volume 91.2 fL (80.0-100.0); Mean Platelet Volume 9.9 fL (9.4-12.4); Monocytes # (auto) 0.51 K/uL (0.11-0.59); Monocytes % (auto) 7.9 %; Neutrophils # (auto) 3.34 K/uL (1.40-6.50); Platelet Count 137 K/uL (130-400); RDW Coefficient of Variation 13.2 % (11.5-14.5); RDW Standard Deviation 44.3 fL (36.4-46.3); Red Blood Count 4.08 M/uL (4.20-5.40); White Blood Count 6.43 K/ul (4.8-10.8)
[2024-07-21] MEDS: ATORVASTATIN 20 MG TAB PO SCH (08:02)
[2024-07-21 08:14] LABS: Albumin Globulin Ratio 1.5 (0.9-2); BUN Creatinine Ratio 21.5 (10-20); Bilirubin,Total 0.9 mg/dl (0.2-1.0); Calcium 9.2 mg/dl (8.6-10.3); Creatinine Clr Calc Pharmacy 75.8 ml/min; Globulin 2.6 gm/dl (2.5-4.0); Magnesium 1.5 mg/dl (1.7-2.4); Phosphorus 3.6 mg/dl (2.5-4.9); Potassium 3.8 mmol/L (3.5-5.1); Total Protein 6.6 gm/dl (6.0-8.3)
[2024-07-21] MEDS ORDERED: Nursing to Pharmacy Communication SCH (08:15)
[2024-07-21] MEDS: METOPROLOL SUCC 25MG EXT REL TAB PO STA (08:39)
[2024-07-21] MEDS: MULTIVITAMIN TAB PO SCH (08:39)
[2024-07-21] MEDS: ASPIRIN 81 MG ECTAB PO SCH (08:39)
[2024-07-21] MEDS ORDERED: TACROLIMUS 0.75 MG PO SCH (09:00)
--- NOTE | 2024-07-21 10:39 | Nephrology Consultation ---
Date of Consultation July 21, 2024 Assessment & Plan (1) Kidney transplant recipient: (2) Hypertensive urgency: (3) Pulmonary congestion: (4) Immunosuppressed status: Plan 64-year-old female, status post live donor kidney transplant in 2020 with excellent allograft function, baseline creatinine 0.8-1.0 mg/dl. Recent urinalysis unremarkable with no proteinuria or hematuria. Renal ultrasound showed normal allograft and atrophic nightmute kidneys. Has been tolerating immunosuppressive medication without any recent changes in dose. Admitted with progressive shortness of breath, volume overload, hypertensive urgency and headache. Blood pressure has been an ongoing issue for last about 2 months associated with tachycardia, started on beta-rigo 2 months ago with improvement in blood pressure however blood pressure recently again worsened. Blood pressure rapidly improved since admission while getting beta-rigo and started on ethacrynic acid. However she continues to have bothersome respiratory symptoms including shortness of breath and feeling of chest pressure and concerned with the pleural effusion and pulmonary congestion. Workup so far otherwise unremarkable, no proteinuria, kidney function normal. 2D echo without any systolic or diastolic dysfunction or wall motion abnormality. LFTs were normal. Volume overload, shortness of breath and pulmonary congestion could be secondary to hypertensive urgency, may improve with diuretic. --As blood pressure already improved and heart rate remains well-controlled, agree with continuing current dose of beta-rigo and ethacrynic acid. Do not see any contraindication to use diuretic based on her transplant status unless she seems clinically volume depleted. However, in future if blood pressure again elevated, would recommend adding amlodipine. If she is started on amlodipine, will need to monitor tacrolimus level which may go up. --She is extremely concerned with the acuteness of her symptoms and especially because other workup unremarkable and prior history of hypersensitivity pneumonitis, she is wondering whether she should be evaluated by pulmonary. Would recommend first getting a CT chest to see if there is any concern for any underlying interstitial lung disease but she will probably appreciate a consult with Pulmonology. --Continue to monitor kidney function while in hospital, repeat magnesium in a.m. as magnesium was slightly low especially since she was started on diuretic. Thank you for allowing me to participate in your patient's care. It was a pleasure to see Destiny. History of Present Illness Reason for Consultation: Immunosuppressed state, history of kidney transplant, hypertensive urgency and volume overload Attending Physician: Yoav Eng, DO History of Present Illness Ms. Destiny Pillai is a 64-year-old female with past medical history significant for renal transplant, hypertension, hyperlipidemia, questionable history of chronic diastolic heart failure admit to the hospital with hypertensive urgency and volume overload. Nephrology consult was requested for management of immunosuppressive medication as well as assist with blood pressure control and volume issues. Destiny reports otherwise feeling well and in her usual health until April 2024. Starting May she started noticing headache, elevated blood pressure, tachycardia as well as some difficulty with deep breath and noticing slight drop in her oxygen saturation. She was admitted to hospital in May with headache and found to have elevated blood pressure and was tachycardic. She was started on metoprolol 25 mg twice a day. Labs were otherwise unremarkable. She reports blood pressure eventually getting better at home heart rate improving. 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 On admission her highest blood pressure was 184/93. Heart rate was controlled. Chest x-ray showed pulmonary vascular congestion, trace right-sided pleural effusion and cardiomegaly. 2D echo showed normal EF, no diastolic dysfunction or significant valvular abnormality or wall motion abnormality. Troponin was normal. BNP was slightly elevated above 200. Hemoglobin was normal. Creatinine was at baseline of 0.8 mg/dl. Other electrolytes including LFTs were normal. Normal serum calcium and albumin. Urinalysis in May was negative for proteinuria hematuria or pyuria. Ultrasound showed normal right renal allograft, at 10.9 cm, atrophied nightm[place] kidney. She was started on ethacrynic acid which she took several years ago before her transplant as she could not tolerate other loop diuretics because of sulfa allergy. She received her first dose this morning, reports increased urine output, she has been net negative about 1.3 L. Blood pressure started to improve, this morning blood pressure was 138/80, heart rate 70s. Oxygen saturation 94% on room air. No history of smoking. 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 Never smoker. has sulfa allergy. Family history is significant for diabetes and cancer but no history of CKD or ESKD. 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 She was on dialysis about 1.5 years and then had a live donor renal transplant on 09/06/2020 at [facility] from her Cousin.posttransplant course was otherwise unremarkable except an episode of CMV viremia BK virus was negative. Has history of off-and-on low-grade positive CMV. Has been on Myfortic acid 180 mg twice a day and long-acting tacrolimus ( Envarsus) 1.5 mg daily with a goal trough level 6-8. Has not been on steroid. 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 Recalls seeing Dr. Alatorre before. This morning she received first dose of ethacrynic acid and reports increased urine output. Continues to have off-and-on headache. She does not feel worse than yesterday but still occasionally feels she has difficulty while she is taking deep breath and talking and some feeling of chest pressure and really concerned with her symptoms. Allergies Allergy/AdvReac Type Severity Reaction Status Date / Time Sulfa (Sulfonamide Allergy Severe hives- Verified 07/20/24 15:09 Antibiotics) anaphylaxis nitrofurantoin Allergy Intermediate Hives Verified 07/20/24 15:09 spironolactone Allergy Intermediate LIP Verified 07/20/24 15:09 SWELLING, COUGH BRITTANI Inhibitors Allergy Mild SWELLING, Verified 07/20/24 15:09 COUGHING adhesive tape Allergy Mild Redness of Verified 07/20/24 15:09 Skin benazepril AdvReac Intermediate Cough Verified 07/20/24 15:09 prochlorperazine AdvReac Intermediate Agitated Verified 07/20/24 15:09 [From Compazine] sertraline AdvReac Intermediate prolonged Verified 07/20/24 15:09 QT interval Nitrate Analogues AdvReac Mild Headache Verified 07/21/24 05:01 Home Medications Medication Instructions Recorded Confirmed Type atorvastatin 20 mg tablet 20 mg PO QAM 07/09/18 07/20/24 History aspirin 81 mg tablet,delayed 81 mg PO QAM 03/13/21 07/20/24 History release (Adis Low Dose Aspirin) multivitamin with iron 1 tab PO QAM 03/13/21 07/20/24 History mycophenolate sodium 180 mg 180 mg PO BID 03/13/21 07/20/24 History tablet,delayed release metoprolol succinate 25 mg 25 mg PO BID #60 tabs 06/16/24 07/20/24 Rx tablet,extended release 24 hr tacrolimus 0.75 mg tablet,extended 1.5 mg PO QAM 07/20/24 07/20/24 History release 24 hr (Envarsus XR) Patient History Medical History Kidney transplant status AV fistula remains in place at this time but pt currently is not undergoing any dialysis Chronic steroid use for interstitial lung disease Encephalopathy Pseudotumor cerebri Hypersensitivity pneumonitis Weakness Hemoptysis Hypoxia Congenital renal atrophy Asthma Surgical History S/P thyroid biopsy History of kidney transplant (~08/2020) @ [facility] History of esophagogastroduodenoscopy (EGD) History of colonoscopy with polypectomy History of lung biopsy 02/14/2019 THORACOCSOCPY W/ INFILTRATE BIOPSY performed by Trevon Torres [place] [facility] [place]teriovenous fistula LEFT ARM AVF: 07/27/18: MAC SEDATION AT [facility] History of cholecystectomy Hx of dilation and curettage History of cardiac cath 16 YEARS AGO= NO STENTS Family History Grandmother (Paternal) Family history of diabetes mellitus Uncle Family history of diabetes mellitus Father Cancer LUNG Mother Cancer renal cell ca Family history of reaction to anesthesia slow to wake up Social History Smoking Status: Never smoker Second Hand Exposure: No; Do You Dip or Chew Tobacco: No; Tobacco Cessation Education Requested by Patient: No Hx Alcohol Use: No Hx Substance Use: No Preferred Language: Maltese Communication Ability: Effective Visual Impairment: No Limitations Appellate Conferee Required: No Beliefs That Will Affect Care: None marital status: Current Living Situation: Spouse Current Living Situation Comment: current occupational status: employed Other Information That Helps Us Care for You: No Feels Safe at Home: Yes Safety Concerns: Feels Safe At This Time Diet: regular Physical Activity Frequency: Does not Exercise Seatbelt Use: always Do you think of yourself as: straight/heterosexual Gender Identity: Female Assistive Devices: None Review of Systems Review of Systems: Detailed review of system was done and pertinent positives and negatives are mentioned above. Physical Exam Constitutional: WD/WN, vitals as above no acute distress Eyes: + anicteric sclerae Neck: normal visual inspection Respiratory: Auscultation: lungs clear to auscultation bilaterally and + rales; no wheezes Cardiovascular: Rate/Rhythm: regular rate and regular rhythm Heart Sounds: normal S1 and normal S2 Extremities: + edema (trace non pitting edema) and + AV fistula (left BC AVF with bruit, aneurysm.) Gastrointestinal (Abdomen): Inspection/Auscultation: abdomen normal to inspection Percussion/Palpation: abdomen soft; abdomen nontender No tenderness, swelling at rt LQ allograft area. Musculoskeletal: Extremities: extremities normal to inspection Skin: no rashes, warm and dry Neurologic: no focal motor deficits and not confused Psychiatric: Orientation: alert and oriented x 3 Affect: euthymic affect Results & Data Vital Signs (Past 12 Hours) Vital Signs Temp Pulse Pulse Resp BP Pulse Ox O2 Del Method 07/21/24 07:45 36.9 C 70 18 138/80 94 Room Air 07/21/24 04:05 37.0 C 70 20 143/70 H 93 Room Air 07/21/24 00:33 37.0 C 75 20 133/70 92 Room Air 07/21/24 00:22 76 07/20/24 23:39 Room Air 07/20/24 22:39 81 175/83 H PG Care Time/CCT Total # of Minutes Spent Total Time Spent with Patient: Total time spent is greater than 50% in coordination of care (as documented) at patient's floor/unit and/or counseling patient: Coding Level of Care Code 65057 INT INP/OBS CARE 3/75MIN Diagnoses Kidney transplant recipient Z94.0 Hypertensive urgency I16.0 Pulmonary congestion R09.89 Immunosuppressed status D89.9
--- NOTE | 2024-07-21 12:31 | Cardiology Progress Note ---
Date of Service July 21, 2024 Assessment & Plan (1) Hypertension: (2) Kidney transplant recipient: (3) Acute heart failure with preserved ejection fraction: (4) Shortness of breath: Plan 07/20/24 Patient admitted with symptoms of progressive SOB, edema, weight gain, chest tightness, mild hypoxia. Findings consistent with probable acute on chronic HF exacerbation in setting of uncontrolled hypertension over the last few weeks/months. Chest xray with probable pulm vascular congestion. Would benefit from IV diuretics. Treatment options complicated by renal transplant status and intolerance to loop diuretics due to sulfa allergy. In the past she has been only able to take Ethacrynic acid as the choice of diuretic. If acceptable with nephrology, would start diuretic. Renal function appears at baseline with creatinine of 0.9. Stable electrolytes Diuresis may also aid uncontrolled HTN. Continue metoprolol succinate 25 mg BID. Her exertional dyspnea may be multifactorial with HTN and volume overload. Update echo. HS troponin negative x1. Repeat serial troponin for completeness. EKG without acute ischemic changes when compared with past tracings. After diuresis and BP management, consider outpatient nuclear Lexiscan stress test. Further recommendations pending admission, further evaluation, and discussion with Dr. Mccarthy and other specialists. Would consult [place] nephrology (Dr. Corona) to aid with her treatment as well. 07/19/24: Patient diuresing with ethacrynic acid 25 mg. First dose last night. Repeat dose given this morning. Stable renal function and potassium. Appreciate nephrology recommendations. Supplement magnesium. BP improved. She developed headache with nitro patch and this was removed. Continue metoprolol 25 mg BID Monitor I+O's Daily weight with standing scale. Patient had concerns with pulm disease contributing to her SOB. She will discuss with hospitalist. consider chest CT (no contrast) Echo demonstrating normal LVEF, no wall motion abnormalities, no significant valvular disease. Will follow. Case discussed with Dr. Mccarthy I spent a total of 30 minutes on the date of service in preparation, delivery, and documentation of the care provided to this patient, excluding any time spent in the performance of separately billed services. Makayla Aranda PA-C Department of Cardiology, [facility] This chart was completed in part utilizing Speech Voice Recognition Software. Grammatical errors, random word insertions, pronoun errors, and incomplete sentences are an occasional consequence of this system due to software limitations, ambient noise, and hardware issues. Any formal questions or concern s about the content, text, or information contained within the body of this dictation should be directly addressed to the provider for clarification. Admission and Anticipated Discharge Date Admission Date: July 20, 2024 Supervising Physician Co-Signing Physician Notes I have personally performed a history and physical examination on the patient. I have reviewed the advance practitioner's documentation, and I agree with, and take responsibility for the plan of care. 64-year-old female presents with hypertensive urgency and acute heart failure with preserved ejection fraction. History of renal transplantation in 2020. Stable renal function today with addition of ethacrynic acid 07/20/24. Shortness of breath and chest discomfort improved. Blood pressure trending downward. Echocardiogram demonstrating preserved LV systolic function with without significant valvular pathology. Recommendations: * Continue ethacrynic acid 25 mg daily and metoprolol as ordered. * Monitor fluid balance, daily weight, GFR, and electrolytes. * Topical nitrates discontinued due to headache * Outpatient ischemic evaluation when improved from hypertension/heart failure perspective. I spent a total of 30 minutes on the date of service in preparation, delivery, and documentation of the care provided to this patient, excluding any time spent in the performance of separately billed services. Shorty Mccarthy DO, [facility] Subjective Patient resting in bed. at bedside. Reports ongoing SOB with minimal activity. No recurrent chest pain/heaviness. BP improved. Reports severe "headache". Nitro oint removed this morning. BP improved. She reports frequent diuresis overnight. Review of Systems Review of Systems: All systems reviewed & are unremarkable except as noted in HPI & below Physical Exam Constitutional: WD/WN, vitals as above average body habitus; no acute distress Neck: trachea midline, no thyromegaly Respiratory: no labored breathing Auscultation: + diminished lung sounds and + rales (faint bibasilar rales) Cardiovascular: Rate/Rhythm: regular rate and regular rhythm Heart Sounds: + murmur (diffuse holosystolic murmur vs radiation of left upper arm fistula? ) Vessels: + JVD Extremities: + edema (1+ b/l ankle and pretibial edema/non pitting) Gastrointestinal (Abdomen): normal bowel sounds, soft, nontender, no hepatosplenomegaly Musculoskeletal: no cyanosis or clubbing, extremities motor strength 5/5 Neurologic: PERRL, EOMI, accommodation nl, no face palsy, no dysarthria Results & Data Vital Signs (Past 12 Hours) Vital Signs Temp Pulse Resp BP Pulse Ox O2 Del Method 07/21/24 11:52 36.7 C 72 18 145/82 H 92 Room Air 07/21/24 07:45 36.9 C 70 18 138/80 94 Room Air 07/21/24 04:05 37.0 C 70 20 143/70 H 93 Room Air 07/21/24 00:33 37.0 C 75 20 133/70 92 Room Air Laboratory Results Cardiac Enzymes 07/20/24 07/20/24 07/21/24 Range/Units 13:40 21:32 07:17 AST 15 16 (13-39) U/L Troponin I High Sens < 2.3 < 2.3 (0-14) pg/ml B-Natriuretic Peptide 239 H (0-100) pg/ml Coagulation 07/20/24 Range/Units 13:40 PT 10.6 (9.0-12.0) Seconds APTT 25 (21-31) Seconds B-Natriuretic Peptide 239 H (0-100) pg/ml CBC 07/20/24 07/21/24 Range/Units 13:40 07:17 WBC 6.11 6.43 (4.8-10.8) K/ul RBC 4.14 L 4.08 L (4.20-5.40) M/uL Hgb 12.8 12.7 (12.0-16.0) g/dl Hct 38.3 37.2 (37.0-47.0) % Plt Count 147 137 (130-400) K/uL Neut # (Auto) 2.67 3.34 (1.40-6.50) K/uL Lymph # (Auto) 2.57 2.29 (1.20-3.40) K/uL [place] # (Auto) 0.58 0.51 (0.11-0.59) K/uL Eos # (Auto) 0.26 0.24 (0.00-0.50) K/uL Baso # (Auto) 0.02 0.03 (0.00-0.20) K/uL Comprehensive Metabolic Panel 07/20/24 07/21/24 Range/Units 13:40 07:17 Sodium 140 138 (136-145) mmol/L Potassium 4.0 3.8 (3.5-5.1) mmol/L Chloride 106 105 (98-107) mmol/L Carbon Dioxide 30 27 (21-32) mmol/L BUN 20 17 (6-23) mg/dl Creatinine 0.96 0.79 (0.6-1.2) mg/dl Glucose 112 H 109 H (70-99(Fasting)) mg/dl Calcium 9.6 9.2 (8.6-10.3) mg/dl AST 15 16 (13-39) U/L ALT 12 11 (7-52) U/L Alkaline Phosphatase 55 42 (34-104) U/L Total Protein 7.1 6.6 (6.0-8.3) gm/dl Albumin 4.4 4.0 (3.4-5.0) gm/dl Intake and Output 07/20/24 07/21/24 07/21/24 22:59 06:59 14:59 Intake Total 1150 / 1150 Output Total 2500 / 2500 Balance -1350 / -1350 Intake: Oral 1150 / 1150 Output: Urine 2500 / 2500 Other: Weight 81.7 kg 80.6 kg Weight Measurement Method Standing Scale Standing Scale Diagnostic Findings Telemetry reviewed: NSR in the 60-80's. No arrhythmias. Echo report: Normal LVEF 55-60% Mild MR Mild TR No pullm hypertension Normal relaxation Trivial circumferential pericardial effusion No echo indications of cardiac tamponade Medications Administered Current Inpatient Medications Acetaminophen (Acetaminophen 500 Mg Tab) 1,000 mg PO Q8H PRN PRN Reason: Pain or Fever Stop: 08/19/24 20:54 Last Admin: 07/20/24 22:38 Dose: 1,000 mg Al Hydrox/Mg Hydrox/Simethicone (Aluminum/Magnesium/Simeth (Maalox Max) 30 Ml Udc) 15 ml PO Q6H PRN PRN Reason: Indigestion Stop: 08/19/24 20:54 Aspirin (Aspirin 81 Mg Ectab) 81 mg PO [facility] Stop: 08/20/24 08:59 Last Admin: 07/21/24 08:39 Dose: 81 mg Atorvastatin Calcium (Atorvastatin 20 Mg Tab) 20 mg PO [facility] Stop: 08/20/24 08:59 Last Admin: 07/21/24 08:02 Dose: 20 mg Ethacrynic Acid (Ethacrynic Acid 25 Mg Tab) 25 mg PO QAM [facility] Stop: 08/19/24 16:44 Last Admin: 07/21/24 08:39 Dose: 25 mg Heparin Sodium (Porcine) (Heparin Sod 5,000 Unit/0.5 Ml Vial) 5,000 units SQ Q8 [facility] Stop: 08/19/24 21:59 Last Admin: 07/21/24 05:07 Dose: 5,000 units Metoprolol Succinate (Metoprolol Succ 25mg Ext Rel Tab) 25 mg PO BIDM [facility] Stop: 08/19/24 20:59 Multivitamins (Multivitamin Tab) 1 tab PO QAM [facility] Stop: 08/20/24 08:59 Last Admin: 07/21/24 08:39 Dose: 1 tab Mycophenolate Sodium (Mycophenolate Sodium 180 Mg Tab) 180 mg PO BID [facility] Stop: 08/19/24 21:29 Last Admin: 07/21/24 08:40 Dose: 180 mg Nitroglycerin (Nitroglycerin 2% Ointment 30gm Tube) 0.5 inch EXT Q6H [facility] Stop: 08/19/24 16:59 Last Admin: 07/20/24 22:35 Dose: 0.5 inch Ondansetron HCl (Ondansetron Inj 2 Mg/Ml 2 Ml Vial) 4 mg IV Q6H PRN PRN Reason: Nausea And Vomiting Stop: 08/19/24 20:54 Polyethylene Glycol (Polyethylene (Miralax) 17 Gm Pack) 17 gm PO DAILY PRN PRN Reason: Constipation Stop: 08/19/24 20:54 Tacrolimus (Tacrolimus Xr 0.75 Mg Ertab) 1.5 mg PO DAILYBB [facility] Stop: 08/20/24 08:59
--- NOTE | 2024-07-21 15:14 | Hospitalist Progress Note ---
Date of Service July 21, 2024 Assessment & Plan (1) Acute heart failure with preserved ejection fraction: (2) Hypertension, uncontrolled: (3) Kidney transplant recipient: Plan Patient presents with dyspnea due to acute heart failure preserved ejection fraction in the setting of uncontrolled hypertension. Patient has responded well to diuresis and symptoms have significantly improved Reviewed cardiology recommendations. Continue with diuresis and metoprolol for blood pressure control. Blood pressure overall seems improved Reviewed nephrology recommendations, agreeable to continued diuretics. Recommending amlodipine if additional antihypertensive medication required Patient has a remote history of hypersensitivity pneumonitis. Low suspicion for patient's dyspnea related to chronic lung disease. Symptoms significantly improved with diuresis. Will check CT of the chest to confirm congestion, trace pleural effusion and rule out any progressive interstitial lung disease. Tylenol as needed for headache, anticipate will improve as her cardiopulmonary status improves Family at bedside updated Possible discharge tomorrow Admission and Anticipated Discharge Date Admission Date: July 20, 2024 Subjective Patient continues with mild headache but shortness of breath is significantly improved. Physical Exam Physical Exam: Constitutional: Alert HEENT: Mucous membranes moist. Lungs: Good airflow, Rales at the bases CV: S1-S2, regular Abdomen: Soft, nontender, nondistended Extremities: No significant edema Neuro: No focal deficits Psych: Cooperative, normal mood Results & Data Results & Data Vital Signs (Past 12 Hours) Vital Signs Temp Pulse Resp BP Pulse Ox O2 Del Method 07/21/24 11:52 36.7 C 72 18 145/82 H 92 Room Air 07/21/24 08:00 Room Air 07/21/24 07:45 36.9 C 70 18 138/80 94 Room Air 07/21/24 04:05 37.0 C 70 20 143/70 H 93 Room Air Diagnostic Findings Reviewed imaging, laboratory and diagnostic studies. Pertinent findings as below. CBC stable Electrolytes all within normal ranges Creatinine 0.79 Echocardiogram shows ejection fraction of 55 to 60% with normal ventricular wall motion. No evidence of pulmonary hypertension. Trivial pericardial effusion
--- NOTE | 2024-07-21 16:25 | CT Scan Report ---
Clinical history: Dyspnea Technique: Axial computed tomography images were obtained of the chest without intravenous contrast Comparison is made to the prior CT dated 04/07/2019 Findings: There are surgical sutures in the right upper lobe and right lower lobe. There is a 2-3 mm nodule in the right lung apex. There are two 5 mm right upper lobe nodules and there is a 3 mm right middle lobe nodule. There is a 3 mm left lower lobe nodule. There is a 4 mm left upper lobe nodule. There is a 5 mm nodule in the left lung apex. These nodules are new or more apparent, but may have been previously obscured by infiltrate. There is mild atelectasis or scar in the right lung base There is a minimal left pleural effusion. There is no right pleural effusion or pneumothorax. There is apparent mosaic attenuation. No endobronchial lesion is seen There is no mediastinal, hilar, or axillary adenopathy. The thoracic aorta is of normal caliber. There is no pericardial effusion There is a nodule in the right thyroid lobe, measuring approximately 2.6 cm. The gallbladder has been removed. There is bilateral renal cortical atrophy. There are new compression fractures of the T7, T10, T12, and L1 vertebral bodies Impression: 1. Multiple small pulmonary nodules, indeterminate in nature. A follow-up chest CT could be obtained in 6 months 2. Mosaic attenuation, which may be due to chronic small airway disease such as asthma 3. Indeterminate thyroid nodule. A thyroid ultrasound could be obtained for further evaluation 4. Minimal left pleural effusion 5. Multiple vertebral compression fractures, new since 2019 but not clearly acute ACT 112: Positive. There are findings on this exam that require communication between the performing entity and the patient following Patient Test Result Information Act ([place] ACT 112) guidelines. Electronically signed by Kevin Ramos 07-21-2024 4:25 PM
[2024-07-21] MEDS: METOPROLOL SUCC 25MG EXT REL TAB PO SCH (17:15)
[2024-07-21] MEDS: MAGNESIUM OXIDE 400 MG TAB PO ONE ×2 (17:59→20:08)
[2024-07-21] MEDS: Nursing to Pharmacy Communication SCH (19:08)
[2024-07-22] MEDS: TACROLIMUS 0.75 MG PO SCH (06:07)
[2024-07-22 07:02] LABS: BUN Creatinine Ratio 16.3 (10-20); Calcium 9.1 mg/dl (8.6-10.3); Creatinine Clr Calc Pharmacy 74.5 ml/min; Magnesium 1.7 mg/dl (1.7-2.4)
--- NOTE | 2024-07-22 10:06 | Nephrology Progress Note ---
Date of Service July 22, 2024 Assessment & Plan (1) Kidney transplant recipient: (2) Hypertensive urgency: (3) Pulmonary congestion: (4) Immunosuppressed status: Plan 64-year-old female, status post live donor kidney transplant in 2020 with excellent allograft function, baseline creatinine 0.8-1.0 mg/dl. Recent urinalysis unremarkable with no proteinuria or hematuria. Renal ultrasound showed normal allograft and atrophic gulkana kidneys. Has been tolerating immunosuppressive medication without any recent changes in dose. Admitted with progressive shortness of breath, volume overload, hypertensive urgency and headache. Blood pressure has been an ongoing issue for last about 2 months associated with tachycardia, started on beta-rigo 2 months ago with improvement in blood pressure however blood pressure recently again worsened. Blood pressure rapidly improved since admission while getting beta-rigo and started on ethacrynic acid. However she continues to have bothersome respiratory symptoms including shortness of breath and feeling of chest pressure and concerned with the pleural effusion and pulmonary congestion. Workup so far otherwise unremarkable, no proteinuria, kidney function normal. 2D echo without any systolic or diastolic dysfunction or wall motion abnormality. LFTs were normal. Volume overload, shortness of breath and pulmonary congestion could be secondary to hypertensive urgency, may improve with diuretic. CT chest without contrast on 07/21/24 showed Multiple small pulmonary nodules, indeterminate in nature, radiology recommended a follow-up chest CT in 6 months. Also noted to have mosaic attenuation, which may be due to chronic small airway disease. Overall clinically doing better with improvement in blood pressure and volume status, responding well to diuretic. No contraindication to use diuretic based on her transplant status unless she seems clinically volume depleted. She reports generally keeping herself well hydrated. --Blood pressure may continue to improve with diuretic and the beta-rigo dose of which can be adjusted up as needed, however, in future if blood pressure again elevated, would recommend adding amlodipine. If she is started on amlodipine, will need to monitor tacrolimus level which may go up. -- Will follow while in hospital but okay to be discharged from nephrology standpoint and she can follow-up with Dr. Corona in CKD clinic as currently scheduled. Admission and Anticipated Discharge Date Admission Date: July 20, 2024 Subjective Madie was seen and examined this morning. She reports feeling better, Decent UO, net negative. Kidney function normal, electrolytes acceptable, magnesium improved to 1.7 mg/dl. Blood pressure improved although still systolic blood pressure around 140s. She is still concerned with the fact that her room air oxygen saturation most of the time below 95. Review of Systems Review of Systems: Detailed review of system was done and pertinent positives and negatives are mentioned above. Physical Exam Constitutional: WD/WN, vitals as above no acute distress Eyes: + anicteric sclerae Respiratory: Auscultation: lungs clear to auscultation bilaterally; no wheezes Cardiovascular: Rate/Rhythm: regular rate and regular rhythm Heart Sounds: normal S1 and normal S2 Extremities: + edema (trace non pitting edema) and + AV fistula (left BC AVF with bruit, aneurysm.) Musculoskeletal: Extremities: extremities normal to inspection Skin: no rashes, warm and dry Neurologic: no focal motor deficits Psychiatric: Orientation: alert and oriented x 3 Affect: euthymic affect Results & Data Vital Signs (Past 12 Hours) Vital Signs Temp Pulse Pulse Resp BP Pulse Ox O2 Del Method 07/22/24 08:16 36.9 C 70 18 148/76 H 93 Room Air 07/22/24 08:00 Room Air 07/22/24 06:45 65 07/22/24 03:58 36.8 C 75 20 157/82 H 94 Room Air 07/21/24 23:50 37.1 C 75 20 149/81 H 94 Room Air 07/21/24 23:05 69 PG Care Time/CCT Total # of Minutes Spent Total Time Spent with Patient: Total time spent is greater than 50% in coordination of care (as documented) at patient's floor/unit and/or counseling patient: Coding Level of Care Code 72057 SUB INP/OBS CARE 2/35MIN Diagnoses Kidney transplant recipient Z94.0 Hypertensive urgency I16.0 Pulmonary congestion R09.89 Immunosuppressed status D89.9
--- NOTE | 2024-07-22 10:45 | Cardiology Progress Note ---
Date of Service July 22, 2024 Assessment & Plan (1) Hypertension: (2) Kidney transplant recipient: (3) Acute heart failure with preserved ejection fraction: (4) Shortness of breath: Plan 07/20/24 Patient admitted with symptoms of progressive SOB, edema, weight gain, chest tightness, mild hypoxia. Findings consistent with probable acute on chronic HF exacerbation in setting of uncontrolled hypertension over the last few weeks/months. Chest xray with probable pulm vascular congestion. Would benefit from IV diuretics. Treatment options complicated by renal transplant status and intolerance to loop diuretics due to sulfa allergy. In the past she has been only able to take Ethacrynic acid as the choice of diuretic. If acceptable with nephrology, would start diuretic. Renal function appears at baseline with creatinine of 0.9. Stable electrolytes Diuresis may also aid uncontrolled HTN. Continue metoprolol succinate 25 mg BID. Her exertional dyspnea may be multifactorial with HTN and volume overload. Update echo. HS troponin negative x1. Repeat serial troponin for completeness. EKG without acute ischemic changes when compared with past tracings. After diuresis and BP management, consider outpatient nuclear Lexiscan stress test. Further recommendations pending admission, further evaluation, and discussion with Dr. Mccarthy and other specialists. Would consult [place] nephrology (Dr. Corona) to aid with her treatment as well. 07/21/24: Patient diuresing with ethacrynic acid 25 mg. First dose last night. Repeat dose given this morning. Stable renal function and potassium. Appreciate nephrology recommendations. Supplement magnesium. BP improved. She developed headache with nitro patch and this was removed. Continue metoprolol 25 mg BID Monitor I+O's Daily weight with standing scale. Patient had concerns with pulm disease contributing to her SOB. She will discuss with hospitalist. consider chest CT (no contrast) Echo demonstrating normal LVEF, no wall motion abnormalities, no significant valvular disease. 07/22/24: Patient diuresing and tolerating ethacrynic acid at 25 mg daily stable renal function and electrolytes BP trending downward. Recommend continuing ethacrynic acid 25 mg PO daily on discharge. Continue metoprolol 25 mg BID F/U BMP next week F/U with nephrology as well. Will arrange outpatient nuclear stress test for further evaluation of her exertional dyspnea. Stable for discharge from cardiac perspective. No further cardiac testing warranted at this time. Please contact primary education professor cardiology provider with additional questions or concerns. Case discussed with Dr. Mccarthy I spent a total of 30 minutes on the date of service in preparation, delivery, and documentation of the care provided to this patient, excluding any time spent in the performance of separately billed services. Makayla Aranda PA-C Department of Cardiology, [facility] This chart was completed in part utilizing Speech Voice Recognition Software. Grammatical errors, random word insertions, pronoun errors, and incomplete sentences are an occasional consequence of this system due to software limitations, ambient noise, and hardware issues. Any formal questions or concerns about the content, text, or information contained within the body of this dictation should be directly addressed to the provider for clarification. Admission and Anticipated Discharge Date Admission Date: July 20, 2024 Supervising Physician Co-Signing Physician Notes I have reviewed the advance practitioner's documentation, and I agree with, and take responsibility for the plan of care. Shorty Mccarthy DO, [facility] Subjective Patient resting in bed comfortably. SOB improving. Cough improved. No chest pain. No dizziness. Headache resolved. Good urine outputs over the last 24 hours. BP trending down as well. Anxious for discharge. Review of Systems Review of Systems: All systems reviewed & are unremarkable except as noted in HPI & below Physical Exam Constitutional: WD/WN, vitals as above average body habitus; no acute distress Neck: trachea midline, no thyromegaly Respiratory: no labored breathing Auscultation: + diminished lung sounds; no rales (faint bibasilar rales) Cardiovascular: Rate/Rhythm: regular rate and regular rhythm Heart Sounds: + murmur (diffuse holosystolic murmur vs radiation of left upper arm fistula? ) Extremities: + edema (Trace b/l ankle and pretibial edema/non pitting) Gastrointestinal (Abdomen): normal bowel sounds, soft, nontender, no hepatosplenomegaly Musculoskeletal: no cyanosis or clubbing, extremities motor strength 5/5 Neurologic: PERRL, EOMI, accommodation nl, no face palsy, no dysarthria Results & Data Vital Signs (Past 12 Hours) Vital Signs Temp Pulse Pulse Resp BP Pulse Ox O2 Del Method 07/22/24 08:16 36.9 C 70 18 148/76 H 93 Room Air 07/22/24 08:00 Room Air 07/22/24 06:45 65 07/22/24 03:58 36.8 C 75 20 157/82 H 94 Room Air 07/21/24 23:50 37.1 C 75 20 149/81 H 94 Room Air 07/21/24 23:05 69 Laboratory Results Comprehensive Metabolic Panel 07/22/24 Range/Units 05:56 Sodium 136 (136-145) mmol/L Potassium 4.0 (3.5-5.1) mmol/L Chloride 105 (98-107) mmol/L Carbon Dioxide 26 (21-32) mmol/L BUN 13 (6-23) mg/dl Creatinine 0.80 (0.6-1.2) mg/dl Glucose 95 (70-99(Fasting)) mg/dl Calcium 9.1 (8.6-10.3) mg/dl Intake and Output 07/21/24 07/22/24 07/22/24 22:59 06:59 14:59 Intake Total 1100 / 1580 Output Total 400 / 2800 1800 / 2800 Balance -400 / -1220 -700 / -1220 Intake: Oral 1100 / 1580 Output: Urine 400 / 2800 1800 / 2800 Other: Weight 79.7 kg Weight Measurement Method Standing Scale Diagnostic Findings Telemetry reviewed: NSR in the 60-70's with occ PVC Medications Administered Current Inpatient Medications Acetaminophen (Acetaminophen 500 Mg Tab) 1,000 mg PO Q8H PRN PRN Reason: Pain or Fever Stop: 08/19/24 20:54 Last Admin: 07/20/24 22:38 Dose: 1,000 mg Al Hydrox/Mg Hydrox/Simethicone (Aluminum/Magnesium/Simeth (Maalox Max) 30 Ml Udc) 15 ml PO Q6H PRN PRN Reason: Indigestion Stop: 08/19/24 20:54 Aspirin (Aspirin 81 Mg Ectab) [facility] Stop: 08/20/24 08:59 Last Admin: 07/22/24 08:00 Dose: 81 mg Atorvastatin Calcium (Atorvastatin 20 Mg Tab) [facility] Stop: 08/20/24 08:59 Last Admin: 07/22/24 08:00 Dose: 20 mg Ethacrynic Acid (Ethacrynic Acid 25 Mg Tab) [facility] Stop: 08/19/24 16:44 Last Admin: 07/22/24 08:00 Dose: 25 mg Heparin Sodium (Porcine) (Heparin Sod 5,000 Unit/0.5 Ml Vial) 5,000 units SQ Q8 [facility] Stop: 08/19/24 21:59 Last Admin: 07/22/24 05:08 Dose: Not Given Metoprolol Succinate (Metoprolol Succ 25mg Ext Rel Tab) 25 mg PO BIDM [facility] Stop: 08/19/24 20:59 Last Admin: 07/22/24 08:00 Dose: 25 mg Multivitamins (Multivitamin Tab) 1 tab PO QAM [facility] Stop: 08/20/24 08:59 Last Admin: 07/22/24 08:00 Dose: 1 tab Mycophenolate Sodium (Mycophenolate Sodium 180 Mg Tab) 180 mg PO BID [facility] Stop: 08/19/24 21:29 Last Admin: 07/22/24 08:00 Dose: 180 mg Nitroglycerin (Nitroglycerin 2% Ointment 30gm Tube) 0.5 inch EXT Q6H [facility] Stop: 08/19/24 16:59 Last Admin: 07/20/24 22:35 Dose: 0.5 inch Ondansetron HCl (Ondansetron Inj 2 Mg/Ml 2 Ml Vial) 4 mg IV Q6H PRN PRN Reason: Nausea And Vomiting Stop: 08/19/24 20:54 Polyethylene Glycol (Polyethylene (Miralax) 17 Gm Pack) 17 gm PO DAILY PRN PRN Reason: Constipation Stop: 08/19/24 20:54 Tacrolimus (Tacrolimus Xr 0.75 Mg Ertab) 1.5 mg PO DAILYBB [facility] Stop: 08/20/24 08:59 Last Admin: 07/22/24 06:07 Dose: 1.5 mg
--- NOTE | 2024-07-22 11:07 | Discharge Summary ---
Discharge Summary Date of Service July 22, 2024 Principal Dx & Hospital Course #1 = Principal Diagnosis (1) Acute heart failure with preserved ejection fraction: (2) Hypertension, uncontrolled: (3) Kidney transplant recipient: (4) Thyroid nodule: (5) Small airways disease: Plan Patient 64-year-old female with history of renal transplant and has been struggling with some hypertension over the last several weeks. She began to get more progressively dyspneic on exertion and started as some chest pressure prompting evaluation in the emergency room. In the emergency room workup was significant hypertension that was uncontrolled and some imaging consistent with some volume overload. Patient was admitted to the hospital. She apparently has had a difficult time with diuretics in the past. The one diuretic she could giovany erate is ethacrynic acid. She was started on this and diuresed well. Following day her blood pressure was improved and her dyspnea had resolved and she was saturating well on room air. Cardiology and nephrology consultation was obtained. Echocardiogram was updated. Nephrology was supportive of ongoing diuresis. Recommending amlodipine to be added to her beta-rigo if better blood pressure control was required. Echocardiogram showed normal ejection fraction, no evidence of pulmonary hypertension. Patient reports a history of hypersensitivity pneumonitis. She is quite concerned that her shortness of breath is somehow related to this. CT of the chest was performed. Did show some small nodules that have been noted since at least [address] of the chest. Showed some other chronic changes. And confirm that there is an effusion consistent with volume overload. Day of discharge blood pressure improved. Will add amlodipine for further control she will continue the diuretic. She will be discharged home to follow-up with her outpatient providers. at bedside agreeable to plan of care as well. Notes For Next Care Provider Follow-up with nephrology for ongoing management of renal transplant and blood pressure control Consider outpatient referral to pulmonary for remote history of hypersensitivity pneumonitis and chronic pulmonary nodules that are unchanged in size and possible small vessel airway disease Consider further outpatient evaluation of thyroid nodule Medication Changes From Visit ethacrynic acid added Amlodipine added Admission HPI Per Admitting Provider Patient is a 64-year-old female with past medical history significant for history of kidney transplant on immunosuppressive therapy, chronic diastolic heart failure, hypertension, hyperlipidemia, JAVED, hypothyroidism who was sent in by her face and fill packer in 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 states that she for started having migraines and presented to her PCPs office for further evaluation. It was noted at that time that her blood pressure was significantly elevated. States she was started on a medication to help with that but it has been difficult getting her blood pressure under control. States that more recently she has been having progressive shortness of breath and dyspnea on exertion as well as some chest pressure. States that the pressure is not like her typical heartburn. States that she called her face and fill packer office for follow-up and happened to mention her symptoms and got a call back from her face and fill packer Dr. Sheth. 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 She notes that she had her renal transplant done in 2020 at [facility] and last saw them in August 2023. Notes she has been having nausea, diarrhea and palpitations with that chest pressure. Admission Exam Per Admitting Provider See H&P Discharge Exam Constitutional: Alert, nontoxic HEENT: Mucous membranes moist. Lungs: Decreased breath sounds, no wheezes. Rales significantly improved CV: S1-S2, regular, systolic murmur Abdomen: Soft, nontender, nondistended Extremities: No significant edema Neuro: No focal deficits Psych: Cooperative, normal mood Updated Medication List Medication Instructions Recorded Confirmed Type atorvastatin 20 mg tablet 20 mg PO QAM 07/09/18 07/20/24 History aspirin 81 mg tablet,delayed 81 mg PO QAM 03/13/21 07/20/24 History release (Adis Low Dose Aspirin) multivitamin with iron 1 tab PO QAM 03/13/21 07/20/24 History mycophenolate sodium 180 mg 180 mg PO BID 03/13/21 07/20/24 History tablet,delayed release metoprolol succinate 25 mg 25 mg PO BID #60 tabs 06/16/24 07/20/24 Rx tablet,extended release 24 hr tacrolimus 0.75 mg tablet,extended 1.5 mg PO QAM 07/20/24 07/20/24 History release 24 hr (Envarsus XR) amlodipine 5 mg tablet (Norvasc) 5 mg PO DAILY #30 tabs 07/22/24 Rx ethacrynic acid 25 mg tablet 25 mg PO QAM #30 tabs 07/22/24 Rx (Edecrin) Hospital Stay Data Consultations 07/20/24 14:43 ED Decision to Admit Stat 07/20/24 14:46 Consult Cardiology Routine 07/20/24 15:24 Consult Nephrology Routine Diagnostic Imagining Performed 07/21/24 15:14 CT chest diagnostic wo con Routine reviewed imaging, laboratory and diagnostic studies. Pertinent findings as below. Electrolytes within normal limits Creatinine 0.80 Magnesium 1.7 CTChest shows chronic small pulmonary nodules indeterminate in the size and nature Mosaic attenuation consistent with small airway disease, thyroid nodule, minimal left pleural effusion, vertebral compression fractures. Note: Reviewed CT from 2019, nodules present at that time as well. Discharge Instructions Given to Patient (Per Discharging Provider) Follow-up with your various specialists Follow-up with your PCP Discussed with your PCP whether he would benefit from pulmonary consultation in the office and further evaluation of the small thyroid nodule. Total Time Total Time Spent Total Time Spent (In Minutes): 37
[2024-07-22] MEDS: amLODIPine BESYLATE 5 MG TAB PO ONE (11:30)
[2024-07-22 11:33] VITALS: BP 148/87; PULSE 69; RESP 17; TEMP 98.2; O2SAT 92
== END 2024-07-22 12:08 | disposition home or self-care (01) | DRG 291 ==
LOC: ED 13:13 → 2N 15:16 → SUATTDRO 15:16 → 2N 16:48